=== PATIENT | male | born 1940 | race Caucasian/White ===

== ENCOUNTER 2019-12-27 13:08 | Outpatient (CLI) | payer MEDICARE, SELFPAY ==
--- NOTE | ~2019-12-27 | CT_ITS ---
EXAMINATION: CT chest wo con DATE: 12/27/2019 13:39 INDICATION: Follow-up lung nodule. Emphysema. Bony breath. Cough. TECHNIQUE: Computed tomography (CT) of the chest was performed without intravenous contrast. The dose -length product was 557.02 mGy-cm. Automated exposure control and iterative reconstruction technique were employed. COMPARISON: CT dated 10/14/2017 FINDINGS: There is atherosclerosis of the aorta. Heart size normal. No thoracic lymphadenopathy. Ther e is evidence for chronic granulomatous disease with calcified mediastinal lymph nodes and splenic gr anulomas. No significant pleural or pericardial effusion. There are a few calcified granulomas in the lung parenchyma and liver. There are 2 mm upper lobe nodules, likely benign, without significant susan nge. There is left lower lobe airspace disease, compatible with pneumonia. Moderate thoracic spondylo sis. IMPRESSION: 1. Left lower lobe airspace disease, compatible with pneumonia. Reviewed, dictated and finalized at location A.
== END 2019-12-27 13:09 | disposition home or self-care (01) ==
PROVIDERS: PCP Internal Medicine; Visit Provider Internal Medicine Critical Care Medicine
DX: R91.1 Solitary pulmonary nodule (principal); R91.8 Other nonspecific abnormal finding of lung field
CPT/HCPCS: 71250

== ENCOUNTER 2020-01-07 11:39 | Outpatient (CLI) | payer MEDICARE, SELFPAY ==
--- NOTE | ~2020-01-07 | XR_ITS ---
XR chest 2V DATE: 01/07/2020 12:06 INDICATION: Shortness of breath. Pneumonia. TECHNIQUE: PA and lateral views COMPARISON: 12/27/2019 CT chest FINDINGS: There is bilateral hyperinflation. Mild residual infiltrate or atelectasis in the left lower lung; otherwise no pulmonary infiltrate or consolidation, pleural effusion or pulmonary vascular congestion or pneumothorax is evident. Heart si ze appears within normal range. No hilar or mediastinal enlargement. Diffuse idiopathic skeletal hyperostosis of the thoracic spine. IMPRESSION: Mild residual infiltrate or atelectasis in the left lower lung Reviewed, dictated and finalized at location A.
== END 2020-01-07 11:40 | disposition home or self-care (01) ==
LOC: ANHIMG 11:45
PROVIDERS: PCP Internal Medicine; Visit Provider Internal Medicine
DX: J18.9 Pneumonia, unspecified organism (principal)
CPT/HCPCS: 71046

== ENCOUNTER 2020-03-21 14:06 | Outpatient (CLI) | payer MEDICARE, SELFPAY ==
--- NOTE | ~2020-03-21 | XR_ITS ---
EXAMINATION: XR foot LT min 3V DATE: 03/21/2020 14:45 INDICATION: Left foot injury. TECHNIQUE: 4 views of the left foot with weightbearing were obtained. COMPARISON: None. FINDINGS: Bone alignment is normal. No fracture. There is moderate osteoarthritis of first metatarsop halangeal joint and mild osteoarthritis of some of the interphalangeal joints. There are enthesophyte s at the posterior and plantar aspects of calcaneal tuberosity. IMPRESSION: 1. Polyarticular osteoarthritis. Reviewed, dictated and finalized at location B.
--- NOTE | ~2020-03-21 | XR_ITS ---
EXAMINATION: XR ankle LT min 3V DATE: 03/21/2020 14:45 INDICATION: Left ankle injury. TECHNIQUE: 4 views of left ankle were obtained. COMPARISON: Left ankle radiographs 06/15/2019 FINDINGS: Bone alignment is normal. No fracture. Joint spaces are well maintained. There are enthesop hytes at the posterior and plantar aspects of calcaneal tuberosity. Ankle soft tissue swelling is not ed. IMPRESSION: 1. No fracture. Reviewed, dictated and finalized at location B. IMPRESSION: 1. No fracture.
== END 2020-03-21 14:07 | disposition home or self-care (01) ==
PROVIDERS: PCP Internal Medicine; Visit Provider Internal Medicine
DX: S99.922A Unspecified injury of left foot, initial encounter (principal); X58.XXXA Exposure to other specified factors, initial encounter; M19.072 Primary osteoarthritis, left ankle and foot
CPT/HCPCS: 73610; 73630

== ENCOUNTER 2020-05-09 08:43 | Outpatient (CLI) | payer MEDICARE, SELFPAY ==
--- NOTE | 2020-05-09 08:49 | ECHO_ITS ---
Patient Info Name: Santos Mcgill Age: 79 years : 1940 Gender: Male Ht: 74 in Wt: 285 lbs BSA: 2.64 m2 HR: 70 bpm BP: 170 / 79 mmHg Heart Rhythm: Sinus Rhythm Technical Quality: Fair Exam Date: 05/09/2020 9:00 AM Exam Location: [facility] Patient Status: Outpatient Admit Date: 05/09/2020 Staff Ordering Physician: Nelson Tapia MD District Sales Manager: Gurinder Monroy RDCS Attending Provider: Nelson Tapia MD Referring Physician: Regina CASTILLO; Exam Type: CA echo doppler color flow Study Info Indications I10 - Essential (primary) hypertension Complete two-dimensional, color flow and Doppler transthoracic echocardiogram is performed. History/Risk Factors Essential Hypertension; Aortic stenosis; Murmur. Summary 1. Complete two-dimensional, color flow and Doppler transthoracic echocardiogram is performed. 2. Left ventricular chamber dimension is normal. 3. Left ventricular systolic function is normal, estimated at 60-65%. 4. There is moderately increased left ventricular wall thickness. 5. The left ventricular diastolic function is grade I diastolic dysfunction. 6. E/e' 11 is mildly elevated. 7. Left atrial chamber dimension is mildly enlarged. 8. The aortic valve is not well visualized. 9. There is moderate aortic valve sclerosis. 10. There is mild aortic valve stenosis based on a peak velocity of 239 cm/s, mean gradient of 13 mmHg, and aortic valve area of 1.6 cm2. 11. There is trivial pericardial effusion. Left Ventricle E/e' 11 is mildly elevated. Left ventricular chamber dimension is normal. Left ventricular systolic function is normal, estimated at 60-65%. There is moderately increased left ventricular wall thickness. The left ventricular diastolic function is grade I diastolic dysfunction. Right Ventricle Right ventricular chamber dimension is not well visualized. Left Atria Left atrial chamber dimension is mildly enlarged. Right Atria Right atrial chamber dimension is not well visualized. Aortic Valve Cannot determine number of aortic valve leaflets. There is mild aortic valve stenosis based on a peak velocity of 239 cm/s, mean gradient of 13 mmHg, and aortic valve area of 1.6 cm2. The aortic valve is not well visualized. There is moderate aortic valve sclerosis. There is no aortic valve regurgitation. Pulmonic Valve The pulmonic valve is not well visualized. There is no pulmonic regurgitation. Mitral Valve There is no mitral valve stenosis. There is no mitral valve regurgitation. Tricuspid Valve There is no tricuspid valve regurgitation. Pericardium/Pleural There is trivial pericardial effusion. Inferior Vena Cava Normal inferior vena cava with >50% collapse upon inspiration consistent with normal right atrial pressure, 5 mmHg. Aorta The aortic root size at the sinus of Valsalva is normal. Left Ventricular Outflow Tract Name Value Normal LVOT 2D LVOT Diameter 2.0 cm LVOT Doppler LVOT Peak Gradient 6 mmHg LVOT Mean Gradient 3 mmHg LVOT VTI 24 cm
== END 2020-05-09 08:44 | disposition home or self-care (01) ==
PROVIDERS: PCP Internal Medicine; Visit Provider Internal Medicine
DX: I10 Essential (primary) hypertension (principal); I45.10 Unspecified right bundle-branch block
CPT/HCPCS: 93306

== ENCOUNTER 2020-06-20 12:14 | Outpatient (NON) | payer MEDICARE, SELFPAY ==
[2020-06-23 17:04] LABS: SARS-CoV-2 RNA PCR Positive
== END 2020-06-20 12:15 ==
LOC: ANHCOVIDDT 12:17
PROVIDERS: PCP Internal Medicine; Visit Provider Internal Medicine
DX: U07.1 COVID-19 (principal)
CPT/HCPCS: 87635; C9803; U0003

== ENCOUNTER 2022-04-04 09:39 | Outpatient (CLI) | payer MEDICARE, SELFPAY ==
--- NOTE | ~2022-04-04 | XR_ITS ---
EXAMINATION: XR chest 2V DATE: 04/04/2022 10:01 INDICATION: Right chest pain. Cough. TECHNIQUE: Frontal and lateral views of the chest were obtained on 3 radiographs. COMPARISON: Chest 2 views 01/07/2020, chest CT 12/27/2019 FINDINGS: Calcified right lung nodules and calcified hilar lymph nodes are consistent with old granul omatous disease. There is mild atelectasis in the lower lung zones. No pleural effusion or pneumothor ax. The heart size is normal. There are prominent paracardial fat pads. IMPRESSION: 1. Mild atelectasis in the lower lung zones. Reviewed, dictated and finalized at location A.
== END 2022-04-04 09:40 | disposition home or self-care (01) ==
PROVIDERS: PCP Internal Medicine; Visit Provider Internal Medicine
DX: R07.9 Chest pain, unspecified (principal); R91.8 Other nonspecific abnormal finding of lung field
CPT/HCPCS: 71046

== ENCOUNTER 2022-08-09 08:02 | Outpatient (CLI) | payer MEDICARE, SELFPAY ==
--- NOTE | 2022-08-09 14:55 | WPDPFTINT ---
PFT Procedure Performed PFT Procedure Performed Spirometry with Pre/Post Bronchodilator Plethysmography (Lung Vol) Diffusing Cap (DLCO) Flow Vol Loop PFT Interpretation This is a pulmonary function test with pre and post-bronchodilator spirometry, plethysmography and diffusing capacity. The test was performed and results interpreted in accordance with the 2019 and 2005 ATS/ERS Task Force guidelines respectively using the Global Lung Function Initiative-2012 reference equations. Patient demonstrated good effort and cooperation. Reproducibility criteria were met. The quality of the pre bronchodilator spirometry maneuver was Grade B and post bronchodilator spirometry maneuver was Grade B. Of note, the patient had difficulty with the expiratory limb on the flow volume loops. Findings: Spirometry: The contour the expiratory flow tracing on 2 of 2 pre bronchodilator efforts has a mid expiratory notch. The contour of the expiratory flow tracing on 3 of 3 post bronchodilator efforts is normal. The contour the inspiratory flow tracing is normal. The pre bronchodilator FVC is 2.97 L, 71% predicted. The pre bronchodilator FEV1 is 1.85 L, 60% predicted. The pre bronchodilator FEV1: FVC ratio was 62%. The post bronchodilator FVC is 3.38 L, representing a 14% increase. The post bronchodilator FEV1 is 2.39 L, representing a 29% increase. The post bronchodilator FEV1: FVC ratio 71%. Plethysmography: The total lung capacity is 5.46 L, 73% predicted. The post bronchodilator FEV1 is 2.39 L, 59% predicted. The residual volume is 2.26 L, 81% predicted. Diffusing capacity: The diffusing capacity unadjusted for hemoglobin and carboxyhemoglobin is 15.9, 64% predicted. The diffusing capacity adjusted for alveolar volume is 3.67, 105% predicted. Comparison to previous pulmonary function testing on 07/23/2019. On 07/23/2019, 1 of 3 pre bronchodilator efforts had oscillations in the expiratory flow tracing and 2 of 3 efforts had a mid expiratory plateau or a knee pattern. One of 3 post bronchodilator efforts was notched and 2 of 3 post bronchodilator efforts had oscillations. The post bronchodilator FVC is unchanged from 3.65 L to 3.38 L. The post bronchodilator FEV1 is unchanged from 2.64 L to 2.39 L. The total lung capacity has decreased from 6.56 L to 5.46 L. The functional residual capacity has decreased from 4.25 L to 2.39 L. The residual volume has decreased from 3.27 L to 2.26 L. The diffusing capacity unadjusted for hemoglobin and carboxyhemoglobin is unchanged from 17.3 to 15.9. The diffusing capacity adjusted for alveolar volume is unchanged from 3.42 to 3.67. Impression: Currently the patient has a mid expiratory notch in 2 of 2 pre bronchodilator efforts but not in any of the three the post bronchodilator efforts. Previously the patient had a mid expiratory plateau or a knee pattern and expiratory oscillations. 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 The knee pattern can be a normal variant or pathologic and has been attributed to a choke point section of the bronchial tree. The normal variant is more common in younger female patients, decreases with age and is more pronounced in the post bronchodilator efforts. The pattern has also been described with kyphosis, kyphoscoliosis, central obstructing mass, and post lung transplantation. 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 Clinical correlation is recommended. There is a moderate severe restrictive ventilatory abnormality. The spirometry is without evidence of an obstructive abnormality. There is significant improvement after inhaling a single dose of albuterol. The diffusing capacity unadjusted for hemoglobin and carboxyhemoglobin is mildly decreased and normalizes when adjusted for alveolar volume. In comparison to previous pulmonary function testing on 07/23/2019 there has been a greater than anticipated time dependent decrease in t
== END 2022-08-09 08:03 | disposition home or self-care (01) ==
LOC: ANHPFT 08:03
PROVIDERS: PCP Internal Medicine; Visit Provider Internal Medicine
DX: J44.9 Chronic obstructive pulmonary disease, unspecified (principal); R94.2 Abnormal results of pulmonary function studies
CPT/HCPCS: 94060; 94726; 94729

== ENCOUNTER 2023-04-15 09:45 | Emergency (ER) | payer MEDICARE, SELFPAY ==
--- NOTE | ~2023-04-15 | XR_ITS ---
EXAMINATION: XR lumbar spine 2-3V DATE: 04/15/2023 13:52 INDICATION: Low back pain TECHNIQUE: Anteroposterior and lateral views of the lumbar spine, and cone-down lateral view of the l umbosacral junction were obtained. COMPARISON: CT, 06/17/2019 FINDINGS: There is chronic severe loss of intervertebral disc space height at L4-5 and L5-S1. There i s moderate loss of disc space height at L1-2 and L2-3. The vertebral body heights are maintained. The re are 6 mm of retrolisthesis of L5 on S1. There is no fracture. Small degenerative osteophytes proje ct from the anterior endplates of multiple vertebral bodies. Calcified atherosclerosis is noted. IMPRESSION: 1. Severe lumbar spondylosis without acute findings or significant interval change. Reviewed, dictated and finalized at location L. IMPRESSION: 1. Severe lumbar spondylosis without acute findings or significant interval susan nge.
--- NOTE | ~2023-04-15 | CT_ITS ---
EXAMINATION: CT abdomen pelvis wo con DATE: 04/15/2023 16:00 INDICATION: Left lower back pain. Hematuria. TECHNIQUE: Computed tomography (CT) of the abdomen and pelvis was performed without intravenous contr ast. Automated exposure control and iterative reconstruction technique were employed. The dose-length product was 1463.33 mGy-cm. COMPARISON: 02/14/2019 FINDINGS: Patchy consolidation in the bilateral lower lobes with associated mucous plugging of the bronchi susp icious for pneumonia. Calcified right middle lobe nodules, calcified right hilar lymph nodes and nume ivan hepatic and splenic calcifications, all consistent with old granulomatous disease. Cardiomegaly. Atherosclerotic coronary artery calcifications. Lipomatous hypertrophy of the atrial septum. No carmen cardial or pleural effusion. Gallbladder and bilateral adrenal glands are normal. There are bilateral renal cysts, the largest measuring 4.1 cm at the lower pole of the right kidney. No urolithiasis or hydronephrosis. There are few small dystrophic calcification scattered throughout the pancreas consis tent with sequela of chronic pancreatitis. There are few diverticula along the periphery of the bladd er. There is focal wall thickening along the posterior inferior bladder which given the history of he maturia raises concern for malignancy. Bowels including the appendix are normal. No free intraperiton eal gas or fluid. No pathologically enlarged abdominal or pelvic lymphadenopathy. There is extensive calcified atherosclerosis of the aorta and many of the other arteries. Suggestion of potentially hemo dynamically significant stenosis at the origin of the left renal artery, in the right common iliac an d bilateral internal iliac arteries in the bilateral common femoral arteries. Severe lumbar and mild lower thoracic spondylosis. Mild to moderate bilateral hip osteoarthritis. IMPRESSION: 1. A nonuniform wall thickening at the posterior inferior bladder which given the provided history he maturia and absence of urolithiasis raises concern for malignancy. Recommend cystoscopy for further e valuation. 2. Patchy consolidation and mucous plugging in the bronchi in the bilateral lower lobes and is consis tent with pneumonia. 3. Cardiomegaly. 4. Extensive atherosclerotic disease of the abdomen with large amount of calcific plaque suggesting p otentially hemodynamically significant stenosis at a few of the arteries as detailed above. Reviewed, dictated and finalized at location A. IMPRESSION: 1. A nonuniform wall thickening at the posterior inferior bladder which given t he provided history hematuria and absence of urolithiasis raises concern for ma lignancy. Recommend cystoscopy for further evaluation. 2. Patchy consolidation and mucous plugging in the bronchi in the bilateral low er lobes and is consistent with pneumonia. 3. Cardiomegaly. 4. Extensive atherosclerotic disease of the abdomen with large amount of calcif ic plaque suggesting potentially hemodynamically significant stenosis at a few of the arteries as detailed above.
[2023-04-15 09:52] VITALS: BP 132/59; PULSE 64; RESP 16; TEMP 36.6; O2SAT 98
--- NOTE | 2023-04-15 13:21 | ED.GENADULT ---
HPI - General Adult General Chief complaint: Back Pain/Injury Stated complaint: back pain Time Seen by Provider: 04/15/23 11:58 History of Present Illness HPI narrative: 82-year-old male presented to the emergency department for evaluation of left lower back pain. Patient reports symptoms started few days ago when he woke up in the morning. Patient denies any falls or injuries. Patient does have a history of kidney stones but states this does not feel similar. Patient denies any hematuria. Patient denies any associate abdominal pain. Patient denies any associated nausea vomiting or diarrhea. Patient does take [place] tens at home for pain control and did take some medication this morning. Patient denies any associated numbness or weakness. Patient states he has been having some difficulty ambulating due to pain. Related Data Home Medications Medication Instructions Recorded Confirmed cilostazol 100 mg tablet 100 mg PO BID 06/15/19 01/03/23 omega-3 fatty acids 1,000 mg 2,000 mg PO DAILY 06/15/19 01/03/23 capsule (Fish Oil Concentrate) ascorbate calcium (vitamin C) 500 500 mg PO DAILY 07/15/19 01/03/23 mg tablet aspirin 81 mg chewable tablet 81 mg PO DAILY 07/15/19 01/03/23 calcium carbonate 600 mg calcium 600 mg PO DAILY 07/15/19 01/03/23 (1,500 mg) tablet (Calcium) cholecalciferol (vitamin D3) 125 125 mcg PO DAILY 07/15/19 01/03/23 mcg (5,000 unit) capsule oxybutynin chloride 5 mg tablet 5 mg PO DAILY 07/15/19 01/03/23 [id number] acid-vit 1 tablet PO DAILY 01/25/21 01/03/23 K-lycop 400 mcg-20 mcg-370 mcg tablet (One-A-Day Men's 50 Plus (with vitamin K)) vitamin B complex 1 tablet PO DAILY 04/04/22 01/03/23 Allergies Allergy/AdvReac Type Severity Reaction Status Date / Time No Known Allergies Allergy Verified 01/01/23 08:39 Review of Systems Review of Systems: All systems reviewed & are unremarkable except as noted in HPI and below PMFSH Past Medical History Medical History Ankle pain Benign essential hypertension BMI 36.0-36.9,adult BMI 37.0-37.9, adult BMI 38.0-38.9,adult BPH (benign prostatic hyperplasia) Chest discomfort Chronic leg pain Chronic low back pain Colon cancer screening COPD (chronic obstructive pulmonary disease) DM type 2 (diabetes mellitus, type 2) Elevated homocysteine Encounter for Medicare annual wellness exam Encounter for routine adult health examination with abnormal findings Encounter for routine adult health examination without abnormal findings Exposure to COVID-19 virus Follow up Hearing loss Hx of colonic polyps Hyperlipidemia Hypersomnolence Left ankle sprain Microscopic hematuria Nocturia 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 Personal history of COVID-19 Pneumonia Polyarticular arthritis PVD (peripheral vascular disease) RBBB (right bundle branch block) RLS (restless legs syndrome) Vitamin D deficiency Family History Family History Father Emphysema lung Father Family history of liver disease Family history of chronic obstructive pulmonary disease Social History Social History Smoking status: Current every day smoker Second hand tobacco smoke exposure: No Alcohol intake: never Lack of Transportation: No Lack of Food: Never True Current Housing: I Have Housing Concerned About Future Housing: No Difficulty Paying Gas/Electric Bills: No Difficulty Paying for Meds: No Currently Unemployed: No Education: High School Diploma/GED Difficulty w/ Childcare or Family Care: No Living arrangements: with family Occupation/Education: occupation Gender identity (if verbalized by the patient): Male Exam Narrative: APPEARANCE: Well appearing, no pain, no distress, well-nourished. HEAD: normocephalic, atraumatic. EYES: PERRLA/EOMI, conjunctivae cl
[2023-04-15] MEDS: CYCLOBENZAPRINE HCL 10 MG TABLET PO (14:15)
[2023-04-15] MEDS: HYDROcodone/acetaminophen (*CRX) 10-325 MG TABLET 1 TAB PO (14:15)
--- NOTE | 2023-04-15 14:23 | PC.NURSE ---
pt aware of need for ua specimen. states does not have to go at this time. pt gruff with staff.
[2023-04-15 15:37] LABS: Appearance Urine Cloudy (Clear); Bacteria Urine Rare /hpf; Bilirubin Urine Negative (Negative); Blood Urine Negative (Negative); Color Urine Dark Yellow (Yellow); Glucose Urine UA Negative (Negative); Ketones Urine Trace mg/dL (Negative); Leukocyte Esterase Ur 2+ LEU/UL (Negative); Nitrate Urine Negative (Negative); Protein Urine 2+ mg/dL (Negative); Specific Grav Ur 1.024 (1.001-1.035); Squamous Epithelial Cell Urine Moderate /hpf (Few); WBC Urine 51-100 /hpf
[2023-04-15 15:39] LABS: Add Urine Microscopic? YES
== END 2023-04-15 17:22 | disposition home or self-care (01) ==
PROVIDERS: Emergency Provider Emergency Medicine; PCP Internal Medicine
DX: M54.50 Low back pain, unspecified (principal); R31.9 Hematuria, unspecified; I10 Essential (primary) hypertension; J44.9 Chronic obstructive pulmonary disease, unspecified; E78.5 Hyperlipidemia, unspecified; E11.9 Type 2 diabetes mellitus without complications; F17.200 Nicotine dependence, unspecified, uncomplicated
CPT/HCPCS: 72100; 74176; 81001; 87086; 87088; 99284; A9270

== ENCOUNTER 2023-09-29 11:55 | Outpatient (CLI) | payer MEDICARE, SELFPAY ==
--- NOTE | ~2023-09-29 | XR_ITS ---
EXAMINATION: XR knee LT 3V DATE: 09/29/2023 12:28 INDICATION: Generalized left knee pain TECHNIQUE: AP, sunrise and lateral views of the left knee were obtained. COMPARISON: None. FINDINGS: Alignment is normal. No fracture. Joint spaces appear normal although narrowing can be underestimate d on nonweightbearing imaging. No no left knee joint effusion. Atherosclerotic calcific lesions along the popliteal and distal femoral arteries. External brace seen at the medial lateral aspects of the left knee on the AP projection which is been removed on the subsequent images. IMPRESSION: 1. No or joint effusion or osseous abnormality at the left knee. Reviewed, dictated and finalized at location A. 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
== END 2023-09-29 11:56 | disposition home or self-care (01) ==
PROVIDERS: PCP Internal Medicine; Visit Provider Internal Medicine
DX: M25.562 Pain in left knee (principal)
CPT/HCPCS: 73562

== ENCOUNTER 2023-10-09 15:58 | Outpatient (CLI) | payer MEDICARE, SELFPAY ==
--- NOTE | ~2023-10-09 | MR_ITS ---
EXAMINATION: MR knee LT wo con DATE: 10/09/2023 17:01 INDICATION: Left knee pain. TECHNIQUE: Magnetic resonance imaging (MRI) of the left knee was performed without intravenous contra st. Sequences included axial PD-weighted FS FSE, coronal PD-weighted FSE and PD-weighted FS FSE, sagi ttal PD-weighted FSE, and sagittal T2-weighted FS FSE. COMPARISON: Left knee radiographs 09/29/2023 FINDINGS: Medial compartment: Medial meniscus is normal. There is cartilage surface irregularity of tibial condyle and femoral cond yle. There is shallow partial-thickness cartilage loss of femoral condyle involving the central artic ular surface. Lateral compartment: Lateral meniscus is normal. There is cartilage surface irregularity of tibial condyle. The femoral ca rtilage is normal. Patellofemoral compartment: There is cartilage surface irregularity of patella and trochlea. Ligaments and tendons: The anterior and posterior cruciate ligaments are normal. Medial collateral ligament is normal. There are changes of prior sprain of fibular collateral ligament characterized by increased signal intensi ty proximally. There is mild patellar tendinopathy. Fluid: There is a small knee joint effusion. There is mild prepatellar and superficial infrapatellar bursiti s. IMPRESSION: 1. Mild tricompartmental chondrosis. 2. Small knee joint effusion. Reviewed, dictated and finalized at location A.
== END 2023-10-09 15:59 | disposition home or self-care (01) ==
PROVIDERS: PCP Internal Medicine; Visit Provider Internal Medicine
DX: M25.462 Effusion, left knee (principal)
CPT/HCPCS: 73721

== ENCOUNTER 2024-03-27 13:19 | Outpatient (CLI) | payer MEDICARE, SELFPAY ==
--- NOTE | ~2024-03-27 | XR_ITS ---
XR hip LT 2V w AP pelvis 03/27/2024 13:46 Indication: Left leg pain Procedure: AP pelvis and 2 views left hip Comparison: No prior studies for comparison. Findings: Pelvic rings are intact. Mild osteoarthritis of the hips. No acute fracture or traumatic ma lalignment. There is lower lumbar spondylosis. There is atherosclerosis. Impression: 1: No acute abnormality of the left hip. Reviewed, dictated and finalized at location B. Impression: 1: No acute abnormality of the left hip.
--- NOTE | ~2024-03-27 | XR_ITS ---
XR knee LT 3V 03/27/2024 13:46 INDICATION: Left knee pain PROCEDURE: 3 views left knee COMPARISON: 09/29/2023 FINDINGS: Fracture, dislocation or subluxation is not identified. Small joint effusion. The soft tiss ues appear within normal limits. No foreign bodies are identified. IMPRESSION: 1: No acute fracture. 2: Small joint effusion. Reviewed, dictated and finalized at location B.
--- NOTE | ~2024-03-27 | XR_ITS ---
XR ankle LT min 3V 03/27/2024 13:46 INDICATION: Left ankle pain PROCEDURE: 4 views left ankle COMPARISON: 03/21/2020 FINDINGS: Fracture, dislocation or subluxation is not identified. Ankle mortise intact. The soft tiss ues appear within normal limits. No foreign bodies are identified. IMPRESSION: 1: NO ACUTE BONE OR JOINT ABNORMALITY IDENTIFIED. Reviewed, dictated and finalized at location B.
== END 2024-03-27 13:20 | disposition home or self-care (01) ==
PROVIDERS: PCP Internal Medicine; Visit Provider Internal Medicine
DX: M25.462 Effusion, left knee (principal)
CPT/HCPCS: 73502; 73562; 73610

== ENCOUNTER 2024-03-30 12:08 | Emergency (ER) | payer MEDICARE, SELFPAY ==
--- NOTE | ~2024-03-30 | US_ITS ---
EXAMINATION:US venous doppler LE LT INDICATION:Leg pain TECHNIQUE: Multiple grayscale, color flow and Doppler images of the left lower extremity deep venous systems were obtained and reviewed. COMPARISON:No prior studies for comparison. FINDINGS: The common femoral, superficial femoral and popliteal veins demonstrate normal respiratory variation, augmentation and compressibility. Color flow is also seen within the posterior tibial, pe roneal, greater saphenous and profunda veins. IMPRESSION: 1: No lower extremity deep venous thrombosis. Reviewed, dictated and finalized at location B.
--- NOTE | ~2024-03-30 | CT_ITS ---
EXAMINATION: CTA LE LT DATE: 03/30/2024 15:04 INDICATION: Left lower limb pain with prominent atherosclerotic calcifications at the left popliteal artery on prior CT TECHNIQUE: Computed tomographic angiography (CTA) of the abdominal, pelvis, and both lower extremitie s was performed with 150 mL Omnipaque 350 intravenous contrast. Automated exposure control and iterat renee reconstruction technique were employed. The dose-length product was 1359.25 mGy-cm. COMPARISON: CT abdomen and pelvis dated 04/15/[address] left knee dated 03/30/2024 FINDINGS: ABDOMINAL AORTA AND PELVIC VASCULATURE: Atherosclerotic calcifications without hemodynamically significant stenosis along the visualized infr arenal abdominal aorta. The inferior mesenteric arteries patent. Atherosclerotic plaque along the tory ateral iliac arteries. There is 75% stenosis at the proximal right common iliac artery and 35% stenos is at the left common iliac artery. There appears be occlusion of the origin of the left internal raiza ac artery with contrast opacification more distally likely related to collaterals. Scattered small am ount of atherosclerotic plaque without hemodynamic significant stenosis at the bilateral external raiza ac arteries. There is 50% stenosis at the proximal right internal iliac artery. RIGHT LOWER EXTREMITY: Prominent atherosclerotic calcifications at the right common femoral artery with high-grade, >70% emiliana nosis. There is near occlusion stenosis at the origin of the left superficial femoral artery. The mor e distal arteries diminutive following the stenosis progressively normalizing in caliber as it procee ds progressive collateral resupply. There is scattered nonhemodynamically significant atherosclerotic plaque along the more distal superficial femoral artery and nkxqs-jfw-yjdy popliteal artery. There i s a high-grade stenosis of the right popliteal artery at the level of the knee joint. There are scatt ered atherosclerotic plaque along the more distal arteries. Portion of the proximal right anterior ti bial artery extends beyond the margin of the field of imaging. There is runoff below the ankle in the right anterior tibial and posterior tibial arteries. The right peroneal artery is atretic with contr ast evident within the diminutive artery just above the level of the ankle. Incidentally noted is a l arge geode at the base of the right medial malleolus with narrow lucent tract extending to the articu lar cortex at the medial side of the tibial plafond. LEFT LOWER EXTREMITY: Similar high-grade stenosis at the left common femoral and proximal superficial femoral arteries and at the left popliteal artery at the level of the knee joint line. There is scattered atherosclerotic plaque without hematoma significant stenosis along the more distal arteries with runoff below the ank le in the left anterior tibial and posterior tibial arteries. The left peroneal artery similarly atre tic with contrast evident within the [place] distal artery to just above level of the ankle joint. The re is a small left knee joint effusion. ADDITIONAL FINDINGS: There are changes likely transurethral prostatectomy. The bladder and visualized portion of the bowel s, lower poles of the kidneys are unremarkable. No pathologically enlarged pelvic or inguinal lymphad enopathy. IMPRESSION: 1. Extensive atherosclerotic disease to bilateral lower limbs with relatively symmetric high-grade s tenoses at the bilateral common femoral, proximal superficial femoral and bilateral popliteal arterie s at the level of the knee joint lines. 2. High-grade stenosis at the proximal right common iliac artery and proximal left internal iliac art georgette. Reviewed, dictated and finalized at location A.
--- NOTE | ~2024-03-30 | CT_ITS ---
EXAMINATION: CT knee LT wo con DATE: 03/30/2024 13:05 INDICATION: Left knee pain TECHNIQUE: High resolution computed tomography (CT) of the left knee was performed without intravenou s contrast. Additional sagittal and coronal reconstructions were performed. Automated exposure contro l and iterative reconstruction technique were employed. The dose-length product was 751.39 mGy-cm. COMPARISON: Left knee radiographs dated 03/27/2024 FINDINGS: Bone alignment is normal. No fracture. Joint spaces appear normal on nonweightbearing imaging with no osteophytosis. Minimal right knee joint effusion at the suprapatellar pouch. There is scattered athe rosclerotic plaque along the popliteal artery extending into the anterior tibial, posterior tibial an d peroneal arteries. This most significant in the popliteal artery at level of the knee joint line wh ere it appears likely hemodynamically significant. Soft tissues are otherwise unremarkable. IMPRESSION: 1. Minimal left knee joint effusion. No osseous abnormality. 2. Scattered atherosclerotic calculations with potentially hemodynamically significant stenosis at th e popliteal artery at the level of the knee joint line. Reviewed, dictated and finalized at location A. IMPRESSION: 1. Minimal left knee joint effusion. No osseous abnormality. 2. Scattered atherosclerotic calculations with potentially hemodynamically sign ificant stenosis at the popliteal artery at the level of the knee joint line.
[2024-03-30 12:14] VITALS: BP 123/56; PULSE 77; RESP 18; TEMP 36.2; O2SAT 94
--- NOTE | 2024-03-30 12:31 | ED.EXTPRO ---
HPI - Extremity Problem General Chief complaint: Extremity Problem,Nontraumatic Stated complaint: L knee pain Time Seen by Provider: 03/30/24 12:14 History of Present Illness HPI Narrative: 83-year-old male present to the emergency department for evaluation for left leg pain. Patient states for last 2 weeks he has had pain from the hip down to his ankle. Patient is unable to determine if the pain comes from the hip ankle or knee. Patient denies any specific fall or injury. Patient did have outpatient imaging a few days ago that was negative. Patient states that the pain has been present for 2 weeks and has been unchanged. Patient does not describe symptoms of claudication. Patient does take norco 10s for pain control. Related Data Home Medications Medication Instructions Recorded Confirmed cilostazol 100 mg tablet 100 mg PO BID 06/15/19 02/04/24 omega-3 fatty acids 1,000 mg 2,000 mg PO DAILY 06/15/19 02/04/24 capsule (Fish Oil Concentrate) ascorbate calcium (vitamin C) 500 500 mg PO DAILY 07/15/19 02/04/24 mg tablet aspirin 81 mg chewable tablet 81 mg PO DAILY 07/15/19 02/04/24 calcium carbonate (Calcium 600) 600 mg PO DAILY 07/15/19 02/04/24 cholecalciferol (vitamin D3) 125 125 mcg PO DAILY 07/15/19 02/04/24 mcg (5,000 unit) capsule oxybutynin chloride 5 mg tablet 5 mg PO DAILY 07/15/19 02/04/24 nlwwuochgphf-xwb-lwnip acid-vit 1 tablet PO DAILY 01/25/21 02/04/24 K-lycop 400 mcg-20 mcg-370 mcg tablet (One-A-Day Men's 50 Plus (with vitamin K)) vitamin B complex 1 tablet PO DAILY 04/04/22 02/04/24 mirabegron 50 mg tablet,extended 50 mg PO DAILY 03/05/24 release 24 hr (Myrbetriq) Allergies Allergy/AdvReac Type Severity Reaction Status Date / Time No Known Allergies Allergy Verified 02/04/24 11:45 Review of Systems Review of Systems: All systems reviewed & are unremarkable except as noted in HPI and below PMFSH Past Medical History Medical History (Updated 03/30/24 @ 16:13 by Bandar Lawrence MD) Ankle pain Benign essential hypertension BMI 36.0-36.9,adult BMI 37.0-37.9, adult BMI 38.0-38.9,adult BPH (benign prostatic hyperplasia) Chest discomfort Chronic leg pain Chronic low back pain Colon cancer screening COPD (chronic obstructive pulmonary disease) DM type 2 (diabetes mellitus, type 2) Elevated homocysteine Encounter for Medicare annual wellness exam Encounter for routine adult health examination with abnormal findings Encounter for routine adult health examination without abnormal findings Exposure to COVID-19 virus Follow up Hearing loss Hx of colonic polyps Hyperlipidemia Hypersomnolence Left ankle sprain Microscopic hematuria Nocturia 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 Personal history of COVID-19 Pneumonia Polyarticular arthritis PVD (peripheral vascular disease) RBBB (right bundle branch block) Right knee pain RLS (restless legs syndrome) UTI (urinary tract infection) Vitamin D deficiency Family History Family History Father Emphysema lung Father Family history of liver disease Family history of chronic obstructive pulmonary disease Social History Social History Smoking status: Current every day smoker Second hand tobacco smoke exposure: No Alcohol intake: never Lack of Transportation: No Lack of Food: Never True Current Housing: I Have Housing Concerned About Future Housing: No Difficulty Paying Gas/Electric Bills: No Difficulty Paying for Meds: No Currently Unemployed: No Education: High School Diploma/GED Difficulty w/ Childcare or Family Care: No Living arrangements: with family Occupation/Education: occupation Gender identity (if verbalized by the patient): Male Exam Narrative: APPEARANCE: Well appearing, no pain, no distress, well-nourished. HEAD: normocephalic, atraumatic. EYES: PERRLA/EOMI, conjuncti
[2024-03-30 13:06] LABS: Basophils Absolute Auto 0.1 K/mm3 (0.0-0.1); Eosinophils Absolute Auto 0.3 K/mm3 (0-0.3); Eosinophils Percent Auto 3.7 % (0-4.4); Hematocrit 38.7 % (42.0-52.0); Hemoglobin 12.9 g/dL (14.0-18.0); Immature Granulocyte Absolute 0.02 K/mm3 (0.00-0.031); Immature Granulocyte Percent A 0.2 % (0-0.5); Lymphocytes Absolute Auto 1.26 K/mm3 (0.9-3.2); Lymphocytes Percent Auto 15.7 % (18.3-44.2); Mean Corpuscular HGB Conc 33.3 g/dl (32-36); Mean Corpuscular Hemoglobin 30.4 pg (26-34); Mean Corpuscular Volume 91.1 fl (80-100); Mean Platelet Volume 9.3 fl (7.4-10.4); Monocytes Absolute Auto 0.8 K/mm3 (0.1-0.6); Monocytes Percent Auto 9.5 % (2.6-8.5); Neutrophils Absolute Auto 5.6 K/mm3 (1.3-6.7); Neutrophils Percent Auto 69.9 % (45.5-73.1); Platelet Count Result 318 k/mm3 (150-375); Red Blood Count 4.25 M/mm3 (4.6-6.20)
[2024-03-30 13:13] LABS: Alanine Aminotransferase 16 U/L (6-50); Albumin Level 4.1 g/dL (3.5-5.1); Alkaline Phosphatase 68 U/L (38-126); Anion Gap 12 mmol/L (4-12); Aspartate Amino Transferase 19 U/L (17-59); Bilirubin,Total 0.5 mg/dL (0.2-1.3); Blood Urea Nitrogen 23 mg/dL (9-20); Calcium 9.4 mg/dL (8.4-10.2); Carbon Dioxide 24 mmol/L (22-30); Chloride 103 mmol/L (98-107); Estimated CRCL calculation 59 ml/min; Estimated Glomerular Filt Rate > 60; Glucose 102 mg/dL (65-110); Potassium 4.2 mmol/L (3.4-5.0); Sodium 139 mmol/L (137-145)
[2024-03-30 14:31] LABS: Lactic Acid Reflex 2.3 mmol/L (0.7-2.0)
[2024-03-30 15:03] VITALS: BP 147/64; PULSE 69; RESP 18; O2SAT 95
[2024-03-30 17:07] LABS: Reflex Lactic Acid Yes or No Add Lactic
== END 2024-03-30 16:33 | disposition home or self-care (01) ==
PROVIDERS: Emergency Provider Emergency Medicine; PCP Internal Medicine
DX: M79.605 Pain in left leg (principal); I10 Essential (primary) hypertension; J44.9 Chronic obstructive pulmonary disease, unspecified; E78.5 Hyperlipidemia, unspecified; E55.9 Vitamin D deficiency, unspecified; G25.81 Restless legs syndrome; N40.0 Benign prostatic hyperplasia without lower urinary tract symptoms; F17.200 Nicotine dependence, unspecified, uncomplicated; Z86.010 Personal history of colon polyps; Z86.16 Personal history of COVID-19; Z87.01 Personal history of pneumonia (recurrent); Z87.440 Personal history of urinary (tract) infections; Z79.82 Long term (current) use of aspirin; I70.203 Unspecified atherosclerosis of native arteries of extremities, bilateral legs; I70.8 Atherosclerosis of other arteries
CPT/HCPCS: 36415; 73700; 73706; 80053; 83605; 85025; 93971; 99284; Q9967

== ENCOUNTER 2024-06-16 12:11 | Outpatient (CLI) | payer MEDICARE, SELFPAY ==
--- NOTE | ~2024-06-16 | XR_ITS ---
CHEST RADIOGRAPH, PA AND LATERAL CLINICAL HISTORY: R05.9 - Cough, sob, HX FORMER SMOKER . COMPARISON: 04/04/2022 TECHNIQUE: PA and lateral views of the chest. FINDINGS The cardiomediastinal silhouette is unremarkable. Blunting of the left costophrenic sulcus suggesting a small left-sided pleural effusion. Coarse interstitial lung markings, unchanged. The remainder of the lungs are clear. Visualized osseous structures and soft tissues are unremarkable. IMPRESSION: Small left-sided pleural effusion without focal infiltrate. Reviewed, dictated and finalized at location A. GER LABOR RELATIONS
== END 2024-06-16 12:12 | disposition home or self-care (01) ==
PROVIDERS: PCP Internal Medicine; Visit Provider Internal Medicine
DX: R05.9 Cough, unspecified (principal); R06.2 Wheezing; J90 Pleural effusion, not elsewhere classified
CPT/HCPCS: 71046

== ENCOUNTER 2024-12-13 10:00 | Inpatient (IN) | payer MEDICARE, SELFPAY ==
[2024-12-13] VITALS (19 sets, daily range): BP systolic 112–160; BP diastolic 57–68; PULSE 73–91; RESP 18–25; TEMP 36.4–36.9; O2SAT 90–96; BMI 36.4
--- NOTE | ~2024-12-13 | XR_ITS ---
CHEST RADIOGRAPH CLINICAL HISTORY: coarse LUNG SOUNDS . COMPARISON: 06/16/2024 TECHNIQUE: Single portable view of the chest. FINDINGS The cardiomediastinal silhouette is enlarged and partially obscured. Large left-sided pleural effusion with adjacent compressive atelectasis. The right hemithorax is clear. IMPRESSION: Large left-sided pleural effusion with adjacent compressive atelectasis Reviewed, dictated and finalized at location A.
--- NOTE | ~2024-12-13 | US_ITS ---
EXAM: Focused ultrasound examination of the soft tissues of the left chest HISTORY: pleural effusion on chest radiograph TECHNIQUE: Sonographic evaluation of the soft tissues of the left chest were performed assessing schwarz scale appearance. COMPARISON: Radiographic evaluation of the chest, performed one day earlier. FINDINGS: Sonographic evaluation of the soft tissues of the left chest demonstrate benign fibrofatty and fibrom uscular elements with inadequate fluid, insufficient for drainage IMPRESSION: No significant left-sided pleural effusion, on direct sonographic evaluation to safely perform a thor acentesis as per Dr. Das on live interrogation. Procedure aborted. Reviewed, dictated and finalized at location A. IMPRESSION: No significant left-sided pleural effusion, on direct sonographic evaluation to safely perform a thoracentesis as per Dr. Das on live interrogation. Proc edure aborted.
--- NOTE | ~2024-12-13 | CT_ITS ---
EXAMINATION: CT diagnostic chest w con DATE: 12/14/2024 22:24 INDICATION: pleural effusion TECHNIQUE: Computed tomography (CT) of the chest was performed with 100 mL Omnipaque-350 intravenous contrast. Automated exposure control and iterative reconstruction technique were employed. The dose-l ength product was 746.95 mGy-cm. COMPARISON: X-ray chest 12/13/2024; CT chest 12/27/2019; CT abdomen pelvis 04/15/2023. FINDINGS: CHEST: Thoracic aorta: No significant dilation. Moderate arch calcification. Lung parenchyma and airways: Dependent segmental and subsegmental left basilar consolidation. Right m edial basilar subsegmental consolidation. Scattered sub-6 mm pulmonary nodules. Subsegmental dependen t lingular consolidation. Granulomatous calcification. Thoracic inlet, axillae and chest wall: 3.6 cm left thyroid mass. No axillary lymphadenopathy. Mediastinum: Calcified subcarinal paratracheal, and right hilar nodes. Enlarged left hilar, right hil ar, and paratracheal nodes.. Heart and pericardium: Aortic valve calcification. Small pericardial effusion. Coronary artery calcifications: Moderate. Pleura: Trace left pleural fluid. Upper abdomen: Likely 10 mm left adrenal adenoma. Multiple renal cysts. Thoracic bones: No acute osseous finding in the chest. Small lipoma in the left shoulder musculature. IMPRESSION: Multifocal areas of dependent consolidation may represent aspiration, infection, or atelectasis. Trace left pleural effusion. Scattered sub-6 mm pulmonary nodules which require no additional evaluation at this time, unless the patient is at high risk, in which case consider an optional low-dose noncontrast CT of the chest in o ne year. Small pericardial effusion. Mediastinal and hilar lymphadenopathy. 3.6 cm left thyroid mass, consider nonemergent outpatient thyroid ultrasound for further characteriza tion. Reviewed, dictated and finalized at location K. IMPRESSION: Multifocal areas of dependent consolidation may represent aspiration, infection , or atelectasis. Trace left pleural effusion. Scattered sub-6 mm pulmonary nodules which require no additional evaluation at this time, unless the patient is at high risk, in which case consider an option al low-dose noncontrast CT of the chest in one year. Small pericardial effusion. Mediastinal and hilar lymphadenopathy. 3.6 cm left thyroid mass, consider nonemergent outpatient thyroid ultrasound fo r further characterization.
--- OUTSIDE RECORDS SUMMARY | 2024-12-13 10:36 | XMS_ITS | Clinical Summary ---
Author Organization [facility] Address [address] [place] [address] Care Team Providers Care Powder Expert Name Role Phone Nelson Tapia MD Primary Care Provider Mikal Momin MD Unavailable [phone] Source Comments [facility],non-owned Affiliates and Associated Physician Practices is amultiple site organization consisting of ambulatory clinics and hospital sitesin [place], [place], [place] and [place]. This disclosure is being madepursuant to the Care Everywhere program and may not contain all information available regarding this patient. Last updated 18.[facility] [employer] Allergies Active Allergy Reactions Criticality Noted Date Comments Latex Contact Dermatitis,Other Low 06/07/2016 Skin peels when exposed to latex Medications * Be aware that medications may not be up to date on this document. Alwaysverify current medications with the patient. simvastatin (ZOCOR) 20 MG tablet Take 20 mg by mouth. 06/07/2016 Active Ascorbic Acid (VITAMIN C) 500 MG Take 1,000 mg by mouth DAILY. 06/07/2016 Active [place]-3 Fatty Acids (FISH OIL) 1000 MG capsule Take 1,000 mg by mouth. 06/07/2016 Active Calcium Carbonate-Vit D-Min (CALCIUM-VITAMIN D-MINERALS) 600-400 MG-UNIT CHEW Take 1 tablet by mouth DAILY. 06/07/2016 Active verapamil CR (ISOPTIN-SR) 240 MG tablet Take 240 mg by mouth. 06/07/2016 Active L-Lysine 1000 MG Take 1 tablet by mouth DAILY. 06/07/2016 Active Multiple Vitamins-Mineral s (CENTRUM SILVER ADULT 50+) TABS Take 1 tablet by mouth DAILY. 06/07/2016 Active enalapril (VASOTEC) 20 MG tablet Take 20 mg by mouth DAILY. 06/07/2016 Active vitamin D3-cholecalcifer ol (CHOLECACIFEROL) 1000 UNITS tablet Take 1 tablet by mouth DAILY. 06/07/2016 Active Aspirin 81 MG Take 81 mg by mouth DAILY. 06/07/2016 Active oxybutynin (DITROPAN) 5 MG tablet Take 1 tablet by mouth once daily 11 03/31/2018 Active cilostazol (PLETAL) 100 MG tablet Take 1 tablet by mouth 2 times daily 1 05/14/2018 Active ANORO ELLIPTA 62.5-25 MCG/INH inhaler Inhale 1 puff by mouth once daily 1 05/31/2018 Active B Complex Vitamins (VITAMIN B COMPLEX PO) Take 1 tablet by mouth once daily Active Active Problems Problem Noted Date Diagnosed Date Subluxation of right lens 06/10/2016 Retained (nonmagnetic) (old) foreign body in lens, unspecified eye (CODE) 06/07/2016 Social History Tobacco Use Types Packs/Day Years Used Date Smoking Tobacco: Former Cigarettes Q uit: 09/25/2017 Smokeless Tobacco: Never Alcohol Use Standard Drinks/Week Comments Yes 0 (1 standard drink = 0.6 oz pur e alcohol) Sex and Gender Information Value Date Recorded Sex Assigned at Not on file Legal Sex Male 5:44 PM 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 SALES Gender Identity Not on file Sexual Orientation Not on file Last Filed Vital Signs Vital Sign Reading Time Taken Comments Blood Pressure 156/79 06/10/2016 1:05 PM MEDIA CONSULTANT OUTSIDE SALES Pulse 60 06/10/2016 1:05 PM MEDIA CONSULTANT OUTSIDE SALES Temperature 36.7 C (98.1 F) 06/10/2016 1:05 PM MEDIA CONSULTANT OUTSIDE SALES Respiratory Rate 16 06/10/2016 12:35 PM MEDIA CONSULTANT OUTSIDE SALES Oxygen Saturation 98% 06/10/2016 1:05 PM MEDIA CONSULTANT OUTSIDE SALES Inhaled Oxygen Concentration - - Weight 127 kg (280 lb) 06/10/2016 11:10 AM MEDIA CONSULTANT OUTSIDE SALES Height 188 cm (6' 2 ) 06/10/2016 11:10 AM MEDIA CONSULTANT OUTSIDE SALES Body Mass Index 35.95 06/10/2016 11:10 AM MEDIA CONSULTANT OUTSIDE SALES Plan of Treatment Health Maintenance Due Date Last Done Comments DTAP/TDAP/TD VACCINES (1 - Tdap) 1960 PNEUMOCOCCAL VACCINE 50+ (1 of 1 - PCV) 12/18/1991 ZOSTER VACCINE (1 of 2) 12/18/1991 Respiratory Syncytial Virus (RSV) Vaccine Pt: or over 60 yrs (1 - 1-dose 75+ series) 2016 COVID-19 VACCINE (1 - 2023-2 5 season) 2024 DEPRESSION SCREENING 07/28/2024 INFLUENZA VACCINE (Season Ended) 2025 HEPATITIS B VACCINE Aged Out No longe r eligible based on patient's age to complete this topic HIB VACCINE Aged Out No longer eligi ble based on patient's age to complete this topic HPV VACCINE Aged Out No longer eligi ble based on patient's age to complete this topic MENINGOCOCCAL (Group B) VACC INE SHARED DECISION-MAKING Aged Out No longer eligibl e based on patient's age to complete this topic MENINGOCOCCAL GROUPS A/C/Y/W VACCINE Aged Out No longer eligible b ased on patient's age to complete [place] [address] MEDICARE [facility] Care Teams Powder Expert Relationship Specialty Start Date End Date Nelson Tapia MD [address] [place] [address] [facility] - General 03/22/16 Mikal Momin MD [address] [place] [address] Ophthalmology 06/23/18
--- OUTSIDE RECORDS SUMMARY | 2024-12-13 10:36 | XMS_ITS | Encounter Summary ---
Author Organization [facility] Care Team Providers Care Electroencephalograph Technician Name Role Phone Unknown, Notinfile Primary Care Provider Unavail able Unknown, Notinfile Primary Care Provider Unavail able Unknown, Notinfile Primary Care Provider Unavail able Nelson Tapia MD Primary Care Provider [phone] Kiko Kumar MD Unavailable [phone] Encounter Details Date Type Department Care Team (Latest Contact Info) Description 10/08/2016 Orders Only [facility]INCON[facility] ProviderClaude MD [address] [place] [id number] Social History Tobacco Use Types Packs/Day Years Used Date Smoking Tobacco: Never Assessed Sex and Gender Information Value Date Recorded Sex Assigned at Not on file Legal Sex Male 4:25 AM 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 us Historical Provider Final Res ult documented in this encounter Visit Diagnoses Not on filedocumented in this encounter Care Teams Electroencephalograph Technician Relationship Specialty Start Date End Date Unknown, Notinfile PCP - General 04/10/17 04/13/17 Unknown, Notinfile PCP - General 04/14/17 04/14/17 Unknown, Notinfile PCP - General 04/15/17 04/17/17 Nelson Tapia MD [address] [facility] [place], [place] [id number] PCP - General 04/18/17 Kiko Kumar MD [address] [facility] [address] [facility] [address] [place] [address] Surgeon Vascular Surgery 02/13/21 documented as of this encounter
--- OUTSIDE RECORDS SUMMARY | 2024-12-13 10:36 | XMS_ITS | Referral Summary ---
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 (Primary Dx); Essential hypertension; Type 2 diabetes mellitus with diabetic peripheral angiopathy without gangrene, without long-term current use of insulin (HCC); Hyperlipidemia, unspecified hyperlipidemia type 11/24/2024 9:18 AM CDT - 11/24/2024 11:59 PM CDT Hospital Encounter [facility] [place] [address] Atherosclerosis of turtle mountain artery of left lower extremity with intermittent claudication Discharge Disposition: Discharge to home or self care from Last 3 Months Allergies Active Allergy Reactions Criticality Noted Date Comments Budesonide Unknown 09/24/2013 unknown Latex Rash,Other (See comments) Medium 06/07/2016 Skin peels when exposed to latex Tea Tree Oil Unknown 09/24/2013 Triamcinolone Unknown 09/24/2013 Medications ascorbic acid, vitamin C, 500 mg capsule Take 500 mg by mouth daily 06/07/20 16 Active aspirin 81 mg enteric coated tablet Take 1 tablet (81 mg total) by mouth daily 06/07/20 16 Active ONETOUCH ULTRA BLUE TEST STRIP strip USE TO TEST BLOOD SUGAR BID 5 11/25/19 19 Active ONETOUCH ULTRA2 kit USE DIRECTED UP TO BID FOR BLOOD SUGAR CHECKS 0 11/25/19 19 Active cholecalciferol (VITAMIN D-3) 1,000 unit tablet Take 1 tablet (1,000 Units total) by mouth daily 06/07/20 16 Active enalapril (VASOTEC) 20 mg tablet Take 1 tablet (20 mg total) by mouth 2 (two) times a day 5 11/12/19 19 Active glucosamine HCl 500 mg tablet Take 1,000 mg by mouth daily 06/07/20 16 Active ONETOUCH DELICA LANCETS 33 gauge misc USE DIRECTED BID 5 11/25/19 19 Active metFORMIN (GLUCOPHAGE) 500 mg tablet Take 1 tablet (500 mg total) by mouth 2 (two) times a day with meals 1 11/25/19 19 Active multivitamin tablet Take 1 tablet by mouth daily Active simvastatin (ZOCOR) 20 mg tablet Take 1 tablet (20 mg total) by mouth nightly 1 10/01/19 19 Active ANORO ELLIPTA 62.5-25 mcg/actuation blister with device INHALE 1 PUFF BY INHALATION ROUTE QD AT THE SAME TIME 1 10/07/19 19 Active verapamil SR (CALAN SR) 240 mg CR tablet Take 1 tablet (240 mg total) by mouth daily 2 10/24/19 19 Active vitamin B complex capsule Take 1 capsule by mouth daily 08/13/19 08 Active gabapentin (NEURONTIN) 300 mg capsule Take 1 capsule (300 mg total) by mouth nightly 12/15/19 20 Active UNABLE TO FIND Take 1 each by mouth daily Med Name: PREVAGEN MEMORY OTC SUPPLEMENT Active fluticasone-ume clidin-vilanter (Trelegy Ellipta) 100-62.5-25 mcg inhalerIndicati ons:PRIMARY DR GIVES PATIENT SAMPLES Inhale 1 puff daily Active albuterol (PROAIR RESPICLICK) 90 mcg/actuation inhalerIndicati ons:STATES PATIENT HAS NEVER USED INHALER HE HAS Inhale 2 puffs every 6 (six) hours as needed for wheezing (EVERY 4-6 HRS PRN) Active HYDROcodone-nicholas taminophen (NORCO) 10-325 mg per tablet Take by mouth every 8 (eight) hours as needed 01/10/20 22 Active tamsulosin (FLOMAX) 0.4 mg extended release capsule TAKE 1 CAPSULE BY MOUTH DAILY. HOLD OXYBUTININ. 04/04/20 22 Active cilostazoL (PLETAL) 100 mg tablet TAKE 1 TABLET BY MOUTH TWICE DAILY 30 MINUTES BEFORE OR 2 HOURS AFTER BREAKFAST AND DINNER 180 tablet 08/19/19 23 Active cyclobenzaprine (FLEXERIL) 10 mg tablet Take 1 tablet (10 mg total) by mouth 2 (two) times a day as needed 04/21/20 23 Active glimepiride (AMARYL) 2 mg tablet Take 1 tablet (2 mg total) by mouth daily with breakfast 05/12/20 23 Active hydroCHLOROthia zide (HYDRODIURIL) 12.5 mg tablet Take 1 tablet (12.5 mg total) by mouth daily 04/01/20 23 Active oxyBUTYnin (DITROPAN) 5 mg tabletIndicatio ns:Benign prostatic hyperplasia, unspecified whether lower urinary tract symptoms present Take 1 tablet (5 mg total) by mouth daily 90 tablet 3 08/20/19 24 Active Additional Information Patient not taking.Reported on 11/20/2023 Ozempic 0.25 mg or 0.5 mg(2 mg/1.5 mL) pen injector injection Inject 0.5 mg under the skin once a week Takes 01/26/20 025 Discontinu ed(No longer taking - Do not display on AVS) cephalexin (KEFLEX) 500 mg capsule Take 1 capsule (500 mg total) by mouth 3 (three) times a day 05/15/20 025 Discontinu ed(Therapy completed) Active Problems Problem Noted Date Diagnosed Date Type 2 diabetes mellitus wit h diabetic peripheral angiopathy without gangrene, without long-term current use of insulin 08/12/2020 Assessment & Plan (05/29/2023 9:03 AM CDT): Type 2 diabetes chronic and controlled. Continue current medical management. Assessment & Plan (05/15/2022 2:49 PM CDT): Type 2 diabetes chronic and controlled. Continue current medical therapy. Assessment & Plan (09/20/2021 10:07 AM CERTIFIED TEACHER ASSISTANT): Impression: Chronic diabetes mellitus with good glucose control. Plan: Continue glucose monitoring and management as per primary care provider. Assessment & Plan (06/17/2021 12:52 PM CERTIFIED TEACHER ASSISTANT): Diabetes chronic and controlled. Continue current medical management and insulin therapy Assessment & Plan (02/28/2021 4:07 PM CDT): Diabetes control. Continue medical management. Assessment & Plan (08/12/2020 3:27 PM CERTIFIED TEACHER ASSISTANT): Diabetes controlled. Continue metformin. Essential hypertension 01/19/2020 Assessment & Plan (05/29/2023 9:02 AM CDT): Hypertension chronic and controlled. Continue current medical management. Assessment & Plan (11/20/2022 1:59 PM CDT): Impression: Stable chronic hypertension. Plan: Medications reviewed and recommend continuing daily antihypertensive regimen as directed by patient's primary care physician. Assessment & Plan (05/15/2022 2:49 PM CDT): Hypertension chronic and controlled. Continue current medical therapy. Assessment & Plan (02/28/2021 4:06 PM CDT): Hypertension stable and controlled. Continue medical therapy Assessment & Plan (02/07/2021 8:19 AM CDT): Blood pressure controlled. Continue medical therapy. Assessment & Plan (08/12/2020 3:26 PM CERTIFIED TEACHER ASSISTANT): Hypertension is controlled. Continue enalapril per PCP Assessment & Plan (01/19/2020 10:05 AM CDT): Impression: Stable hypertension. Plan: Continue current antihypertensive regimen as directed by PCP. Atherosclerosis of turtle mountain ar shilpa of both lower extremities with intermittent claudication 01/19/2020 Assessment & Plan (12/02/2024 11:55 AM CDT): No surgical or procedural intervention indicated at this point. Recommend continuing physical exercise. Follow up in the office in 1 year with repeat lower extremity arterial Doppler Assessment & Plan (05/29/2023 9:03 AM CDT): Ongoing non disabling left calf level claudication. This does not warrant further workup or intervention at this time. Will continue ongoing six-month evaluation. I encouraged the patient to exercise. Assessment & Plan (11/20/2022 1:59 PM CDT): Impression: Stable nondisabling claudication of both lower extremities with no progressive stenosis noted on arterial Doppler surveillance. Plan: Recommend ongoing risk factor modifications and follow-up in 6 months for re-evaluation with repeat lower extremity arterial Doppler surveillance. Assessment & Plan (09/20/2021 10:07 AM CERTIFIED TEACHER ASSISTANT): Impression: Patient has stable non disabling claudication to bilateral lower extremities. Plan: No surgical interventions are needed at this time. Continue conservative management with exercise. Patient to follow-up in 3 months for re-evaluation. Assessment & Plan (06/17/2021 12:52 PM CERTIFIED TEACHER ASSISTANT): Non operative management at this point has his symptoms do not warrant open surgical reconstruction. Continue ongoing conservative care Assessment & Plan (02/28/2021 4:07 PM CDT): Patient has claudication of the bilateral lower extremities secondary to bilateral common femoral artery occlusions. I had a long talk with the patient and his about his treatment options. He would require bilateral common femoral artery endarterectomy with patch angioplasties. Currently he states that the discomfort is tolerable and he is still able to work and carry out activities of daily living. I advised him to hold on surgery given that his symptoms were stable and not disabling. Will continue to follow closely with repeat studies and evaluation in 3 months. If his symptoms are progressing he is to return sooner. Assessment & Plan (02/07/2021 8:19 AM CDT): Patient has had recurrence bilateral calf level claudication primarily that has become progressively worse in nature. He is now able to walk less than 20 ft before his symptoms start severely impacting his ability to carry out normal activities of daily living and work. With that I have recommended staged lower extremity angiograms with potential intervention. The procedure its indications and all risks have been explained he understands and agrees to proceed Assessment & Plan (08/12/2020 3:26 PM CERTIFIED TEACHER ASSISTANT): Patient has unchanged in stable claudication primarily the left calf. Has not progressed therefore no further need for invasive workup and/or treatment. Continue exercise and ongoing risk factor modification follow-up 6 month Assessment & Plan (01/19/2020 10:05 AM CDT): Impression: Stable nondisabling claudication both lower extremities. Arterial Doppler surveillance revealed stable lower extremity arterial occlusive disease with no worsening progression. Plan: No surgical intervention currently needed. Recommend ongoing risk factor modifications and follow-up in 6 months for re-evaluation and repeat lower extremity arterial Doppler surveillance. Aortoiliac occlusive disease 01/05/2019 Assessment & Plan (05/15/2022 2:49 PM CDT): Patient has stable non disabling claudication bilateral lower extremities. Left iliac stent is open has recurrence high-grade right common femoral artery stenosis although given current symptoms no indication for further invasive workup and or intervention. Will continue with 6 month duplex surveillance. Continue exercise anti-platelet therapy. Assessment & Plan (09/20/2021 10:06 AM CERTIFIED TEACHER ASSISTANT): Impression: Patient has non disabling claudication. Arterial Doppler to bilateral lower extremity reveals severe distal ischemia with an CARMEN of 0.65 to the right lower extremity and 0.49 to the left lower extremity. Plan: Continue ongoing risk factor modifications. Continue recommendation of conservative management with exercise. Patient to follow-up in 3 months for re-evaluation with arterial Doppler. Assessment & Plan (06/17/2021 12:51 PM CERTIFIED TEACHER ASSISTANT): Patient's symptoms remain stable non limiting at this point. Have recommended continued conservative management with exercise and anti-platelet therapy in addition to his ongoing medical care. Assessment & Plan (02/07/2021 8:19 AM CDT): Known history of multilevel arterial occlusive disease with prior intervention several years ago. Will set up for stage lower extremity angiograms. Meanwhile continue anti-platelet therapy and exercise. Assessment & Plan (01/05/2019 1:39 PM CDT): Impression: Widely patent left common iliac artery stenting with no significant stenosis noted on arterial duplex. Plan: No surgical intervention currently needed. Patient follow-up in 6 months for re-evaluation and repeat arterial duplex surveillance. Benign prostatic hyperplasia 04/10/2017 Poor urinary stream 04/10/2017 Subluxation of right lens 06/10/2016 Retained (nonmagnetic) (old) foreign body in lens, unspecified eye (CODE) 06/07/2016 Incomplete emptying of bladder 07/15/2007 Immunizations Immunization Administration Dates Next Due Influenza, Quadrivalent, Hig h Dose, Preservative Free, Intrr 04/25/2020 Influenza, Trivalent, High D ose, Split, Preservative Free, Intramuscular 05/23/2019,04/28/2018,05/24/2016,06/05 Influenza, Trivalent, IM (MDV) 05/24/2014,2012 Influenza, Unspecified 05/02/2017,05/08/2012 Pfizer SARS-CoV-2 Monovalent Vaccination (12+ Yrs) PURPLE 10/27/2020,09/23/2020 Social History Tobacco Use Types Packs/Day Years Used Date Smoking Tobacco: Former Cigarettes 3 60 0 12/30/1957 - 12/30/2017 Smokeless Tobacco: Never Tobacco Cessation:Counseling Given: Not Answered Alcohol Use Standard Drinks/Week Comments Yes 0 (1 standard drink = 0.6 oz pur e alcohol) Social AUDIT-C Answer Date Recorded Q1: How often do you have a drink containing alc ohol? 2-3 times a week 02/13/2021 Q2: How many drinks containi ng alcohol do you have on a typical day when you are drinking? 3 or 4 02/13/2021 Q3: How often do you have si x or more drinks on one occasion? Weekly 02/13/2021 Sex and Gender Information Value Date Recorded Sex Assigned at Not on file Legal Sex Male 4:25 AM CERTIFIED TEACHER ASSISTANT Gender Identity Not on file Sexual Orientation Not on file Last Filed Vital Signs Vital Sign Reading Time Taken Comments Blood Pressure 137/74 12/01/2024 8:49 AM CDT Pulse 77 12/01/2024 8:49 AM CDT Temperature 36.2 C (97.2 F) 02/13/2021 3:15 PM CDT Respiratory Rate 20 12/01/2024 8:49 AM CDT Oxygen Saturation 94% 12/01/2024 8:49 AM CDT Inhaled Oxygen Concentration - - Weight 129.3 kg (285 lb) 12/01/2024 8:49 AM CDT Height 188 cm (6' 2 ) 12/01/2024 8:49 AM CDT Body Mass Index 36.59 12/01/2024 8:49 AM CDT Plan of Treatment Not on file Procedures Procedure Name Priority Date/Time Associated Diagnosis Comments US ARTERIAL DOPPLER LOWER EXTREMITY BILATERAL Schedule Routine, Read Routine (OP Routine) 11/24/2024 9:54 AM CDT Atherosclerosis of turtle mountain artery of left lower extremity with intermittent claudication EGFR Routine 02/13/2021 11:40 AM CDT LIPID PANEL After X-Ray 05/01/2017 11:40 PM CDT from Last 3 Months or Most Recently Relevant to Health Maintenance Results * US Arterial Doppler Lower Extremity Bilateral (11/24/2024 9:54 AM CDT) Anatomical Region Laterality Modality Vascular Bilateral Ultrasound 11/24/2024 9:27 AM CDT Narrative 11/25/2024 10:11 AM CDT Lower Extremity Arterial Doppler Report Patient Name: SANTOS MAXWELL L : 1940 Study Date: 11/24/2024 9:27:00 AM Gender: M [employer] Laborer: Nina Stephens RVS Ref Provider: MANOJ ORR Quality: Adequate Order Provider: NATHANAEL,MANOJ PROCEDURES: Arterial Report: Bilateral lower extremity arterial Doppler exam at rest. INDICATIONS: I70.212 Atherosclerosis of turtle mountain arteries of extremities with intermittent claudication, left leg. HISTORY: h/o HTN, HLD, DM, QUIT SMOKING 2017. COMPARISONS: No change compared to prior study. The previous exam was completed on 11/20/23. MEASUREMENTS: Right Value Left Value Rt Brachial Pressure 143 mmHg Lt Brachial Pressure 134 mmHg Rt BARTENDER HELPER Pressure 61 mmHg Lt BARTENDER HELPER Pressure 42 mmHg Rt DPA Pressure 43 mmHg Lt DPA Pressure 45 mmHg Rt PT CARMEN Resting 0.43 Lt PT CARMEN Resting 0.29 Rt DP CARMEN Resting 0.3 Lt DP CARMEN Resting 0.31 FINDINGS: Right Common Femoral Artery Analysis: The common femoral artery waveform is monophasic. Right Popliteal Artery Analysis: The popliteal waveform is monophasic. Right Posterior Tibial Artery Analysis: The posterior tibial waveform is monophasic. Right Dorsalis Pedis Artery Analysis: The dorsalis pedis waveform is monophasic. Left Common Femoral Artery Analysis: The common femoral artery waveform is monophasic. Left Popliteal Artery Analysis: The popliteal waveform is monophasic. Left Posterior Tibial Artery Analysis: The posterior tibial waveform is monophasic. Left Dorsalis Pedis Artery Analysis: The dorsalis pedis waveform is monophasic. - CONCLUSIONS: 1. Ankle-brachial index of <0.5 is consistent with severe arterial disease in the bilateral lower extremities. 2. There is evidence of right leg arterial insufficiency at the level of aorta- iliac, common femoral (inflow) arteries and femoral-popliteal arteries. 3. There is evidence of left leg arterial insufficiency at the level of aorta- iliac, common femoral (inflow) arteries and femoral-popliteal arteries. ATTESTATION: I have reviewed and interpreted the pertinent images and measurements of this study. I attest to the conclusions in the final report that is provided above. Electronically Signed By: Kiko Kumar MD 11/25/2024 9:18:27 AM CDT Procedure Note Kiko Kumar MD - 11/25/2024 Lower Extremity Arterial Doppler Report Patient Name: SANTOS MAXWELL L : 1940 Study Date: 11/24/2024 9:27:00 AM Gender: M [employer] Laborer: Nina StephensS Ref Provider: MANOJ ORR Quality: Adequate Order Provider: MANOJ ORR PROCEDURES: Arterial Report: Bilateral lower extremity arterial Doppler exam at rest. INDICATIONS: I70.212 Atherosclerosis of turtle mountain arteries of extremities withintermittent claudication, left leg. HISTORY: h/o HTN, HLD, DM, QUIT SMOKING 2017. COMPARISONS: No change compared to prior study. The previous exam was completed on 11/20/23. MEASUREMENTS: Right Value Left Value Rt Brachial Pressure 143 mmHg Lt Brachial Pressure 134 mmHg Rt BARTENDER HELPER Pressure 61 mmHg Lt BARTENDER HELPER Pressure 42 mmHg Rt DPA Pressure 43 mmHg Lt DPA Pressure 45 mmHg Rt PT CARMEN Resting 0.43 Lt PT CARMEN Resting 0.29 Rt DP CARMEN Resting 0.3 Lt DP CARMEN Resting 0.31 FINDINGS: Right Common Femoral Artery Analysis: The common femoral artery waveform is monophasic. Right Popliteal Artery Analysis: The popliteal waveform is monophasic. Right Posterior Tibial Artery Analysis: The posterior tibial waveform is monophasic. Right Dorsalis Pedis Artery Analysis: The dorsalis pedis waveform is monophasic. Left Common Femoral Artery Analysis: The common femoral artery waveform is monophasic. Left Popliteal Artery Analysis: The popliteal waveform is monophasic. Left Posterior Tibial Artery Analysis: The posterior tibial waveform is monophasic. Left Dorsalis Pedis Artery Analysis: The dorsalis pedis waveform is monophasic. - CONCLUSIONS: 1. Ankle-brachial index of <0.5 is consistent with severe arterial diseasein the bilateral lower extremities. 2. There is evidence of right leg arterial insufficiency at the level ofaorta- iliac, common femoral (inflow) arteries and femoral-popliteal arteries. 3. There is evidence of left leg arterial insufficiency at the level ofaorta- iliac, common femoral (inflow) arteries and femoral-popliteal arteries. ATTESTATION: I have reviewed and interpreted the pertinent images and measurements ofthis study. I attest to the conclusions in the final report that is provided above. Electronically Signed By: Kiko Kumar MD 11/25/2024 9:18:27 AM CDT us Manoj MARLEY IMG US PROCEDURES Final Res ult * eGFR (02/13/2021 11:40 AM CDT) eGFR 85 mL/min/1.7 3 m2 [facility] Comment: Interpretive Data Reference Interval Normal >/= 90 mL/min/1.73m2 Mildly decreased* 60 - 89 mL/min/1.73m2 Mildly to moderately decreased 45 - 59 mL/min/1.73m2 Moderately to severely decreased 30 - 44 mL/min/1.73m2 Severely decreased 15 - 29 mL/min/1.73m2 Kidney Failure < 15 mL/min/1.73m2 *Relative to young adult level Estimated glomerular filtration rate is determined by the CKD-EPI equation recommended by the National Kidney Foundation (KDIGO 2012 Clinical Practice Guideline for the Evaluation and Management of Chronic Kidney Disease. Kidney Intnl Suppl Jul 2012;3:1). The CKD-EPI equation should not be used for patients with unstable renal function and has not been validated in children and those over 70. Current interpretive data was last reviewed 2020 Blood specimen (specimen) 02/13/2021 11:40 AM CDT 02/13/2021 11:57 AM CDT us Kiko Kumar MD LAB BLOOD ORDERABLES Final Result [facility] [address] Department [place] [address] * Lipid panel (05/01/2017 11:40 PM CDT) Cholesterol 109 30 - 200 mg/dL [facility] Comment: Interpretive Data Desirable: <200 mg/dL Borderline high: 200-239 mg/dL High: > or = 240 mg/dL Literature Reference: National Cholesterol Education Program (NCEP) Expert Panel on Detection, Evaluation, and Treatment of High Blood Cholesterol in Adults (Adult Treatment Panel III). Circulation 2004; 110:227. Current interpretive data was last revised on 2015. Triglycerides 137 0 - 150 mg/dL [facility] Comment: Interpretive Data Desirable: < 150 mg/dL Borderline High: 150 - 199 mg/dL High: 200 - 499 mg/dL Very High: > or = 499 mg/dL Literature Reference: See Cholesterol Current interpretive data was last revised on 2015. HDL 41 >=40 mg/dL [facility] Comment: Interpretive Data Less than 40 mg/dL - low; A major risk factor for heart disease. Greater than or equal to 60 mg/dL - High; considered protective of heart disease. Literature Reference: See Cholesterol Current interpretive data was last revised on 2015. LDL, calculated 41 10 - 129 mg/dL [facility] Comment: Interpretive Data Optimal: < 100 mg/dL Near Optimal: 100 - 129 mg/dL Borderline High: 130 - 159 mg/dL High: 160 - 189 mg/dL Very high: > or = 190 mg/dL Literature Reference: See Cholesterol Current interpretive data was last revised on 2015. Non-HDL Cholesterol 68 mg/dL [facility] Comment: Interpretive Data When triglycerides are >200 mg/dL, non-HDL C is a secondary target of therapy, with a goal 30 mg/dL higher than the identified LDL-C goal. Reference: See Cholesterol Reference. Current interpretive data was last revised 2015. Blood specimen (specimen) 05/01/2017 11:40 PM CDT 05/02/2017 12:51 AM CDT us Douglas Dorantes MD LAB BLOOD ORDERABLES Final Resu lt [facility] [address] [facility] Department [place] [address] from Last 3 Months or Most Recently Relevant to Health Maintenance Insurance MEDICARE [facility] MEDICARE [facility] MEDICARE [employer]UE [employer] MEDICARE SUPPLEMENT Member Subscriber Plan / Payer (Ef fective 2006-Present) Name:PrietoelliSantos Fortunato Relation to Subscriber:Self Name:Santos Maxwell Fortunato Payer ID:[id number] Type:COMMERCIAL Address: [facility] [id number] [place] [id number] Care Teams Press Operator Carbon Products Relationship Specialty Start Date End Date Nelson Tapia MD [address] [facility] [address] [facility] [address] [place] [address] PCP - General 04/18/17 Kiko Kumar MD [address] [facility] [address] [facility] [address] [place] [address] Surgeon Vascular Surgery 02/13/21
--- OUTSIDE RECORDS SUMMARY | 2024-12-13 10:36 | XMS_ITS | Clinical Summary ---
Author Organization [facility] Address [address] [place] [address] Care Team Providers Care Hand Spring Former Name Role Phone Nelson Tapia MD Primary Care Provider [phone] Kiko Kumar MD Unavailable [phone] Allergies Active Allergy Reactions Criticality Noted Date [...] total) by mouth daily with breakfast 05/12/20 Active hydroCHLOROthia zide (HYDRODIURIL) 12.5 mg tablet Take 1 tablet (12.5 mg total) by mouth daily 04/01/20 Active oxyBUTYnin (DITROPAN) 5 mg tabletIndicatio ns:Benign prostatic hyperplasia, unspecified whether lower urinary tract symptoms present Take 1 tablet (5 mg total) by mouth daily 90 tablet 3 08/20/19 24 Active Additional Information Patient not taking.Reported on 11/20/2023 Ozempic 0.25 mg or 0.5 mg(2 mg/1.5 mL) pen injector injection Inject 0.5 mg under the skin once a week Takes morning 01/26/20 025 Discontinu ed(No longer taking - [...] therapy. Assessment & Plan (09/20/2021 10:07 AM MORTGAGE ADVISOR): Impression: Chronic diabetes mellitus with good glucose control. Plan: Continue glucose monitoring and management as per primary care provider. Assessment & Plan (06/17/2021 12:52 PM MORTGAGE ADVISOR): Diabetes chronic and controlled. Continue current medical management and insulin therapy Assessment & Plan (02/28/2021 4:07 PM CDT): Diabetes control. Continue medical management. Assessment & Plan (08/12/2020 3:27 PM MORTGAGE ADVISOR): Diabetes controlled. Continue metformin. Essential hypertension 01/19/2020 [...] therapy. Assessment & Plan (08/12/2020 3:26 PM MORTGAGE ADVISOR): Hypertension is controlled. Continue enalapril per PCP Assessment & Plan (01/19/2020 10:05 AM CDT): Impression: Stable hypertension. Plan: Continue current antihypertensive regimen as directed by PCP. Atherosclerosis of [place] of both lower extremities with [...] surveillance. Assessment & Plan (09/20/2021 10:07 AM MORTGAGE ADVISOR): Impression: Patient has stable non disabling claudication to bilateral lower extremities. Plan: No surgical interventions are needed at this time. Continue conservative management with exercise. Patient to follow-up in 3 months for re-evaluation. Assessment & Plan (06/17/2021 12:52 PM MORTGAGE ADVISOR): Non operative management at this point has [...] proceed Assessment & Plan (08/12/2020 3:26 PM MORTGAGE ADVISOR): Patient has unchanged in stable claudication primarily [...] therapy. Assessment & Plan (09/20/2021 10:06 AM MORTGAGE ADVISOR): Impression: Patient has non disabling claudication. Arterial Doppler to bilateral lower extremity reveals severe distal ischemia with an CARMEN of 0.65 to the right lower extremity and 0.49 to the left lower extremity. Plan: Continue ongoing risk factor modifications. Continue recommendation of conservative management with exercise. Patient to follow-up in 3 months for re-evaluation with arterial Doppler. Assessment & Plan (06/17/2021 12:51 PM MORTGAGE ADVISOR): Patient's symptoms remain stable non limiting at [...] (CODE) 06/07/2016 Incomplete emptying of bladder 07/15/2007 Encounters Date Type Department Care Team Description 12/01/2024 9:00 AM CDT Office Visit [facility] Vascular and Vein Surgery [address] [facility] [address] [place] [address] Manoj Orr PA Atherosclerosis of [place] artery of both lower extremities with intermittent claudication (Primary Dx); Essential hypertension; Type 2 diabetes mellitus with diabetic peripheral angiopathy without gangrene, without long-term current use of insulin (HCC); Hyperlipidemia, unspecified hyperlipidemia type 11/24/2024 9:18 AM CDT - 11/24/2024 11:59 PM CDT Hospital Encounter [facility] Medical Office Building 2 Vascular [facility] [address] [place] [address] Atherosclerosis of [place] artery of left lower extremity with intermittent claudication Discharge Disposition: Discharge to home or self care from Last 3 Months Immunizations Immunization Administration Dates Next Due Influenza, Quadrivalent, Hig h Dose, Preservative Free, Intrr 04/25/2020 Influenza, Trivalent, High D ose, Split, Preservative Free, Intramuscular 05/23/2019,04/28/2018,05/24/2016,06/05 Influenza, Trivalent, IM (MDV) 05/24/2014,2012 Influenza, Unspecified 05/02/2017,05/08/2012 Pfizer SARS-CoV-2 Monovalent Vaccination (12+ Yrs) PURPLE 10/27/2020,09/23/2020 Surgical History Surgery Date Site/Laterality Comments [place] TRURL ELECTROSURG RESCJ PROSTATE BLEED COMPLETE 07/28/2017 - 07/27/2018 Transurethral Resection Of Prostate (TURP) - 09/14/07, Dr. Sandy (Added by TW Conv) ANGIOPLASTY / STENTING ILIAC 10/08/2016 Left KAREN, MANAGER SOCIAL SERVICES RT MATERIAL PLANNER CYSTOSCOPY W/ STONE MANIPULATION 07/28/2017 - 07/27/2018 also stent placement then later removed CATARACT EXTRACTION 07/28/2013 - 07/27/2014 2016 at [facility] TRIED TO REPAIR VISION UNSUCCESSFUL BLURRED IN RIGHT EYE AORTIC ILIAC FEMORIAL ANGIOGRAM INTERVENTION 02/13/2021 Bilateral Medical History Medical History Date Comments Personal history of other di seases of the circulatory system History of hypertension - (A dded by VALENCIA Conv) Rash and other nonspecific skin eruption Rash - (Added by VALENCIA Conv) resolved now Diabetes mellitus (HCC) Arthritis Hypertension Pneumonia 09/2017 Lung disease Type 2 diabetes mellitus (HCC) Chronic pain disorder lower back takes hydrocodone prn Obesity Eczema Ambulates with cane Wears glasses Poor vision right eye blurre d post cataract surgery since 2013 Restless legs syndrome (RLS) Short of breath on exertion r/t lung health problems states family COPD (chronic obstructive pu lmonary disease) (HCC) Emphysema of lung (HCC) Immunization series complete cov id vaccine card on file Kidney stone 2017 h/o of no issues since BPH (benign prostatic hyperplasia) Atherosclerosis legs Family History Medical History Relation Name Comments Cancer Father Heart disease Mother Relation Name Status Comments Father Mother Social History Tobacco Use Types Packs/Day Years [...] on file Legal Sex Male 4:25 AM MORTGAGE ADVISOR Gender Identity Not on file Sexual Orientation Not on file Obstetrics History Last Filed Vital Signs Vital Sign Reading [...] 12/01/2024 8:49 AM CDT Plan of Treatment Health Maintenance Due Date Last Done Comments Albumin Creatinine Ratio, Urine 1941 Depression Screening 1941 Hemoglobin A1C 1941 Dilated Eye Exam 1941 Foot Exam 1941 DTaP/Tdap/Td Vaccine (1 - Tdap) 1952 Hepatitis B Screening 12/18/1959 Pneumococcal vaccine 65+ (1 of 2 - PCV) 1960 Zoster Vaccine (1 of 2) 12/18/1991 Well Visit 65+ 2006 Lipid Panel 05/01/2018 05/01/2017 Fall Risk Assessment 02/13/2022 02/13/2021 eGFR 02/13/2022 02/13/2021 Covid-19 Vaccine (3 - 2023-2 5 season) 2024 10/27/2020, 09/23/2020 Influenza Vaccine (Season Ended) 2025 04/25/2020, 05/23/2019, 04/28/2018, Additional history exists Procedures Procedure Name Priority Date/Time Associated Diagnosis Comments US ARTERIAL DOPPLER LOWER EXTREMITY BILATERAL Schedule Routine, Read Routine (OP Routine) 11/24/2024 9:54 AM CDT Atherosclerosis of [place] artery of left lower extremity with intermittent [...] Arterial Doppler Report Patient Name: SANTOS MAXWELL Fortunato : 1940 Study Date: 11/24/2024 9:27:00 AM Gender: M Speech Lang Path: Nina Stephens RVS Ref Provider: MANOJ ORR Quality: Adequate Order Provider: MANOJ ORR PROCEDURES: Arterial Report: Bilateral lower extremity arterial Doppler exam at rest. INDICATIONS: I70.212 Atherosclerosis of [place] arteries of extremities with intermittent claudication, left leg. HISTORY: h/o HTN, HLD, DM, QUIT SMOKING 2017. COMPARISONS: No change compared to prior study. The previous exam was completed on 11/20/23. MEASUREMENTS: Right Value Left Value Rt Brachial Pressure 143 mmHg Lt Brachial Pressure 134 mmHg Rt MANAGER SOCIAL SERVICES Pressure 61 mmHg Lt MANAGER SOCIAL SERVICES Pressure 42 mmHg Rt DPA Pressure 43 [...] Study Date: 11/24/2024 9:27:00 AM Gender: M Speech Lang Path: Nina Stephens Ref Provider: MANOJ ORR Quality: Adequate Order Provider: MANOJ ORR PROCEDURES: Arterial Report: Bilateral lower extremity arterial Doppler exam at rest. INDICATIONS: I70.212 Atherosclerosis of [place] arteries of extremities withintermittent claudication, left leg. HISTORY: h/o HTN, HLD, DM, QUIT SMOKING 2017. COMPARISONS: No change compared to prior study. The previous exam was completed on 11/20/23. MEASUREMENTS: Right Value Left Value Rt Brachial Pressure 143 mmHg Lt Brachial Pressure 134 mmHg Rt MANAGER SOCIAL SERVICES Pressure 61 mmHg Lt MANAGER SOCIAL SERVICES Pressure 42 mmHg Rt DPA Pressure 43 [...] 11/25/2024 9:18:27 AM CDT us Manoj [facility] US PROCEDURES Final Res ult * eGFR (02/13/2021 11:40 AM CDT) [facility] Signature eGFR 85 mL/min/1.7 3 m2 [facility] VAZQUEZ [...] MD LAB BLOOD ORDERABLES Final Result [facility] [address] [facility] [place] [address] * Lipid panel (05/01/2017 11:40 PM CDT) Cholesterol 109 30 - 200 mg/dL [facility] Comment: Interpretive Data Desirable: <200 mg/dL Borderline high: 200-239 mg/dL High: > or = 240 mg/dL Literature Reference: National Cholesterol Education Program (NCEP) Expert Panel on Detection, Evaluation, and Treatment of High Blood Cholesterol in Adults (Adult Treatment Panel III). Circulation 2004; 110:227. Current interpretive data was last revised on 2015. Triglycerides 137 0 - 150 mg/dL [facility] Comment: Interpretive Data Desirable: < 150 mg/dL Borderline High: 150 - 199 mg/dL High: 200 - 499 mg/dL Very High: > or = 499 mg/dL Literature Reference: See Cholesterol Current interpretive data was last revised on 2015. HDL 41 >=40 mg/dL [facility] Comment: Interpretive Data Less than 40 mg/dL - low; A major risk factor for heart disease. Greater than or equal to 60 mg/dL - High; considered protective of heart disease. Literature Reference: See Cholesterol Current interpretive data was last revised on 2015. LDL, calculated 41 10 - 129 mg/dL [facility] Comment: Interpretive Data Optimal: < 100 mg/dL Near Optimal: 100 - 129 mg/dL Borderline High: 130 - 159 mg/dL High: 160 - 189 mg/dL Very high: > or = 190 mg/dL Literature Reference: See Cholesterol Current interpretive data was last revised on 2015. Non-HDL Cholesterol 68 mg/dL [facility] Comment: Interpretive Data When triglycerides are >200 mg/dL, non-HDL C is a secondary target of therapy, with a goal 30 mg/dL higher than the identified LDL-C goal. Reference: See Cholesterol Reference. Current interpretive data was last revised 2015. Blood specimen (specimen) 05/01/2017 11:40 PM CDT 05/02/2017 12:51 AM CDT us Douglas Dorantes MD LAB BLOOD ORDERABLES Final Resu lt [facility] Department [place] [address] from Last 3 Months or Most Recently Relevant to Health Maintenance Insurance MEDICARE [facility] MEDICARE [facility] MEDICARE BLUE CROSS MEDICARE SUPPLEMENT Care Teams Hand Spring Former Relationship Specialty Start Date End Date Nelson Tapia MD [address] [facility] [place], [place] [id number] PCP - General 04/18/17 Kiko Kumar MD [address] [facility] [address] [facility] [address] [place] [address] Surgeon Vascular Surgery 02/13/21
[2024-12-13 10:46] LABS: Basophils Absolute Auto 0.1 K/mm3 (0.0-0.1); Basophils Percent Auto 0.3 % (0.2-1.2); Eosinophils Percent Auto 0.2 % (0-4.4); Hemoglobin 11.5 g/dL (14.0-18.0); Immature Granulocyte Absolute 0.14 K/mm3 (0.00-0.031); Immature Granulocyte Percent A 0.7 % (0-0.5); Lymphocytes Absolute Auto 0.77 K/mm3 (0.9-3.2); Lymphocytes Percent Auto 3.9 % (18.3-44.2); Mean Corpuscular HGB Conc 31.9 g/dl (32-36); Mean Corpuscular Hemoglobin 29.8 pg (26-34); Mean Corpuscular Volume 93.3 fl (80-100); Mean Platelet Volume 9.1 fl (7.4-10.4); Monocytes Absolute Auto 0.8 K/mm3 (0.1-0.6); Monocytes Percent Auto 3.8 % (2.6-8.5); Neutrophils Absolute Auto 18.1 K/mm3 (1.3-6.7); Neutrophils Percent Auto 91.1 % (45.5-73.1); Platelet Count Result 244 k/mm3 (150-375); Red Blood Count 3.86 M/mm3 (4.6-6.20); Red Cell Distribution Width 13.9 % (11.5-14.5); White Blood Count 19.8 K/mm3 (4.5-10.0)
[2024-12-13 10:55] LABS: Alanine Aminotransferase 16 U/L (6-50); Albumin Level 3.6 g/dL (3.5-5.1); Alkaline Phosphatase 73 U/L (38-126); Anion Gap 8 mmol/L (4-12); Aspartate Amino Transferase 21 U/L (17-59); Bilirubin,Total 0.9 mg/dL (0.2-1.3); Blood Urea Nitrogen 27 mg/dL (9-20); Calcium 8.9 mg/dL (8.4-10.2); Carbon Dioxide 24 mmol/L (22-30); Chloride 103 mmol/L (98-107); Estimated CRCL calculation 73 ml/min; Estimated Glomerular Filt Rate > 60; Glucose 149 mg/dL (65-110); Sodium 135 mmol/L (137-145)
[2024-12-13 11:04] LABS: Add Urine Microscopic? YES; Appearance Urine Clear (Clear); Bacteria Urine None Seen /hpf; Bilirubin Urine Negative (Negative); Blood Urine Negative (Negative); Color Urine Dark Yellow (Yellow); Glucose Urine UA Negative (Negative); Ketones Urine Trace mg/dL (Negative); Leukocyte Esterase Ur 2+ LEU/UL (Negative); Need Manual Microscopic Reviewed; Nitrate Urine Negative (Negative); Non Pathogenic Casts 0-2; Protein Urine Trace mg/dL (Negative); RBC Urine 0-2 /hpf (0-2); Specific Grav Ur 1.021 (1.001-1.035); Squamous Epithelial Cell Urine Few /hpf (Few); Urobilinogen Urine 0.2 mg/dL (<2.0); WBC Urine 21-50 /hpf (0-3)
--- OUTSIDE RECORDS SUMMARY | 2024-12-13 12:12 | XMS_ITS | Encounter Summary ---
Author Organization [facility] Care Team Providers Care Laboratory Specialist Name Role Phone Unknown, Notinfile Primary Care Provider Unavail able Unknown, Notinfile Primary Care Provider Unavail able Unknown, Notinfile Primary Care Provider Unavail able Nelson Tapia MD Primary Care Provider [phone] Kiko Kumar MD Unavailable [phone] Encounter Details Date Type Department Care Team (Latest Contact Info) Description 10/08/2016 Orders Only [facility] ProviderClaude MD [address] [place] [id number] Social History Tobacco Use Types Packs/Day Years Used Date Smoking Tobacco: Never Assessed Sex and Gender Information Value Date Recorded Sex Assigned at Not on file Legal Sex Male 4:25 AM WATER CHASER Gender Identity Not on file Sexual Orientation Not on file documented as of this encounter Plan of Treatment Not on file documented as of this encounter Procedures Procedure Name Priority Date/Time Associated Diagnosis Comments PROCEDURE - RESULT 09/18/2016 12 :00 AM WATER CHASER documented in this encounter Results * PROCEDURE - RESULT (09/18/2016 12:00 AM WATER CHASER) Narrative 09/18/2016 12:00 AM WATER CHASER Ordered by an unspecified provider. us Historical Provider Final Res ult documented in this encounter Visit Diagnoses Not on filedocumented in this encounter Care Teams Laboratory Specialist Relationship Specialty Start Date End Date Unknown, Notinfile PCP - General 04/10/17 04/13/17 Unknown, Notinfile PCP - General 04/14/17 04/14/17 Unknown, Notinfile PCP - General 04/15/17 04/17/17 Nelson Tapia MD [address] INTERNAL MEDICINE [place], [place] [id number] PCP - General 04/18/17 Kiko Kumar MD [address] [facility] [address] [facility] [address] [place] [address] Surgeon Vascular Surgery 02/13/21 documented as of this encounter
--- OUTSIDE RECORDS SUMMARY | 2024-12-13 12:12 | XMS_ITS | Referral Summary ---
Author Organization [facility] Address [address] [place] [address] Care Team Providers Care Perforator Typist Name Role Phone Nelson Tapia MD Primary Care Provider [phone] Kiko Kumar MD Unavailable [phone] Encounters Date Type Department Care Team Description 12/01/2024 9:00 AM CDT Office Visit [facility] Medical Group Vascular and Vein Surgery [address] [facility] [address] [place] [address] Manoj Orr PA Atherosclerosis of [place] artery of both lower extremities with intermittent claudication (Primary Dx); Essential hypertension; Type 2 diabetes mellitus with diabetic peripheral angiopathy without gangrene, without long-term current use of insulin (HCC); Hyperlipidemia, unspecified hyperlipidemia type 11/24/2024 9:18 AM CDT - 11/24/2024 11:59 PM CDT Hospital Encounter [facility] Medical Office Building 2 Vascular [facility] [address] [place] [address] Atherosclerosis of [place] artery of left lower extremity with intermittent [...] therapy. Assessment & Plan (09/20/2021 10:07 AM BOARD CERTIFIED ORTHODONTIST): Impression: Chronic diabetes mellitus with good glucose control. Plan: Continue glucose monitoring and management as per primary care provider. Assessment & Plan (06/17/2021 12:52 PM BOARD CERTIFIED ORTHODONTIST): Diabetes chronic and controlled. Continue current medical management and insulin therapy Assessment & Plan (02/28/2021 4:07 PM CDT): Diabetes control. Continue medical management. Assessment & Plan (08/12/2020 3:27 PM BOARD CERTIFIED ORTHODONTIST): Diabetes controlled. Continue metformin. Essential hypertension 01/19/2020 [...] therapy. Assessment & Plan (08/12/2020 3:26 PM BOARD CERTIFIED ORTHODONTIST): Hypertension is controlled. Continue enalapril per PCP Assessment & Plan (01/19/2020 10:05 AM CDT): Impression: Stable hypertension. Plan: Continue current antihypertensive regimen as directed by PCP. Atherosclerosis of [place] ar [place]ilpa of both lower extremities with [...] surveillance. Assessment & Plan (09/20/2021 10:07 AM BOARD CERTIFIED ORTHODONTIST): Impression: Patient has stable non disabling claudication to bilateral lower extremities. Plan: No surgical interventions are needed at this time. Continue conservative management with exercise. Patient to follow-up in 3 months for re-evaluation. Assessment & Plan (06/17/2021 12:52 PM BOARD CERTIFIED ORTHODONTIST): Non operative management at this point has [...] proceed Assessment & Plan (08/12/2020 3:26 PM BOARD CERTIFIED ORTHODONTIST): Patient has unchanged in stable claudication primarily [...] therapy. Assessment & Plan (09/20/2021 10:06 AM BOARD CERTIFIED ORTHODONTIST): Impression: Patient has non disabling claudication. Arterial Doppler to bilateral lower extremity reveals severe distal ischemia with an CARMEN of 0.65 to the right lower extremity and 0.49 to the left lower extremity. Plan: Continue ongoing risk factor modifications. Continue recommendation of conservative management with exercise. Patient to follow-up in 3 months for re-evaluation with arterial Doppler. Assessment & Plan (06/17/2021 12:51 PM BOARD CERTIFIED ORTHODONTIST): Patient's symptoms remain stable non limiting at [...] on file Legal Sex Male 4:25 AM BOARD CERTIFIED ORTHODONTIST Gender Identity Not on file Sexual Orientation [...] Routine) 11/24/2024 9:54 AM CDT Atherosclerosis of [place] artery of left lower extremity with intermittent [...] Study Date: 11/24/2024 9:27:00 AM Gender: M Pack Operator: Nina Stephens RVS Ref Provider: MANOJ ORR Quality: Adequate Order Provider: NATHANAEL,MANOJ PROCEDURES: Arterial Report: Bilateral lower extremity arterial Doppler exam at rest. INDICATIONS: I70.212 Atherosclerosis of [place] arteries of extremities with intermittent claudication, left leg. HISTORY: h/o HTN, HLD, DM, QUIT SMOKING 2017. COMPARISONS: No change compared to prior study. The previous exam was completed on 11/20/23. MEASUREMENTS: Right Value Left Value Rt Brachial Pressure 143 mmHg Lt Brachial Pressure 134 mmHg Rt TURN OPERATOR Pressure 61 mmHg Lt TURN OPERATOR Pressure 42 mmHg Rt DPA Pressure 43 [...] Study Date: 11/24/2024 9:27:00 AM Gender: M Pack Operator: Nina StephensS Ref Provider: MANOJ ORR Quality: Adequate Order Provider: MANOJ ORR PROCEDURES: Arterial Report: Bilateral lower extremity arterial Doppler exam at rest. INDICATIONS: I70.212 Atherosclerosis of [place] arteries of extremities withintermittent claudication, left leg. HISTORY: h/o HTN, HLD, DM, QUIT SMOKING 2017. COMPARISONS: No change compared to prior study. The previous exam was completed on 11/20/23. MEASUREMENTS: Right Value Left Value Rt Brachial Pressure 143 mmHg Lt Brachial Pressure 134 mmHg Rt TURN OPERATOR Pressure 61 mmHg Lt TURN OPERATOR Pressure 42 mmHg Rt DPA Pressure 43 [...] MD LAB BLOOD ORDERABLES Final Result [facility] [address] [facility] Department [place] [address] * Lipid panel (05/01/2017 11:40 PM CDT) Cholesterol 109 30 - 200 mg/dL [facility] Comment: Interpretive Data Desirable: <200 mg/dL Borderline high: 200-239 mg/dL High: > or = 240 mg/dL Literature Reference: National Cholesterol Education Program (NCEP) Expert Panel on Detection, Evaluation, and Treatment of High Blood Cholesterol in Adults (Adult Treatment Panel III). Circulation 2004; 110:227. Current interpretive data was last revised on 2015. Triglycerides 137 0 - 150 mg/dL [facility] Comment: Interpretive Data Desirable: < 150 mg/dL Borderline High: 150 - 199 mg/dL High: 200 - 499 mg/dL Very High: > or = 499 mg/dL Literature Reference: See Cholesterol Current interpretive data was last revised on 2015. HDL 41 >=40 mg/dL [facility] Comment: Interpretive Data Less than 40 mg/dL - low; A major risk factor for heart disease. Greater than or equal to 60 mg/dL - High; considered protective of heart disease. Literature Reference: See Cholesterol Current interpretive data was last revised on 2015. LDL, calculated 41 10 - 129 mg/dL [facility] Comment: Interpretive Data Optimal: < 100 [...] LAB BLOOD ORDERABLES Final Resu lt [facility] Department [place] [address] from Last 3 Months or Most Recently Relevant to Health Maintenance Insurance MEDICARE [facility] MEDICARE [facility] MEDICARE BLUE CROSS MEDICARE SUPPLEMENT Member Subscriber Plan / Payer (Ef fective 2006-Present) Name:PreitoelliSantos Fortunato Relation to Subscriber:Self Name:Santos Maxwell Fortunato Payer ID:[id number] Type:COMMERCIAL Address: [facility] [id number] [place] [id number] Care Teams Perforator Typist Relationship Specialty Start Date End Date Nelson Tapia MD [address] [facility] [address] [facility] [address] [place] [address] PCP - General 04/18/17 Kiko Kumar MD [address] [facility] [address] [facility] [address] [place] [address] Surgeon Vascular Surgery 02/13/21
--- OUTSIDE RECORDS SUMMARY | 2024-12-13 12:13 | XMS_ITS | Clinical Summary ---
Author Organization [facility] Address [address] [place] [address] Care Team Providers Care Business Department Chair Name Role Phone Nelson Tapia MD Primary Care Provider [phone] Kiko Kumar MD Unavailable [phone] Allergies Active Allergy Reactions Criticality Noted [...] therapy. Assessment & Plan (09/20/2021 10:07 AM GUIDANCE COUNSELOR): Impression: Chronic diabetes mellitus with good glucose control. Plan: Continue glucose monitoring and management as per primary care provider. Assessment & Plan (06/17/2021 12:52 PM GUIDANCE COUNSELOR): Diabetes chronic and controlled. Continue current medical management and insulin therapy Assessment & Plan (02/28/2021 4:07 PM CDT): Diabetes control. Continue medical management. Assessment & Plan (08/12/2020 3:27 PM GUIDANCE COUNSELOR): Diabetes controlled. Continue metformin. Essential hypertension 01/19/2020 [...] therapy. Assessment & Plan (08/12/2020 3:26 PM GUIDANCE COUNSELOR): Hypertension is controlled. Continue enalapril per PCP Assessment & Plan (01/19/2020 10:05 AM CDT): Impression: Stable hypertension. Plan: Continue current antihypertensive regimen as directed by PCP. Atherosclerosis of augustine ar shilpa of both lower extremities with [...] surveillance. Assessment & Plan (09/20/2021 10:07 AM GUIDANCE COUNSELOR): Impression: Patient has stable non disabling claudication to bilateral lower extremities. Plan: No surgical interventions are needed at this time. Continue conservative management with exercise. Patient to follow-up in 3 months for re-evaluation. Assessment & Plan (06/17/2021 12:52 PM GUIDANCE COUNSELOR): Non operative management at this point has [...] proceed Assessment & Plan (08/12/2020 3:26 PM GUIDANCE COUNSELOR): Patient has unchanged in stable claudication primarily [...] therapy. Assessment & Plan (09/20/2021 10:06 AM GUIDANCE COUNSELOR): Impression: Patient has non disabling claudication. Arterial Doppler to bilateral lower extremity reveals severe distal ischemia with an CARMEN of 0.65 to the right lower extremity and 0.49 to the left lower extremity. Plan: Continue ongoing risk factor modifications. Continue recommendation of conservative management with exercise. Patient to follow-up in 3 months for re-evaluation with arterial Doppler. 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 (Primary Dx); Essential hypertension; Type 2 diabetes mellitus with diabetic peripheral angiopathy without gangrene, without long-term current use of insulin (HCC); Hyperlipidemia, unspecified hyperlipidemia type 11/24/2024 9:18 AM CDT - 11/24/2024 11:59 PM CDT Hospital Encounter [facility] [address] [facility] [place] [address] Atherosclerosis of augustine artery of left lower extremity with intermittent [...] 10/27/2020,09/23/2020 Surgical History Surgery Date Site/Laterality Comments MI TRURL ELECTROSURG RESCJ PROSTATE BLEED COMPLETE 07/28/2017 - 07/27/2018 Transurethral Resection Of Prostate (TURP) - 09/14/07, Dr. Sandy (Added by TW Conv) ANGIOPLASTY / STENTING ILIAC 10/08/2016 Left KAREN, STEWARDESSES TEACHER RT PRICING ACTUARY CYSTOSCOPY W/ STONE MANIPULATION 07/28/2017 - 07/27/2018 also stent placement then later removed CATARACT EXTRACTION 07/28/2013 - 07/27/2014 2016 at [facility] TRIED TO REPAIR VISION UNSUCCESSFUL BLURRED IN [...] on file Legal Sex Male 4:25 AM GUIDANCE COUNSELOR Gender Identity Not on file Sexual Orientation [...] Routine) 11/24/2024 9:54 AM CDT Atherosclerosis of augustine artery of left lower extremity with intermittent [...] Study Date: 11/24/2024 9:27:00 AM Gender: M Lei Maker: Nina Stephens RVS Ref Provider: MANOJ ORR Quality: Adequate Order Provider: MANOJ ORR PROCEDURES: Arterial Report: Bilateral lower extremity arterial Doppler exam at rest. INDICATIONS: I70.212 Atherosclerosis of augustine arteries of extremities with intermittent claudication, left leg. HISTORY: h/o HTN, HLD, DM, QUIT SMOKING 2017. COMPARISONS: No change compared to prior study. The previous exam was completed on 11/20/23. MEASUREMENTS: Right Value Left Value Rt Brachial Pressure 143 mmHg Lt Brachial Pressure 134 mmHg Rt STEWARDESSES TEACHER Pressure 61 mmHg Lt STEWARDESSES TEACHER Pressure 42 mmHg Rt DPA Pressure 43 [...] Study Date: 11/24/2024 9:27:00 AM Gender: M Lei Maker: Nina Stephens Ref Provider: MANOJ ORR Quality: Adequate Order Provider: MANOJ ORR PROCEDURES: Arterial Report: Bilateral lower extremity arterial Doppler exam at rest. INDICATIONS: I70.212 Atherosclerosis of augustine arteries of extremities withintermittent claudication, left leg. HISTORY: h/o HTN, HLD, DM, QUIT SMOKING 2017. COMPARISONS: No change compared to prior study. The previous exam was completed on 11/20/23. MEASUREMENTS: Right Value Left Value Rt Brachial Pressure 143 mmHg Lt Brachial Pressure 134 mmHg Rt STEWARDESSES TEACHER Pressure 61 mmHg Lt STEWARDESSES TEACHER Pressure 42 mmHg Rt DPA Pressure 43 [...] 11/25/2024 9:18:27 AM CDT [place]oj [facility] [place]ED[place] Final Res ult * eGFR (02/13/2021 11:40 AM CDT) [facility] Signature eGFR 85 mL/min/1.7 3 m2 SEVERIANO [...] MD LAB BLOOD ORDERABLES Final Result SEVERIANO [address] Department [place] [address] * Lipid panel (05/01/2017 11:40 PM CDT) Cholesterol 109 30 - 200 mg/dL SEVERIANO [facility] Comment: Interpretive Data Desirable: <200 mg/dL Borderline high: 200-239 mg/dL High: > or = 240 mg/dL Literature Reference: National Cholesterol Education Program (NCEP) Expert Panel on Detection, Evaluation, and Treatment of High Blood Cholesterol in Adults (Adult Treatment Panel III). Circulation 2004; 110:227. Current interpretive data was last revised on 2015. Triglycerides 137 0 - 150 mg/dL SEVERIANO [facility] Comment: Interpretive Data Desirable: < 150 mg/dL Borderline High: 150 - 199 mg/dL High: 200 - 499 mg/dL Very High: > or = 499 mg/dL Literature Reference: See Cholesterol Current interpretive data was last revised on 2015. HDL 41 >=40 mg/dL SEVERIANO [facility] Comment: Interpretive Data Less than [...] ORDERABLES Final Resu lt SEVERIANO [facility] Department [place] [address] from Last 3 Months or Most Recently Relevant to Health Maintenance Insurance MEDICARE [facility] MEDICARE [facility] MEDICARE [employer] MEDICARE SUPPLEMENT Care Teams Business Department Chair Relationship Specialty Start Date End Date Nelson Tapia MD [address] [employer] [place], [place] [id number] PCP - General 04/18/17 Kiko Kumar MD [address] [facility] [address] [facility] [address] [place] [address] Surgeon Vascular Surgery 02/13/21
--- OUTSIDE RECORDS SUMMARY | 2024-12-13 12:13 | XMS_ITS | Clinical Summary ---
Author Organization [facility] Address [address] [place] [address] Care Team Providers Care Retail Representative Name Role Phone Nelson Tapia MD Primary Care Provider [phone] Mikal Momin MD Unavailable [phone] Source Comments [facility],non-owned Affiliates and Associated Physician Practices is amultiple site organization consisting of ambulatory clinics and hospital sitesin [place], [place], [place] and [place]. This disclosure is being madepursuant to the Care Everywhere program and may not contain all information available regarding this patient. Last updated 18.[facility] Relay Allergies Active Allergy Reactions Criticality Noted Date [...] 1,000 mg by mouth DAILY. 06/07/2016 Active Corral-3 Fatty Acids (FISH OIL) 1000 MG capsule [...] on file Legal Sex Male 5:44 PM RN PSYCHIATRIC Gender Identity Not on file Sexual Orientation Not on file Last Filed Vital Signs Vital Sign Reading Time Taken Comments Blood Pressure 156/79 06/10/2016 1:05 PM RN PSYCHIATRIC Pulse 60 06/10/2016 1:05 PM RN PSYCHIATRIC Temperature 36.7 C (98.1 F) 06/10/2016 1:05 PM RN PSYCHIATRIC Respiratory Rate 16 06/10/2016 12:35 PM RN PSYCHIATRIC Oxygen Saturation 98% 06/10/2016 1:05 PM RN PSYCHIATRIC Inhaled Oxygen Concentration - - Weight 127 kg (280 lb) 06/10/2016 11:10 AM RN PSYCHIATRIC Height 188 cm (6' 2 ) 06/10/2016 11:10 AM RN PSYCHIATRIC Body Mass Index 35.95 06/10/2016 11:10 AM RN PSYCHIATRIC Plan of Treatment Health Maintenance Due Date [...] patient's age to complete [place] [address] MEDICARE [facility] Care Teams Retail Representative Relationship Specialty Start Date End Date Nelson Tapia MD [address] [place] [address] [facility] - General 03/22/16 Mikal Momin MD [address] [place] [address] Ophthalmology 06/23/18
--- NOTE | 2024-12-13 12:53 | ECG_ITS ---
Test Date: 2024-12-13 13:10:16 Measurements Intervals Halliday Rate: 77 P: 52 IN: 239 QRS: -38 QRSD: 173 T: 8 QT: 442 QTc: 503 Interpretive Statements SINUS RHYTHM WITH FIRST DEGREE AV BLOCK LEFT AXIS DEVIATION [QRS AXIS < -30] RIGHT BUNDLE BRANCH BLOCK [120+ ms QRS DURATION, UPRIGHT V1, 40+ ms S IN I/aVL/V4/V5/V6] No previous ECG available for comparison Electronically Signed On 12-14-2024 13:22:50 CDT by Elizabeth Stark M.D.
--- NOTE | 2024-12-13 12:57 | ED.GENADULT ---
HPI - General Adult General Chief complaint: Urogenital-Male Stated complaint: fever, frequent urination Time Seen by Provider: 12/13/24 11:59 History of Present Illness HPI narrative: 83-year-old male presented to the emergency department for evaluation for increased confusion and increased urinary urgency. Family states the patient does have history of urinary retention. Upon arrival emergency department patient is confused. Patient had to be orientated that this was in fact a hospital. Patient was confused on how he initially arrived to the hospital. does confirm that this confusion and is not his normal baseline. Patient states that he has had increased difficulty with urinating and only urinates a small amount but does have some pain with urination. Related Data Home Medications ?Medication ?Instructions ?Recorded ?Confirmed ?Last Taken ?Type omega-3 fatty acids 1,000 mg 2,000 mg PO DAILY 06/15/19 12/13/24 12/13/24 History capsule (Fish Oil Concentrate) ascorbate calcium (vitamin C) 500 500 mg PO DAILY 07/15/19 12/13/24 12/13/24 History mg tablet aspirin 81 mg chewable tablet 81 mg PO DAILY 07/15/19 12/13/24 12/13/24 History calcium carbonate (Calcium 600) 600 mg PO DAILY 07/15/19 12/13/24 12/13/24 History cholecalciferol (vitamin D3) 125 125 mcg PO DAILY 07/15/19 12/13/24 12/13/24 History mcg (5,000 unit) capsule kkrwxbucdrfz-ghi-ktvyq acid-vit 1 tablet PO DAILY 01/25/21 12/13/24 12/13/24 History K-lycop 400 mcg-20 mcg-370 mcg tablet (One-A-Day Men's 50 Plus (with vitamin K)) vitamin B complex 1 tablet PO DAILY 04/04/22 12/13/24 12/13/24 History mirabegron 50 mg tablet,extended 50 mg PO DAILY 03/05/24 12/13/24 12/13/24 History release 24 hr (Myrbetriq) prevagen BYMOUTH 10/26/24 10/26/24 Unknown History gabapentin 300 mg capsule 300 mg PO HS 12/13/24 12/13/24 Unknown History metformin 500 mg tablet 500 mg PO BID 12/13/24 12/13/24 Unknown History Allergies Allergy/AdvReac Type Severity Reaction Status Date / Time No Known Allergies Allergy Verified 10/26/24 11:08 Review of Systems Review of Systems: All systems reviewed & are unremarkable except as noted in HPI and below PMFSH Past Medical History Medical History Ankle pain Benign essential hypertension BMI 35.0-35.9,adult BMI 36.0-36.9,adult BMI 37.0-37.9, adult BMI 38.0-38.9,adult BPH (benign prostatic hyperplasia) Chest discomfort Chronic leg pain Chronic low back pain Colon cancer screening COPD (chronic obstructive pulmonary disease) DM type 2 (diabetes mellitus, type 2) Elevated homocysteine Encounter for Medicare annual wellness exam Encounter for routine adult health examination with abnormal findings Encounter for routine adult health examination without abnormal findings Exposure to COVID-19 virus Follow up Hearing loss Hx of colonic polyps Hyperlipidemia Hypersomnolence Left ankle sprain Microscopic hematuria Nocturia On senior living drug therapy Personal history of COVID-19 Pneumonia Polyarticular arthritis PVD (peripheral vascular disease) RBBB (right bundle branch block) Right knee pain RLS (restless legs syndrome) URI (upper respiratory infection) UTI (urinary tract infection) Vitamin D deficiency Family History Family History Father Emphysema lung Father Family history of liver disease Family history of chronic obstructive pulmonary disease Social History Social History Smoking status: Former smoker Tobacco type: cigarettes Second hand tobacco smoke exposure: No Alcohol intake: current Drinks per week: 7 Substance use: current Substance use type: marijuana Do You Feel Safe in your Home?: Yes Lack of Transportation: No Lack of Food: Never True Current Housing: I Have Housing Concerned About Future Housing: No Difficulty Paying Gas/Electric Bills: No Difficulty Paying for Meds: No Currently Unemployed: No Education: High School Diploma/GED Difficulty w/ Childcare or Family Care: No Living arrangements: with family Occupation/Education: occupation Gender identity (if verbalized by the patient): Male Spiritual care concerns: No Exam Narrative: APPEARANCE: Altered mental status HEAD: normocephalic, atraumatic. EYES: PERRLA/EOMI, conjunctivae clear. NOSE: Normal no drainage EARS:TMS clear with good light reflex. THROAT: Pharynx clear, no exudate. NECK: Supple. No adenopathy, no masses. RESPIRATORY: Airway patent, respirations nonlabored. Clear to auscultation bilaterally, no rales, rhonchi, wheezing. CARDIOVASCULAR: Regular rate and rhythm without murmurs rubs or gallops. ABDOMINAL: Soft, nontender, nondistended, normal bowel sounds MUSCULOSKELETAL: Moves all extremities. Strength/ROM intact, No edema, No calf tenderness. NEURO: Alert. Cranial nerves II through XII intact. Grossly intact SKIN: Warm, dry. Normal Color Course Vital Signs Vital signs: Vital Signs Temperature 97.6 F 12/13/24 10:14 Pulse Rate 91 12/13/24 10:14 Respiratory Rate 20 12/13/24 10:14 Blood Pressure 144/61 H 12/13/24 10:14 Pulse Oximetry 92 12/13/24 10:14 Oxygen Delivery Room Air 12/13/24 10:14 Temperature 97.9 F 12/13/24 15:17 Pulse Rate 78 12/13/24 16:00 Respiratory Rate 18 12/13/24 15:17 Blood Pressure 159/65 H 12/13/24 15:17 Pulse Oximetry 92 12/13/24 15:17 Oxygen Delivery Room Air 12/13/24 15:00 Medical Decision Making [facility] Narrative Medical decision making narrative: 83-year-old male present to the emergency department for evaluation for increased altered mental status and urinary symptoms. Patient is currently afebrile but does have a leukocytosis of 19.8 and hemoglobin of 11.5. No significant abnormalities on his CMP patient does have trace ketones leukocyte esterase positive and high white blood cells on his UA. Bladder scan showed only 160 mL of retained urine. Patient has previous urine cultures that showed no specific organisms. Urine culture was ordered today patient was started on IV Rocephin. Differential Diagnosis Differential Diagnosis: Urinary retention, UTI, altered mental status Vital Signs Vital Signs: Vital Signs Temperature 97.6 F 12/13/24 10:14 Pulse Rate 91 12/13/24 10:14 Respiratory Rate 12/13/24 10:14 Blood Pressure 144/61 H 12/13/24 10:14 Pulse Oximetry 92 12/13/24 10:14 Oxygen Delivery Room Air 12/13/24 10:14 Temperature 97.9 F 12/13/24 15:17 Pulse Rate 78 05/19/25 16:00 Respiratory Rate 18 12/13/24 15:17 Blood Pressure 159/65 H 12/13/24 15:17 Pulse Oximetry 92 12/13/24 15:17 Oxygen Delivery Room Air 12/13/24 15:00 Lab Data Lab results reviewed: Yes I reviewed the patient's lab results. 12/13/24 10:36 12/13/24 10:36 Labs: Lab Results 12/13/24 Range/Units 10:36 WBC 19.8 H (4.5-10.0) K/mm3 RBC 3.86 L (4.6-6.20) M/mm3 Hgb 11.5 L (14.0-18.0) g/dL Hct 36.0 L (42.0-52.0) % MCV 93.3 (80-100) fl MCH 29.8 (26-34) pg MCHC 31.9 L (32-36) g/dl RDW 13.9 (11.5-14.5) % Plt Count 244 (150-375) k/mm3 MPV 9.1 (7.4-10.4) fl Immature Gran % (Auto) 0.7 H (0-0.5) % Neut % (Auto) 91.1 H (45.5-73.1) % Lymph % (Auto) 3.9 L (18.3-44.2) % [place] % (Auto) 3.8 (2.6-8.5) % Eos % (Auto) 0.2 (0-4.4) % Baso % (Auto) 0.3 (0.2-1.2) % Lymph # (Auto) 0.77 L (0.9-3.2) K/mm3 [place] # (Auto) 0.8 H (0.1-0.6) K/mm3 Eos # (Auto) 0.0 (0-0.3) K/mm3 Baso # (Auto) 0.1 (0.0-0.1) K/mm3 Abs Immat Gran (auto) 0.14 H (0.00-0.031) K/mm3 Absolute Neuts (auto) 18.1 H (1.3-6.7) K/mm3 Absolute Nucleated RBC 0.000 (0.0-0.012) K/mm3 Nucleated RBC % 0.0 (0.0-0.2) % Sodium 135 L (137-145) mmol/L Potassium 4.0 (3.4-5.0) mmol/L Chloride 103 (98-107) mmol/L Carbon Dioxide 24 (22-30) mmol/L Anion Gap 8 (4-12) mmol/L BUN 27 H (9-20) mg/dL Creatinine 0.98 (0.7-1.3) mg/dL Estim Creat Clear Calc 73 ml/min Estimated GFR > 60 (59 - ) Glucose 149 H (65-110) mg/dL Calcium 8.9 (8.4-10.2) mg/dL Total Bilirubin 0.9 (0.2-1.3) mg/dL AST 21 (17-59) U/L ALT 16 (6-50) U/L Alkaline Phosphatase 73 (38-126) U/L Total Protein 7.0 (6.3-8.2) g/dL Albumin 3.6 (3.5-5.1) g/dL Urine Color Dark yellow (Yellow) Urine Appearance Clear (Clear) Urine pH 5.0 (5.0-9.0) Ur Specific [place] 1.021 (1.001-1.035) Urine Protein Trace (Negative) mg/dL Urine Glucose (UA) Negative (Negative) mg/dL Urine Ketones Trace H (Negative) mg/dL Ur Blood (Man) Negative (Negative) Urine Nitrate Negative (Negative) Urine Bilirubin Negative (Negative) Urine Urobilinogen 0.2 (<2.0) mg/dL Add Ur Microanalysis Reviewed Leukocyte Esterase Rfl 2+ H (Negative) ZEUS/UL Urine RBC 0-2 (0-2) /hpf Urine WBC 21-50 H (0-3) /hpf Ur Squamous Epith Cells Few (Few) /hpf Urine Bacteria None seen /hpf Urine Casts 0-2 Discharge Plan Discharge Clinical Impression: Delirium, Urinary tract infection Patient Disposition: Still a Patient Condition: Stable
--- NOTE | 2024-12-13 14:02 | P.HP_ITS ---
H&P: HPI History of Present Illness Date/Time: 12/13/24 14:02 Chief Complaint: Altered mental status Narrative: 83-year-old male past medical history of right bundle miguel block, COVID, PVD BPH, COPD hypertension diabetes presents with urinary retention and altered mental status. HPI is limited as patient does not give much information and is slightly altered. Patient states that he takes medications his girlfriend gives him. But however per the ED notes he has a . Patient denies nausea vomiting fever chills or abdominal pain. Lab work shows leukocytosis at 19.8, anemia at 11.5, sodium of 135, BUN of 27, glucose of 149, with hemoglobin A1c of 6.6, UA shows 2+ leukocyte esterase, 21- 50 wbc's, EKG shows sinus rhythm with first-degree AV block. Review of Systems Review of Systems: ROS unobtainable: Yes unobtainable due to mental status PMFSH Past Medical History Medical History Ankle pain Benign essential hypertension BMI 35.0-35.9,adult BMI 36.0-36.9,adult BMI 37.0-37.9, adult BMI 38.0-38.9,adult BPH (benign prostatic hyperplasia) Chest discomfort Chronic leg pain Chronic low back pain Colon cancer screening COPD (chronic obstructive pulmonary disease) DM type 2 (diabetes mellitus, type 2) Elevated homocysteine Encounter for Medicare annual wellness exam Encounter for routine adult health examination with abnormal findings Encounter for routine adult health examination without abnormal findings Exposure to COVID-19 virus Follow up Hearing loss Hx of colonic polyps Hyperlipidemia Hypersomnolence Left ankle sprain Microscopic hematuria Nocturia 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 Personal history of COVID-19 Pneumonia Polyarticular arthritis PVD (peripheral vascular disease) RBBB (right bundle branch block) Right knee pain RLS (restless legs syndrome) URI (upper respiratory infection) UTI (urinary tract infection) Vitamin D deficiency Family History Family History Father Emphysema lung Father Family history of liver disease Family history of chronic obstructive pulmonary disease Social History Social History Smoking status: Former smoker Tobacco type: cigarettes Second hand tobacco smoke exposure: No Alcohol intake: current Drinks per week: 7 Substance use: current Substance use type: marijuana Do You Feel Safe in your Home?: Yes Lack of Transportation: No Lack of Food: Never True Current Housing: I Have Housing Concerned About Future Housing: No Difficulty Paying Gas/Electric Bills: No Difficulty Paying for Meds: No Currently Unemployed: No Education: High School Diploma/GED Difficulty w/ Childcare or Family Care: No Living arrangements: with family Occupation/Education: occupation Gender identity (if verbalized by the patient): Male Spiritual care concerns: No Meds Home Medications and Allergies Home Medications ?Medication ?Instructions ?Recorded ?Confirmed ?Type omega-3 fatty acids 1,000 mg 2,000 mg PO DAILY 06/15/19 12/13/24 History capsule (Fish Oil Concentrate) ascorbate calcium (vitamin C) 500 500 mg PO DAILY 07/15/19 12/13/24 History mg tablet aspirin 81 mg chewable tablet 81 mg PO DAILY 07/15/19 12/13/24 History calcium carbonate (Calcium 600) 600 mg PO DAILY 07/15/19 12/13/24 History cholecalciferol (vitamin D3) 125 125 mcg PO DAILY 07/15/19 12/13/24 History mcg (5,000 unit) capsule blood sugar diagnostic (OneTouch #200 ea 09/08/20 12/13/24 Rx Ultra Blue Test Strip) lancets 33 gauge (OneTouch Delica #100 ea 12/15/20 12/13/24 Rx Plus Lancet) oivrjnyycagc-znf-lcylv acid-vit 1 tablet PO DAILY 01/25/21 12/13/24 History K-lycop 400 mcg-20 mcg-370 mcg tablet (One-A-Day Men's 50 Plus (with vitamin K)) pen needle, diabetic 32 gauge x #50 ea 01/25/21 12/13/24 Rx 1/6 (NovoFine Plus) Trelegy Ellipta 100 mcg-62.5 1 inh inhalation DAILY 30 days #60 05/24/21 12/13/24 Rx mcg-25 mcg powder for inhalation ea (crdgzchezoy-dbhnazplu-jjhmbqfh) lions yennifer 1 mg BYMOUTH 1XD #90 tabs 04/04/22 12/13/24 Rx vitamin B complex 1 tablet PO DAILY 04/04/22 12/13/24 History albuterol sulfate 90 mcg/actuation 1 puff inhalation Q4H PRN 12/05/22 12/13/24 Rx aerosol inhaler shortness of breath or wheezing #8.5 grams mirabegron 50 mg tablet,extended 50 mg PO DAILY 03/05/24 12/13/24 History release 24 hr (Myrbetriq) hydrochlorothiazide 12.5 mg tablet See Rx Instructions .Route 06/29/24 12/13/24 Rx .COMPLEX #30 tabs tamsulosin 0.4 mg capsule See Rx Instructions .Route 08/05/24 12/13/24 Rx .COMPLEX #180 caps simvastatin 20 mg tablet See Rx Instructions .Route 09/24/24 12/13/24 Rx .COMPLEX #90 tabs enalapril maleate 20 mg tablet See Rx Instructions .Route 10/14/24 12/13/24 Rx .COMPLEX #180 tabs prevagen BYMOUTH 10/26/24 10/26/24 History cilostazol 100 mg tablet See Rx Instructions .Route 11/01/24 12/13/24 Rx .COMPLEX #90 tabs verapamil 240 mg tablet,extended See Rx Instructions .Route 11/03/24 12/13/24 Rx release .COMPLEX #90 tabs hydrocodone 10 mg-acetaminophen 1 tablet PO Q8H PRN pain #90 tabs 12/02/24 12/13/24 Rx 325 mg tablet gabapentin 300 mg capsule 300 mg PO HS 12/13/24 12/13/24 History metformin 500 mg tablet 500 mg PO BID 12/13/24 12/13/24 History Allergies Allergy/AdvReac Type Severity Reaction Status Date / Time No Known Allergies Allergy Verified 10/26/24 11:08 Vital Signs Vital Signs - 24 hr 12/13/24 10:14 12/13/24 11:00 12/13/24 11:15 Temperature 97.6 F Pulse Rate 91 74 76 Respiratory Rate 20 24 H 24 H Blood Pressure 144/61 H Pulse Oximetry 92 90 Oxygen Delivery Room Air 12/13/24 11:16 12/13/24 11:30 12/13/24 11:31 Temperature Pulse Rate 75 74 74 Respiratory Rate 25 H 25 H 21 H Blood Pressure 127/57 L 112/57 L Pulse Oximetry 91 92 96 Oxygen Delivery 12/13/24 11:45 12/13/24 11:46 12/13/24 12:00 Temperature Pulse Rate 76 76 79 Respiratory Rate 23 H 23 H 20 Blood Pressure 127/58 L Pulse Oximetry 92 91 91 Oxygen Delivery 12/13/24 12:02 12/13/24 12:15 12/13/24 12:16 Temperature Pulse Rate 78 79 81 Respiratory Rate 20 20 20 Blood Pressure 121/61 144/66 H Pulse Oximetry 92 95 92 Oxygen Delivery Exam Narrative: General: well appearing, appears stated age. HEENT: normocephalic, atraumatic. Mucous membranes moist. EOMI, PERRLA, bilateral sclera anicteric, no conjunctival injection. Neck supple without JVD, lymphadenopathy, or bruit. Respiratory: Extremely coarse to ascultation bilaterally. Cardiovascular: Regular rate and rhythm, normal S1-S2 upon ascultation. No murmurs, rubs, or clicks. PMI is nondisplaced, capillary refill less than 3 second. Abdomen: Soft, round, no pulsatile masses, nondistended and nontender. No rebound, no guarding. No CVA tenderness, no hepatosplenomegaly. Bowel sounds present to all four quadrants. No high pitch or tinkling sounds, resonant to percussion. Extremities: No cyanosis, clubbing, Pulses are palpable 2/2. Active ROM to all four extremities. Plus two edema Neuro: Alert and orientated x 4. PERRLA. Cranial nerves 2-12 intact without focal deficit. Skin: Warm, dry, and intact, without rash, erythema, or lesion. Psych: pleasant, cooperative, normal speech, normal affect, no hallucinations, no dysarthia H&P: Results Labs Labs: Short CBC 12/13/24 Range/Units 10:36 WBC 19.8 H (4.5-10.0) K/mm3 Hgb 11.5 L (14.0-18.0) g/dL Hct 36.0 L (42.0-52.0) % Plt Count 244 (150-375) k/mm3 BMP 12/13/24 10:36 Sodium 135 L Potassium 4.0 Chloride 103 Carbon Dioxide 24 BUN 27 H Creatinine 0.98 Glucose 149 H Calcium 8.9 Liver Function 12/13/24 Range/Units 10:36 Total Bilirubin 0.9 (0.2-1.3) mg/dL AST 21 (17-59) U/L ALT 16 (6-50) U/L Alkaline Phosphatase 73 (38-126) U/L Albumin 3.6 (3.5-5.1) g/dL Urine 12/13/24 Range/Units 10:36 Urine Color Dark yellow (Yellow) Urine Appearance Clear (Clear) Urine pH 5.0 (5.0-9.0) Ur Specific [place] 1.021 (1.001-1.035) Urine Protein Trace (Negative) mg/dL Urine Glucose (UA) Negative (Negative) mg/dL Assessment and Plan Assessment and plan (1) UTI (urinary tract infection): Qualifiers: Hematuria presence: without hematuria Urinary tract infection type: site unspecified Qualified Code(s): N39.0 - Urinary tract infection, site not specified Code(s): N39.0 - Urinary tract infection, site not specified Status: Acute Assessment and Plan: IV Rocephin (2) Urinary retention: Code(s): R33.9 - Retention of urine, unspecified Status: Acute Assessment and Plan: Bladder scan q.6h and straight cath as needed Continue Flomax (3) Cardiomegaly: Code(s): I51.7 - Cardiomegaly Status: Acute Assessment and Plan: Lung sounds are extremely coarse Seen on chest x-ray with large pleural effusion, lower extremity edema BNP Lasix x1 Echocardiogram pending (4) Pleural effusion: Code(s): J90 - Pleural effusion, not elsewhere classified Status: Acute Assessment and Plan: Will liliparag apariciochi Will order a CT scan for the morning, patient is not in respiratory distress Hold off on Lovenox at this time to the patient needs a thoracentesis (5) DM type 2 (diabetes mellitus, type 2): Qualifiers: Diabetes mellitus complication status: without complication Diabetes mellitus intermodal dispatcher insulin use: unspecified assisted insulin use status Qualified Code(s): E11.9 - Type 2 diabetes mellitus without complications Code(s): E11.9 - Type 2 diabetes mellitus without complications Status: Acute Assessment and Plan: Hold home metformin Diabetic diet Accu-Cheks a.c. HS SSI (6) BPH (benign prostatic hyperplasia): Qualifiers: Lower urinary tract symptom presence: symptoms absent Qualified Code(s): N40.0 - Benign prostatic hyperplasia without lower urinary tract symptoms Code(s): N40.0 - Benign prostatic hyperplasia without lower urinary tract symptoms Status: Acute Assessment and Plan: Continue Flomax Patient may benefit from Proscar will add (7) COPD (chronic obstructive pulmonary disease): Qualifiers: COPD type: unspecified COPD Qualified Code(s): J44.9 - Chronic obstructive pulmonary disease, unspecified Code(s): J44.9 - Chronic obstructive pulmonary disease, unspecified Status: Acute Assessment and Plan: Chest x-ray shows large left pleural effusion (8) Hypertension: Code(s): I10 - Essential (primary) hypertension Status: Acute Assessment and Plan: Continue home medications Quality VTE Prophylaxis VTE prophylaxis: mechanical ordered Hospitalist MIPS Advance Care Plan I have confirmed that the patient's Advanced Care Plan is present, code status is documented, or surrogate decision maker is listed in patient medical record.: Yes Medication Reconciliation I have utilized all available resources to obtain, update and review the patients current medications (includes all prescriptions, OTC, herbals, cannabis, and nutritional supplements).: Yes
--- NOTE | 2024-12-13 14:43 | ADMGEN ---
This patient, Santos Mcgill, was admitted to 2 Medical Room 258-. Patient/family oriented to hospital policies and general routines including ID bracelet, bed and alarms, visiting hours, pain management, procedures, bathroom and other care routines, personal items, smoking policy, room service/diet, and visiting hours. Information on how to activate the Rapid Response Team has been discussed. Patient/Family are encouraged to report perceived risks to care and to ask questions if they do not understand what they are told or what they should do.
[2024-12-13 17:12] LABS: Glucose Point of Care 140 mg/dl (65-105)
[2024-12-13] MEDS: SODIUM CHLORIDE 0.9% IV 1,000 ML 100 ML IV CONT (17:19)
[2024-12-13] MEDS: DOCUSATE SODIUM 100 MG CAPSULE PO (17:19)
[2024-12-13 21:36] LABS: Glucose Point of Care 108 mg/dl (65-105)
[2024-12-13 22:06] LABS: NT Pro B Type Natriuretic Pept 1090 pg/mL (19.9-100)
[2024-12-13] MEDS: FUROSEMIDE INJ 40 MG/4 ML VIAL IV PUSH (22:15)
[2024-12-14] VITALS (9 sets, daily range): BP systolic 145–147; BP diastolic 62–69; PULSE 72–92; RESP 16–20; TEMP 36.6–36.9; O2SAT 90–93
--- NOTE | 2024-12-14 | ECHO_ITS ---
Patient Info Name: Santos Mcgill Age: 83 years : 1940 Gender: Male Ht: 74 in Wt: 284 lbs BSA: 2.64 m2 HR: 79 bpm BP: 160 / 68 mmHg Heart Rhythm: Sinus Rhythm Technical Quality: Fair Exam Date: 12/14/2024 11:28 AM Patient Status: I Admit Date: 12/14/2024 Exam Type: CA echo doppler color flow Complete two-dimensional, color flow and Doppler transthoracic echocardiogram is performed. Staff Referring Physician: Bert Sood School Psychometrist: Lashaun Powell Attending Provider: Bert Sood Summary 1. Complete two-dimensional, color flow and Doppler transthoracic echocardiogram is performed. 2. Left ventricular chamber dimension is normal. 3. Left ventricular systolic function is normal, estimated at 65-70. 4. There is moderate concentric increased left ventricular wall thickness. 5. The left ventricular diastolic function is grade I diastolic dysfunction. 6. Ventricular septum is sigmoid shaped. No resting LVOT obstruction. 7. E/e' 13 is mildly elevated. 8. Left atrial chamber dimension is severely enlarged. 9. Right atrial chamber dimension is mildly enlarged. 10. The aortic valve is not well visualized. Cannot determine number of aortic valve leaflets. 11. There is moderate aortic valve sclerosis. 12. There is moderate aortic valve stenosis based on a peak velocity of 415 cm/s, mean gradient of 40 mmHg, and aortic valve area of 1.1 cm2. 13. No pulmonary hypertension, estimated pulmonary arterial systolic pressure is 19 mmHg. Left Ventricle E/e' 13 is mildly elevated. Left ventricular chamber dimension is normal. Left ventricular systolic function is normal, estimated at 65-70. There is moderate concentric increased left ventricular wall thickness. The left ventricular diastolic function is grade I diastolic dysfunction. Ventricular septum is sigmoid shaped. No resting LVOT obstruction. Right Ventricle Right ventricular chamber dimension is normal. Right ventricular systolic function is normal and with normal TAPSE 3.6 cm. Left Atria Left atrial chamber dimension is severely enlarged. Right Atria Right atrial chamber dimension is mildly enlarged. Aortic Valve The aortic valve is not well visualized. Cannot determine number of aortic valve leaflets. There is moderate aortic valve sclerosis. There is moderate aortic valve stenosis based on a peak velocity of 415 cm/s, mean gradient of 40 mmHg, and aortic valve area of 1.1 cm2. There is no aortic valve regurgitation. Pulmonic Valve There is no pulmonic regurgitation. Mitral Valve There is no mitral valve stenosis. There is no mitral valve regurgitation. Tricuspid Valve There is no tricuspid valve regurgitation. No pulmonary hypertension, estimated pulmonary arterial systolic pressure is 19 mmHg. Pericardium/Pleural There is no pericardial effusion. Inferior Vena Cava Normal inferior vena cava with >50% collapse upon inspiration consistent with normal right atrial pressure, 5 mmHg. Aorta The aortic root size at the sinus of Valsalva is normal. Left Ventricular Outflow Tract Name Value Normal LVOT 2D LVOT Diameter 2.3 cm LVOT Doppler LVOT Peak Velocity 123 cm/s LVOT Peak Gradient 6 mmHg LVOT Mean Gradient 4 mmHg LVOT VTI 23 cm LVOT VTI/AV VTI Ratio 0.3 LVOT Stroke Volume 97 ml LVOT CO 7.3 l/min LVOT CI 2.8 l/min/m2 Pulmonic Valve Name Value Normal RVOT Doppler RVOT Peak Velocity 85 cm/s RVOT Peak Gradient 3 mmHg PV Doppler PV Peak Velocity 156 cm/s PV Peak Gradient 10 mmHg Mitral Valve Name Value Normal MV Diastolic Function MV E Peak Velocity 78 cm/s MV A Peak Velocity 111 cm/s MV E/A 0.7 MV Decel Time (PW) 249 ms MV Annular TDI MV E/e' (Septal) 13.8 MV E/e' (Lateral) 13.7 MV E/e' (Average) 13.8 Tricuspid Valve Name Value Normal TV Regurgitation Doppler TR Peak Velocity 185 cm/s TR Peak Gradient 14 mmHg Estimated PAP/RSVP RA Pressure 5 mmHg <=5 PA Systolic Pressure 19 mmHg <36 RV Systolic Pressure 19 mmHg <36 TV Annular TDI TV Lateral Nelsy s' Velocity 16.5 cm/s >=9.5 Aorta Name Value Normal Ascending Aorta Ao Root Diameter (MM) 3.6 cm Ao Root Diam Index (MM) 1.4 cm/m2 Aortic Valve Name Value Normal AV Doppler AV Peak Velocity 415 cm/s AV Peak Gradient 69 mmHg AV Mean Gradient 40 mmHg AV VTI 90 cm AV Area (Cont Eq VTI) 1.1 cm2 >=3.0 AV Area (Cont Eq Davie) 1.2 cm2 AV DI (Davie) 0.30 AV Regurgitation 2D LVOT Area 4.1 cm2 Ventricles Name Value Normal LV Dimensions 2D/MM IVS Diastolic Thickness (2D) 1.4 cm 0.6-1.0 LVID Diastole (2D) 5.3 cm 4.2-5.8 LVIW Diastolic Thickness (2D) 1.4 cm 0.6-1.0 LVID Systole (2D) 3.4 cm 2.5-4.0 LVOT Diameter 2.3 cm LV Mass (2D Cubed) 321.79 g 88.00-224.00 LV Mass Index (2D Cubed) 122 g/m2 49-115 Relative Wall Thickness (2D) 0.54 <=0.42 LV Fractional Shortening/Ejection Fraction 2D/MM LV Fractional Shortening (2D) 35 % 25-43 LV EF (2D Teichholz) 64 % LV Diastolic Volume (4C MOD) 93 ml LV EF (4C MOD) 71 % LV Diastolic Volume (2C MOD) 58 ml LV EF (2C MOD) 69 % LV Diastolic Volume (BP MOD) 76 ml 62-150 LV Diastolic Volume Index (BP MOD) 29 ml/m2 34-74 LV Systolic Volume (BP MOD) 23 ml 21-61 LV Systolic Volume Index (BP MOD) 9 ml/m2 11-31 LV EF (BP MOD) 69 % 52-72 LV Diastolic Length (4C) 9.1 cm LV Systolic Length (4C) 6.4 cm LV Stroke Volume (4C MOD) 66 ml Atria Name Value Normal LA Dimensions LA Dimension (MM) 4.3 cm 3.0-4.0 LA Volume (4C A-L) 157 ml LA Volume (BP A-L) 149 ml RA Dimensions RA Area (4C) 21.8 cm2 <=18.0 Report Signatures
[2024-12-14 05:28] LABS: Basophils Percent Auto 0.3 % (0.2-1.2); Eosinophils Absolute Auto 0.1 K/mm3 (0-0.3); Eosinophils Percent Auto 0.6 % (0-4.4); Hematocrit 33.8 % (42.0-52.0); Immature Granulocyte Percent A 0.7 % (0-0.5); Lymphocytes Absolute Auto 0.94 K/mm3 (0.9-3.2); Lymphocytes Percent Auto 6.2 % (18.3-44.2); Mean Corpuscular HGB Conc 32.5 g/dl (32-36); Mean Corpuscular Hemoglobin 30.2 pg (26-34); Mean Corpuscular Volume 92.9 fl (80-100); Mean Platelet Volume 9.5 fl (7.4-10.4); Monocytes Absolute Auto 0.7 K/mm3 (0.1-0.6); Monocytes Percent Auto 4.7 % (2.6-8.5); Neutrophils Absolute Auto 13.4 K/mm3 (1.3-6.7); Neutrophils Percent Auto 87.5 % (45.5-73.1); Platelet Count Result 239 k/mm3 (150-375); Red Blood Count 3.64 M/mm3 (4.6-6.20); Red Cell Distribution Width 13.7 % (11.5-14.5); White Blood Count 15.3 K/mm3 (4.5-10.0)
[2024-12-14 05:42] LABS: Anion Gap 9 mmol/L (4-12); Blood Urea Nitrogen 23 mg/dL (9-20); Calcium 8.8 mg/dL (8.4-10.2); Carbon Dioxide 25 mmol/L (22-30); Chloride 101 mmol/L (98-107); Estimated CRCL calculation 77 ml/min; Estimated Glomerular Filt Rate > 60; Glucose 107 mg/dL (65-110); Potassium 3.4 mmol/L (3.4-5.0); Sodium 135 mmol/L (137-145)
--- NOTE | 2024-12-14 07:17 | P.PNIM_ITS ---
Progress Note: A&P Assessment and Plan (1) UTI (urinary tract infection): Qualifiers: Hematuria presence: without hematuria Urinary tract infection type: site unspecified Qualified Code(s): N39.0 - Urinary tract infection, site not specified Code(s): N39.0 - Urinary tract infection, site not specified Status: Acute Assessment and Plan: * UA: 2+ leukocyte esterase, 21-50 WBC * UC obtained on 12/13 * started on Rocephin (2) Urinary retention: Code(s): R33.9 - Retention of urine, unspecified Status: Acute Assessment and Plan: * Bladder scan q.6h and straight cath as needed * Continue Flomax (3) Cardiomegaly: Code(s): I51.7 - Cardiomegaly Status: Acute Assessment and Plan: * Previous Chest XR in 06/20 showed unremarkable cardiomediastinal silhouette * CXR 12/13: Large left-sided pleural effusion with adjacent compressive atelectasis, cardiomediastinal silhouette is enlarged and partially obscured. 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 HS * SSI (6) BPH (benign prostatic hyperplasia): Qualifiers: Lower urinary tract symptom presence: symptoms absent Qualified Code(s): N40.0 - Benign prostatic hyperplasia without lower urinary tract symptoms Code(s): N40.0 - Benign prostatic hyperplasia without lower urinary tract symptoms Status: Acute Assessment and Plan: * Continue Flomax * Patient may benefit from Proscar will add (7) COPD (chronic obstructive pulmonary disease): Qualifiers: COPD type: unspecified COPD Qualified Code(s): J44.9 - Chronic obstructive pulmonary disease, unspecified Code(s): J44.9 - Chronic obstructive pulmonary disease, unspecified Status: Acute Assessment and Plan: * Chest x-ray shows large left pleural effusion (8) Hypertension: Code(s): I10 - Essential (primary) hypertension Status: Acute Assessment and Plan: * Continue home medications Time Spent With Patient Time: Subjective Date/time seen: 12/14/24 07:17 Interval history: 83-year-old male past medical history of right bundle miguel block, COVID, PVD BPH, COPD hypertension diabetes presents with urinary retention and altered mental status, 12/14/2024 Patient sitting comfortably in bed at time of exam. Denies any chest pain, SOB, n/v, abdominal pain at this time. Leukocytosis improving, on room air, and is A&Ox4. Culture still pending at this time. Also planning for echocardiogram, CT chest and thoracentesis for pleural effusion. Will continue treating suspected UTI w/ Rocephin. Review of Systems Review of Systems: All systems reviewed & are unremarkable except as noted in HPI and below Exam Narrative: General: well appearing, appears stated age. HEENT: normocephalic, atraumatic. Mucous membranes moist. EOMI, PERRLA, bilateral sclera anicteric, no conjunctival injection. Neck supple without JVD, lymphadenopathy, or bruit. Respiratory: Extremely coarse to ascultation bilaterally. Cardiovascular: Regular rate and rhythm, normal S1-S2 upon ascultation. No murmurs, rubs, or clicks. PMI is nondisplaced, capillary refill less than 3 second. Abdomen: Soft, round, no pulsatile masses, nondistended and nontender. No rebound, no guarding. No CVA tenderness, no hepatosplenomegaly. Bowel sounds present to all four quadrants. No high pitch or tinkling sounds, resonant to percussion. Extremities: No cyanosis, clubbing, Pulses are palpable 2/2. Active ROM to all four extremities. Plus two edema Neuro: Alert and orientated x 4. PERRLA. Cranial nerves 2-12 intact without focal deficit. Skin: Warm, dry, and intact, without rash, erythema, or lesion. Psych: pleasant, cooperative, normal speech, normal affect, no hallucinations, no dysarthia Objective Data Vital Signs Vital Signs: Vital Signs - 24 hr 12/13/24 10:14 12/13/24 11:00 12/13/24 11:15 Temperature 97.6 F Pulse Rate 91 74 76 Respiratory Rate 20 24 H 24 H Blood Pressure 144/61 H Pulse Oximetry 92 90 Oxygen Delivery Room Air 12/13/24 11:16 12/13/24 11:30 12/13/24 11:31 Temperature Pulse Rate 75 74 74 Respiratory Rate 25 H 25 H 21 H Blood Pressure 127/57 L 112/57 L Pulse Oximetry 91 92 96 Oxygen Delivery 12/13/24 11:45 12/13/24 11:46 12/13/24 12:00 Temperature Pulse Rate 76 76 79 Respiratory Rate 23 H 23 H 20 Blood Pressure 127/58 L Pulse Oximetry 92 91 91 Oxygen Delivery 12/13/24 12:02 12/13/24 12:15 12/13/24 12:16 Temperature Pulse Rate 78 79 81 Respiratory Rate 20 20 20 Blood Pressure 121/61 144/66 H Pulse Oximetry 92 95 92 Oxygen Delivery 12/13/24 14:50 12/13/24 15:00 12/13/24 15:17 Temperature 97.9 F Pulse Rate 87 73 Respiratory Rate 18 Blood Pressure 159/65 H Pulse Oximetry 94 92 Oxygen Delivery Room Air 12/13/24 16:00 12/13/24 20:00 12/13/24 22:00 Temperature 98.5 F Pulse Rate 78 74 77 Respiratory Rate 18 Blood Pressure 160/68 H Pulse Oximetry 91 Oxygen Delivery 12/13/24 23:47 12/14/24 00:00 12/14/24 04:00 Temperature Pulse Rate 92 86 Respiratory Rate Blood Pressure Pulse Oximetry 92 Oxygen Delivery Room Air Intake/Output Intake/Output: Intake & Output 12/11/24 12/12/24 12/13/24 12/14/24 23:59 23:59 23:59 23:59 Intake Total 530 948.3 Output Total 850 600 Balance -320 348.3 Meds/Results Medications: Active Medications Generic Name Dose Route Start Last Admin Trade Name Freq PRN Reason Stop Dose Admin Hydrocodone Bitart/Acetaminophen 1 tab 12/13/24 18:57 Hydrocodone/Acetaminophen (*Crx) 10-325 Mg Tablet PO Q8H PRN pain 4-6 Albuterol 1 puff 12/13/24 21:29 Albuterol Sulfate (*Sp) Aerosol 1 Puff INHALATION Q4HRT PRN shortness of breath or wheezing Aspirin 81 mg 12/14/24 09:00 Aspirin 81 Mg Chewable Tablet PO DAILY JOSE C Cilostazol 100 mg 12/14/24 09:00 Cilostazol 100 Mg Tablet BY MOUTH BID JOSE C Dextrose 12.5 gm 12/13/24 14:20 Dextrose 50% 25 Gm/50 Ml Syringe IV PUSH PRN PRN Hypoglycemia Protocol Docusate Sodium 100 mg 12/13/24 17:00 12/13/24 17:19 Docusate Sodium 100 Mg Capsule PO 100 mg BID [facility] Administration Enalapril Maleate 20 mg 12/14/24 09:00 Enalapril Maleate 10 Mg Tablet BY MOUTH BID JOSE C Finasteride 5 mg 12/14/24 09:00 Finasteride 5 Mg Tablet PO QAM JOSE C Fluticasone/Umeclidinium/Vilanterol 1 puff 12/14/24 08:00 Fluticasone/Umeclidin/Vilanter 100-62.5-25 Mcg Ellipta INHALATION DAILYRT JOSE C Glucagon 1 mg 12/13/24 14:20 Glucagon For Inj 1 Mg Vial IM PRN PRN Hypoglycemia Protocol Glucose 15 gm 12/13/24 14:20 Glucose Oral Gel 15 Gm Of Glucse In 37.5 Gm Tube PO PRN PRN Hypoglycemia Protocol Ceftriaxone Sodium 1 gm in 50 mls @ 100 mls/hr 12/14/24 09:00 Rocephin 1 Gm/Ns 50 Ml IVPB Q24H JOSE C Dextrose 1,000 mls @ 100 mls/hr 12/13/24 14:20 Dextrose 5% 1,000 Ml IVPB PRN PRN Hypoglycemia Protocol Insulin Aspart 2 - 5 units 12/13/24 17:00 12/13/24 17:15 Insulin Aspart (*Bkc) 100 Units/Ml SUB-Q Not Given TIDWM [facility] Protocol Insulin Aspart 1 - 2 units 12/13/24 21:00 12/13/24 20:58 Insulin Aspart (*Bkc) 100 Units/Ml SUB-Q Not Given HS [facility] Protocol Mirabegron 50 mg 12/14/24 09:00 Mirabegron 50 Mg Er Tablet PO DAILY [facility] Perflutren Lipid Microsphere 0 ml 12/13/24 21:27 Perflutren Lipid Microspheres 1.5 Ml Vial Diluted To 10 Ml Total Volume IV PU SH 12/16/24 21:27 ONCE PRN adequate visualization Protocol Simvastatin 20 mg 12/14/24 09:00 Simvastatin 20 Mg Tablet BY MOUTH DAILY [facility] Tamsulosin HCl 0.8 mg 12/14/24 09:00 Tamsulosin Hcl 0.4 Mg Capsule BY MOUTH QAM [facility] Radiology Results: ITS Impressions Chest X-Ray 12/13/24 20:42 IMPRESSION: Large left-sided pleural effusion with adjacent compressive atelectasis Labs Labs: Laboratory Results - last 24 hr 12/13/24 12/13/24 12/13/24 10:36 17:10 20:37 WBC 19.8 H RBC 3.86 L Hgb 11.5 L Hct 36.0 L MCV 93.3 MCH 29.8 MCHC 31.9 L RDW 13.9 Plt Count 244 MPV 9.1 Immature Gran % (Auto) 0.7 H Neut % (Auto) 91.1 H Lymph % (Auto) 3.9 L Cuming % (Auto) 3.8 Eos % (Auto) 0.2 Baso % (Auto) 0.3 Lymph # (Auto) 0.77 L Cuming # (Auto) 0.8 H Eos # (Auto) 0.0 Baso # (Auto) 0.1 Abs Immat Gran (auto) 0.14 H Absolute Neuts (auto) 18.1 H Absolute Nucleated RBC 0.000 Nucleated RBC % 0.0 Sodium 135 L Potassium 4.0 Chloride 103 Carbon Dioxide 24 Anion Gap 8 BUN 27 H Creatinine 0.98 Estim Creat Clear Calc 73 Estimated GFR > 60 Glucose 149 H POC Capillary Glucose 140 H 108 H Calcium 8.9 Total Bilirubin 0.9 AST 21 ALT 16 Alkaline Phosphatase 73 NT-Pro-B Natriuret Pep Total Protein 7.0 Albumin 3.6 Urine Color Dark yellow Urine Appearance Clear Urine pH 5.0 Ur Specific [place] 1.021 Urine Protein Trace Urine Glucose (UA) Negative Urine Ketones Trace H Ur Blood (Man) Negative Urine Nitrate Negative Urine Bilirubin Negative Urine Urobilinogen 0.2 Add Ur Microanalysis Reviewed Leukocyte Esterase Rfl 2+ H Urine RBC 0-2 Urine WBC 21-50 H Ur Squamous Epith Cells Few Urine Bacteria None seen Urine Casts 0-2 12/13/24 12/14/24 21:36 04:56 WBC 15.3 H RBC 3.64 L Hgb 11.0 L Hct 33.8 L MCV 92.9 MCH 30.2 MCHC 32.5 RDW 13.7 Plt Count 239 MPV 9.5 Immature Gran % (Auto) 0.7 H Neut % (Auto) 87.5 H Lymph % (Auto) 6.2 L [place] % (Auto) 4.7 Eos % (Auto) 0.6 Baso % (Auto) 0.3 Lymph # (Auto) 0.94 Cuming # (Auto) 0.7 H Eos # (Auto) 0.1 Baso # (Auto) 0.0 Abs Immat Gran (auto) 0.10 H Absolute Neuts (auto) 13.4 H Absolute Nucleated RBC 0.000 Nucleated RBC % 0.0 Sodium 135 L Potassium 3.4 Chloride 101 Carbon Dioxide 25 Anion Gap 9 BUN 23 H Creatinine 0.93 Estim Creat Clear Calc 77 Estimated GFR > 60 Glucose 107 POC Capillary Glucose Calcium 8.8 Total Bilirubin AST ALT Alkaline Phosphatase NT-Pro-B Natriuret Pep 1090 H Total Protein Albumin Urine Color Urine Appearance Urine pH Ur Specific [place] Urine Protein Urine Glucose (UA) Urine Ketones Ur Blood (Man) Urine Nitrate Urine Bilirubin Urine Urobilinogen Add Ur Microanalysis Leukocyte Esterase Rfl Urine RBC Urine WBC Ur Squamous Epith Cells Urine Bacteria Urine Casts Quality VTE Prophylaxis VTE prophylaxis: mechanical ordered
[2024-12-14 08:03] LABS: Glucose Point of Care 106 mg/dl (65-105)
[2024-12-14] MEDS: ENALAPRIL MALEATE 10 MG TABLET 20 MG BY MOUTH ×2 (08:34→16:04)
[2024-12-14] MEDS: SIMVASTATIN 20 MG TABLET BY MOUTH (08:34)
[2024-12-14] MEDS: DOCUSATE SODIUM 100 MG CAPSULE PO ×2 (08:34→16:04)
[2024-12-14] MEDS: HYDROcodone/acetaminophen (*CRX) 10-325 MG TABLET 1 TAB PO ×2 (08:34→20:31)
[2024-12-14] MEDS: TAMSULOSIN HCL 0.4 MG CAPSULE 0.8 MG BY MOUTH (08:34)
[2024-12-14] MEDS: cilostazoL 100 MG TABLET BY MOUTH ×2 (08:34→16:04)
[2024-12-14] MEDS: ASPIRIN 81 MG CHEWABLE TABLET PO (08:34)
[2024-12-14] MEDS: FINASTERIDE 5 MG TABLET PO (08:34)
[2024-12-14] MEDS: MIRABEGRON 50 MG ER TABLET PO (08:35)
[2024-12-14 10:37] LABS: INR 1.2; Prothrombin Time 15.8 Seconds (11.1-14.7)
[2024-12-14 10:38] LABS: Partial Thromboplastin Time 38.5 Seconds (22.3-36.8)
--- NOTE | 2024-12-14 10:39 | PCRCNOTE ---
Window of time for administration has passed. See next scheduled administration.
[2024-12-14 11:28] LABS: Glucose Point of Care 117 mg/dl (65-105)
[2024-12-14 16:39] LABS: Glucose Point of Care 151 mg/dl (65-105)
[2024-12-14 19:56] LABS: Glucose Point of Care 193 mg/dl (65-105)
[2024-12-15] VITALS: PULSE 83
[2024-12-15 04:00] VITALS: PULSE 64
[2024-12-15 06:00] VITALS: BP 156/77; PULSE 82; RESP 18; TEMP 36.3; O2SAT 91
[2024-12-15 07:23] LABS: Basophils Absolute Auto 0.1 K/mm3 (0.0-0.1); Basophils Percent Auto 0.6 % (0.2-1.2); Eosinophils Absolute Auto 0.5 K/mm3 (0-0.3); Eosinophils Percent Auto 5.3 % (0-4.4); Hematocrit 34.1 % (42.0-52.0); Immature Granulocyte Absolute 0.04 K/mm3 (0.00-0.031); Immature Granulocyte Percent A 0.5 % (0-0.5); Lymphocytes Absolute Auto 1.04 K/mm3 (0.9-3.2); Lymphocytes Percent Auto 12.2 % (18.3-44.2); Mean Corpuscular HGB Conc 32.3 g/dl (32-36); Mean Corpuscular Hemoglobin 29.8 pg (26-34); Mean Corpuscular Volume 92.4 fl (80-100); Mean Platelet Volume 9.1 fl (7.4-10.4); Monocytes Absolute Auto 0.7 K/mm3 (0.1-0.6); Monocytes Percent Auto 8.6 % (2.6-8.5); Neutrophils Absolute Auto 6.2 K/mm3 (1.3-6.7); Neutrophils Percent Auto 72.8 % (45.5-73.1); Platelet Count Result 275 k/mm3 (150-375); Red Blood Count 3.69 M/mm3 (4.6-6.20); Red Cell Distribution Width 13.5 % (11.5-14.5); White Blood Count 8.5 K/mm3 (4.5-10.0)
[2024-12-15 07:43] LABS: Alanine Aminotransferase 37 U/L (6-50); Albumin Level 3.4 g/dL (3.5-5.1); Alkaline Phosphatase 71 U/L (38-126); Anion Gap 8 mmol/L (4-12); Aspartate Amino Transferase 54 U/L (17-59); Bilirubin,Total 0.5 mg/dL (0.2-1.3); Blood Urea Nitrogen 27 mg/dL (9-20); Calcium 8.7 mg/dL (8.4-10.2); Carbon Dioxide 25 mmol/L (22-30); Chloride 105 mmol/L (98-107); Estimated CRCL calculation 78 ml/min; Estimated Glomerular Filt Rate > 60; Glucose 110 mg/dL (65-110); Potassium 3.3 mmol/L (3.4-5.0); Sodium 138 mmol/L (137-145)
[2024-12-15 08:04] LABS: Glucose Point of Care 111 mg/dl (65-105)
[2024-12-15] MEDS: SIMVASTATIN 20 MG TABLET BY MOUTH (08:37)
[2024-12-15] MEDS: TAMSULOSIN HCL 0.4 MG CAPSULE 0.8 MG BY MOUTH (08:37)
[2024-12-15] MEDS: MIRABEGRON 50 MG ER TABLET PO (08:37)
[2024-12-15] MEDS: POTASSIUM CHLORIDE 20 MEQ ER TABLET PO (08:37)
[2024-12-15] MEDS: ASPIRIN 81 MG CHEWABLE TABLET PO (08:37)
[2024-12-15] MEDS: DOCUSATE SODIUM 100 MG CAPSULE PO (08:37)
[2024-12-15] MEDS: ENALAPRIL MALEATE 10 MG TABLET 20 MG BY MOUTH (08:37)
[2024-12-15] MEDS: cilostazoL 100 MG TABLET BY MOUTH (08:37)
[2024-12-15] MEDS: FINASTERIDE 5 MG TABLET PO (08:37)
[2024-12-15 08:45] VITALS: PULSE 73
[2024-12-15 10:26] VITALS: PULSE 76; RESP 20; O2SAT 91
[2024-12-15] MEDS: FLUTICASONE/UMECLIDIN/VILANTER 100-62.5-25 MCG ELLIPTA 1 PUFF INHALATION (10:26)
[2024-12-15 12:00] VITALS: PULSE 79
[2024-12-15 12:05] LABS: Glucose Point of Care 123 mg/dl (65-105)
--- NOTE | 2024-12-15 13:28 | P.DS_ITS ---
DS: Admitting Diagnosis Discharge Date 12/15/2024 Admitting Diagnosis UTI, AMS DS: Discharge Diagnosis Discharge Diagnosis (1) UTI (urinary tract infection): Qualifiers: Hematuria presence: without hematuria Urinary tract infection type: site unspecified Qualified Code(s): N39.0 - Urinary tract infection, site not specified Code(s): N39.0 - Urinary tract infection, site not specified Status: Acute (2) Urinary retention: Code(s): R33.9 - Retention of urine, unspecified Status: Acute (3) Cardiomegaly: Code(s): I51.7 - Cardiomegaly Status: Acute (4) Pleural effusion: Code(s): J90 - Pleural effusion, not elsewhere classified Status: Acute (5) DM type 2 (diabetes mellitus, type 2): Qualifiers: Diabetes mellitus complication status: without complication Diabetes mellitus fdc insulin use: unspecified fdc insulin use status Qualified Code(s): E11.9 - Type 2 diabetes mellitus without complications Code(s): E11.9 - Type 2 diabetes mellitus without complications Status: Acute (6) BPH (benign prostatic hyperplasia): Qualifiers: Lower urinary tract symptom presence: symptoms absent Qualified Code(s): N40.0 - Benign prostatic hyperplasia without lower urinary tract symptoms Code(s): N40.0 - Benign prostatic hyperplasia without lower urinary tract symptoms Status: Acute (7) COPD (chronic obstructive pulmonary disease): Qualifiers: COPD type: unspecified COPD Qualified Code(s): J44.9 - Chronic obstructive pulmonary disease, unspecified Code(s): J44.9 - Chronic obstructive pulmonary disease, unspecified Status: Acute (8) Hypertension: Code(s): I10 - Essential (primary) hypertension Status: Acute DS: Summary Hospital Course Reason for hospitalization: [facility] Hospital Course: 83-year-old male past medical history of right bundle miguel block, COVID, PVD BPH, COPD hypertension diabetes presents with urinary retention and altered mental status. HPI is limited as patient does not give much information and is slightly altered. Patient states that he takes medications his girlfriend gives him. But however per the ED notes he has a . Patient denies nausea vomiting fever chills or abdominal pain. Lab work shows leukocytosis at 19.8, anemia at 11.5, sodium of 135, BUN of 27, glucose of 149, with hemoglobin A1c of 6.6, UA shows 2+ leukocyte esterase, 21- 50 wbc's, EKG shows sinus rhythm with first-degree AV block. Chest x-ray showed a large left-sided pleural effusion with adjacent compressive atelectasis. Chest ultrasound was obtained which showed no significant left-s ided pleural effusion under direct sonographic. The thoracentesis procedure aborted at this time. 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 Will discuss with patient regarding these findings and the need for further possible outpatient evaluation with his PCP. Patient has been ambulatory with a walker/cane. Pt also denies any chest pain, shortness of breath, nausea and vomiting. He was able to ambulate on 12/15 with nursing staff advising and did not experience any dizziness or SOB. He has also remained A&Ox4 throughout his stay. Patient was sent home off O2 supplementation and has appropriate O2 saturations and has been afebrile with no leukocytosis. Urine culture obtained which showed no bacterial growth whatsoever. Will discontinue antibiotics for UTI. Echocardiogram obtained which showed normal left ventricular chamber dimension in function, with an EF of 65-70% with grade 1 diastolic dysfunction, E/e' 13(mildly elevated), severe enlargement of left atrial chamber and mild enlargement of right atrial chamber, moderate aortic valve sclerosis and stenosis, no pulmonary hypertension. Patien t is otherwise hemodynamically stable with benign physical exam, without lower extremity edema/swelling. Low suspicion of pneumonia given hemodynamic stability, benign physical exam and stable vital signs. Patient will be recommended to follow up with his primary care physician regarding his hospitalization. Patient require further diuresis, this can be managed in the outpatient setting with regular monitoring of kidney function. Blood work relatively unremarkable besides potassium 3 3. Patient otherwise hemodynamically stable for discharge at this time. Plan for discharge home. Status at Discharge Functional status at discharge: uses cane/walker Overall status at discharge: patient is back to baseline Time Spent with Patient Time attestation: Total time spent providing and/or coordinating discharge services:30 Exam Narrative: General: well appearing, appears stated age. HEENT: normocephalic, atraumatic. Mucous membranes moist. EOMI, PERRLA, bilateral sclera anicteric, no conjunctival injection. Neck supple without JVD, lymphadenopathy, or bruit. Respiratory: Extremely coarse to ascultation bilaterally. Cardiovascular: Regular rate and rhythm, normal S1-S2 upon ascultation. No murmurs, rubs, or clicks. PMI is nondisplaced, capillary refill less than 3 second. Abdomen: Soft, round, no pulsatile masses, nondistended and nontender. No rebound, no guarding. No CVA tenderness, no hepatosplenomegaly. Bowel sounds present to all four quadrants. No high pitch or tinkling sounds, resonant to percussion. Extremities: No cyanosis, clubbing, Pulses are palpable 2/2. Active ROM to all four extremities. No edema Neuro: Alert and orientated x 4. PERRLA. Cranial nerves 2-12 intact without focal deficit. Skin: Warm, dry, and intact, without rash, erythema, or lesion. Psych: pleasant, cooperative, normal speech, normal affect, no hallucinations, no dysarthia DS: Data Data Completed and Pending Labs on day of discharge: Labs from last 24 hours 12/15/24 12/15/24 12/15/24 12:02 08:02 07:16 WBC 8.5 RBC 3.69 L Hgb 11.0 L Hct 34.1 L MCV 92.4 MCH 29.8 MCHC 32.3 RDW 13.5 Plt Count 275 MPV 9.1 Immature Gran % (Auto) 0.5 Neut % (Auto) 72.8 Lymph % (Auto) 12.2 L Bartholomew % (Auto) 8.6 H Eos % (Auto) 5.3 H Baso % (Auto) 0.6 Lymph # (Auto) 1.04 Bartholomew # (Auto) 0.7 H Eos # (Auto) 0.5 H Baso # (Auto) 0.1 Abs Immat Gran (auto) 0.04 H Absolute Neuts (auto) 6.2 Absolute Nucleated RBC 0.000 Nucleated RBC % 0.0 Sodium 138 Potassium 3.3 L Chloride 105 Carbon Dioxide 25 Anion Gap 8 BUN 27 H Creatinine 0.92 Estim Creat Clear Calc 78 Estimated GFR > 60 Glucose 110 POC Capillary Glucose 123 H 111 H Calcium 8.7 Total Bilirubin 0.5 AST 54 ALT 37 Alkaline Phosphatase 71 Total Protein 7.0 Albumin 3.4 L 12/14/24 12/14/24 19:50 16:37 WBC RBC Hgb Hct MCV MCH MCHC RDW Plt Count MPV Immature Gran % (Auto) Neut % (Auto) Lymph % (Auto) Bartholomew % (Auto) Eos % (Auto) Baso % (Auto) Lymph # (Auto) Bartholomew # (Auto) Eos # (Auto) Baso # (Auto) Abs Immat Gran (auto) Absolute Neuts (auto) Absolute Nucleated RBC Nucleated RBC % Sodium Potassium Chloride Carbon Dioxide Anion Gap BUN Creatinine Estim Creat Clear Calc Estimated GFR Glucose POC Capillary Glucose 193 H 151 H Calcium Total Bilirubin AST ALT Alkaline Phosphatase Total Protein Albumin Discharge Plan Discharge Attending physician on discharge: Bert Sood Discharging Clinician: Bert Sood Anticipated Discharge Date/Time: 12/15/24 13:21 Patient Disposition: Home Activity: as tolerated Diet: as tolerated Discharge Instructions: Discharge disposition: Stable Take medications as prescribed Monitor blood pressures Take caution while standing, rising, or moving Change positions slowly taking a break between each position change If you standing feel dizzy sit back down and take a break Encouraged to continue with yearly vaccinations Return to the emergency department if he developed sudden shortness of breath, chest pain, nausea, vomiting, upset stomach or intractable diarrhea Return to the emergency department if you develop fever greater than 101.5 Follow-up with the primary care physician within 1-2 weeks Thank you for [facility] for your healthcare needs Patient Instructions: Antibiotic Form Patient Language: Trinidadian Stand Alone Forms: General Discharge Information Follow-up/Referrals: Nelson Tapia MD [Primary Care Provider] - Discharge Medications: Continued omega-3 fatty acids [Fish Oil Concentrate] 1,000 mg capsule 2,000 mg PO DAILY aspirin 81 mg tablet,chewable 81 mg PO DAILY ascorbate calcium (vitamin C) 500 mg tablet 500 mg PO DAILY calcium carbonate [Calcium 600] 600 mg calcium (1,500 mg) tablet 600 mg PO DAILY cholecalciferol (vitamin D3) 125 mcg (5,000 unit) capsule 125 mcg PO DAILY One-A-Day Men's 50 Plus(vit K) 400-20-370 mcg tablet 1 tablet PO DAILY (DME) NovoFine Plus 32 gauge x 1/6 needle See Rx Instructions .Route Qty: 50 1RF Rx Instructions: As directed albuterol sulfate 90 mcg/actuation HFA aerosol inhaler 1 puff inhalation Q4H PRN (Reason: shortness of breath or wheezing) Qty: 8.5 3RF prevagen BYMOUTH lions yennifer 1 mg BYMOUTH 1XD Qty: 90 0RF Rx Instructions: Supplement. vitamin B complex Tablet 1 tablet PO DAILY metformin 500 mg tablet 500 mg PO BID gabapentin 300 mg capsule 300 mg PO HS (DME) OneTouch Ultra Blue Test Strip Strip See Rx Instructions .ROUTE .MEDSUPPLY Qty: 200 3RF Rx Instructions: Use to test BS twice a day (DME) lancets [OneTouch Delica Plus Lancet] 33 gauge misc See Rx Instructions .ROUTE .MEDSUPPLY Qty: 100 5RF Rx Instructions: Use to test BS twice daily Trelegy Ellipta 100-62.5-25 mcg blister with device 1 inh INHALATION DAILY 30 Days Qty: 60 6RF mirabegron [Myrbetriq] 50 mg tablet extended release 24 hr 50 mg PO DAILY hydrochlorothiazide 12.5 mg tablet See Rx Instructions .ROUTE .COMPLEX Qty: 30 4RF Dose Instruction: TAKE 1 TABLET BY MOUTH DAILY Rx Instructions: TAKE 1 TABLET BY MOUTH DAILY tamsulosin 0.4 mg capsule See Rx Instructions .ROUTE .COMPLEX Qty: 180 1RF Dose Instruction: TAKE 2 CAPSULES BY MOUTH DAILY Rx Instructions: TAKE 2 CAPSULES BY MOUTH DAILY simvastatin 20 mg tablet See Rx Instructions .ROUTE .COMPLEX Qty: 90 1RF Dose Instruction: TAKE 1 TABLET BY MOUTH DAILY Rx Instructions: TAKE 1 TABLET BY MOUTH DAILY enalapril maleate 20 mg tablet See Rx Instructions .ROUTE .COMPLEX Qty: 180 0RF Dose Instruction: TAKE 1 TABLET BY MOUTH TWICE DAILY Rx Instructions: TAKE 1 TABLET BY MOUTH TWICE DAILY cilostazol 100 mg tablet See Rx Instructions .ROUTE .COMPLEX Qty: 90 1RF Dose Instruction: TAKE 1 TABLET BY MOUTH TWICE DAILY Rx Instructions: TAKE 1 TABLET BY MOUTH TWICE DAILY verapamil 240 mg tablet extended release See Rx Instructions .ROUTE .COMPLEX Qty: 90 0RF Dose Instruction: TAKE 1 TABLET BY MOUTH DAILY Rx Instructions: TAKE 1 TABLET BY MOUTH DAILY hydrocodone-acetaminophen 10-325 mg tablet 1 tablet PO Q8H PRN (Reason: pain) Qty: 90 0RF Date of admission: 12/14/24 10:51 Primary Care Provider: Nelson Tapia Admitting Provider: Benito Booker Attending physician on admission: Bert Sood Condition: Stable Quality VTE Prophylaxis VTE prophylaxis: mechanical ordered
== END 2024-12-15 14:12 | disposition home or self-care (01) | DRG 690 ==
LOC: ANHED 13:01 → ANH2MED 13:44
PROVIDERS: Nurse Practitioner Gerontology; Physician Assistant; Admitting Provider Internal Medicine; Emergency Provider Emergency Medicine; PCP Internal Medicine; Visit Provider Physician Assistant
DX: N39.0 Urinary tract infection, site not specified (principal); J90 Pleural effusion, not elsewhere classified; J98.11 Atelectasis; R33.9 Retention of urine, unspecified; I51.7 Cardiomegaly; E11.9 Type 2 diabetes mellitus without complications; N40.0 Benign prostatic hyperplasia without lower urinary tract symptoms; J44.9 Chronic obstructive pulmonary disease, unspecified; I10 Essential (primary) hypertension; R41.0 Disorientation, unspecified; I45.10 Unspecified right bundle-branch block; G25.81 Restless legs syndrome; I73.9 Peripheral vascular disease, unspecified; E78.5 Hyperlipidemia, unspecified; M15.9 Polyosteoarthritis, unspecified; Z86.16 Personal history of COVID-19; Z87.891 Personal history of nicotine dependence
CPT/HCPCS: 36415; 71045; 71260; 76604; 80048; 80053; 81001; 82948; 83880; 85025; 85610; 85730; 87086; 93005; 93306; 94640; 96365; 96375; 99285; A9270; G0378; J0696; J1938; J7030; Q9967

== ENCOUNTER 2025-02-13 14:13 | Emergency (ER) | payer MEDICARE, SELFPAY ==
[2025-02-13 14:22] VITALS: BP 123/66; PULSE 81; RESP 22; TEMP 36.6; O2SAT 94
--- NOTE | 2025-02-13 14:28 | ED_ITS ---
HPI - Ear Problem General Chief complaint: Ear Stated complaint: right clogged ear Time Seen by Provider: 02/13/25 14:15 Source: patient and RN notes reviewed Mode of arrival: ambulatory Limitations: no limitations History of Present Illness HPI Narrative: 84-year-old male presents Express Care complaining of clogged right ear. He says he has a history of impacted cerumen and has had his ears irrigated before. Patient denies any ear pain, fevers, upper respiratory symptoms, cough, dizziness, vision changes, or any other symptoms. Patient's spouse's they tried some [id number] earwax softener without any relief over the last 2 days. Related Data Home Medications ?Medication ?Instructions ?Recorded ?Confirmed ?Last Taken ?Type omega-3 fatty acids 1,000 mg 2,000 mg PO DAILY 06/15/19 12/13/24 12/13/24 History capsule (Fish Oil Concentrate) ascorbate calcium (vitamin C) 500 500 mg PO DAILY 07/15/19 12/13/24 12/13/24 History mg tablet aspirin 81 mg chewable tablet 81 mg PO DAILY 07/15/19 12/13/24 12/13/24 History calcium carbonate (Calcium 600) 600 mg PO DAILY 07/15/19 12/13/24 12/13/24 History cholecalciferol (vitamin D3) 125 125 mcg PO DAILY 07/15/19 12/13/24 12/13/24 History mcg (5,000 unit) capsule kcvfzwknrgcy-lqi-lcago acid-vit 1 tablet PO DAILY 01/25/21 12/13/24 12/13/24 History K-lycop 400 mcg-20 mcg-370 mcg tablet (One-A-Day Men's 50 Plus (with vitamin K)) vitamin B complex 1 tablet PO DAILY 04/04/22 12/13/24 12/13/24 History prevagen BYMOUTH 10/26/24 10/26/24 Unknown History metformin 500 mg tablet 500 mg PO BID 12/13/24 12/13/24 Unknown History Allergies Allergy/AdvReac Type Severity Reaction Status Date / Time No Known Allergies Allergy Verified 02/13/25 14:26 Review of Systems Review of Systems: CONSTITUTIONAL: Denies fever, chills, or sweats. EYES: Denies visual changes, blurry vision, redness, or discharge. ENT: Denies rhinorrhea, congestion, sore throat, or otalgia. Positive for ear fullness. CARDIOVASCULAR: Denies chest pain, palpitations, dizziness, lightheadedness or edema. RESPIRATORY: Denies cough or dyspnea. GASTROINTESTINAL: Denies abdominal pain, nausea, vomiting, or diarrhea. GENITOURINARY: Denies dysuria or hematuria. SKIN: Denies rash or itching. MUSCULOSKELETAL: Denies back pain, joint pain, or myalgia. NEUROLOGIC: Denies headache, numbness, or weakness. PSYCHIATRIC: Denies anxiety or depression. All other systems reviewed are negative, except as documented in HPI. [facility] Past Medical History Medical History BMI 35.0-35.9,adult URI (upper respiratory infection) Right knee pain UTI (urinary tract infection) Nocturia Chronic low back pain Chest discomfort Colon cancer screening Hx of colonic polyps BMI 38.0-38.9,adult Encounter for Medicare annual wellness exam Chronic leg pain RBBB (right bundle branch block) Vitamin D deficiency Personal history of COVID-19 Hearing loss Left ankle sprain Hyperlipidemia Exposure to COVID-19 virus Pneumonia BMI 37.0-37.9, adult Encounter for routine adult health examination with abnormal findings Elevated homocysteine BMI 36.0-36.9,adult Ankle pain RLS (restless legs syndrome) Encounter for routine adult health examination without abnormal findings On rn long term care drug therapy Polyarticular arthritis Microscopic hematuria Follow up PVD (peripheral vascular disease) Hypersomnolence BPH (benign prostatic hyperplasia) COPD (chronic obstructive pulmonary disease) Benign essential hypertension DM type 2 (diabetes mellitus, type 2) Family History Family History Father Emphysema lung Father Family history of liver disease Family history of chronic obstructive pulmonary disease Social History Social History Smoking status: Former smoker Tobacco type: cigarettes Second hand tobacco smoke exposure: No Alcohol intake: current Drinks per week: 7 Substance use: current Substance use type: marijuana Do You Feel Safe in your Home?: Yes Lack of Transportation: No Lack of Food: Never True Current Housing: I Have Housing Concerned About Future Housing: No Difficulty Paying Gas/Electric Bills: No Difficulty Paying for Meds: No Currently Unemployed: No Education: High School Diploma/GED Difficulty w/ Childcare or Family Care: No Living arrangements: with family Occupation/Education: occupation Gender identity (if verbalized by the patient): Male Spiritual care concerns: No Comments At the time of my signature, I reviewed and agree with the nursing past medical, surgical, social, and family history. There is no relevant family history pertinent to the patient complaint. Exam Narrative: GENERAL: This is a well-nourished, well-developed adult, in no apparent distress. They are non ill-appearing, nontoxic appearing. Patient is wearing glasses. HEAD: normocephalic, atraumatic. EYES: Sclera clear/white. Conjunctiva normal. Vision is grossly intact. Extraocular movements intact. Pupils PERRLA. No nystagmus. EARS: External ears normal, left auditory canals clear and without drainage, right auditory canal impacted with cerumen. Unable to visualize right TM. Left TM normal without perforation. Hearing grossly intact. NOSE: External nose normal THROAT: Mucous membranes moist, NECK: Neck supple, CARDIOVASCULAR: Regular rate and rhythm RESPIRATORY: Respiratory rate normal, respiratory effort nonlabored, no respiratory distress SKIN: warm, Dry, intact with no suspicious lesions or rash, good texture and turgor. NEURO: awake, alert, and oriented to person, place and time. There were no obvious focal neurologic abnormalities. EXTREMITIES: No joint tenderness, effusion, or edema noted. Course Course Emergency Course: Portions of this record may have been created with voice recognition software Level of Care: Express Care Visit Vital Signs Vital signs: Vital Signs Temperature 97.8 F 02/13/25 14:22 Pulse Rate 81 02/13/25 14:22 Respiratory Rate 22 H 02/13/25 14:22 Blood Pressure 123/66 02/13/25 14:22 Pulse Oximetry 94 02/13/25 14:22 Oxygen Delivery Room Air 02/13/25 14:22 Temperature 97.8 F 02/13/25 14:22 Pulse Rate 81 02/13/25 14:22 Respiratory Rate 22 H 02/13/25 14:22 Blood Pressure 123/66 02/13/25 14:22 Pulse Oximetry 94 02/13/25 14:22 Oxygen Delivery Room Air 02/13/25 14:22 Reviewed Procedures Ear Wax Removal Right Ear: Ear Wax Removal Date: 02/13/25 Ear Wax Removal Time: 14:31 Cerumenolytic Used: other (Small amount hydrogen peroxide) Results: Re-examined: cerumen removed completely TM Examination: TM(s) intact, normal appearance Ear Canal Exam: atraumatic Patient Tolerated Procedure: well Complications: no problems Technique: ear canal irrigated and ear canal curetted Additional Comments: Patient tolerated procedure well. Medical Decision Making MDM Narrative Medical decision making narrative: Successful irrigation right auditory canal. Patient's symptoms significantly improved. All cerumen was removed. No evidence of infection or inflammation. Discussed physical exam findings. Advised supportive measures and signs/symptoms to go to the ER. Pt is appropriate for outpt treatment and f/u. Differential Diagnosis Differential Diagnosis: Otitis media, otitis externa, impacted cerumen Vital Signs Vital Signs: Vital Signs Temperature 97.8 F 02/13/25 14:22 Pulse Rate 81 02/13/25 14:22 Respiratory Rate 22 H 02/13/25 14:22 Blood Pressure 123/66 02/13/25 14:22 Pulse Oximetry 94 02/13/25 14:22 Oxygen Delivery Room Air 02/13/25 14:22 Temperature 97.8 F 02/13/25 14:22 Pulse Rate 81 02/13/25 14:22 Respiratory Rate 22 H 02/13/25 14:22 Blood Pressure 123/66 02/13/25 14:22 Pulse Oximetry 94 02/13/25 14:22 Oxygen Delivery Room Air 02/13/25 14:22 Critical Care Time Critical Care Time Critical Care Time: No Discharge Plan Discharge Clinical Impression: Cerumen impaction Qualifiers: Laterality: right Qualified Code(s): H61.21 - Impacted cerumen, right ear Patient Disposition: Home Condition: Stable Instructions: Antibiotic Form, Carbamide Peroxide (Into the ear) Additional Instructions: You may use debrox as needed to soften your ear wax. May do 10 drops twice a day for max 4 days. All the earwax was successfully removed from your right ear canal. With PCP in 3-5 days. Return the ER for any serious concerns such as dizziness, vision changes, headaches, etc.. Patient Language: Chinese Prescriptions: No Action omega-3 fatty acids [Fish Oil Concentrate] 1,000 mg capsule 2,000 mg PO DAILY aspirin 81 mg tablet,chewable 81 mg PO DAILY ascorbate calcium (vitamin C) 500 mg tablet 500 mg PO DAILY calcium carbonate [Calcium 600] 600 mg calcium (1,500 mg) tablet 600 mg PO DAILY cholecalciferol (vitamin D3) 125 mcg (5,000 unit) capsule 125 mcg PO DAILY One-A-Day Men's 50 Plus(vit K) 400-20-370 mcg tablet 1 tablet PO DAILY albuterol sulfate 90 mcg/actuation HFA aerosol inhaler 1 puff inhalation Q4H PRN (Reason: shortness of breath or wheezing) Qty: 8.5 3RF prevagen BYMOUTH lions yennifer 1 mg BYMOUTH 1XD Qty: 90 0RF Rx Instructions: Supplement. vitamin B complex Tablet 1 tablet PO DAILY metformin 500 mg tablet 500 mg PO BID Trelegy Ellipta 100-62.5-25 mcg blister with device 1 inh INHALATION DAILY 30 Days Qty: 60 6RF hydrochlorothiazide 12.5 mg tablet See Rx Instructions .ROUTE .COMPLEX Qty: 30 4RF Dose Instruction: TAKE 1 TABLET BY MOUTH DAILY Rx Instructions: TAKE 1 TABLET BY MOUTH DAILY simvastatin 20 mg tablet See Rx Instructions .ROUTE .COMPLEX Qty: 90 1RF Dose Instruction: TAKE 1 TABLET BY MOUTH DAILY Rx Instructions: TAKE 1 TABLET BY MOUTH DAILY enalapril maleate 20 mg tablet See Rx Instructions .ROUTE .COMPLEX Qty: 180 0RF Dose Instruction: TAKE 1 TABLET BY MOUTH TWICE DAILY Rx Instructions: TAKE 1 TABLET BY MOUTH TWICE DAILY verapamil 240 mg tablet extended release See Rx Instructions .ROUTE .COMPLEX Qty: 90 0RF Dose Instruction: TAKE 1 TABLET BY MOUTH DAILY Rx Instructions: TAKE 1 TABLET BY MOUTH DAILY tamsulosin 0.4 mg capsule See Rx Instructions .ROUTE .COMPLEX Qty: 180 0RF Dose Instruction: TAKE 2 CAPSULES BY MOUTH DAILY Rx Instructions: TAKE 2 CAPSULES BY MOUTH DAILY hydrocodone-acetaminophen 10-325 mg tablet 1 tablet PO Q8H PRN (Reason: pain) Qty: 90 0RF cilostazol 100 mg tablet See Rx Instructions .ROUTE .COMPLEX Qty: 90 1RF Dose Instruction: TAKE 1 TABLET BY MOUTH TWICE DAILY Rx Instructions: TAKE 1 TABLET BY MOUTH TWICE DAILY Follow-up/Referrals: Nelson Tapia MD [Primary Care Provider] - Time of Disposition: 14:43
== END 2025-02-13 14:50 | disposition home or self-care (01) ==
PROVIDERS: PCP Internal Medicine
DX: H61.21 Impacted cerumen, right ear (principal); Z87.891 Personal history of nicotine dependence; F12.90 Cannabis use, unspecified, uncomplicated; E11.9 Type 2 diabetes mellitus without complications; Z79.84 Long term (current) use of oral hypoglycemic drugs; I10 Essential (primary) hypertension; J44.9 Chronic obstructive pulmonary disease, unspecified; N40.0 Benign prostatic hyperplasia without lower urinary tract symptoms; G25.81 Restless legs syndrome; E55.9 Vitamin D deficiency, unspecified; Z86.16 Personal history of COVID-19
CPT/HCPCS: 69209; 99212; G0463

== ENCOUNTER 2025-03-31 07:30 | Outpatient (CLI) | payer MEDICARE, SELFPAY ==
--- NOTE | ~2025-03-31 | US_ITS ---
EXAMINATION: US thyroid DATE: 03/31/2025 08:17 INDICATION: Nontoxic single thyroid nodule TECHNIQUE: Multiple ultrasound images of the thyroid were obtained. COMPARISON: None. FINDINGS: The right thyroid lobe measures 4.7 x 2.6 x 1.9 cm. The left thyroid lobe measures 5.3 x 3.3 x 1.7 cm. There are a couple TI RADS 1 anechoic/cystic right thyroid nodules with posterior acoustic enhancement, the larger measuring 1.9 cm. There is an approximately 1.7 cm solid hypoechoic nodule which is wider than tall with smooth to ill-defined margins and without echogenic foci in the deep right thyroid lobe (TI-RADS 4, moderately suspicious , FNA if >=1.5 cm, annual followup is >=1 cm). There is additional 1.0 cm hypoechoic mixed solid and cystic nodule which is wider than tall with smooth margins and without echogenic foci in the superficial right thyroid (TI-RADS 3, mildly suspicious , FNA if > =2.5 cm, annual followup is >=1.5 cm). There are couple solid wider than tall hypoechoic TI RADS 4 nodules with smooth margins and without echogenic foci in the left thyroid lobe, the larger measuring 3.7 cm and the smaller and more cephalad measuring 1.2 cm. IMPRESSION: 1. Multinodular goiter. Recommend ultrasound-guided biopsy of the largest 3.7 cm TI RADS 4 left thyroid nodule as well as a 1.7 cm TI RADS 4 nodule right thyroid lobe. Reviewed, dictated and finalized at location A. IMPRESSION: 1. Multinodular goiter. Recommend ultrasound-guided biopsy of the largest 3.7 c m TI RADS 4 left thyroid nodule as well as a 1.7 cm TI RADS 4 nodule right thyr oid lobe.
--- NOTE | ~2025-03-31 | CT_ITS ---
CT abdomen pelvis w con Clinical History: R63.4 - Abnormal weight loss . Comparison: CT abdomen and pelvis 04/15/2023 Technique: Axial images lung bases to symphysis pubis IV contrast information not listed in PACS Coronal, sagittal reformats CT images acquired with automatic exposure control for dose reduction DLP: 1361 mGy-cm Findings: Lung bases: Respiratory motion artifact. A few possible occluded bronchi. Small hilar calcifications Visualized heart and pericardium: Coronary artery calcifications. Liver: Unremarkable. Gallbladder: Unremarkable. Spleen: Unremarkable. Pancreas: Several tiny parenchymal calcifications. Adrenal glands: Unremarkable. Kidneys: Right kidney- No hydronephrosis. No renal stones. A few cysts. A few hypodense foci too small to characterize Left kidney- No hydronephrosis. No renal stones. A few cysts. A few hypodense foci too small to characterize. Distal esophagus/stomach: Probable small ingested pill within gastric antrum. Small bowel loops: Normal caliber and wall thickness. Colon: Normal caliber and wall thickness. Normal RLQ appendix. Nodes: No enlarged nodes. Peritoneum: No ascites. No free air. Urinary bladder: Areas of wall thickening but under distended. A few diverticula. Prostate: Prior TURP. Bones: No acute bony abnormality. Soft tissues: Unremarkable. Aorta: No aneurysm or dissection. Aortoiliac atherosclerotic disease. Visceral and peripheral atherosclerotic disease. IVC: Unremarkable. Main portal vein/SMV/splenic vein: Patent. IMPRESSION: 1. No acute findings or evidence of malignancy. Reviewed, dictated and finalized at location R.
--- OUTSIDE RECORDS SUMMARY | 2025-03-31 07:33 | XMS_ITS | Encounter Summary ---
Author Organization [facility] Facility Care Team Providers Care Brine Room Laborer Name Role Phone Unknown, Notinfile Primary Care Provider Unavail able Unknown, Notinfile Primary Care Provider Unavail able Unknown, Notinfile Primary Care Provider Unavail able Nelson Tapia MD Primary Care Provider [phone] Kiko Kumar MD Unavailable [phone] Encounter Details Date Type Department Care Team (Latest Contact Info) Description 10/08/2016 Orders Only [facility] ProviderClaude MD [address] [place] [id number] Social History Tobacco Use Types Packs/Day Years Used Date Smoking Tobacco: Never Assessed Sex and Gender Information Value Date Recorded Sex Assigned at Not on file Legal Sex Male 4:25 AM ETL MANAGER Gender Identity Not on file Sexual Orientation Not on file documented as of this encounter Plan of Treatment Not on file documented as of this encounter Procedures Procedure Name Priority Date/Time Associated Diagnosis Comments PROCEDURE - RESULT 09/18/2016 12 :00 AM ETL MANAGER documented in this encounter Results * PROCEDURE - RESULT (09/18/2016 12:00 AM ETL MANAGER) Narrative 09/18/2016 12:00 AM ETL MANAGER Ordered by an unspecified provider. us Historical Provider Final Res ult documented in this encounter Visit Diagnoses Not on filedocumented in this encounter Care Teams Brine Room Laborer Relationship Specialty Start Date End Date Unknown, Notinfile PCP - General 04/10/17 04/13/17 Unknown, Notinfile PCP - General 04/14/17 04/14/17 Unknown, Notinfile PCP - General 04/15/17 04/17/17 Nelson Tapia MD [address] [place], [place] [id number] PCP - General 04/18/17 Kiko Kumar MD [address] [facility] [address] [facility] [address] [place] [address] Surgeon Vascular Surgery 02/13/21 documented as of this encounter
--- OUTSIDE RECORDS SUMMARY | 2025-03-31 07:33 | XMS_ITS | Clinical Summary ---
Author Organization [facility] Address [address] [place] [address] Care Team Providers Care Timber Grader Name Role Phone Nelson Tapia MD Primary Care Provider Kiko Kumar MD Unavailable [phone] Allergies Active Allergy Reactions Criticality Noted Date Comments Budesonide Unknown 09/24/2013 unknown Latex Rash,Other (See comments) Medium 06/07/2016 Skin peels when exposed to latex Tea Tree Oil Unknown 09/24/2013 Triamcinolone Unknown 09/24/2013 Medications ascorbic acid, vitamin C, 500 mg capsule Take 500 mg by mouth daily 6 Active aspirin 81 mg enteric coated tablet Take 1 tablet (81 mg total) by mouth daily 6 Active ONETOUCH ULTRA BLUE TEST STRIP strip USE TO TEST BLOOD SUGAR BID 5 9 Active ONETOUCH ULTRA2 kit USE DIRECTED UP TO BID FOR BLOOD SUGAR CHECKS 0 9 Active cholecalciferol (VITAMIN D-3) 1,000 unit tablet Take 1 tablet (1,000 Units total) by mouth daily 6 Active enalapril (VASOTEC) 20 mg tablet Take 1 tablet (20 mg total) by mouth 2 (two) times a day 5 9 Active glucosamine HCl 500 mg tablet Take 1,000 mg by mouth daily 6 Active ONETOUCH DELICA LANCETS 33 gauge misc USE DIRECTED BID 5 9 Active metFORMIN (GLUCOPHAGE) 500 mg tablet Take 1 tablet (500 mg total) by mouth 2 (two) times a day with meals 1 9 Active multivitamin tablet Take 1 tablet by mouth daily Active simvastatin (ZOCOR) 20 mg tablet Take 1 tablet (20 mg total) by mouth nightly 1 9 Active ANORO ELLIPTA 62.5-25 mcg/actuation blister with device INHALE 1 PUFF BY INHALATION ROUTE QD AT THE SAME TIME 1 9 Active verapamil SR (CALAN SR) 240 mg CR tablet Take 1 tablet (240 mg total) by mouth daily 2 9 Active vitamin B complex capsule Take 1 capsule by mouth daily 8 Active gabapentin (NEURONTIN) 300 mg capsule Take 1 capsule (300 mg total) by mouth nightly 0 Active UNABLE TO FIND Take 1 each by mouth daily Med Name: PREVAGEN MEMORY OTC SUPPLEMENT Active fluticasone-umec lidin-vilanter (Trelegy Ellipta) 100-62.5-25 mcg inhalerIndicatio ns:PRIMARY DR GIVES PATIENT SAMPLES Inhale 1 puff daily Active albuterol (PROAIR RESPICLICK) 90 mcg/actuation inhalerIndicatio ns:STATES PATIENT HAS NEVER USED INHALER HE HAS Inhale 2 puffs every 6 (six) hours as needed for wheezing (EVERY 4-6 HRS PRN) Active HYDROcodone-acet aminophen (NORCO) 10-325 mg per tablet Take by mouth every 8 (eight) hours as needed 2 Active tamsulosin (FLOMAX) 0.4 mg extended release capsule TAKE 1 CAPSULE BY MOUTH DAILY. HOLD OXYBUTININ. 2 Active cilostazoL (PLETAL) 100 mg tablet TAKE 1 TABLET BY MOUTH TWICE DAILY 30 MINUTES BEFORE OR 2 HOURS AFTER BREAKFAST AND DINNER 180 tablet 3 Active cyclobenzaprine (FLEXERIL) 10 mg tablet Take 1 tablet (10 mg total) by mouth 2 (two) times a day as needed 3 Active glimepiride (AMARYL) 2 mg tablet Take 1 tablet (2 mg total) by mouth daily with breakfast 3 Active hydroCHLOROthiaz howard (HYDRODIURIL) 12.5 mg tablet Take 1 tablet (12.5 mg total) by mouth daily 3 Active oxyBUTYnin (DITROPAN) 5 mg tabletIndication s:Benign prostatic hyperplasia, unspecified whether lower urinary tract symptoms present Take 1 tablet (5 mg total) by mouth daily 90 tablet 3 4 Active Additional Information Patient not taking.Reported on 11/20/2023 Active Problems Problem Noted Date Diagnosed Date [...] therapy. Assessment & Plan (09/20/2021 10:07 AM DATABASE PROGRAMMER ANALYST): Impression: Chronic diabetes mellitus with good glucose control. Plan: Continue glucose monitoring and management as per primary care provider. Assessment & Plan (06/17/2021 12:52 PM DATABASE PROGRAMMER ANALYST): Diabetes chronic and controlled. Continue current medical management and insulin therapy Assessment & Plan (02/28/2021 4:07 PM CDT): Diabetes control. Continue medical management. Assessment & Plan (08/12/2020 3:27 PM DATABASE PROGRAMMER ANALYST): Diabetes controlled. Continue metformin. Essential hypertension 01/19/2020 [...] therapy. Assessment & Plan (08/12/2020 3:26 PM DATABASE PROGRAMMER ANALYST): Hypertension is controlled. Continue enalapril per PCP Assessment & Plan (01/19/2020 10:05 AM CDT): Impression: Stable hypertension. Plan: Continue current antihypertensive regimen as directed by PCP. Atherosclerosis of [place] ar shilpa of both lower extremities with [...] surveillance. Assessment & Plan (09/20/2021 10:07 AM DATABASE PROGRAMMER ANALYST): Impression: Patient has stable non disabling claudication to bilateral lower extremities. Plan: No surgical interventions are needed at this time. Continue conservative management with exercise. Patient to follow-up in 3 months for re-evaluation. Assessment & Plan (06/17/2021 12:52 PM DATABASE PROGRAMMER ANALYST): Non operative management at this point has [...] proceed Assessment & Plan (08/12/2020 3:26 PM DATABASE PROGRAMMER ANALYST): Patient has unchanged in stable claudication primarily [...] therapy. Assessment & Plan (09/20/2021 10:06 AM DATABASE PROGRAMMER ANALYST): Impression: Patient has non disabling claudication. Arterial Doppler to bilateral lower extremity reveals severe distal ischemia with an CARMEN of 0.65 to the right lower extremity and 0.49 to the left lower extremity. Plan: Continue ongoing risk factor modifications. Continue recommendation of conservative management with exercise. Patient to follow-up in 3 months for re-evaluation with arterial Doppler. Assessment & Plan (06/17/2021 12:51 PM DATABASE PROGRAMMER ANALYST): Patient's symptoms remain stable non limiting at [...] 10/27/2020,09/23/2020 Surgical History Surgery Date Site/Laterality Comments NV TRURL ELECTROSURG RESCJ PROSTATE BLEED COMPLETE 07/28/2017 - 07/27/2018 Transurethral Resection Of Prostate (TURP) - 09/14/07, Dr. 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 Restless legs syndrome (RLS) Short of breath on exertion r/t lung health problems states family COPD (chronic obstructive pu lmonary disease) Emphysema of lung Immunization series complete cov id vaccine card [...] on file Legal Sex Male 4:25 AM DATABASE PROGRAMMER ANALYST Gender Identity Not on file Sexual Orientation [...] 8:49 AM CDT Height 188 cm (6' 2) 12/01/2024 8:49 AM CDT Body Mass Index [...] 5 season) 2024 10/27/2020, 09/23/2020 Influenza Vaccine (#1) 2025 , 05/23/2019, 04/28/2018, Additional history exists Procedures Procedure Name Priority Date/Time Associated Diagnosis Comments EGFR Routine 02/13/2021 11:40 AM CDT LIPID PANEL After X-Ray 05/01/2017 11:40 PM CDT from Last 3 Months or Most Recently Relevant to Health Maintenance Results * eGFR (02/13/2021 11:40 AM CDT) eGFR 85 mL/min/1.7 3 m2 [facility] Comment: Interpretive Data Reference Interval Normal >/= [...] MD LAB BLOOD ORDERABLES Final Result [facility] [address] [facility] Department [place] [address] * Lipid panel (05/01/2017 11:40 PM CDT) Cholesterol 109 30 - 200 mg/dL [facility] Comment: Interpretive Data Desirable: <200 mg/dL Borderline high: 200-239 mg/dL High: > or = 240 mg/dL Literature Reference: National Cholesterol Education Program (NCEP) Expert Panel on Detection, Evaluation, and Treatment of High Blood Cholesterol in Adults (Adult Treatment Panel III). Circulation 2004; 110:227. Current interpretive data was last revised on 2015. Triglycerides 137 0 - 150 mg/dL [facility] Comment: Interpretive Data Desirable: < 150 mg/dL Borderline High: 150 - 199 mg/dL High: 200 - 499 mg/dL Very High: > or = 499 mg/dL Literature Reference: See Cholesterol Current interpretive data was last revised on 2015. HDL 41 >=40 mg/dL [facility] Comment: Interpretive Data Less than 40 mg/dL - low; A major risk factor for heart disease. Greater than or equal to 60 mg/dL - High; considered protective of heart disease. Literature Reference: See Cholesterol Current interpretive data was last revised on 2015. LDL, calculated 41 10 - 129 mg/dL [facility] Comment: Interpretive Data Optimal: < 100 mg/dL Near Optimal: 100 - 129 mg/dL Borderline High: 130 - 159 mg/dL High: 160 - 189 mg/dL Very high: > or = 190 mg/dL Literature Reference: See Cholesterol Current interpretive data was last revised on 2015. Non-HDL Cholesterol 68 mg/dL [facility] Comment: Interpretive Data When triglycerides are >200 mg/dL, non-HDL C is a secondary target of therapy, with a goal 30 mg/dL higher than the identified LDL-C goal. Reference: See Cholesterol Reference. Current interpretive data was last revised 2015. Blood specimen (specimen) 05/01/2017 11:40 PM CDT 05/02/2017 12:51 AM CDT Douglas Dorantes MD LAB BLOOD ORDERABLES Final Resu lt [facility] Department [place] [address] from Last 3 Months or Most Recently Relevant to Health Maintenance Insurance MEDICARE [facility] MEDICARE [facility] MEDICARE [facility] MEDICARE SUPPLEMENT Member Subscriber Plan / Payer (Ef fective 2006-Present) Name:Santos Mcgill Relation to Subscriber:Self Name:Santos Mcgill Payer ID:[id number] Type:COMMERCIAL Address: [facility] [id number] [place] [id number] Care Teams Timber Grader Relationship Specialty Start Date End Date Nelson Tapia MD [address] [facility] [address] [facility] [address] [place] [address] PCP - General 04/18/17 Kiko Kumar MD [address] [facility] [address] [place] [address] [facility] [address] [place] [address] Surgeon Vascular Surgery 02/13/21
--- OUTSIDE RECORDS SUMMARY | 2025-03-31 07:33 | XMS_ITS | Clinical Summary ---
Author Organization [facility] Address [address] [place] [address] Care Team Providers Care Gas Well Drilling Manager Name Role Phone Nelson Tapia MD Primary Care Provider [phone] Mikal Momin MD Unavailable [phone] Source Comments [facility],non-owned Affiliates and Associated Physician Practices is amultiple site organization consisting of ambulatory clinics and hospital sitesin [place], [place], [place] and [place]. This disclosure is being madepursuant to the Care Everywhere program and may not contain all information available regarding this patient. Last updated 18.[facility] Allergies Active Allergy Reactions Criticality Noted Date [...] 1,000 mg by mouth DAILY. 06/07/2016 Active [place]-3 Fatty Acids (FISH OIL) 1000 MG capsule [...] on file Legal Sex Male 5:44 PM MILK DELIVERER Gender Identity Not on file Sexual Orientation Not on file Last Filed Vital Signs Vital Sign Reading Time Taken Comments Blood Pressure 156/79 06/10/2016 1:05 PM MILK DELIVERER Pulse 60 06/10/2016 1:05 PM MILK DELIVERER Temperature 36.7 C (98.1 F) 06/10/2016 1:05 PM MILK DELIVERER Respiratory Rate 16 06/10/2016 12:35 PM MILK DELIVERER Oxygen Saturation 98% 06/10/2016 1:05 PM MILK DELIVERER Inhaled Oxygen Concentration - - Weight 127 kg (280 lb) 06/10/2016 11:10 AM MILK DELIVERER Height 188 cm (6' 2) 06/10/2016 11:10 AM MILK DELIVERER Body Mass Index 35.95 06/10/2016 11:10 AM MILK DELIVERER Plan of Treatment Health Maintenance Due Date Last Done Comments DTAP/TDAP/TD VACCINES (1 - Tdap) 1960 PNEUMOCOCCAL VACCINE 50+ (1 of 1 - PCV) 12/18/1991 ZOSTER VACCINE (1 of 2) 12/18/1991 Respiratory Syncytial Virus (RSV) Vaccine Pt: or over 60 yrs (1 - 1-dose 75+ series) 2016 COVID-19 VACCINE (1 - 2023-2 5 season) 2024 DEPRESSION SCREENING 07/28/2024 INFLUENZA VACCINE (#1) 2025 HEPATITIS B VACCINE Aged Out No [...] patient's age to complete [place] [address] MEDICARE [facility] Care Teams Gas Well Drilling Manager Relationship Specialty Start Date End Date Nelson Tapia MD [address] [place] [address] [facility] - General 03/22/16 Mikal Momin MD [address] [place] [address] Ophthalmology 06/23/18
== END 2025-03-31 07:31 | disposition home or self-care (01) ==
PROVIDERS: PCP Internal Medicine; Visit Provider Internal Medicine
DX: E04.1 Nontoxic single thyroid nodule (principal); R63.4 Abnormal weight loss; Z72.0 Tobacco use
CPT/HCPCS: 74177; 76536; Q9967

== ENCOUNTER 2025-06-07 22:37 | Inpatient (IN) | payer MEDICARE, SELFPAY ==
[2025-06-07] VITALS (11 sets, daily range): BP systolic 84–101; BP diastolic 29–63; PULSE 91–99; RESP 28–39; TEMP 35.7–38.2; O2SAT 90–100
--- NOTE | ~2025-06-07 | XR_ITS ---
Examination: XR chest 1V portable Clinical History: SOB, chest pain Comparison: 1 day prior Technique: Portable AP Findings: Unchanged cardiomegaly. Persistent bibasilar airspace disease. Small right apical component. No acute bony abnormality. IMPRESSION: 1. No significant change for over one week now. 2. Bilateral aspiration pneumonia, right lung worse. Reviewed, dictated and finalized at location R. [place] EXPERIENCE SPECIALIST
--- NOTE | ~2025-06-07 | XR_ITS ---
Examination: XR chest 1V portable Clinical History: SOB, hypoxic Comparison: 12/13/2024 chest x-ray Technique: Portable AP Findings: Cardiomegaly. Large right lower lobe airspace disease. Small focal airspace disease right upper lobe. Retrocardiac atelectasis and/or airspace disease. No acute bony abnormality. IMPRESSION: 1. Multifocal bilateral airspace disease. Reviewed, dictated and finalized at location R. TECHNICIAN
--- NOTE | ~2025-06-07 | XR_ITS ---
Examination: XR chest 1V portable Clinical History: increased work of breathing Comparison: 06/07/2025 Technique: Portable AP Findings: Cardiomegaly. Bibasilar airspace disease, right lung worse. No acute bony abnormality. IMPRESSION: 1. Aspiration pneumonia persists, right lung worse. Reviewed, dictated and finalized at location R. LUTION MANAGER
--- NOTE | ~2025-06-07 | XR_ITS ---
EXAMINATION: XR chest 1V portable DATE: 06/16/2025 16:47 INDICATION: Shortness of breath. Confusion. TECHNIQUE: A single frontal view of the chest was obtained. COMPARISON: Chest x-ray dated. 06/13/2025 FINDINGS: Persistent airspace opacity and consolidation of lung bases, right more than the left. Minimal platelike atelectasis of right suprahilar region. Left upper lung field is clear. IMPRESSION: 1. Persistent bilateral airspace opacities of lungs with consolidation, right more than the left. No significant change from 06/13/2025. Reviewed, dictated and finalized at location T. MERIZATION HELPER IMPRESSION: 1. Persistent bilateral airspace opacities of lungs with consolidation, right m ore than the left. No significant change from 06/13/2025.
--- NOTE | ~2025-06-07 | XR_ITS ---
EXAM/PROCEDURE: XR barium swallow modified HISTORY: aspiration pna unchanged x 1 week COMPARISON: None Fluoroscopy time: 1.3 minutes DAP: 0.9 [place] per square centimeter Number of images: 1 TECHNIQUE: Modified barium swallow IMPRESSION: No aspiration observed. See also speech therapist's report for complete evaluation. Reviewed, dictated and finalized at location A. ROLS TECHNICIAN IMPRESSION: No aspiration observed. See also speech therapist's report for complete evaluat ion.
--- NOTE | ~2025-06-07 | CT_ITS ---
EXAMINATION: CT brain wo con DATE: 06/16/2025 18:26 INDICATION: Confusion. TECHNIQUE: Computed tomography (CT) of the head was performed without intravenous contrast. The mA was adjusted according to patient size. Iterative reconstruction technique was employed. The dose-length product was 1392.86 mGy-cm. COMPARISON: None FINDINGS: No acute intracranial bleed. No extra-axial collections are seen. No evidence of ventriculomegaly or midline shift. No acute cranial fractures. IMPRESSION: 1. No acute findings in the limited noncontrast CT head. Reviewed, dictated and finalized at location T. ENT MONITOR
--- NOTE | ~2025-06-07 | CT_ITS ---
CTA CHEST CLINICAL HISTORY: SOB, hypoxia; dimer >1 . COMPARISON: Chest x-ray hours prior CT chest 12/14/2024 TECHNIQUE: Helical CTA performed from thoracic inlet to upper abdomen 150 mL Omnipaque 350 Coronal, sagittal reformats. Multiplanar MIPS CT images acquired with automatic exposure control for dose reduction DLP: 1910 mGy-cm FINDINGS: Pulmonary arteries: No PE. Thoracic Aorta: No dissection or aneurysm. Atherosclerotic disease. Heart/pericardium: Cardiomegaly. Coronary artery calcifications. RV/LV ratio: Normal. Lungs/Pleura: Emphysema. Near-complete consolidation right lower lobe. Right upper lobe effusion. Focal airspace disease anterior right upper lobe. Small airspace disease left lower lobe Tracheobronchial tree: Occluded bibasilar foci. Nodes: No enlarged nodes. Mediastinal and hilar calcifications. Bones: No acute bony abnormality. Soft tissues: Nodule left lobe thyroid. Visualized upper abdomen: Unremarkable. IMPRESSION: 1. Aspiration pneumonia, right lung much worse. 2. Focal airspace disease right upper lobe, along area of prior small pleural- based nodular focus. Malignancy not excluded. Recommend short interval follow-up CT chest. 3. Right upper lobe pleural effusion. 4. No PE. Reviewed, dictated and finalized at location R. EL ASSISTANT IMPRESSION: 1. Aspiration pneumonia, right lung much worse. 2. Focal airspace disease right upper lobe, along area of prior small pleural- based nodular focus. Malignancy not excluded. Recommend short interval follow-u p CT chest. 3. Right upper lobe pleural effusion. 4. No PE.
--- NOTE | ~2025-06-07 | XR_ITS ---
Examination: XR chest 1V portable Clinical History: cough Comparison: 06/09/2025 Technique: Portable AP Findings: Cardiomegaly. Persistent bibasilar airspace disease, right lung worse. No acute bony abnormality. IMPRESSION: 1. No significant change with persistent aspiration pneumonia, right lung worse. Reviewed, dictated and finalized at location R. UNT RESOLUTION SPECIALIST IMPRESSION: 1. No significant change with persistent aspiration pneumonia, right lung wors e.
--- NOTE | 2025-06-07 22:39 | ECG_ITS ---
Test Date: 2025-06-07 22:51:29 Measurements Intervals [place] Rate: 92 P: 0 DE: 0 QRS: -40 QRSD: 164 T: 24 QT: 406 QTc: 504 Interpretive Statements sinus tachycardia with PACs INDETERMINATE AXIS RIGHT BUNDLE BRANCH BLOCK [120+ ms QRS DURATION, UPRIGHT V1, 40+ ms S IN I/aVL/V4/V5/V6] Electronically Signed On 06-08-2025 06:58:33 FURNACE BUIL[employer] by Gibson Henning M.D.
--- NOTE | 2025-06-07 22:44 | ED.SOB ---
HPI - SOB/Dyspnea General Chief Complaint: Shortness of Breath/Dyspnea Stated Complaint: SOB, ON CPAP BY EMS Time Seen by Provider: 06/07/25 22:39 Source: patient, family (Girlfriend and daughter) and EMS Mode of arrival: EMS Limitations: clinical condition History of Present Illness HPI Narrative: Patient presents with report of shortness of breath beginning today. He denies any chest pain. Reports a history of emphysema though denies ever previously needing CPAP/BiPAP for intubation. EMS note that his SpO2 was in the high 80s, improved to maximum 91% with the application of CPAP. Although he had a history of emphysema cut my he was noted to have crackles on their examination. They note he had urinated on himself prior to their arrival. = Daughter and girlfriend arrive. Girlfriend reports that normally he wakes up around 7:00 a.m. and is active but he was more sleepy today and complaining of shortness of breath and was in bed for much of the day. By this evening she called his daughter reported that she thought he needs to go to the hospital. Related Data Home Medications ?Medication ?Instructions ?Recorded ?Confirmed ?Last Taken ?Type omega-3 fatty acids 1,000 mg 2,000 mg PO DAILY 06/15/19 03/16/25 12/13/24 History capsule (Fish Oil Concentrate) ascorbate calcium (vitamin C) 500 500 mg PO DAILY 07/15/19 03/16/25 12/13/24 History mg tablet aspirin 81 mg chewable tablet 81 mg PO DAILY 07/15/19 03/16/25 12/13/24 History calcium carbonate (Calcium 600) 600 mg PO DAILY 07/15/19 03/16/25 12/13/24 History cholecalciferol (vitamin D3) 125 125 mcg PO DAILY 07/15/19 03/16/25 12/13/24 History mcg (5,000 unit) capsule [id number] acid-vit 1 tablet PO DAILY 01/25/21 03/16/25 12/13/24 History K-lycop 400 mcg-20 mcg-370 mcg tablet (One-A-Day Men's 50 Plus (with vitamin K)) vitamin B complex 1 tablet PO DAILY 04/04/22 03/16/25 12/13/24 History prevagen BYMOUTH 10/26/24 03/16/25 Unknown History Allergies Allergy/AdvReac Type Severity Reaction Status Date / Time No Known Allergies Allergy Verified 03/16/25 11:11 [facility] Past Medical History Medical History Unintentional weight loss Thyroid nodule BMI 35.0-35.9,adult URI (upper respiratory infection) Right knee pain UTI (urinary tract infection) Nocturia Chronic low back pain Chest discomfort Colon cancer screening Hx of colonic polyps BMI 38.0-38.9,adult Chronic leg pain RBBB (right bundle branch block) Vitamin D deficiency Personal history of COVID-19 Hearing loss Left ankle sprain Hyperlipidemia Pneumonia BMI 37.0-37.9, adult Elevated homocysteine BMI 36.0-36.9,adult Ankle pain RLS (restless legs syndrome) 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 Polyarticular arthritis Microscopic hematuria PVD (peripheral vascular disease) Hypersomnolence BPH (benign prostatic hyperplasia) COPD (chronic obstructive pulmonary disease) Benign essential hypertension DM type 2 (diabetes mellitus, type 2) Family History Family History Father Emphysema lung Father Family history of liver disease Family history of chronic obstructive pulmonary disease Social History Social History (Reviewed 03/16/25 @ 11:32 by Bessy Rasmussen [facility]) Tobacco type: cigarettes Second hand tobacco smoke exposure: No Alcohol intake: current Drinks per week: 7 Substance use: current Substance use type: marijuana Do You Feel Safe in your Home?: Yes Lack of Transportation: No Lack of Food: Never True Current Housing: I Have Housing Concerned About Future Housing: No Difficulty Paying Gas/Electric Bills: No Difficulty Paying for Meds: No Currently Unemployed: No Education: High School Diploma/GED Difficulty w/ Childcare or Family Care: No Living arrangements: with family Occupation/Education: occupation Gender identity (if verbalized by the patient): Male Spiritual care concerns: No Exam Narrative: GENERAL: well-nourished; scent of malodorous urine on patient HEAD: Normocephalic, atraumatic. EYES: Non injected, non icteric ENT: Nares clear, no rhinorrhea or epistaxis. Gross auditory acuity intact. NECK: Supple. No meningismus. CHEST: Respiratory distress. Bilateral crackles though R > L. HEART: Regular rate and rhythm. ABDOMEN: Obese. Soft, nondistended. Not peritoneal. EXTREMITIES: Normal range of motion. SKIN: Warm, dry. Poor skin turgor. NEURO: No focal deficits. Alert and oriented. Answering questions. Following commands. PSYCH: Congruent mood and affect. Course Vital Signs Vital signs: Vital Signs Temperature 99.8 F H 06/07/25 22:36 Pulse Rate 94 06/07/25 22:36 Respiratory Rate 35 H 06/07/25 22:36 Blood Pressure 101/59 L 06/07/25 22:36 Pulse Oximetry 90 06/07/25 22:36 Oxygen Delivery CPAP 06/07/25 22:36 Temperature 99.8 F H 06/08/25 02:45 Pulse Rate 82 06/08/25 02:45 Respiratory Rate 25 H 06/08/25 02:45 Blood Pressure 119/54 L 06/08/25 02:32 Pulse Oximetry 100 06/08/25 02:45 Oxygen Delivery BiPAP 06/07/25 22:40 MDM - SOB/Dyspnea MDM Narrative Medical decision making narrative: Patient presents report of shortness of breath. In the emergency department he is borderline febrile with signs notable for mild hypotension (MAP >70) and tachypnea. Given the concern for sepsis infection, CRP, lactate, blood cultures are ordered immediately in addition to broad-spectrum antibiotics to include vancomycin, cefepime, and azithromycin to cover atypicals. Duoneb ordered given his history but he has crackles on examination and given the concern for possible heart failure, will defer giving significant amount of fluids. 500cc ordered in addition to the scant amount of fluids within the IV antibiotics. Less than 30ml/kg crystalloid bolus was ordered because it would be detrimental or harmful for the patient despite having Sepsis with Hypotension given the initial concern for fluid overload/heart failure. Temp sensing Wong placed given his initial temperature and likely need for I&O monitoring. Mild leukocytosis. No anemia, thrombocytopenia. Urinalysis with only rare bacteriuria however there are other indices infection he is malodorous urine sent. He is already receiving antibiotics. Culture ordered. CRP elevated. Viral swab negative. Drug screen positive for opiates. He is on chronic narcotic therapy per review of the EMR. Patient reassessed at 01:05. RR improved in the mid 20s. HR in the 80s and saturating 100% with a good pleth. BP cuff is readjusted on patient. His blood pressures remain labile, at times MAPs >70 and other times right at or just slightly below 65mmHg. He is alert answering questions. He states his shortness of breath is improved. When told he will need to be admitted after he asks he inquires whether will be for 1 night or 2. Elevated troponin. Repeat 3hr and ASA ordered. No prior Trop for comparison. BNP >15,000. CT as below. The thyroid nodule incidentally seen appears to be chronic/seen previously. Patient family are informed about the pneumonia bilaterally. Already on antibiotics for this and UTI. Patient is briefly trialed off of BiPAP and placed on nasal cannula 5 liters/minute. Maintains his oxygen saturation but it does steadily declined to 90% and he continues to have coarse breath sounds. Because he was doing so well on the BiPAP, will remain on it rather than PRN at this time. Will require admission. Discussed code status with patient as well as his daughter and girlfriend who are at bedside and patient does confirm that in the event of cardiopulmonary arrest he would want to be a full code. Repeat BP 101/74 (MAP 83). Will give small dose 20mg Lasix. Repeat troponin flat/slightly increased. 6 hour troponin ordered. BP 122/76 (MAP 90). Then 107/83 (92mmHg). Then 119/54 (75mgHg). Discussed with vascular surgeon hospitalist Dr Connelly who advises giving 150mL /hour of 1L IV fluids and will reassess. == Critical Care: 1 or more vital organ systems impaired with a high probability of imminent or life-threatening deterioration in the patient's condition requiring frequent personal assessment and manipulation of the patient's condition. This included time spent evaluating the patient, speaking with EMS pre-hospital personnel and family, reviewing/interpreting laboratory/imaging studies, discussing the case with consultants or admitting teams, retrieving data and reviewing charts, monitoring for decompensation, documenting the visit, and performing bundled procedures exclusive of separately billed procedures. Differential Diagnosis Differential diagnosis: Likely acute exacerbation of chronic obstructive airways disease, congestive heart failure, community acquired pneumonia, pulmonary embolism and other (pulmonary hypertension; valvulopathy; acute viral syndrome; ACS) Medical Records Attestation: I reviewed the patient's medical records. Medical records narrative: Echo November 2024 Summary 1. Complete two-dimensional, color flow and Doppler transthoracic echocardiogram is performed. 2. Left ventricular chamber dimension is normal. 3. Left ventricular systolic function is normal, estimated at 65-70. 4. There is moderate concentric increased left ventricular wall thickness. 5. The left ventricular diastolic function is grade I diastolic dysfunction. 6. Ventricular septum is sigmoid shaped. No resting LVOT obstruction. 7. E/e' 13 is mildly elevated. 8. Left atrial chamber dimension is severely enlarged. 9. Right atrial chamber dimension is mildly enlarged. 10. The aortic valve is not well visualized. Cannot determine number of aortic valve leaflets. 11. There is moderate aortic valve sclerosis. 12. There is moderate aortic valve stenosis based on a peak velocity of 415 cm/s, mean gradient of 40 mmHg, and aortic valve area of 1.1 cm2. 13. No pulmonary hypertension, estimated pulmonary arterial systolic pressure is 19 mmHg. Lab Data Attestation: I reviewed the patient's lab results. 06/07/25 22:45 06/07/25 22:45 Labs: Lab Results 06/07/25 06/07/25 06/07/25 Range/Units 22:45 22:46 22:49 WBC 11.2 H (4.5-10.0) K/mm3 RBC 4.71 (4.6-6.20) M/mm3 Hgb 14.3 D (14.0-18.0) g/dL Hct 42.4 (42.0-52.0) % MCV 90.0 (80-100) fl MCH 30.4 (26-34) pg MCHC 33.7 (32-36) g/dl RDW 13.2 (11.5-14.5) % Plt Count 303 (150-375) k/mm3 MPV 9.2 (7.4-10.4) fl Immature Gran % (Auto) Not Reportable Neut % (Auto) Not Reportable Lymph % (Auto) Not Reportable Coffee % (Auto) Not Reportable Eos % (Auto) Not Reportable Baso % (Auto) Not Reportable Lymph # (Auto) Not Reportable Coffee # (Auto) Not Reportable Eos # (Auto) Not Reportable Baso # (Auto) Not Reportable Abs Immat Gran (auto) Not Reportable Absolute Neuts (auto) Not Reportable Absolute Nucleated RBC Not Reportable Total Counted 100 Neutrophils % (Manual) 70 (46-73) % Band Neutrophils % 12 H (0-6) % Lymphocytes % (Manual) 13.0 L (18-44) % Monocytes % (Manual) 4 (3-9) % Basophils % (Manual) 1 (0-1) % Nucleated RBC % Not Reportable Abs Neuts (Manual) 9.18 H (1.3-6.7) K/mm3 Abs Lymphs (Manual) 1.45 (1.1-4.5) K/mm3 Abs Monocytes (Manual) 0.44 (0.1-0.90) K/mm3 Abs Basophils (Manual) 0.11 H (0.0-0.1) K/mm3 Platelet Estimate Adequate (Adequate) Anisocytosis 1+ Peg Cells 1+ Schistocytes None seen PT 17.9 H (11.1-14.7) Seconds INR 1.5 APTT 35.3 (22.3-36.8) Seconds D-Dimer 1.24 H (<0.48) ug/mL Expiratory Pressure cmH2O Inspiratory Pressure cmH2O Sodium 134 L (137-145) mmol/L Potassium 4.0 (3.4-5.0) mmol/L Chloride 103 (98-107) mmol/L Carbon Dioxide 18 L (22-30) mmol/L Anion Gap 13 H (4-12) mmol/L BUN 28 H (9-20) mg/dL Creatinine 1.15 (0.7-1.3) mg/dL Estim Creat Clear Calc 61 ml/min Estimated GFR > 60 (59 - ) Glucose 135 H (65-110) mg/dL Lactic Acid 3.9 H (0.7-2.0) mmol/L Calcium 9.1 (8.4-10.2) mg/dL Magnesium 1.7 (1.6-2.3) mg/dL Total Bilirubin 1.1 (0.2-1.3) mg/dL AST 29 (17-59) U/L ALT 26 (6-50) U/L Alkaline Phosphatase 54 (38-126) U/L Troponin I 0.040 H* (0.000-0.034) ng/mL C-Reactive Protein 22.2 H (<1.0) mg/dL NT-Pro-B Natriuret Pep 30925 H (19.9-100) pg/mL Total Protein 7.0 (6.3-8.2) g/dL Albumin 3.9 (3.5-5.1) g/dL Lipase 19 L (23-300) U/L Urine Color (Yellow) Urine Appearance (Clear) Urine pH (5.0-9.0) Ur Specific [place] (1.001-1.035) Urine Protein (Negative) mg/dL Urine Glucose (UA) (Negative) mg/dL Urine Ketones (Negative) mg/dL Ur Blood (Man) (Negative) Urine Nitrate (Negative) Urine Bilirubin (Negative) Urine Urobilinogen (<2.0) mg/dL Add Ur Microanalysis Leukocyte Esterase Rfl (Negative) ZEUS/UL Urine RBC (0-2) /hpf Urine WBC (0-3) /hpf Ur Squamous Epith Cells (Few) /hpf Urine Bacteria /hpf Urine Casts Nasal MRSA (PCR) (NOT DETECTE) Urine Opiates Screen (Negative) Urine Methadone Screen (Negative) Ur Barbiturates Screen (Negative) Ur Phencyclidine Scrn (Negative) Ur Amphetamine Screen (Negative) U Benzodiazepines Scrn (Negative) Urine Cocaine Screen (Negative) U Cannabinoids Screen (Negative) Influenza A (RT-PCR) Negative (Negative) Influenza B (RT-PCR) Negative (Negative) RSV (RT-PCR) Negative (Negative) SARS-CoV-2 RNA (RT-PCR) Negative (Negative) 06/07/25 06/07/25 06/08/25 Range/Units 22:54 23:30 00:40 WBC (4.5-10.0) K/mm3 RBC (4.6-6.20) M/mm3 Hgb (14.0-18.0) g/dL Hct (42.0-52.0) % MCV (80-100) fl MCH (26-34) pg MCHC (32-36) g/dl RDW (11.5-14.5) % Plt Count (150-375) k/mm3 MPV (7.4-10.4) fl Immature Gran % (Auto) Neut % (Auto) Lymph % (Auto) Coffee % (Auto) Eos % (Auto) Baso % (Auto) Lymph # (Auto) Coffee # (Auto) Eos # (Auto) Baso # (Auto) Abs Immat Gran (auto) Absolute Neuts (auto) Absolute Nucleated RBC Total Counted Neutrophils % (Manual) (46-73) % Band Neutrophils % (0-6) % Lymphocytes % (Manual) (18-44) % Monocytes % (Manual) (3-9) % Basophils % (Manual) (0-1) % Nucleated RBC % Abs Neuts (Manual) (1.3-6.7) K/mm3 Abs Lymphs (Manual) (1.1-4.5) K/mm3 Abs Monocytes (Manual) (0.1-0.90) K/mm3 Abs Basophils (Manual) (0.0-0.1) K/mm3 Platelet Estimate (Adequate) Anisocytosis [place] Cells Schistocytes PT (11.1-14.7) Seconds INR APTT (22.3-36.8) Seconds D-Dimer (<0.48) ug/mL Expiratory Pressure 6 cmH2O Inspiratory Pressure 12 cmH2O Sodium (137-145) mmol/L Potassium (3.4-5.0) mmol/L Chloride (98-107) mmol/L Carbon Dioxide (22-30) mmol/L Anion Gap (4-12) mmol/L BUN (9-20) mg/dL Creatinine (0.7-1.3) mg/dL Estim Creat Clear Calc ml/min Estimated GFR (59 - ) Glucose (65-110) mg/dL Lactic Acid (0.7-2.0) mmol/L Calcium (8.4-10.2) mg/dL Magnesium (1.6-2.3) mg/dL Total Bilirubin (0.2-1.3) mg/dL AST (17-59) U/L ALT (6-50) U/L Alkaline Phosphatase (38-126) U/L Troponin I (0.000-0.034) ng/mL C-Reactive Protein (<1.0) mg/dL NT-Pro-B Natriuret Pep (19.9-100) pg/mL Total Protein (6.3-8.2) g/dL Albumin (3.5-5.1) g/dL Lipase (23-300) U/L Urine Color Dark yellow (Yellow) Urine Appearance Turbid H (Clear) Urine pH 5.0 (5.0-9.0) Ur Specific [place] 1.019 (1.001-1.035) Urine Protein 2+ H (Negative) mg/dL Urine Glucose (UA) Negative (Negative) mg/dL Urine Ketones Trace H (Negative) mg/dL Ur Blood (Man) Trace (Negative) Urine Nitrate Negative (Negative) Urine Bilirubin Negative (Negative) Urine Urobilinogen 0.2 (<2.0) mg/dL Add Ur Microanalysis Reviewed Leukocyte Esterase Rfl 3+ H (Negative) ZEUS/UL Urine RBC 21-50 H (0-2) /hpf Urine WBC >100 H (0-3) /hpf Ur Squamous Epith Cells Many H (Few) /hpf Urine Bacteria Rare /hpf Urine Casts 6-10 Nasal MRSA (PCR) Not detected (NOT DETECTE) Urine Opiates Screen Positive A (Negative) Urine Methadone Screen Negative (Negative) Ur Barbiturates Screen Negative (Negative) Ur Phencyclidine Scrn Negative (Negative) Ur Amphetamine Screen Negative (Negative) U Benzodiazepines Scrn Negative (Negative) Urine Cocaine Screen Negative (Negative) U Cannabinoids Screen Negative (Negative) Influenza A (RT-PCR) (Negative) Influenza B (RT-PCR) (Negative) RSV (RT-PCR) (Negative) SARS-CoV-2 RNA (RT-PCR) (Negative) 06/08/25 06/08/25 Range/Units 01:21 01:24 WBC (4.5-10.0) K/mm3 RBC (4.6-6.20) M/mm3 Hgb (14.0-18.0) g/dL Hct (42.0-52.0) % MCV (80-100) fl MCH (26-34) pg MCHC (32-36) g/dl RDW (11.5-14.5) % Plt Count (150-375) k/mm3 MPV (7.4-10.4) fl Immature Gran % (Auto) Neut % (Auto) Lymph % (Auto) Coffee % (Auto) Eos % (Auto) Baso % (Auto) Lymph # (Auto) Coffee # (Auto) Eos # (Auto) Baso # (Auto) Abs Immat Gran (auto) Absolute Neuts (auto) Absolute Nucleated RBC Total Counted Neutrophils % (Manual) (46-73) % Band Neutrophils % (0-6) % Lymphocytes % (Manual) (18-44) % Monocytes % (Manual) (3-9) % Basophils % (Manual) (0-1) % Nucleated RBC % Abs Neuts (Manual) (1.3-6.7) K/mm3 Abs Lymphs (Manual) (1.1-4.5) K/mm3 Abs Monocytes (Manual) (0.1-0.90) K/mm3 Abs Basophils (Manual) (0.0-0.1) K/mm3 Platelet Estimate (Adequate) Anisocytosis Peg Cells Schistocytes PT (11.1-14.7) Seconds INR APTT (22.3-36.8) Seconds D-Dimer (<0.48) ug/mL Expiratory Pressure cmH2O Inspiratory Pressure cmH2O Sodium (137-145) mmol/L Potassium (3.4-5.0) mmol/L Chloride (98-107) mmol/L Carbon Dioxide (22-30) mmol/L Anion Gap (4-12) mmol/L BUN (9-20) mg/dL Creatinine (0.7-1.3) mg/dL Estim Creat Clear Calc ml/min Estimated GFR (59 - ) Glucose (65-110) mg/dL Lactic Acid 3.3 H (0.7-2.0) mmol/L Calcium (8.4-10.2) mg/dL Magnesium (1.6-2.3) mg/dL Total Bilirubin (0.2-1.3) mg/dL AST (17-59) U/L ALT (6-50) U/L Alkaline Phosphatase (38-126) U/L Troponin I 0.048 H* (0.000-0.034) ng/mL C-Reactive Protein (<1.0) mg/dL NT-Pro-B Natriuret Pep (19.9-100) pg/mL Total Protein (6.3-8.2) g/dL Albumin (3.5-5.1) g/dL Lipase (23-300) U/L Urine Color (Yellow) Urine Appearance (Clear) Urine pH (5.0-9.0) Ur Specific [place] (1.001-1.035) Urine Protein (Negative) mg/dL Urine Glucose (UA) (Negative) mg/dL Urine Ketones (Negative) mg/dL Ur Blood (Man) (Negative) Urine Nitrate (Negative) Urine Bilirubin (Negative) Urine Urobilinogen (<2.0) mg/dL Add Ur Microanalysis Leukocyte Esterase Rfl (Negative) ZEUS/UL Urine RBC (0-2) /hpf Urine WBC (0-3) /hpf Ur Squamous Epith Cells (Few) /hpf Urine Bacteria /hpf Urine Casts Nasal MRSA (PCR) (NOT DETECTE) Urine Opiates Screen (Negative) Urine Methadone Screen (Negative) Ur Barbiturates Screen (Negative) Ur Phencyclidine Scrn (Negative) Ur Amphetamine Screen (Negative) U Benzodiazepines Scrn (Negative) Urine Cocaine Screen (Negative) U Cannabinoids Screen (Negative) Influenza A (RT-PCR) (Negative) Influenza B (RT-PCR) (Negative) RSV (RT-PCR) (Negative) SARS-CoV-2 RNA (RT-PCR) (Negative) ABG Data ABG results: 06/07/25 22:54 Puncture Site Right radial ABG pH 7.464 H ABG pCO2 27.9 L ABG pO2 100.2 H ABG PO2/FiO2 Ratio 1.00 ABG HCO3 19.6 L ABG O2 Saturation 98.0 ABG O2 Content 19.4 ABG Base Excess -2.7 A-a Gradient 584.9 Oxyhemoglobin 96.6 Total Hemoglobin 14.2 O2 Delivery Device Bipap O2 Liters/Min Not Reportable FiO2 100 Attestation: I personally reviewed and interpreted this ABG as follows: Interpretation: Alkalotic, respiratory; likely driven by hyperventilation (RR is >35) Imaging Data Attestation: I personally reviewed and interpreted this imaging study as follows: My impression: CXR with cardiomegaly and pulmonary edema on my independent interpretation Pleural effusion on the right on my independent interpretation of CT Radiologist's impression: CTA Chest PE protocol with contrast: No pulmonary embolism. Extensive right lower lobe pneumonia and smaller lower lobe pneumonia. Small focus of airspace consolidation in the right upper lobe as well. Coronary artery calcification. Calcified mediastinal lymph nodes. Incidental findings: 2 mm short axis right paratracheal lymph node is nonspecific. Degenerative changes of the spine. Hepatic and splenic calcifications. Partial imaging of left renal cyst. 2.2 x 1.8 cm left thyroid nodule. ECG Data EKG #1: Attestation: I personally reviewed and interpreted this ECG as follows: ECG completion date: 06/07/25 ECG completion time: 22:51 Interpretation: Pre populated algorithm suggests atrial fibrillation however there are several P-waves that preceded QRS complexes in QRS complexes that follow P-waves thus I do believe this is a normal sinus rhythm although with some premature ventricular complexes especially given their appearance is different. T-wave inversion in 3 and flattening in AVF. T-wave inversion in V3 may be due to lead placement. RBBB given QRS greater [id number]; RSR' M-shaped pattern in V1-V3; wide, slurred S wave in lateral leads (I, aVL; less than V5-6). Rate 92. QRS 164. QT/QTC 405/504. Critical Care Time Critical Care Time Critical Care Time: Yes Total Critical Care Time: 45 Discharge Plan Discharge Clinical Impression: Acidosis, lactic, Leukocytosis, UTI (urinary tract infection), Shortness of breath, CRP elevated, Non-ST elevation AR (NSTEMI), Bilateral pneumonia, Left thyroid nodule, Cyst of left kidney, Acute heart failure, Acute hypoxic respiratory failure, Sepsis Patient Disposition: Still a Patient Condition: Serious Time of Disposition: 02:34
[2025-06-07 22:55] LABS: Hematocrit 42.4 % (42.0-52.0); Hemoglobin 14.3 g/dL (14.0-18.0); Mean Corpuscular HGB Conc 33.7 g/dl (32-36); Mean Corpuscular Hemoglobin 30.4 pg (26-34); Mean Corpuscular Volume 90.0 fl (80-100); Platelet Count Result 303 k/mm3 (150-375); Red Blood Count 4.71 M/mm3 (4.6-6.20); White Blood Count 11.2 K/mm3 (4.5-10.0)
[2025-06-07] MEDS: AZITHROMYCIN IV 500 MG in SODIUM CHLORIDE 0.9% IV 250 ML IVPB (23:10)
[2025-06-07 23:11] LABS: Alveolar/Arterial O2 Gradient 584.9 mmHg; Fractional Inspired Oxygen 100 %; HCO3 ABG 19.6 mEq/l (22.0-26.0); Oxygen Content ABG 19.4 %vol (16.0-22.0); Oxygen Saturation ABG 98.0 % (95.0-100.0); PCO2 ABG 27.9 mmHg (35.0-45.0); PO2 ABG 100.2 mmHg (80.0-100.0); PO2 FiO2 Ratio Arterial Blood 1.00 %
[2025-06-07] MEDS: CEFEPIME 2 GM in SODIUM CHLORIDE 0.9% IV 50 ML 100 ML IVPB (23:11)
[2025-06-07 23:12] LABS: INR 1.5; Prothrombin Time 17.9 Seconds (11.1-14.7)
[2025-06-07 23:12] LABS: Modified Allen's Test Pass; Site Drawn RIGHT RADIAL
[2025-06-07 23:13] LABS: Partial Thromboplastin Time 35.3 Seconds (22.3-36.8)
[2025-06-07 23:15] LABS: Alanine Aminotransferase 26 U/L (6-50); Albumin Level 3.9 g/dL (3.5-5.1); Alkaline Phosphatase 54 U/L (38-126); Anion Gap 13 mmol/L (4-12); Aspartate Amino Transferase 29 U/L (17-59); Band Neutrophils Percent 12 % (0-6); Basophils Absolute Manual 0.11 K/mm3 (0.0-0.1); Basophils Percent Manual 1 % (0-1); Bilirubin,Total 1.1 mg/dL (0.2-1.3); Blood Urea Nitrogen 28 mg/dL (9-20); Calcium 9.1 mg/dL (8.4-10.2); Carbon Dioxide 18 mmol/L (22-30); Chloride 103 mmol/L (98-107); Estimated CRCL calculation 61 ml/min; Estimated Glomerular Filt Rate > 60; Glucose 135 mg/dL (65-110); Lymphocytes Absolute Manual 1.45 K/mm3 (1.1-4.5); Lymphocytes Percent Manual 13.0 % (18-44); Magnesium 1.7 mg/dL (1.6-2.3); Monocytes Absolute Manual 0.44 K/mm3 (0.1-0.90); Monocytes Percent Manual 4 % (3-9); Neutrophils Absolute Manual 9.18 K/mm3 (1.3-6.7); Neutrophils Percent Manual 70 % (46-73); Potassium 4.0 mmol/L (3.4-5.0); Sodium 134 mmol/L (137-145); Total Cells Counted 100; Total Protein 7.0 g/dL (6.3-8.2)
[2025-06-07 23:16] LABS: Anisocytosis 1+; Burr Cells 1+; Schistocytes None Seen
[2025-06-07 23:29] LABS: CRP 22.2 mg/dL (<1.0)
[2025-06-07] MEDS: IPRATROPIUM 0.5 MG/ALBUTEROL SULFATE 2.5 MG (BASE) AMPUL.NEB 3 ML INHALATION (23:30)
[2025-06-07 23:31] LABS: Influenza A QL RT-PCR Negative (Negative); Influenza B QL RT-PCR Negative (Negative); RSV RNA, RT-PCR Negative (Negative); SARS-CoV-2 RNA PCR Negative (Negative)
[2025-06-07] MEDS: SODIUM CHLORIDE 0.9% IV 500 ML 999 ML IV CONT (23:43)
[2025-06-07 23:50] LABS: Add Urine Microscopic? YES; Appearance Urine Turbid (Clear); Glucose Urine UA Negative (Negative); Leukocyte Esterase Ur 3+ LEU/UL (Negative); Need Manual Microscopic Reviewed; Nitrate Urine Negative (Negative); Specific Grav Ur 1.019 (1.001-1.035)
[2025-06-08] VITALS (57 sets, daily range): BP systolic 75–164; BP diastolic 44–87; PULSE 78–109; RESP 18–38; TEMP 36.4–37.9; O2SAT 92–100; BMI 33.9
[2025-06-08 00:14] LABS: Cannabinoid Screen Urine Negative (Negative)
[2025-06-08] MEDS: VANCOMYCIN 1,250 MG/NS 250 ML 1,250 MG/250 ML BAG 166.67 MG IVPB ×2 (00:44→02:23)
[2025-06-08 01:17] LABS: NT Pro B Type Natriuretic Pept 15400 pg/mL (19.9-100); Troponin I 0.040 ng/mL (0.000-0.034)
[2025-06-08 01:26] LABS: Lipase 19 U/L (23-300)
[2025-06-08] MEDS: ASPIRIN 81 MG CHEWABLE TABLET 324 MG PO (01:29)
[2025-06-08 01:53] LABS: Troponin I 0.048 ng/mL (0.000-0.034)
[2025-06-08 01:53] LABS: MRSA (PCR) NOT DETECTED (NOT DETECTE)
[2025-06-08] MEDS: FUROSEMIDE INJ 40 MG/4 ML VIAL 20 MG IV PUSH (01:55)
[2025-06-08] MEDS: ALBUTEROL SULFATE NEB 2.5 MG/3 ML INH 10 MG INHALATION (02:40)
[2025-06-08] MEDS: SODIUM CHLORIDE 0.9% IV 1,000 ML 150 ML IV CONT (02:57)
--- NOTE | 2025-06-08 03:11 | WPCEDHO ---
ED Hand Off Checklist All vitals saved:Yes IV Site documented:Yes All med administrations documented:Yes Triage Note Triage Note Pt to the ED with C/O respiratory 06/07/25 22:36 distress. Pt is on CPAP on arrival to the ED w an O2 sat around 90%. Bilateral crackles noted. Hx of Emphysema. Allergies No Known Allergies Allergy (Verified 03/16/25 11:11) Family History (Last Reviewed 03/16/25 @ 11:32 by Bessy Rasmussen [facility]) Father Emphysema lung Father Family history of liver disease Family history of chronic obstructive pulmonary disease Active Medications including assessments/comments Sodium Chloride (Normal Saline Iv) 1,000 mls @ 150 mls/hr IV CONT .Q6H40M STA Stop: 06/08/25 09:11 Last Admin: 06/08/25 02:57 Dose: 150 mls/hr Documented By: TONO Infusion/Titration Document 06/08/25 02:57 TONO (Rec: 06/08/25 03:06 TONO [id number]) Intake IV Site Peripheral Access Left Wrist Container Volume 1,000 Waste Amount 0 Dosing Infusion Rate 150 Cumulative Dose Not Applicable Increase/Decrease Started Elapsed Time Elapsed Time ( 0m minutes) Administered/Completed Medications Discontinued Medications Albuterol (Albuterol Sulfate Neb 2.5 Mg/3 Ml Inh) 10 mg INHALATION ONCE STA Stop: 06/08/25 02:30 Last Admin: 06/08/25 02:40 Dose: 10 mg Documented By: TERESA Albuterol/Ipratropium (Ipratropium 0.5 Mg/Albuterol Sulfate 2.5 Mg (Base) Ampul.Neb 3 Ml) 3 ml INHALATION ONCE STA Stop: 06/07/25 22:40 Last Admin: 06/07/25 23:30 Dose: 3 ml Documented By: TERESA Aspirin (Aspirin 81 Mg Chewable Tablet) 324 mg PO ONCE STA Stop: 06/08/25 01:23 Last Admin: 06/08/25 01:29 Dose: 324 mg Documented By: TONO Furosemide (Furosemide Inj 40 Mg/4 Ml Vial) 20 mg IV PUSH ONCE STA Stop: 06/08/25 01:46 Last Admin: 06/08/25 01:55 Dose: 20 mg Documented By: TONO Cefepime HCl 2 gm/ Sodium (Chloride) 50 mls @ 100 mls/hr IVPB ONCE STA Stop: 06/07/25 23:11 Last Infusion: 06/08/25 00:43 Dose: Infused Documented By: Admin: 06/07/25 23:11 Dose: 100 mls/hr Documented By: TONO Azithromycin 500 mg/ Sodium (Chloride) 250 mls @ 250 mls/hr IVPB ONCE STA Stop: 06/07/25 23:41 Last Infusion: 06/08/25 00:43 Dose: Infused Documented By: Admin: 06/07/25 23:10 Dose: 250 mls/hr Documented By: TONO Sodium Chloride (Normal Saline Iv) 500 mls @ 999 mls/hr IV CONT .Q31M STA Stop: 06/08/25 00:06 Last Infusion: 06/08/25 00:44 Dose: Infused Documented By: Admin: 06/07/25 23:43 Dose: 999 mls/hr Documented By: TONO Vancomycin HCl (Vancomycin 1,250 Mg/Ns 250 Ml) 1,250 mg in 250 mls @ 166.667 mls/hr IVPB ONCE ONE Stop: 06/08/25 01:29 Last Infusion: 06/08/25 02:27 Dose: Infused Documented By: Admin: 06/08/25 00:44 Dose: 166.67 mls/hr Documented By: TONO Vancomycin HCl (Vancomycin 1,250 Mg/Ns 250 Ml) 1,250 mg in 250 mls @ 166.667 mls/hr IVPB ONCE ONE Stop: 06/08/25 02:59 Last Admin: 06/08/25 02:23 Dose: 166.67 mls/hr Documented By: TONO Interventions/Assessments IV / Saline Lock, Insert Start: 06/07/25 22:40 Freq: STAT Status: Active Protocol: Document 06/07/25 23:11 TONO (Rec: 06/07/25 23:11 TONO [id number]) IV Assessment Peripheral Access Left Wrist IV Catheter Access Initiated IV Insertion Date 06/07/25 IV Insertion Time 23:11 Catheter Gauge 18 IV Site Assessment WNL IV Care and WNL Maintenance Peripheral Access Left Forearm IV Catheter Access Initiated IV Insertion Date 06/07/25 IV Insertion Time 23:11 Catheter Gauge 20 IV Insertion 1 Attempts IV Site Assessment WNL IV Care and WNL Maintenance PA: Cardiovascular Assessment Start: 06/07/25 22:35 Freq: Status: Active Protocol: Document 06/07/25 22:36 LLG (Rec: 06/07/25 22:45 LLG [id number]) Cardiovascular Assessment Cardiovascular Dyspnea Symptoms Skin Description Pallor,Warm Heart Sounds Normal Jugular Vein None Distention PA: Respiratory Assessment Start: 06/07/25 22:35 Freq: Status: Active Protocol: Document 06/07/25 22:36 LLG (Rec: 06/07/25 22:45 LLG [id number]) Respiratory Assessment Symptoms Shortness of Breath at Rest,Shortness of Breath With Exertion Effort Abdominal Breathing,Labored Pattern Hyperventilation Depth Deep Chest Expansion Symmetrical Cough Description None Sputum Amount None Oxygen Delivery Oxygen Delivery CPAP Pulse Oximetry (90- 90 100) Last Vital Signs Temperature 99.9 F H 06/08/25 03:01 Pulse Rate 85 06/08/25 03:01 Respiratory Rate 25 H 06/08/25 03:01 Pulse Oximetry 100 06/08/25 02:45 Blood Pressure 108/74 06/08/25 03:00 Blood Pressure Mean 84 06/08/25 03:00 Oxygen Delivery BiPAP 06/07/25 22:40 Weight 124.9 kg 06/07/25 22:36 Last Result - Abnormals Only WBC 11.2 K/mm3 (4.5-10.0) H 06/07/25 22:45 Band Neutrophils % 12 % (0-6) H 06/07/25 22:45 Lymphocytes % (Manual) 13.0 % (18-44) L 06/07/25 22:45 Abs Neuts (Manual) 9.18 K/mm3 (1.3-6.7) H 06/07/25 22:45 Abs Basophils (Manual) 0.11 K/mm3 (0.0-0.1) H 06/07/25 22:45 PT 17.9 Seconds (11.1-14.7) H 06/07/25 22:46 D-Dimer 1.24 ug/mL (<0.48) H 06/07/25 22:46 ABG pH 7.464 (7.350-7.450) H 06/07/25 22:54 ABG pCO2 27.9 mmHg (35.0-45.0) L 06/07/25 22:54 ABG pO2 100.2 mmHg (80.0-100.0) H 06/07/25 22:54 ABG HCO3 19.6 mEq/l (22.0-26.0) L 06/07/25 22:54 Sodium 134 mmol/L (137-145) L 06/07/25 22:45 Carbon Dioxide 18 mmol/L (22-30) L 06/07/25 22:45 Anion Gap 13 mmol/L (4-12) H 06/07/25 22:45 BUN 28 mg/dL (9-20) H 06/07/25 22:45 Glucose 135 mg/dL (65-110) H 06/07/25 22:45 Lactic Acid 3.3 mmol/L (0.7-2.0) H 06/08/25 01:21 Troponin I 0.048 ng/mL (0.000-0.034) H* 06/08/25 01:24 C-Reactive Protein 22.2 mg/dL (<1.0) H 06/07/25 22:45 NT-Pro-B Natriuret Pep 61219 pg/mL (19.9-100) H 06/07/25 22:45 Lipase 19 U/L (23-300) L 06/07/25 22:45 Urine Appearance Turbid (Clear) H 06/07/25 23:30 Urine Protein 2+ mg/dL (Negative) H 06/07/25 23:30 Urine Ketones Trace mg/dL (Negative) H 06/07/25 23:30 Leukocyte Esterase Rfl 3+ ZEUS/UL (Negative) H 06/07/25 23:30 Urine RBC 21-50 /hpf (0-2) H 06/07/25 23:30 Urine WBC >100 /hpf (0-3) H 06/07/25 23:30 Ur Squamous Epith Cells Many /hpf (Few) H 06/07/25 23:30 Urine Opiates Screen Positive (Negative) A 06/07/25 23:30 Most Recent Suicide Severity Rating Suicide Severity Rating NO RISK INDICATED 06/07/25 22:36
--- NOTE | 2025-06-08 04:03 | ADMGEN ---
This patient, Santos Mcgill, was admitted to IMU Room 207-01. Patient/family oriented to hospital policies and general routines including ID bracelet, bed and alarms, visiting hours, pain management, procedures, bathroom and other care routines, personal items, smoking policy, room service/diet, and visiting hours. Information on how to activate the Rapid Response Team has been discussed. Patient/Family are encouraged to report perceived risks to care and to ask questions if they do not understand what they are told or what they should do.
[2025-06-08 04:48] LABS: Estimated CRCL calculation 55 ml/min; Estimated Glomerular Filt Rate 55
[2025-06-08 05:05] LABS: Troponin I 0.041 ng/mL (0.000-0.034)
[2025-06-08 06:22] LABS: Hematocrit 37.3 % (42.0-52.0); Hemoglobin 12.4 g/dL (14.0-18.0); Mean Corpuscular HGB Conc 33.2 g/dl (32-36); Mean Corpuscular Hemoglobin 30.5 pg (26-34); Mean Corpuscular Volume 91.9 fl (80-100); Platelet Count Result 271 k/mm3 (150-375); Red Blood Count 4.06 M/mm3 (4.6-6.20); White Blood Count 9.9 K/mm3 (4.5-10.0)
[2025-06-08 06:32] LABS: Alanine Aminotransferase 18 U/L (6-50); Albumin Level 3.2 g/dL (3.5-5.1); Alkaline Phosphatase 32 U/L (38-126); Anion Gap 11 mmol/L (4-12); Aspartate Amino Transferase 33 U/L (17-59); Bilirubin,Total 1.1 mg/dL (0.2-1.3); Blood Urea Nitrogen 33 mg/dL (9-20); Calcium 8.3 mg/dL (8.4-10.2); Carbon Dioxide 17 mmol/L (22-30); Chloride 105 mmol/L (98-107); Estimated CRCL calculation 55 ml/min; Estimated Glomerular Filt Rate 55; Glucose 108 mg/dL (65-110); Potassium 4.6 mmol/L (3.4-5.0); Sodium 133 mmol/L (137-145); Total Protein 6.3 g/dL (6.3-8.2)
[2025-06-08 06:52] LABS: Band Neutrophils Percent 30 % (0-6); Lymphocytes Absolute Manual 1.68 K/mm3 (1.1-4.5); Lymphocytes Percent Manual 17 % (18-44); Monocytes Absolute Manual 1.18 K/mm3 (0.1-0.90); Monocytes Percent Manual 12 % (3-9); Neutrophils Absolute Manual 7.02 K/mm3 (1.3-6.7); Neutrophils Percent Manual 41 % (46-73); Total Cells Counted 100
[2025-06-08 06:53] LABS: Burr Cells 2+; Schistocytes None Seen
[2025-06-08] MEDS: CEFEPIME 2 GM in SODIUM CHLORIDE 0.9% IV 50 ML 100 ML IVPB ×2 (10:00→20:30)
[2025-06-08] MEDS: metroNIDAZOLE 500 MG/ISO 100ML 500 MG/100 ML BAG 100 MG IVPB ×3 (10:04→21:09)
[2025-06-08 13:47] LABS: Alveolar/Arterial O2 Gradient 160.6 mmHg; Fractional Inspired Oxygen 36 %; HCO3 ABG 21.2 mEq/l (22.0-26.0); Oxygen Content ABG 16.3 %vol (16.0-22.0); Oxygen Saturation ABG 92.8 % (95.0-100.0); PCO2 ABG 30.5 mmHg (35.0-45.0); PO2 ABG 60.7 mmHg (80.0-100.0); PO2 FiO2 Ratio Arterial Blood 1.69 %
[2025-06-08 13:53] LABS: Liters per Minute 4.0 LPM; Modified Allen's Test Pass; Site Drawn LEFT RADIAL
--- NOTE | 2025-06-08 17:26 | PM.IMHP ---
H&P: HPI History of Present Illness Date/Time: 06/08/25 17:26 Chief Complaint: Shortness of Breath/Dyspnea Narrative: HPI Narrative: Patient presents with report of shortness of breath beginning today. He denies any chest pain. Reports a history of emphysema though denies ever previously needing CPAP/BiPAP for intubation. EMS note that his SpO2 was in the high 80s, improved to maximum 91% with the application of CPAP. Although he had a history of emphysema cut my he was noted to have crackles on their examination. They note he had urinated on himself prior to their arrival. = Daughter and girlfriend arrive. Girlfriend reports that normally he wakes up around 7:00 a.m. and is active but he was more sleepy today and complaining of shortness of breath and was in bed for much of the day. By this evening she called his daughter reported that she thought he needs to go to the hospital. patient with compalaints of shortness of breath, weakness, with history of emphysema was placed on CPAP, which did improve patient symptoms, to further evaluate patient had CTA of the chest which showed 1. Aspiration pneumonia, right lung much worse. 2. Focal airspace disease right upper lobe, along area of prior small pleural-based nodular focus. Malignancy not excluded. Recommend short interval follow-up CT chest. 3. Right upper lobe pleural effusion. 4. No PE. will treatment patient with Zithromax, Cefepime and Flagyl to cover of anaerobic, will diurese the patient with IV Lasix, and bronchodilator as well as CPAP, will monitor, will have PT/OT evaluate the patient patient will benefit going to rehab. Review of Systems Review of Systems: CONSTITUTIONAL: Denies fever, chills, or sweats. EYES: Denies visual changes, blurry vision, redness, or discharge. ENT: Denies rhinorrhea, congestion, sore throat, or otalgia. Positive for ear fullness. CARDIOVASCULAR: Denies chest pain, palpitations, dizziness, lightheadedness or edema. RESPIRATORY: Denies cough or dyspnea. GASTROINTESTINAL: Denies abdominal pain, nausea, vomiting, or diarrhea. GENITOURINARY: Denies dysuria or hematuria. SKIN: Denies rash or itching. MUSCULOSKELETAL: Denies back pain, joint pain, or myalgia. NEUROLOGIC: Denies headache, numbness, or weakness. PSYCHIATRIC: Denies anxiety or depression. All other systems reviewed are negative, except as documented in HPI. [facility] Past Medical History Medical History Unintentional weight loss Thyroid nodule BMI 35.0-35.9,adult URI (upper respiratory infection) Right knee pain UTI (urinary tract infection) Nocturia Chronic low back pain Chest discomfort Colon cancer screening Hx of colonic polyps BMI 38.0-38.9,adult Chronic leg pain RBBB (right bundle branch block) Vitamin D deficiency Personal history of COVID-19 Hearing loss Left ankle sprain Hyperlipidemia Pneumonia BMI 37.0-37.9, adult Elevated homocysteine BMI 36.0-36.9,adult Ankle pain RLS (restless legs syndrome) On exterminator helper drug therapy Polyarticular arthritis Microscopic hematuria PVD (peripheral vascular disease) Hypersomnolence BPH (benign prostatic hyperplasia) COPD (chronic obstructive pulmonary disease) Benign essential hypertension DM type 2 (diabetes mellitus, type 2) Family History Family History Father Emphysema lung Father Family history of liver disease Family history of chronic obstructive pulmonary disease Social History Social History Smoking packs per day: 2 Smoking cigarettes per day: 40.0 Years smoked: 59 Smoking pack-years: 118.00 Smoking status: Former smoker Tobacco type: cigarettes Second hand tobacco smoke exposure: No Alcohol intake: current Drinks per week: 20 Substance use: current Substance use type: marijuana Last use: 06/06/25 Do You Feel Safe in your Home?: Yes Lack of Transportation: No Lack of Food: Never True Current Housing: I Have Housing Concerned About Future Housing: No Difficulty Paying Gas/Electric Bills: No Difficulty Paying for Meds: No Currently Unemployed: No Education: High School Diploma/GED Difficulty w/ Childcare or Family Care: No Living arrangements: with family Occupation/Education: occupation Gender identity (if verbalized by the patient): Male Spiritual care concerns: No Meds Home Medications and Allergies Home Medications ?Medication ?Instructions ?Recorded ?Confirmed ?Type omega-3 fatty acids 1,000 mg 2,000 mg PO DAILY 06/15/19 06/08/25 History capsule (Fish Oil Concentrate) ascorbate calcium (vitamin C) 500 500 mg PO DAILY 07/15/19 06/08/25 History mg tablet aspirin 81 mg chewable tablet 81 mg PO DAILY 07/15/19 06/08/25 History calcium carbonate (Calcium 600) 600 mg PO DAILY 07/15/19 06/08/25 History cholecalciferol (vitamin D3) 125 125 mcg PO DAILY 07/15/19 06/08/25 History mcg (5,000 unit) capsule vnbklefcpreq-hnq-krgef acid-vit 1 tablet PO DAILY 01/25/21 06/08/25 History K-lycop 400 mcg-20 mcg-370 mcg tablet (One-A-Day Men's 50 Plus (with vitamin K)) Trelegy Ellipta 100 mcg-62.5 1 inh inhalation DAILY 30 days #60 05/24/21 06/08/25 Rx mcg-25 mcg powder for inhalation ea (snjyvvzkrsj-jhfiyrthq-vvcqnimf) liisabell yennifer 1 mg BYMOUTH 1XD #90 tabs 04/04/22 06/08/25 Rx vitamin B complex 1 tablet PO DAILY 04/04/22 06/08/25 History prevagen 10 mg BYMOUTH DAILY 10/26/24 06/08/25 History hydrochlorothiazide 12.5 mg tablet See Rx Instructions .Route 02/21/25 06/08/25 Rx .COMPLEX #30 tabs simvastatin 20 mg tablet See Rx Instructions .Route 04/08/25 06/08/25 Rx .COMPLEX #90 tabs enalapril maleate 20 mg tablet See Rx Instructions .Route 04/13/25 06/08/25 Rx .COMPLEX #180 tabs metformin 500 mg tablet See Rx Instructions .Route 04/27/25 06/08/25 Rx .COMPLEX #270 tabs cilostazol 100 mg tablet See Rx Instructions .Route 05/05/25 06/08/25 Rx .COMPLEX #90 tabs albuterol sulfate 90 mcg/actuation 1 puff inhalation Q4H PRN 05/24/25 06/08/25 Rx aerosol inhaler shortness of breath or wheezing #8.5 grams tamsulosin 0.4 mg capsule See Rx Instructions .Route 05/26/25 06/08/25 Rx .COMPLEX #180 caps verapamil 240 mg tablet,extended See Rx Instructions .Route 05/26/25 06/08/25 Rx release .COMPLEX #90 tabs hydrocodone 10 mg-acetaminophen 1 tablet PO Q8H PRN pain #90 tabs 06/03/25 06/08/25 Rx 325 mg tablet Allergies Allergy/AdvReac Type Severity Reaction Status Date / Time No Known Allergies Allergy Verified 06/08/25 04:29 Vital Signs Vital Signs - 24 hr 06/07/25 22:36 06/07/25 22:36 06/07/25 22:40 Temperature 37.7 C H Pulse Rate 94 92 Respiratory Rate 35 H 39 H Blood Pressure 101/59 L Pulse Oximetry 90 90 97 Oxygen Delivery CPAP CPAP BiPAP Oxygen Flow Rate Fraction of Inspired Oxygen 06/07/25 23:10 06/07/25 23:29 06/07/25 23:30 Temperature 35.7 C L Pulse Rate 92 99 94 Respiratory Rate 33 H 36 H 28 H Blood Pressure Pulse Oximetry 100 Oxygen Delivery Oxygen Flow Rate Fraction of Inspired Oxygen 06/07/25 23:30 06/07/25 23:35 06/07/25 23:41 Temperature 36.0 C L 37.1 C 37.7 C H Pulse Rate 95 91 92 Respiratory Rate 37 H 39 H 38 H Blood Pressure 86/29 L 84/58 L Pulse Oximetry 97 98 95 Oxygen Delivery Oxygen Flow Rate Fraction of Inspired Oxygen 06/07/25 23:45 06/07/25 23:47 06/07/25 23:52 Temperature 37.9 C H 37.9 C H 38.1 C H Pulse Rate 93 92 95 Respiratory Rate 33 H 33 H 30 H Blood Pressure 101/52 L 98/62 L Pulse Oximetry 98 98 99 Oxygen Delivery Oxygen Flow Rate Fraction of Inspired Oxygen 06/07/25 23:57 06/08/25 00:34 06/08/25 00:36 Temperature 38.2 C H 37.9 C H 37.9 C H Pulse Rate 85 87 Respiratory Rate 30 H 25 H Blood Pressure 93/63 L 75/64 L Pulse Oximetry 100 100 Oxygen Delivery Oxygen Flow Rate Fraction of Inspired Oxygen 06/08/25 00:38 06/08/25 00:40 06/08/25 00:57 Temperature 37.9 C H 37.8 C H 37.7 C H Pulse Rate 85 87 88 Respiratory Rate 28 H 30 H 27 H Blood Pressure 80/58 L 106/58 L Pulse Oximetry 99 100 Oxygen Delivery Oxygen Flow Rate Fraction of Inspired Oxygen 06/08/25 01:00 06/08/25 01:12 06/08/25 01:45 Temperature 37.7 C H 37.6 C H Pulse Rate 89 91 89 Respiratory Rate 29 H 26 H 18 Blood Pressure 100/44 L Pulse Oximetry 100 100 Oxygen Delivery Oxygen Flow Rate Fraction of Inspired Oxygen 06/08/25 01:46 06/08/25 01:50 06/08/25 02:00 Temperature 37.7 C H 37.7 C H 37.3 C Pulse Rate 99 85 89 Respiratory Rate 25 H 29 H 23 H Blood Pressure 98/64 L Pulse Oximetry 100 100 Oxygen Delivery Oxygen Flow Rate Fraction of Inspired Oxygen 06/08/25 02:05 06/08/25 02:11 06/08/25 02:13 Temperature 37.6 C 37.6 C H 37.6 C H Pulse Rate 88 87 Respiratory Rate 26 H 30 H 28 H Blood Pressure 122/76 89/64 L 93/65 L Pulse Oximetry 100 100 Oxygen Delivery Oxygen Flow Rate Fraction of Inspired Oxygen 06/08/25 02:15 06/08/25 02:20 06/08/25 02:21 Temperature 37.6 C H 37.6 C H 37.6 C H Pulse Rate 90 92 92 Respiratory Rate 32 H 34 H 20 Blood Pressure 82/45 L Pulse Oximetry 100 100 100 Oxygen Delivery Oxygen Flow Rate Fraction of Inspired Oxygen 06/08/25 02:27 06/08/25 02:30 06/08/25 02:32 Temperature 37.5 C 37.6 C 37.6 C H Pulse Rate 86 Respiratory Rate 29 H Blood Pressure 107/83 119/54 L Pulse Oximetry 100 100 100 Oxygen Delivery Oxygen Flow Rate Fraction of Inspired Oxygen 06/08/25 02:41 06/08/25 02:41 06/08/25 02:45 Temperature 37.7 C H 37.7 C H Pulse Rate 84 84 82 Respiratory Rate 26 H 26 H 25 H Blood Pressure Pulse Oximetry 100 100 Oxygen Delivery Oxygen Flow Rate Fraction of Inspired Oxygen 06/08/25 03:00 06/08/25 03:01 06/08/25 03:30 Temperature 37.7 C H 37.7 C H Pulse Rate 86 85 79 Respiratory Rate 28 H 25 H 33 H Blood Pressure 108/74 Pulse Oximetry Oxygen Delivery Oxygen Flow Rate Fraction of Inspired Oxygen 06/08/25 03:45 06/08/25 04:00 06/08/25 04:02 Temperature 36.8 C Pulse Rate 78 86 80 Respiratory Rate 27 H 27 H Blood Pressure 107/51 L Pulse Oximetry 98 97 Oxygen Delivery BiPAP Oxygen Flow Rate Fraction of Inspired Oxygen 06/08/25 04:57 06/08/25 05:29 06/08/25 06:00 Temperature Pulse Rate 82 85 Respiratory Rate 25 H Blood Pressure Pulse Oximetry 98 98 Oxygen Delivery BiPAP BiPAP Oxygen Flow Rate Fraction of Inspired Oxygen 60 06/08/25 07:58 06/08/25 08:00 06/08/25 08:00 Temperature 36.4 C L Pulse Rate 89 87 Respiratory Rate 32 H Blood Pressure 100/84 Pulse Oximetry 97 94 Oxygen Delivery Nasal Cannula Oxygen Flow Rate 4 Fraction of Inspired Oxygen 06/08/25 08:20 06/08/25 08:20 06/08/25 08:35 Temperature Pulse Rate 89 89 88 Respiratory Rate 30 H 30 H Blood Pressure Pulse Oximetry 97 97 93 Oxygen Delivery BiPAP BiPAP Nasal Cannula Oxygen Flow Rate Fraction of Inspired Oxygen 60 06/08/25 08:35 06/08/25 10:00 06/08/25 11:31 Temperature 36.7 C Pulse Rate 88 90 89 Respiratory Rate 20 Blood Pressure 108/56 L Pulse Oximetry 93 95 Oxygen Delivery Nasal Cannula Oxygen Flow Rate 4 Fraction of Inspired Oxygen 06/08/25 12:00 06/08/25 12:00 06/08/25 13:00 Temperature Pulse Rate 99 Respiratory Rate Blood Pressure Pulse Oximetry 92 92 Oxygen Delivery Nasal Cannula Nasal Cannula Oxygen Flow Rate 4 Fraction of Inspired Oxygen 06/08/25 14:00 06/08/25 14:50 06/08/25 15:10 Temperature Pulse Rate 101 H 102 H Respiratory Rate 36 H Blood Pressure Pulse Oximetry 98 98 Oxygen Delivery BiPAP BiPAP Oxygen Flow Rate Fraction of Inspired Oxygen 50 06/08/25 16:00 06/08/25 16:00 06/08/25 16:13 Temperature 36.7 C Pulse Rate 101 H 108 H Respiratory Rate 34 H Blood Pressure 164/87 H Pulse Oximetry 92 98 Oxygen Delivery Nasal Cannula Oxygen Flow Rate 4 Fraction of Inspired Oxygen Exam Narrative: Patient is comfortable, NAD HEENT: eyes are clear and none icteric LUNGS:CTA HEART: RR S1S2 ABD: BS+, Soft and nontender Lower extremities: no edema SKIN: nonjaundiced Neuro: grossly intact. H&P: Results Labs Labs: Short CBC 06/07/25 06/08/25 Range/Units 22:45 04:30 WBC 11.2 H 9.9 (4.5-10.0) K/mm3 Hgb 14.3 D 12.4 L (14.0-18.0) g/dL Hct 42.4 37.3 L (42.0-52.0) % Plt Count 303 271 (150-375) k/mm3 BMP 06/07/25 06/08/25 06/08/25 22:45 04:30 04:30 Sodium 134 L 133 L Potassium 4.0 4.6 Chloride 103 105 Carbon Dioxide 18 L 17 L BUN 28 H 33 H Creatinine 1.15 1.26 1.25 Glucose 135 H 108 Calcium 9.1 8.3 L Cardiac Enzymes 06/07/25 06/08/25 06/08/25 Range/Units 22:45 01:24 04:30 Troponin I 0.040 H* 0.048 H* 0.041 H* (0.000-0.034) ng/mL Liver Function 06/07/25 06/08/25 Range/Units 22:45 04:30 Total Bilirubin 1.1 1.1 (0.2-1.3) mg/dL AST 29 33 (17-59) U/L ALT 26 18 (6-50) U/L Alkaline Phosphatase 54 32 L (38-126) U/L Albumin 3.9 3.2 L (3.5-5.1) g/dL Urine 06/07/25 Range/Units 23:30 Urine Color Dark yellow (Yellow) Urine Appearance Turbid H (Clear) Urine pH 5.0 (5.0-9.0) Ur Specific [place] 1.019 (1.001-1.035) Urine Protein 2+ H (Negative) mg/dL Urine Glucose (UA) Negative (Negative) mg/dL Assessment and Plan Assessment and plan (1) COPD (chronic obstructive pulmonary disease): Qualifiers: COPD type: unspecified COPD Qualified Code(s): J44.9 - Chronic obstructive pulmonary disease, unspecified Code(s): J44.9 - Chronic obstructive pulmonary disease, unspecified Status: Acute (2) Shortness of breath: Code(s): R06.02 - Shortness of breath Status: Acute (3) Pulmonary nodules: Code(s): R91.8 - Other nonspecific abnormal finding of lung field Status: Acute (4) Pneumonia: Qualifiers: Pneumonia type: due to unspecified organism Laterality: left Lung location: lower lobe of lung Qualified Code(s): J18.9 - Pneumonia, unspecified organism Code(s): J18.9 - Pneumonia, unspecified organism Status: Acute (5) Pleural effusion: Code(s): J90 - Pleural effusion, not elsewhere classified Status: Acute (6) Shortness of breath: Code(s): R06.02 - Shortness of breath Status: Acute Plan patient with compalaints of shortness of breath, weakness, with history of emphysema was placed on CPAP, which did improve patient symptoms, to further evaluate patient had CTA of the chest which showed 1. Aspiration pneumonia, right lung much worse. 2. Focal airspace disease right upper lobe, along area of prior small pleural-based nodular focus. Malignancy not excluded. Recommend short interval follow-up CT chest. 3. Right upper lobe pleural effusion. 4. No PE. will treatment patient with Zithromax, Cefepime and Flagyl to cover of anaerobic, will diurese the patient with IV Lasix, and bronchodilator as well as CPAP, will monitor, will have PT/OT evaluate the patient patient will benefit going to rehab.
[2025-06-08] MEDS: TAMSULOSIN HCL 0.4 MG CAPSULE 0.8 MG BY MOUTH (17:39)
[2025-06-08] MEDS: SIMVASTATIN 20 MG TABLET BY MOUTH (17:39)
[2025-06-08] MEDS: ENALAPRIL MALEATE 10 MG TABLET 20 MG BY MOUTH (17:40)
--- NOTE | 2025-06-08 18:17 | ECG_ITS ---
Test Date: 2025-06-08 18:32:26 Measurements Intervals [place] Rate: 104 P: 0 GA: 0 QRS: -11 QRSD: 174 T: 120 QT: 390 QTc: 513 Interpretive Statements ATRIAL FIBRILLATION WITH RAPID VENTRICULAR RESPONSE INDETERMINATE AXIS RIGHT BUNDLE BRANCH BLOCK [120+ ms QRS DURATION, UPRIGHT V1, 40+ ms S IN I/aVL/V4/V5/V6] Compared to ECG 06/07/2025 22:51:29 Sinus tachycardia no longer present Electronically Signed On 06-09-2025 12:26:13 INTERPERSONAL COMMUNICATIONS PROFESSOR by Francis Parker M.D.
[2025-06-08] MEDS: FUROSEMIDE INJ 40 MG/4 ML VIAL IV PUSH (18:36)
[2025-06-08] MEDS: METOPROLOL TARTRATE INJ 5 MG/5 ML VIAL IV PUSH (19:34)
[2025-06-08] MEDS: IPRATROPIUM 0.5 MG/ALBUTEROL SULFATE 2.5 MG (BASE) AMPUL.NEB 3 ML INHALATION (20:01)
[2025-06-08] MEDS: METOPROLOL TARTRATE 12.5 MG TABLET PO (20:30)
[2025-06-08] MEDS: AZITHROMYCIN IV 500 MG in SODIUM CHLORIDE 0.9% IV 250 ML IVPB (20:36)
[2025-06-08] MEDS: HYDROcodone/acetaminophen (*CRX) 10-325 MG TABLET 1 TAB PO (22:53)
[2025-06-09] VITALS (26 sets, daily range): BP systolic 92–115; BP diastolic 45–66; PULSE 67–97; RESP 18–32; TEMP 36.3–36.9; O2SAT 93–97
--- NOTE | 2025-06-09 | ECHO_ITS ---
Patient Info Name: Santos Mcgill Age: 84 years : 1940 Gender: Male Ht: 74 in Wt: 264 lbs BSA: 2.54 m2 HR: 85 bpm BP: 101 / 55 mmHg Heart Rhythm: Atrial Fibrillation Technical Quality: Fair Exam Date: 06/09/2025 1:21 PM Patient Status: I Admit Date: 06/08/2025 Exam Type: CA echo dop color flow w con Complete two-dimensional, color flow and Doppler transthoracic echocardiogram is performed with contrast to opacify the left ventricle and to improve the deliniation of the left ventricle endocardial borders. Staff Referring Physician: Rena Hayes MD Weed Cutter: Evan Lozada III Attending Provider: Polina Connelly DO Contrast/Agitated Saline Contrast/Ag. Saline: Definity Amount: 2.00 ml Administered By: Evan Lozada III Existing IV Access: Yes IV Access Condition: patent with no signs of infiltration Summary 1. Moderate concentric left ventricular hypertrophy with well-preserved systolic function. 2. Biatrial dilation left greater than right. 3. Moderate to severe aortic valve stenosis valve area 1.0 cm2. 4. Atrial fibrillation. 5. Compared with echocardiogram done in November of this year the findings are unchanged. Left Ventricle Left ventricular chamber dimension is normal. Left ventricular systolic function is normal, estimated at 65-70. There is moderate concentric increased left ventricular wall thickness. The left ventricular diastolic function is indeterminate. Right Ventricle Right ventricular chamber dimension is normal. Left Atria Left atrial chamber dimension is moderately enlarged. Right Atria Right atrial chamber dimension is moderately enlarged. Aortic Valve The aortic valve is trileaflet. There is severe aortic valve sclerosis. There is moderate to severe aortic valve stenosis with a peak velocity of 446 cm/s, mean gradient of 38 mmHg, and aortic valve area of 1.0 cm2. Pulmonic Valve The pulmonic valve is normal. Mitral Valve The mitral valve has normal leaflets. The mitral valve annulus is mildly calcified. Tricuspid Valve The tricuspid valve leaflets are normal. Pericardium/Pleural The pericardium appears normal. Aorta The aortic root size at the sinus of Valsalva is normal. Left Ventricular Outflow Tract Name Value Normal LVOT 2D LVOT Diameter 2.5 cm LVOT Doppler LVOT Peak Velocity 87 cm/s LVOT Peak Gradient 3 mmHg LVOT Mean Gradient 1 mmHg LVOT VTI 18 cm LVOT VTI/AV VTI Ratio 0.2 LVOT Stroke Volume 90 ml LVOT CO 5.7 l/min LVOT CI 2.3 l/min/m2 Pulmonic Valve Name Value Normal PV Doppler PV Peak Velocity 130 cm/s PV Peak Gradient 7 mmHg PV Mean Gradient 4 mmHg Mitral Valve Name Value Normal MV Doppler MV Peak Gradient 7 mmHg MV Mean Gradient 2 mmHg MV Area (Cont Eq VTI) 3.3 cm2 MV Diastolic Function MV E Peak Velocity 123 cm/s MV A Peak Velocity 1 cm/s MV E/A 189.1 MV Decel Time (PW) 186 ms MV Annular TDI MV E/e' (Septal) 16.4 MV E/e' (Lateral) 16.2 MV E/e' (Average) 16.3 Tricuspid Valve Name Value Normal TV Annular TDI TV Lateral Nelsy s' Velocity 8.3 cm/s >=9.5 Aortic Valve Name Value Normal AV Doppler AV Peak Velocity 446 cm/s AV Peak Gradient 70 mmHg AV Mean Gradient 38 mmHg AV VTI 88 cm AV Area (Cont Eq VTI) 1.0 cm2 >=3.0 AV Area (Cont Eq Davie) 1.0 cm2 AV DI (Davie) 0.20 AV Regurgitation 2D LVOT Area 4.9 cm2 Ventricles Name Value Normal LV Dimensions 2D/MM LVOT Diameter 2.5 cm LV Fractional Shortening/Ejection Fraction 2D/MM LV Diastolic Volume (4C MOD) 100 ml LV EF (4C MOD) 63 % LV Diastolic Volume (2C MOD) 79 ml LV EF (2C MOD) 63 % LV Diastolic Volume (BP MOD) 88 ml 62-150 LV Diastolic Volume Index (BP MOD) 35 ml/m2 34-74 LV Systolic Volume (BP MOD) 33 ml 21-61 LV Systolic Volume Index (BP MOD) 13 ml/m2 11-31 LV EF (BP MOD) 62 % 52-72 LV Diastolic Length (4C) 7.7 cm LV Systolic Length (4C) 7.0 cm LV Stroke Volume (4C MOD) 63 ml Atria Name Value Normal LA Dimensions LA Volume (4C A-L) 60 ml LA Volume (BP A-L) 81 ml RA Dimensions RA Systolic Major Venus Length (4C) 7.6 cm 2.1-2.7 RA Area (4C) 29.3 cm2 <=18.0 Report Signatures
[2025-06-09] MEDS: IPRATROPIUM 0.5 MG/ALBUTEROL SULFATE 2.5 MG (BASE) AMPUL.NEB 3 ML INHALATION ×4 (01:33→20:35)
[2025-06-09 03:52] LABS: Hematocrit 34.8 % (42.0-52.0); Hemoglobin 11.5 g/dL (14.0-18.0); Mean Corpuscular HGB Conc 33.0 g/dl (32-36); Mean Corpuscular Hemoglobin 29.9 pg (26-34); Mean Corpuscular Volume 90.4 fl (80-100); Platelet Count Result 245 k/mm3 (150-375); Red Blood Count 3.85 M/mm3 (4.6-6.20); White Blood Count 18.3 K/mm3 (4.5-10.0)
[2025-06-09 04:09] LABS: Anion Gap 5 mmol/L (4-12); Blood Urea Nitrogen 42 mg/dL (9-20); Calcium 8.9 mg/dL (8.4-10.2); Carbon Dioxide 25 mmol/L (22-30); Chloride 105 mmol/L (98-107); Estimated CRCL calculation 53 ml/min; Estimated Glomerular Filt Rate 53; Glucose 106 mg/dL (65-110); Magnesium 2.1 mg/dL (1.6-2.3); Potassium 3.9 mmol/L (3.4-5.0); Sodium 135 mmol/L (137-145)
[2025-06-09 04:39] LABS: NT Pro B Type Natriuretic Pept 6260 pg/mL (19.9-100)
[2025-06-09 04:40] LABS: Alveolar/Arterial O2 Gradient 239.5 mmHg; Fractional Inspired Oxygen 50 %; HCO3 ABG 23.3 mEq/l (22.0-26.0); Oxygen Content ABG 16.2 %vol (16.0-22.0); Oxygen Saturation ABG 95.9 % (95.0-100.0); PCO2 ABG 35.3 mmHg (35.0-45.0); PO2 ABG 77.3 mmHg (80.0-100.0); PO2 FiO2 Ratio Arterial Blood 1.55 %
[2025-06-09 04:45] LABS: Modified Allen's Test Pass; Site Drawn RIGHT BRACHIAL
--- NOTE | 2025-06-09 05:07 | PM.EVENT ---
Event Note Event Note Event Note: Patient reported to be tachypneic and hypotensive. It appears he was tachypneic since admission and previous covering clinician placed the patient on BiPAP. Patient is resting comfortably, no complaints. Blood pressure 92/53 on 1 reading. BiPAP may be contributing to this. Deescalate to Airvo or nasal cannula when possible. Discontinue enalapril, furosemide, hydrochlorothiazide, tamsulosin, metoprolol. If blood pressure does not improve consider gentle administration of isotonic fluid or removing BiPAP. Added incentive spirometer and PEP therapy.
[2025-06-09] MEDS: metroNIDAZOLE 500 MG/ISO 100ML 500 MG/100 ML BAG 100 MG IVPB ×3 (05:27→21:58)
[2025-06-09] MEDS: FLUTICASONE/UMECLIDIN/VILANTER 100-62.5-25 MCG ELLIPTA 1 PUFF INHALATION (07:32)
[2025-06-09] MEDS: ENOXAPARIN 40 MG/0.4 ML SYRINGE SUB-Q (08:51)
[2025-06-09] MEDS: CALCIUM CARBONATE (TUMS) 500 MG (200 MG ELEMENTAL) 600 MG BY MOUTH (08:51)
[2025-06-09] MEDS: VERAPAMIL HCL 240 MG ER TABLET BY MOUTH (08:52)
[2025-06-09] MEDS: CEFEPIME 2 GM in SODIUM CHLORIDE 0.9% IV 50 ML 100 ML IVPB ×2 (08:53→20:12)
--- NOTE | 2025-06-09 09:58 | PM.CNCAR ---
Assessment and Plan Assessment and plan (1) Atrial fibrillation: Code(s): I48.91 - Unspecified atrial fibrillation Status: Acute (2) Moderate aortic stenosis: Code(s): I35.0 - Nonrheumatic aortic (valve) stenosis Status: Acute Plan 84-year-old man with moderate aortic stenosis, diabetes, hypertension, hyperlipidemia, and emphysema was brought in for shortness of breath Shortness of breath -secondary to sepsis from pneumonia -likely has chronic diastolic dysfunction -overall appears euvolemic at this time and would avoid hypovolemia given his ongoing infection Paroxysmal atrial fibrillation -this is new onset and we have discussed the pathophysiology as well as the management in great detail with the patient who agreed to proceed forward with anticoagulation -will anticoagulate with Eliquis 5 mg p.o. b.i.d. after evaluated by primary team for anisocoria that is presumably new -will avoid aggressive rate control at this time Moderate aortic stenosis -will follow-up on the transthoracic echocardiogram -we discussed in great detail his condition and the eventual need for aortic valve replacement -he has not made a definitive decision on whether not he would like this to be treated moving forward History of Present Illness History of Present Illness Consult date/time: 06/09/25 09:58 Requesting physician: Prachi Yost MD Consult reason: shortness of breath Reason For Visit: PNA; on bipap Narrative: 84-year-old man with moderate aortic stenosis, diabetes, hypertension, hyperlipidemia, and emphysema was brought in for shortness of breath. He states that the shortness of breath started yesterday and today he feels much better. While he endorses that he feels better he does seem to be short of breath speaking complete sentences while on nasal cannula oxygen. He also does not appear to be very focus in our conversation. 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 Denies orthopnea or lower extremity swelling. States that he lives at home with his girlfriend. Review of Systems Cardiovascular: Cardiovascular: Reports as per HPI Respiratory: Respiratory: Reports as per HPI [facility] Past Medical History Medical History Unintentional weight loss Thyroid nodule BMI 35.0-35.9,adult URI (upper respiratory infection) Right knee pain UTI (urinary tract infection) Nocturia Chronic low back pain Chest discomfort Colon cancer screening Hx of colonic polyps BMI 38.0-38.9,adult Chronic leg pain RBBB (right bundle branch block) Vitamin D deficiency Personal history of COVID-19 Hearing loss Left ankle sprain Hyperlipidemia Pneumonia BMI 37.0-37.9, adult Elevated homocysteine BMI 36.0-36.9,adult Ankle pain RLS (restless legs syndrome) On senior living drug therapy Polyarticular arthritis Microscopic hematuria PVD (peripheral vascular disease) Hypersomnolence BPH (benign prostatic hyperplasia) COPD (chronic obstructive pulmonary disease) Benign essential hypertension DM type 2 (diabetes mellitus, type 2) Family History Family History Father Emphysema lung Father Family history of liver disease Family history of chronic obstructive pulmonary disease Social History Social History Smoking packs per day: 2 Smoking cigarettes per day: 40.0 Years smoked: 59 Smoking pack-years: 118.00 Smoking status: Former smoker Tobacco type: cigarettes Second hand tobacco smoke exposure: No Alcohol intake: current Drinks per week: 20 Substance use: current Substance use type: marijuana Last use: 06/06/25 Do You Feel Safe in your Home?: Yes Lack of Transportation: No Lack of Food: Never True Current Housing: I Have Housing Concerned About Future Housing: No Difficulty Paying Gas/Electric Bills: No Difficulty Paying for Meds: No Currently Unemployed: No Education: High School Diploma/GED Difficulty w/ Childcare or Family Care: No Living arrangements: with family Occupation/Education: occupation Gender identity (if verbalized by the patient): Male Spiritual care concerns: No Meds Home Medications and Allergies Home Medications ?Medication ?Instructions ?Recorded ?Confirmed ?Type omega-3 fatty acids 1,000 mg 2,000 mg PO DAILY 06/15/19 06/08/25 History capsule (Fish Oil Concentrate) ascorbate calcium (vitamin C) 500 500 mg PO DAILY 07/15/19 06/08/25 History mg tablet aspirin 81 mg chewable tablet 81 mg PO DAILY 07/15/19 06/08/25 History calcium carbonate (Calcium 600) 600 mg PO DAILY 07/15/19 06/08/25 History cholecalciferol (vitamin D3) 125 125 mcg PO DAILY 07/15/19 06/08/25 History mcg (5,000 unit) capsule ripqmffrxwjy-ybi-ofgal acid-vit 1 tablet PO DAILY 01/25/21 06/08/25 History K-lycop 400 mcg-20 mcg-370 mcg tablet (One-A-Day Men's 50 Plus (with vitamin K)) Mayte Ellipta 100 mcg-62.5 1 inh inhalation DAILY 30 days #60 05/24/21 06/08/25 Rx mcg-25 mcg powder for inhalation ea (cjtexmiawae-ohybpuswx-wqqwvrzc) mercedes yennifer 1 mg BYMOUTH 1XD #90 tabs 04/04/22 06/08/25 Rx vitamin B complex 1 tablet PO DAILY 04/04/22 06/08/25 History prevagen 10 mg BYMOUTH DAILY 10/26/24 06/08/25 History hydrochlorothiazide 12.5 mg tablet See Rx Instructions .Route 02/21/25 06/08/25 Rx .COMPLEX #30 tabs simvastatin 20 mg tablet See Rx Instructions .Route 04/08/25 06/08/25 Rx .COMPLEX #90 tabs enalapril maleate 20 mg tablet See Rx Instructions .Route 04/13/25 06/08/25 Rx .COMPLEX #180 tabs metformin 500 mg tablet See Rx Instructions .Route 04/27/25 06/08/25 Rx .COMPLEX #270 tabs cilostazol 100 mg tablet See Rx Instructions .Route 05/05/25 06/08/25 Rx .COMPLEX #90 tabs albuterol sulfate 90 mcg/actuation 1 puff inhalation Q4H PRN 05/24/25 06/08/25 Rx aerosol inhaler shortness of breath or wheezing #8.5 grams tamsulosin 0.4 mg capsule See Rx Instructions .Route 05/26/25 06/08/25 Rx .COMPLEX #180 caps verapamil 240 mg tablet,extended See Rx Instructions .Route 05/26/25 06/08/25 Rx release .COMPLEX #90 tabs hydrocodone 10 mg-acetaminophen 1 tablet PO Q8H PRN pain #90 tabs 06/03/25 06/08/25 Rx 325 mg tablet Allergies Allergy/AdvReac Type Severity Reaction Status Date / Time No Known Allergies Allergy Verified 06/08/25 04:29 Vital Signs Vital Signs - 24 hr 06/08/25 10:00 06/08/25 11:31 06/08/25 12:00 Temperature 36.7 C Pulse Rate 90 89 Respiratory Rate 20 Blood Pressure 108/56 L Pulse Oximetry 95 92 Oxygen Delivery Nasal Cannula Oxygen Flow Rate 4 Fraction of Inspired Oxygen 06/08/25 12:00 06/08/25 13:00 06/08/25 14:00 Temperature Pulse Rate 99 101 H Respiratory Rate Blood Pressure Pulse Oximetry 92 Oxygen Delivery Nasal Cannula Oxygen Flow Rate Fraction of Inspired Oxygen 06/08/25 14:50 06/08/25 15:10 06/08/25 16:00 Temperature Pulse Rate 102 H Respiratory Rate 36 H Blood Pressure Pulse Oximetry 98 98 92 Oxygen Delivery BiPAP BiPAP Nasal Cannula Oxygen Flow Rate 4 Fraction of Inspired Oxygen 50 06/08/25 16:00 06/08/25 16:13 06/08/25 18:00 Temperature 36.7 C Pulse Rate 101 H 108 H 107 H Respiratory Rate 34 H Blood Pressure 164/87 H Pulse Oximetry 98 Oxygen Delivery Oxygen Flow Rate Fraction of Inspired Oxygen 06/08/25 19:30 06/08/25 19:34 06/08/25 20:00 Temperature Pulse Rate 109 H 109 H 100 Respiratory Rate Blood Pressure 122/65 Pulse Oximetry Oxygen Delivery Oxygen Flow Rate Fraction of Inspired Oxygen 06/08/25 20:00 06/08/25 20:00 06/08/25 20:00 Temperature 37.0 C Pulse Rate 96 95 Respiratory Rate 26 H Blood Pressure 116/63 Pulse Oximetry 93 93 Oxygen Delivery Nasal Cannula Oxygen Flow Rate 4 Fraction of Inspired Oxygen 06/08/25 20:01 06/08/25 20:02 06/08/25 20:10 Temperature Pulse Rate 97 97 102 H Respiratory Rate 34 H 20 29 H Blood Pressure Pulse Oximetry 94 Oxygen Delivery Nasal Cannula Oxygen Flow Rate 4 Fraction of Inspired Oxygen 36 06/08/25 20:27 06/08/25 20:30 06/08/25 21:20 Temperature 37.0 C Pulse Rate 96 93 95 Respiratory Rate 26 H Blood Pressure 116/63 Pulse Oximetry 93 Oxygen Delivery Oxygen Flow Rate Fraction of Inspired Oxygen 06/08/25 21:20 06/08/25 22:00 06/08/25 22:20 Temperature 37.0 C Pulse Rate 96 95 101 H Respiratory Rate 26 H 38 H Blood Pressure 116/63 Pulse Oximetry 93 97 Oxygen Delivery BiPAP Oxygen Flow Rate Fraction of Inspired Oxygen 06/08/25 22:53 06/09/25 00:00 06/09/25 00:00 Temperature 37.1 C Pulse Rate 109 H 93 Respiratory Rate 36 H Blood Pressure 131/67 Pulse Oximetry 95 97 Oxygen Delivery BiPAP Oxygen Flow Rate Fraction of Inspired Oxygen 50 06/09/25 01:31 06/09/25 01:34 06/09/25 01:43 Temperature Pulse Rate 87 89 94 Respiratory Rate 28 H 27 H 20 Blood Pressure Pulse Oximetry 97 Oxygen Delivery BiPAP Oxygen Flow Rate Fraction of Inspired Oxygen 06/09/25 02:00 06/09/25 04:00 06/09/25 04:00 Temperature Pulse Rate 90 90 Respiratory Rate Blood Pressure Pulse Oximetry 97 Oxygen Delivery BiPAP Oxygen Flow Rate Fraction of Inspired Oxygen 50 06/09/25 04:00 06/09/25 04:19 06/09/25 05:30 Temperature 36.3 C L Pulse Rate 95 87 Respiratory Rate 32 H 24 H Blood Pressure 92/53 L 101/55 L Pulse Oximetry 95 96 Oxygen Delivery BiPAP Oxygen Flow Rate Fraction of Inspired Oxygen 06/09/25 06:00 06/09/25 06:00 06/09/25 07:33 Temperature Pulse Rate 85 85 97 Respiratory Rate 20 Blood Pressure Pulse Oximetry 95 Oxygen Delivery Nasal Cannula Oxygen Flow Rate 4 Fraction of Inspired Oxygen 06/09/25 07:33 06/09/25 07:52 Temperature 36.9 C Pulse Rate 95 86 Respiratory Rate 20 26 H Blood Pressure 111/66 Pulse Oximetry 97 Oxygen Delivery Oxygen Flow Rate Fraction of Inspired Oxygen Exam Const: General: comfortable HENMT: Mouth: Yes moist mucous membranes Eyes: Other: anisocoria with right pupil dilated and normal size left eye pupil Neck: Neck: no JVD Resp: Effort & Inspection: normal respiratory effort Other: Rales heard throughout the left lung melchor. Cardio: Rate: regular rate Rhythm: abnormal rhythm Heart sounds: Murmur heart sound present Extrem: General: no pedal edema Results Labs and Meds 06/09/25 03:27 06/09/25 03:27 Lab results: CBC 06/09/25 Range/Units 03:27 WBC 18.3 H (4.5-10.0) K/mm3 RBC 3.85 L (4.6-6.20) M/mm3 Hgb 11.5 L (14.0-18.0) g/dL Hct 34.8 L (42.0-52.0) % Plt Count 245 (150-375) k/mm3 Comprehensive Metabolic Panel 06/09/25 Range/Units 03:27 Sodium 135 L (137-145) mmol/L Potassium 3.9 (3.4-5.0) mmol/L Chloride 105 (98-107) mmol/L Carbon Dioxide 25 (22-30) mmol/L BUN 42 H (9-20) mg/dL Creatinine 1.29 (0.7-1.3) mg/dL Glucose 106 (65-110) mg/dL Calcium 8.9 (8.4-10.2) mg/dL Intake and Output 06/08/25 06/09/25 06/09/25 23:59 07:59 15:59 Intake Total 1150 Output Total 625 1250 Balance 525 -1250 Intake: IV 500 Azithromycin IV 500 mg In 250 Sodium Chloride 0.9% IV 250 ml @ 250 mls/hr IVPB Q24H JOSE C Rx#: [id number] Cefepime 2 gm In Sodium 50 Chloride 0.9% IV 50 ml @ 100 mls/hr IVPB Q12H JOSE C Rx#: [id number] metroNIDAZOLE 500 MG/ISO 100ML 200 500 mg In 100 ml @ 100 mls/hr IVPB Q8HR JOSE C Rx#:[id number] Oral 650 Output: Catheter Urine 625 1250 Urethral Catheter 625 1250 Patient Weight 06/09/25 23:59 Weight 118.8 kg
--- NOTE | 2025-06-09 10:48 | PCSTNOTE ---
Please refer to the Bedside Swallow Evaluation in the EMR. Please note, silent aspiration cannot be ruled out at bedside. The above 84-year-old pt was seen for a swallow evaluation at the bedside; the patient has a diagnosis of SOB & pneumonia and has a PMH of emphysema. Other PMH is extensive. Pt denied difficulty swallowing. Pt, sitter, and significant other were present. Pt was able to follow commands and answer simple questions; the significant other tended to respond to most questions. The oral cavity was dry with dried secretions. No oral weakness was noted in regards to labial or lingual ROM and strength. Pt was not able to dry swallow on command, which was felt to be related to his dry mouth. Missing front teeth noted, and his partials are not here at the hospital. Significant other states he can eat without the partial. Vocal quality was clear and strong. Imaging suggests aspiration pneumonia. The patient was repositioned into an upright seated position in the bed for testing. He was tested with pudding, cracker and thin liquids, which was tested via tsp amounts, cup sips, and then straw drinking. The oral stages appeared WNL. No oral residue, leakage, or pocketing was noted. During the pharyngeal stage, the swallow reflex appeared prompt & laryngeal elevation was adequate. When the patient finished drinking the cup of water (via a straw), he requested another drink. ST refilled the cup, and he again drank an entire cup of water via a straw without any overt s/s of aspiration. No overt s/s of aspiration were exhibited; however, silent aspiration cannot be ruled out at bedside. Spoke with Dr Hayes re BSE findings and imaging, and as to whether an MBS should be completed. Per Dr Hayes, the patient was very somnolent when he was admitted and may have aspirated at that time. Per Dr Hayes, ST should follow up with nursing regarding the patient's ability to tolerate oral intake. Spoke with KJ Macario, and requested she notify ST if further difficulty develops. ST will not implement a POC but will f/u with nursing. General impression: normal swallow ability. Recommendation: a level 7 [id number]-ej-[id number] diet with level [address] spoke Amirah and Dr Hayes as above. Occasional supervision with oral intake; position upright with all oral intake. Thank you for this referral.
--- NOTE | 2025-06-09 13:57 | PM.IMPN ---
Progress Note: A&P Assessment and Plan (1) COPD (chronic obstructive pulmonary disease): Qualifiers: COPD type: unspecified COPD Qualified Code(s): J44.9 - Chronic obstructive pulmonary disease, unspecified Code(s): J44.9 - Chronic obstructive pulmonary disease, unspecified Status: Acute (2) Shortness of breath: Code(s): R06.02 - Shortness of breath Status: Acute (3) Pulmonary nodules: Code(s): R91.8 - Other nonspecific abnormal finding of lung field Status: Acute (4) Pneumonia: Qualifiers: Pneumonia type: due to unspecified organism Laterality: left Lung location: lower lobe of lung Qualified Code(s): J18.9 - Pneumonia, unspecified organism Code(s): J18.9 - Pneumonia, unspecified organism Status: Acute (5) Pleural effusion: Code(s): J90 - Pleural effusion, not elsewhere classified Status: Acute Plan patient with compalaints of shortness of breath, weakness, with history of emphysema was placed on CPAP, which did improve patient symptoms, to further evaluate patient had CTA of the chest which showed 1. Aspiration pneumonia, right lung much worse. 2. Focal airspace disease right upper lobe, along area of prior small pleural-based nodular focus. Malignancy not excluded. Recommend short interval follow-up CT chest. 3. Right upper lobe pleural effusion. 4. No PE. will treatment patient with Zithromax, Cefepime and Flagyl to cover of anaerobic, will diurese the patient with IV Lasix, and bronchodilator as well as CPAP, will monitor, will have PT/OT evaluate the patient patient will benefit going to rehab. 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 patient is also seen by speech therapist and does not suspect any aspiration, the speech will follow the patient and reassess, will monitor. Subjective Date/time seen: 06/09/25 13:57 Interval history: Shortness of Breath/Dyspnea Narrative: HPI Narrative: Patient presents with report of shortness of breath beginning today. He denies any chest pain. Reports a history of emphysema though denies ever previously needing CPAP/BiPAP for intubation. EMS note that his SpO2 was in the high 80s, improved to maximum 91% with the application of CPAP. Although he had a history of emphysema cut my he was noted to have crackles on their examination. They note he had urinated on himself prior to their arrival. = Daughter and girlfriend arrive. Girlfriend reports that normally he wakes up around 7:00 a.m. and is active but he was more sleepy today and complaining of shortness of breath and was in bed for much of the day. By this evening she called his daughter reported that she thought he needs to go to the hospital. patient with compalaints of shortness of breath, weakness, with history of emphysema was placed on CPAP, which did improve patient symptoms, to further evaluate patient had CTA of the chest which showed 1. Aspiration pneumonia, right lung much worse. 2. Focal airspace disease right upper lobe, along area of prior small pleural-based nodular focus. Malignancy not excluded. Recommend short interval follow-up CT chest. 3. Right upper lobe pleural effusion. 4. No PE. will treatment patient with Zithromax, Cefepime and Flagyl to cover of anaerobic, will diurese the patient with IV Lasix, and bronchodilator as well as CPAP, will monitor, will have PT/OT evaluate the patient patient will benefit going to rehab. 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 patient is also seen by speech therapist and does not suspect any aspiration, the speech will follow the patient and reassess, will monitor. Review of Systems Review of Systems: CONSTITUTIONAL: Denies fever, chills, or sweats. EYES: Denies visual changes, blurry vision, redness, or discharge. ENT: Denies rhinorrhea, congestion, sore throat, or otalgia. Positive for ear fullness. CARDIOVASCULAR: Denies chest pain, palpitations, dizziness, lightheadedness or edema. RESPIRATORY: Denies cough or dyspnea. GASTROINTESTINAL: Denies abdominal pain, nausea, vomiting, or diarrhea. GENITOURINARY: Denies dysuria or hematuria. SKIN: Denies rash or itching. MUSCULOSKELETAL: Denies back pain, joint pain, or myalgia. NEUROLOGIC: Denies headache, numbness, or weakness. PSYCHIATRIC: Denies anxiety or depression. All other systems reviewed are negative, except as documented in HPI. Exam Narrative: Patient is comfortable, NAD HEENT: eyes are clear and none icteric LUNGS:CTA HEART: RR S1S2 ABD: BS+, Soft and nontender Lower extremities: no edema SKIN: nonjaundiced Neuro: grossly intact. Objective Data Vital Signs Vital Signs: Vital Signs - 24 hr 06/08/25 14:00 06/08/25 14:50 06/08/25 15:10 Temperature Pulse Rate 101 H 102 H Respiratory Rate 36 H Blood Pressure Pulse Oximetry 98 98 Oxygen Delivery BiPAP BiPAP Oxygen Flow Rate Fraction of Inspired Oxygen 50 06/08/25 16:00 06/08/25 16:00 06/08/25 16:13 Temperature 36.7 C Pulse Rate 101 H 108 H Respiratory Rate 34 H Blood Pressure 164/87 H Pulse Oximetry 92 98 Oxygen Delivery Nasal Cannula Oxygen Flow Rate 4 Fraction of Inspired Oxygen 06/08/25 18:00 06/08/25 19:30 06/08/25 19:34 Temperature Pulse Rate 107 H 109 H 109 H Respiratory Rate Blood Pressure 122/65 Pulse Oximetry Oxygen Delivery Oxygen Flow Rate Fraction of Inspired Oxygen 06/08/25 20:00 06/08/25 20:00 06/08/25 20:00 Temperature 37.0 C Pulse Rate 100 96 Respiratory Rate 26 H Blood Pressure 116/63 Pulse Oximetry 93 93 Oxygen Delivery Nasal Cannula Oxygen Flow Rate 4 Fraction of Inspired Oxygen 06/08/25 20:00 06/08/25 20:01 06/08/25 20:02 Temperature Pulse Rate 95 97 97 Respiratory Rate 34 H 20 Blood Pressure Pulse Oximetry 94 Oxygen Delivery Nasal Cannula Oxygen Flow Rate 4 Fraction of Inspired Oxygen 36 06/08/25 20:10 06/08/25 20:27 06/08/25 20:30 Temperature 37.0 C Pulse Rate 102 H 96 93 Respiratory Rate 29 H 26 H Blood Pressure 116/63 Pulse Oximetry 93 Oxygen Delivery Oxygen Flow Rate Fraction of Inspired Oxygen 06/08/25 21:20 06/08/25 21:20 06/08/25 22:00 Temperature 37.0 C Pulse Rate 95 96 95 Respiratory Rate 26 H Blood Pressure 116/63 Pulse Oximetry 93 Oxygen Delivery Oxygen Flow Rate Fraction of Inspired Oxygen 06/08/25 22:20 06/08/25 22:53 06/09/25 00:00 Temperature 37.1 C Pulse Rate 101 H 109 H Respiratory Rate 38 H 36 H Blood Pressure 131/67 Pulse Oximetry 97 95 97 Oxygen Delivery BiPAP BiPAP Oxygen Flow Rate Fraction of Inspired Oxygen 50 06/09/25 00:00 06/09/25 01:31 06/09/25 01:34 Temperature Pulse Rate 93 87 89 Respiratory Rate 28 H 27 H Blood Pressure Pulse Oximetry 97 Oxygen Delivery BiPAP Oxygen Flow Rate Fraction of Inspired Oxygen 06/09/25 01:43 06/09/25 02:00 06/09/25 04:00 Temperature Pulse Rate 94 90 90 Respiratory Rate 20 Blood Pressure Pulse Oximetry Oxygen Delivery Oxygen Flow Rate Fraction of Inspired Oxygen 06/09/25 04:00 06/09/25 04:00 06/09/25 04:19 Temperature 36.3 C L Pulse Rate 95 87 Respiratory Rate 32 H 24 H Blood Pressure 92/53 L Pulse Oximetry 97 95 96 Oxygen Delivery BiPAP BiPAP Oxygen Flow Rate Fraction of Inspired Oxygen 50 06/09/25 05:30 06/09/25 06:00 06/09/25 06:00 Temperature Pulse Rate 85 85 Respiratory Rate Blood Pressure 101/55 L Pulse Oximetry Oxygen Delivery Oxygen Flow Rate Fraction of Inspired Oxygen 06/09/25 07:33 06/09/25 07:33 06/09/25 07:52 Temperature 36.9 C Pulse Rate 97 95 86 Respiratory Rate 20 20 26 H Blood Pressure 111/66 Pulse Oximetry 95 97 Oxygen Delivery Nasal Cannula Oxygen Flow Rate 4 Fraction of Inspired Oxygen 06/09/25 08:00 06/09/25 08:00 06/09/25 10:00 Temperature Pulse Rate 94 82 Respiratory Rate Blood Pressure Pulse Oximetry 93 Oxygen Delivery Nasal Cannula Oxygen Flow Rate 4 Fraction of Inspired Oxygen 06/09/25 11:39 06/09/25 12:00 06/09/25 12:00 Temperature 36.8 C Pulse Rate 78 71 Respiratory Rate 28 H Blood Pressure 95/45 L Pulse Oximetry 94 95 Oxygen Delivery Nasal Cannula Oxygen Flow Rate 4 Fraction of Inspired Oxygen 06/09/25 12:55 Temperature Pulse Rate Respiratory Rate Blood Pressure Pulse Oximetry Oxygen Delivery Nasal Cannula Oxygen Flow Rate 4 Fraction of Inspired Oxygen Intake/Output Intake/Output: Intake & Output 06/06/25 06/07/25 06/08/25 06/09/25 23:59 23:59 23:59 23:59 Intake Total 3190 100 Output Total 975 1250 Balance 2215 -1150 Meds/Results Medications: Active Medications Generic Name Dose Route Start Last Admin Trade Name Freq PRN Reason Stop Dose Admin Acetaminophen 650 mg 06/08/25 02:34 Acetaminophen 325 Mg Tablet PO Q4H PRN Mild Pain (1-3) or Fever Hydrocodone Bitart/Acetaminophen 1 tab 06/08/25 16:23 06/08/25 22:53 Hydrocodone/Acetaminophen (*Crx) 10-325 Mg Tablet PO 1 tab Q8H PRN Administration Pain Albuterol 1 puff 06/08/25 16:23 Albuterol Sulfate (*Sp) Aerosol 1 Puff INHALATION Q4H PRN Shortness Of Breath Or Wheezing Albuterol/Ipratropium 3 ml 06/08/25 20:00 06/09/25 07:32 Ipratropium 0.5 Mg/Albuterol Sulfate 2.5 Mg (Base) Ampul.Neb 3 Ml INHALATION 06/10/25 16:00 3 ml Q6HRT JOSE C Administration Ascorbic Acid 500 mg 06/09/25 09:00 06/09/25 09:09 Ascorbic Acid 500 Mg Tablet PO Not Given DAILY JSOE C Aspirin 81 mg 06/09/25 09:00 06/09/25 09:09 Aspirin 81 Mg Chewable Tablet PO Not Given DAILY JOSE C Calcium Carbonate 600 mg 06/09/25 09:00 06/09/25 08:51 Calcium Carbonate (Tums) 500 Mg (200 Mg Elemental) BY MOUTH 600 mg DAILY JOSE C Administration Cilostazol 100 mg 06/08/25 17:00 06/09/25 09:07 Cilostazol 100 Mg Tablet BY MOUTH Not Given BIDWM JOSE C Dextrose 12.5 gm 06/09/25 10:16 Dextrose 50% 25 Gm/50 Ml Syringe IV PUSH PRN PRN Hypoglycemia Protocol Enoxaparin Sodium 40 mg 06/09/25 09:00 06/09/25 08:51 Enoxaparin 40 Mg/0.4 Ml Syringe SUB-Q 40 mg DAILY JOSE C Administration Fish Oil 2 gm 06/09/25 09:00 06/09/25 09:09 [place] 3 Polyunsat Fatty Acids 1 Gm Cap PO Not Given DAILY JOSE C Fluticasone/Umeclidinium/Vilanterol 1 puff 06/09/25 09:00 06/09/25 07:32 Fluticasone/Umeclidin/Vilanter 100-62.5-25 Mcg Ellipta INHALATION 1 puff DAILY JOSE C Administration Glucagon 1 mg 06/09/25 10:16 Glucagon For Inj 1 Mg Vial IM PRN PRN Hypoglycemia Protocol Glucose 15 gm 06/09/25 10:16 Glucose Oral Gel 15 Gm Of Glucse In 37.5 Gm Tube PO PRN PRN Hypoglycemia Protocol Cefepime HCl 2 gm/ Sodium 50 mls @ 100 mls/hr 06/08/25 09:00 06/09/25 08:53 Chloride IVPB 100 mls/hr Q12H JOSE C Administration Azithromycin 500 mg/ Sodium 250 mls @ 250 mls/hr 06/08/25 21:00 06/08/25 21:36 Chloride IVPB 06/11/25 21:59 Infused Q24H JOSE C Infusion Metronidazole 500 mg in 100 mls @ 100 mls/hr 06/08/25 09:45 06/09/25 13:54 Flagyl 500 Mg/Iso Soln 100 Ml IVPB 100 mls/hr Q8HR JOSE C Administration Dextrose 1,000 mls @ 100 mls/hr 06/09/25 10:16 Dextrose 5% 1,000 Ml IVPB PRN PRN Hypoglycemia Protocol Insulin Aspart 2 - 5 units 06/09/25 12:00 06/09/25 11:35 Insulin Aspart (*Bkc) 100 Units/Ml SUB-Q Not Given TIDWM JOSE C Protocol Insulin Aspart 1 - 2 units 06/09/25 21:00 Insulin Aspart (*Bkc) 100 Units/Ml SUB-Q HS JOSE C Protocol Multivitamins/Calcium 1 tablet 06/09/25 09:00 06/09/25 09:09 Therapeutic Multivitamins/Minerals Tab (*Bkc) PO Not Given DAILY JOSE C Perflutren Lipid Microsphere 0 ml 06/08/25 18:48 Perflutren Lipid Microspheres 1.5 Ml Vial Diluted To 10 Ml Total Volume IV PUSH 06/11/25 18:49 ONCE PRN adequate visualization Protocol Simvastatin 20 mg 06/08/25 16:25 06/09/25 09:09 Simvastatin 20 Mg Tablet BY MOUTH Not Given DAILY JOSE C Verapamil HCl 240 mg 06/09/25 09:00 06/09/25 08:52 Verapamil Hcl 240 Mg Er Tablet BY MOUTH 240 mg DAILY JOSE C Administration Vitamin B Complex 1 cap 06/09/25 09:00 06/09/25 09:09 Vitamin B Complex Capsule PO Not Given DAILY [facility] Vitamin D 125 mcg 06/09/25 09:00 06/09/25 09:09 Cholecalciferol (Vitamin D3) 125 Mcg (5,000 Units) Tablet PO Not Given DAILY [facility] Radiology Results: ITS Impressions Chest CTA 06/08/25 06:10 IMPRESSION: 1. Aspiration pneumonia, right lung much worse. 2. Focal airspace disease right upper lobe, along area of prior small pleural-based nodular focus. Malignancy not excluded. Recommend short interval follow-up CT chest. 3. Right upper lobe pleural effusion. 4. No PE. Chest X-Ray 06/09/25 07:52 IMPRESSION: 1. Aspiration pneumonia persists, right lung worse. Labs Labs: Laboratory Results - last 24 hr 06/09/25 06/09/25 06/09/25 03:26 03:27 04:26 WBC 18.3 H RBC 3.85 L Hgb 11.5 L Hct 34.8 L MCV 90.4 MCH 29.9 MCHC 33.0 RDW 13.4 Plt Count 245 MPV 9.3 Puncture Site Right brachial ABG pH 7.437 ABG pCO2 35.3 ABG pO2 77.3 L ABG PO2/FiO2 Ratio 1.55 ABG HCO3 23.3 ABG O2 Saturation 95.9 ABG O2 Content 16.2 ABG Base Excess -0.5 A-a Gradient 239.5 Oxyhemoglobin 94.8 Total Hemoglobin 12.1 O2 Delivery Device Bipap O2 Liters/Min Not Reportable FiO2 50 Expiratory Pressure 6 Inspiratory Pressure 12 Sodium 135 L Potassium 3.9 Chloride 105 Carbon Dioxide 25 Anion Gap 5 BUN 42 H Creatinine 1.29 Estim Creat Clear Calc 53 Estimated GFR 53 L Glucose 106 POC Capillary Glucose Calcium 8.9 Magnesium 2.1 NT-Pro-B Natriuret Pep 6260 H 06/09/25 11:22 WBC RBC Hgb Hct MCV MCH MCHC RDW Plt Count MPV Puncture Site ABG pH ABG pCO2 ABG pO2 ABG PO2/FiO2 Ratio ABG HCO3 ABG O2 Saturation ABG O2 Content ABG Base Excess A-a Gradient Oxyhemoglobin Total Hemoglobin O2 Delivery Device O2 Liters/Min FiO2 Expiratory Pressure Inspiratory Pressure Sodium Potassium Chloride Carbon Dioxide Anion Gap BUN Creatinine Estim Creat Clear Calc Estimated GFR Glucose POC Capillary Glucose 117 H Calcium Magnesium NT-Pro-B Natriuret Pep
[2025-06-09] MEDS: PERFLUTREN LIPID MICROSPHERES 1.5 ML VIAL DILUTED TO 10 ML TOTAL VOLUME IV PUSH (15:01)
--- NOTE | 2025-06-09 15:01 | IVDEFINITY ---
Prior to administration of IV Definity the patient was educated on the risks and benefits of the imaging enhancing agent including potential adverse side effects. The patient verbalized understanding. Allergies were verified. No exclusion criteria were identified and at least one of the following inclusion criteria were met: 1) physician request, 2) patient technically difficult to image (per the [place] [employer] guidelines of two or more segments not discernable within the apical view), or 3) questionable left ventricular function. ?
[2025-06-09] MEDS: AZITHROMYCIN IV 500 MG in SODIUM CHLORIDE 0.9% IV 250 ML IVPB (20:12)
[2025-06-10] VITALS (20 sets, daily range): BP systolic 94–146; BP diastolic 50–74; PULSE 80–96; RESP 18–30; TEMP 36.6–37; O2SAT 91–98
[2025-06-10] MEDS: IPRATROPIUM 0.5 MG/ALBUTEROL SULFATE 2.5 MG (BASE) AMPUL.NEB 3 ML INHALATION ×3 (01:46→14:19)
[2025-06-10 04:13] LABS: Hematocrit 33.1 % (42.0-52.0); Hemoglobin 10.8 g/dL (14.0-18.0); Mean Corpuscular HGB Conc 32.6 g/dl (32-36); Mean Corpuscular Hemoglobin 29.6 pg (26-34); Mean Corpuscular Volume 90.7 fl (80-100); Platelet Count Result 256 k/mm3 (150-375); Red Blood Count 3.65 M/mm3 (4.6-6.20); White Blood Count 18.7 K/mm3 (4.5-10.0)
[2025-06-10 04:32] LABS: Anion Gap 8 mmol/L (4-12); Blood Urea Nitrogen 56 mg/dL (9-20); Calcium 9.0 mg/dL (8.4-10.2); Carbon Dioxide 23 mmol/L (22-30); Chloride 104 mmol/L (98-107); Estimated CRCL calculation 49 ml/min; Estimated Glomerular Filt Rate 48; Glucose 113 mg/dL (65-110); Magnesium 2.5 mg/dL (1.6-2.3); Potassium 3.4 mmol/L (3.4-5.0); Sodium 135 mmol/L (137-145)
[2025-06-10] MEDS: metroNIDAZOLE 500 MG/ISO 100ML 500 MG/100 ML BAG 100 MG IVPB ×3 (05:16→21:03)
[2025-06-10] MEDS: FLUTICASONE/UMECLIDIN/VILANTER 100-62.5-25 MCG ELLIPTA 1 PUFF INHALATION (07:42)
[2025-06-10] MEDS: OMEGA 3 POLYUNSAT FATTY ACIDS 1 GM CAP 2 GM PO (08:13)
[2025-06-10] MEDS: CEFEPIME 2 GM in SODIUM CHLORIDE 0.9% IV 50 ML 100 ML IVPB ×2 (08:13→20:58)
[2025-06-10] MEDS: SIMVASTATIN 20 MG TABLET BY MOUTH (08:14)
[2025-06-10] MEDS: THERAPEUTIC MULTIVITAMINS/MINERALS TAB (*BKC) 1 TABLET PO (08:14)
[2025-06-10] MEDS: CALCIUM CARBONATE (TUMS) 500 MG (200 MG ELEMENTAL) 600 MG BY MOUTH (08:14)
[2025-06-10] MEDS: VITAMIN B COMPLEX CAPSULE 1 CAP PO (08:14)
[2025-06-10] MEDS: ENOXAPARIN 40 MG/0.4 ML SYRINGE SUB-Q (08:14)
[2025-06-10] MEDS: ASPIRIN 81 MG CHEWABLE TABLET PO (08:14)
[2025-06-10] MEDS: CHOLECALCIFEROL (VITAMIN D3) 125 MCG (5,000 UNITS) TABLET PO (08:15)
[2025-06-10] MEDS: VERAPAMIL HCL 240 MG ER TABLET BY MOUTH (08:15)
[2025-06-10] MEDS: ASCORBIC ACID 500 MG TABLET PO (08:15)
--- NOTE | 2025-06-10 12:12 | P.PNIM_ITS ---
Progress Note: A&P Assessment and Plan (1) COPD (chronic obstructive pulmonary disease): Qualifiers: COPD type: unspecified COPD Qualified Code(s): J44.9 - Chronic obstructive pulmonary disease, unspecified Code(s): J44.9 - Chronic obstructive pulmonary disease, unspecified Status: Acute (2) Shortness of breath: Code(s): R06.02 - Shortness of breath Status: Acute (3) Pulmonary nodules: Code(s): R91.8 - Other nonspecific abnormal finding of lung field Status: Acute (4) Pneumonia: Qualifiers: Pneumonia type: due to unspecified organism Laterality: left Lung location: lower lobe of lung Qualified Code(s): J18.9 - Pneumonia, unspecified organism Code(s): J18.9 - Pneumonia, unspecified organism Status: Acute (5) Pleural effusion: Code(s): J90 - Pleural effusion, not elsewhere classified Status: Acute Plan patient is a 84-year-old male who presented with shortness of breath no chest pain. History of emphysema. EMS noted his SpO2 in high 80s improved to 91% with application of CPAP. Noted to have crackles on examination. In the ED patient with borderline febrile mild hypertension and tachypnea. Patient received IV fluid resuscitation broad-spectrum antibiotics with vancomycin cefepime azithromycin. He also received DuoNeb. Laboratory studies showed mild leukocytosis no anemia thrombocytopenia. Urinalysis positive for UTI. Drug screen was positive for opiates on chronic narcotic therapy at home. Mildly elevated [place] [address]. Influenza COVID RSV swab was negative. Lactate was elevated on admission at 3.3 ABG 7.46/27/100/19. Chest x-ray with multifocal bilateral airspace disease. Chest CTA with aspiration pneumonia right lung much worse. Focal airspace disease right upper lobe along area of prior small pleural based nodular focus. Malignancy not excluded. Recommend short-term follow-up CT chest. Right upper lobe pleural effusion with no PE. Patient was also added on Flagyl to cover anaerobes. Elevated BNP with possible acute on chronic diastolic dysfunction. Received some IV diuresis on admission now off. Possible aspiration pneumonia seen by speech therapist and does not suspect aspiration. Leukocytosis at worsened however stable now. Elevated D-dimer PE study was negative CKD stage 3 slight bump in creatinine today will continue to monitor Elevated troponin with flat trend paroxysmal atrial fibrillation new onset cardiology consulted. Anticoagulation suggested by Cardiology Grade 1 diastolic dysfunction Moderate aortic valve stenosis. UTI urine cultures no growth DVT prophylaxis enoxaparin Code status full code Subjective Date/time seen: 06/10/25 12:12 Interval history: breathing has improved. Still has Hill catheter. Denies any chest pain. at bedside and discussed with her. Review of Systems Review of Systems: All systems reviewed & are unremarkable except as noted in HPI and below Exam Narrative: Patient is comfortable, NAD HEENT: eyes are clear and none icteric LUNGS: Diminished breath sounds bilaterally no wheezes HEART: RR S1S2 ABD: BS+, Soft and nontender Lower extremities: no edema SKIN: nonjaundiced Neuro: grossly intact. Objective Data Vital Signs Vital Signs: Vital Signs - 24 hr 06/09/25 12:55 06/09/25 14:00 06/09/25 14:18 Temperature Pulse Rate 67 73 Respiratory Rate 20 Blood Pressure Pulse Oximetry Oxygen Delivery Nasal Cannula Oxygen Flow Rate 4 06/09/25 14:26 06/09/25 16:00 06/09/25 16:00 Temperature Pulse Rate 68 72 Respiratory Rate 20 Blood Pressure Pulse Oximetry 96 Oxygen Delivery Nasal Cannula Oxygen Flow Rate 4 06/09/25 16:28 06/09/25 18:00 06/09/25 20:00 Temperature 98.5 F 98.1 F Pulse Rate 71 83 74 Respiratory Rate 24 H 18 Blood Pressure 102/52 L 115/52 L Pulse Oximetry 96 93 Oxygen Delivery Oxygen Flow Rate 06/09/25 20:00 06/09/25 20:00 06/09/25 20:35 Temperature Pulse Rate 86 84 Respiratory Rate 18 Blood Pressure Pulse Oximetry 97 Oxygen Delivery Nasal Cannula Oxygen Flow Rate 4 06/09/25 20:45 06/09/25 22:00 06/09/25 23:25 Temperature Pulse Rate 87 87 84 Respiratory Rate 18 23 H Blood Pressure Pulse Oximetry 95 Oxygen Delivery BiPAP Oxygen Flow Rate 06/10/25 00:00 06/10/25 00:00 06/10/25 00:00 Temperature 98.6 F Pulse Rate 85 80 Respiratory Rate 30 H Blood Pressure 146/72 H Pulse Oximetry 91 98 Oxygen Delivery Nasal Cannula Oxygen Flow Rate 4 06/10/25 01:46 06/10/25 01:46 06/10/25 01:59 Temperature Pulse Rate 86 87 87 Respiratory Rate 22 H 20 20 Blood Pressure Pulse Oximetry 95 Oxygen Delivery Nasal Cannula Oxygen Flow Rate 3 06/10/25 02:00 06/10/25 04:00 06/10/25 04:00 Temperature Pulse Rate 88 87 Respiratory Rate Blood Pressure Pulse Oximetry 92 Oxygen Delivery Nasal Cannula Oxygen Flow Rate 4 06/10/25 04:00 06/10/25 06:00 06/10/25 07:42 Temperature 98.3 F Pulse Rate 87 84 89 Respiratory Rate 20 Blood Pressure 138/74 Pulse Oximetry 91 95 Oxygen Delivery Nasal Cannula Oxygen Flow Rate 3 06/10/25 07:42 06/10/25 07:48 06/10/25 08:00 Temperature 97.8 F Pulse Rate 89 92 91 Respiratory Rate 20 20 24 H Blood Pressure 140/72 Pulse Oximetry 95 Oxygen Delivery Oxygen Flow Rate 06/10/25 08:00 06/10/25 08:00 06/10/25 10:00 Temperature Pulse Rate 89 94 Respiratory Rate Blood Pressure Pulse Oximetry 96 Oxygen Delivery Nasal Cannula Oxygen Flow Rate 4 06/10/25 10:37 06/10/25 11:37 Temperature 97.9 F Pulse Rate 84 Respiratory Rate 24 H Blood Pressure 94/52 L Pulse Oximetry 96 Oxygen Delivery Nasal Cannula Oxygen Flow Rate 3 Intake/Output Intake/Output: Intake & Output 06/07/25 06/08/25 06/09/25 06/10/25 23:59 23:59 23:59 23:59 Intake Total 3190 1250 620 Output Total 975 1500 500 Balance 2215 -250 120 Meds/Results Medications: Active Medications Generic Name Dose Route Start Last Admin Trade Name Freq PRN Reason Stop Dose Admin Acetaminophen 650 mg 06/08/25 02:34 Acetaminophen 325 Mg Tablet PO Q4H PRN Mild Pain (1-3) or Fever Hydrocodone Bitart/Acetaminophen 1 tab 06/08/25 16:23 06/08/25 22:53 Hydrocodone/Acetaminophen (*Crx) 10-325 Mg Tablet PO 1 tab Q8H PRN Administration Pain Albuterol 1 puff 06/08/25 16:23 Albuterol Sulfate (*Sp) Aerosol 1 Puff INHALATION Q4H PRN Shortness Of Breath Or Wheezing Albuterol/Ipratropium 3 ml 06/08/25 20:00 06/10/25 07:41 Ipratropium 0.5 Mg/Albuterol Sulfate 2.5 Mg (Base) Ampul.Neb 3 Ml INHALATION 06/10/25 16:00 3 ml Q6HRT JOSE C Administration Ascorbic Acid 500 mg 06/09/25 09:00 06/10/25 08:15 Ascorbic Acid 500 Mg Tablet PO 500 mg DAILY JOSE C Administration Aspirin 81 mg 06/09/25 09:00 06/10/25 08:14 Aspirin 81 Mg Chewable Tablet PO 81 mg DAILY JOSE C Administration Calcium Carbonate 600 mg 06/09/25 09:00 06/10/25 08:14 Calcium Carbonate (Tums) 500 Mg (200 Mg Elemental) BY MOUTH 600 mg DAILY JOSE C Administration Cilostazol 100 mg 06/08/25 17:00 06/10/25 08:14 Cilostazol 100 Mg Tablet BY MOUTH 100 mg BIDWM JOSE C Administration Dextrose 12.5 gm 06/09/25 10:16 Dextrose 50% 25 Gm/50 Ml Syringe IV PUSH PRN PRN Hypoglycemia Protocol Enoxaparin Sodium 40 mg 06/09/25 09:00 06/10/25 08:14 Enoxaparin 40 Mg/0.4 Ml Syringe SUB-Q 40 mg DAILY JOSE C Administration Fish Oil 2 gm 06/09/25 09:00 06/10/25 08:13 [place] 3 Polyunsat Fatty Acids 1 Gm Cap PO 2 gm DAILY JOSE C Administration Fluticasone/Umeclidinium/Vilanterol 1 puff 06/09/25 09:00 06/10/25 07:42 Fluticasone/Umeclidin/Vilanter 100-62.5-25 Mcg Ellipta INHALATION 1 puff DAILY JOSE C Administration Glucagon 1 mg 06/09/25 10:16 Glucagon For Inj 1 Mg Vial IM PRN PRN Hypoglycemia Protocol Glucose 15 gm 06/09/25 10:16 Glucose Oral Gel 15 Gm Of Glucse In 37.5 Gm Tube PO PRN PRN Hypoglycemia Protocol Cefepime HCl 2 gm/ Sodium 50 mls @ 100 mls/hr 06/08/25 09:00 06/10/25 08:13 Chloride IVPB 100 mls/hr Q12H JOSE C Administration Azithromycin 500 mg/ Sodium 250 mls @ 250 mls/hr 06/08/25 21:00 06/09/25 21:12 Chloride IVPB 06/11/25 21:59 Infused Q24H JOSE C Infusion Metronidazole 500 mg in 100 mls @ 100 mls/hr 06/08/25 09:45 06/10/25 06:16 Flagyl 500 Mg/Iso Soln 100 Ml IVPB Infused Q8HR JOSE C Infusion Dextrose 1,000 mls @ 100 mls/hr 06/09/25 10:16 Dextrose 5% 1,000 Ml IVPB PRN PRN Hypoglycemia Protocol Insulin Aspart 2 - 5 units 06/09/25 12:00 06/10/25 11:24 Insulin Aspart (*Bkc) 100 Units/Ml SUB-Q Not Given TIDWM JOSE C Protocol Insulin Aspart 1 - 2 units 06/09/25 21:00 06/09/25 20:49 Insulin Aspart (*Bkc) 100 Units/Ml SUB-Q Not Given HS JOSE C Protocol Multivitamins/Calcium 1 tablet 06/09/25 09:00 06/10/25 08:14 Therapeutic Multivitamins/Minerals Tab (*Bkc) PO 1 tablet DAILY JOSE C Administration Simvastatin 20 mg 06/08/25 16:25 06/10/25 08:14 Simvastatin 20 Mg Tablet BY MOUTH 20 mg DAILY JOSE C Administration Verapamil HCl 240 mg 06/09/25 09:00 06/10/25 08:15 Verapamil Hcl 240 Mg Er Tablet BY MOUTH 240 mg DAILY JOSE C Administration Vitamin B Complex 1 cap 06/09/25 09:00 06/10/25 08:14 Vitamin B Complex Capsule PO 1 cap DAILY JOSE C Administration Vitamin D 125 mcg 06/09/25 09:00 06/10/25 08:15 Cholecalciferol (Vitamin D3) 125 Mcg (5,000 Units) Tablet PO 125 mcg DAILY JOSE C Administration Radiology Results: ITS Impressions Chest CTA 06/08/25 06:10 IMPRESSION: 1. Aspiration pneumonia, right lung much worse. 2. Focal airspace disease right upper lobe, along area of prior small pleural- based nodular focus. Malignancy not excluded. Recommend short interval follow-up CT chest. 3. Right upper lobe pleural effusion. 4. No PE. Chest X-Ray 06/09/25 07:52 IMPRESSION: 1. Aspiration pneumonia persists, right lung worse. Labs Labs: Laboratory Results - last 24 hr 06/09/25 06/09/25 06/10/25 15:41 20:20 03:41 WBC 18.7 H RBC 3.65 L Hgb 10.8 L Hct 33.1 L MCV 90.7 MCH 29.6 MCHC 32.6 RDW 13.2 Plt Count 256 MPV 9.7 Sodium 135 L Potassium 3.4 Chloride 104 Carbon Dioxide 23 Anion Gap 8 BUN 56 H D Creatinine 1.40 H Estim Creat Clear Calc 49 Estimated GFR 48 L Glucose 113 H POC Capillary Glucose 142 H 126 H Calcium 9.0 Magnesium 2.5 H 06/10/25 06/10/25 07:16 11:23 WBC RBC Hgb Hct MCV MCH MCHC RDW Plt Count MPV Sodium Potassium Chloride Carbon Dioxide Anion Gap BUN Creatinine Estim Creat Clear Calc Estimated GFR Glucose POC Capillary Glucose 112 H 136 H Calcium Magnesium
[2025-06-10] MEDS: AZITHROMYCIN IV 500 MG in SODIUM CHLORIDE 0.9% IV 250 ML IVPB (20:54)
[2025-06-11] VITALS (19 sets, daily range): BP systolic 126–171; BP diastolic 60–80; PULSE 73–100; RESP 20–24; TEMP 36.6–37.2; O2SAT 92–100
[2025-06-11 03:55] LABS: Hematocrit 32.1 % (42.0-52.0); Hemoglobin 10.5 g/dL (14.0-18.0); Immature Granulocyte Percent A 0.5 % (0-0.5); Lymphocytes Absolute Auto 0.91 K/mm3 (0.9-3.2); Mean Corpuscular HGB Conc 32.7 g/dl (32-36); Mean Corpuscular Hemoglobin 29.8 pg (26-34); Mean Corpuscular Volume 91.2 fl (80-100); Nucleated Red Blood Cells Absolute Auto 0.000 K/mm3 (0.0-0.012); Nucleated Red Blood Cells Perc 0.0 % (0.0-0.2); Platelet Count Result 263 k/mm3 (150-375); Red Blood Count 3.52 M/mm3 (4.6-6.20); White Blood Count 11.8 K/mm3 (4.5-10.0)
[2025-06-11 04:16] LABS: Alanine Aminotransferase 49 U/L (6-50); Albumin Level 3.1 g/dL (3.5-5.1); Alkaline Phosphatase 70 U/L (38-126); Anion Gap 7 mmol/L (4-12); Aspartate Amino Transferase 66 U/L (17-59); Bilirubin,Total 0.5 mg/dL (0.2-1.3); Blood Urea Nitrogen 48 mg/dL (9-20); Calcium 9.7 mg/dL (8.4-10.2); Carbon Dioxide 24 mmol/L (22-30); Chloride 106 mmol/L (98-107); Estimated CRCL calculation 66 ml/min; Estimated Glomerular Filt Rate > 60; Glucose 131 mg/dL (65-110); Magnesium 2.3 mg/dL (1.6-2.3); Potassium 3.3 mmol/L (3.4-5.0); Sodium 137 mmol/L (137-145); Total Protein 5.9 g/dL (6.3-8.2)
[2025-06-11] MEDS: metroNIDAZOLE 500 MG/ISO 100ML 500 MG/100 ML BAG 100 MG IVPB ×3 (06:07→22:08)
[2025-06-11] MEDS: FLUTICASONE/UMECLIDIN/VILANTER 100-62.5-25 MCG ELLIPTA 1 PUFF INHALATION (08:18)
[2025-06-11] MEDS: CEFEPIME 2 GM in SODIUM CHLORIDE 0.9% IV 50 ML 100 ML IVPB ×2 (08:19→20:46)
[2025-06-11] MEDS: ENOXAPARIN 40 MG/0.4 ML SYRINGE SUB-Q (08:19)
[2025-06-11] MEDS: VERAPAMIL HCL 240 MG ER TABLET BY MOUTH (08:20)
[2025-06-11] MEDS: ASCORBIC ACID 500 MG TABLET PO (08:22)
[2025-06-11] MEDS: ASPIRIN 81 MG CHEWABLE TABLET PO (08:22)
[2025-06-11] MEDS: SIMVASTATIN 20 MG TABLET BY MOUTH (08:22)
[2025-06-11] MEDS: CHOLECALCIFEROL (VITAMIN D3) 125 MCG (5,000 UNITS) TABLET PO (08:22)
[2025-06-11] MEDS: CALCIUM CARBONATE (TUMS) 500 MG (200 MG ELEMENTAL) 600 MG BY MOUTH (08:22)
[2025-06-11] MEDS: VITAMIN B COMPLEX CAPSULE 1 CAP PO (08:22)
[2025-06-11] MEDS: THERAPEUTIC MULTIVITAMINS/MINERALS TAB (*BKC) 1 TABLET PO (08:22)
[2025-06-11] MEDS: OMEGA 3 POLYUNSAT FATTY ACIDS 1 GM CAP 2 GM PO (08:22)
[2025-06-11] MEDS: POTASSIUM CHLORIDE 20 MEQ ER TABLET 40 MEQ PO (08:29)
--- NOTE | 2025-06-11 11:54 | P.PNIM_ITS ---
Progress Note: A&P Assessment and Plan (1) COPD (chronic obstructive pulmonary disease): Qualifiers: COPD type: unspecified COPD Qualified Code(s): J44.9 - Chronic obstructive pulmonary disease, unspecified Code(s): J44.9 - Chronic obstructive pulmonary disease, unspecified Status: Acute (2) Shortness of breath: Code(s): R06.02 - Shortness of breath Status: Acute (3) Pulmonary nodules: Code(s): R91.8 - Other nonspecific abnormal finding of lung field Status: Acute (4) Pneumonia: Qualifiers: Pneumonia type: due to unspecified organism Laterality: left Lung location: lower lobe of lung Qualified Code(s): J18.9 - Pneumonia, unspecified organism Code(s): J18.9 - Pneumonia, unspecified organism Status: Acute (5) Pleural effusion: Code(s): J90 - Pleural effusion, not elsewhere classified Status: Acute Plan patient is a 84-year-old male who presented with shortness of breath no chest pain. History of emphysema. EMS noted his SpO2 in high 80s improved to 91% with application of CPAP. Noted to have crackles on examination. In the ED patient with borderline febrile mild hypertension and tachypnea. Patient received IV fluid resuscitation broad-spectrum antibiotics with vancomycin cefepime azithromycin. He also received DuoNeb. Laboratory studies showed mild leukocytosis no anemia thrombocytopenia. Urinalysis positive for UTI. Drug screen was positive for opiates on chronic narcotic therapy at home. Mildly elevated [place] [address]. Influenza COVID RSV swab was negative. Lactate was elevated on admission at 3.3 ABG 7.46/27/100/19. Chest x-ray with multifocal bilateral airspace disease. Chest CTA with aspiration pneumonia right lung much worse. Focal airspace disease right upper lobe along area of prior small pleural based nodular focus. Malignancy not excluded. Recommend short-term follow-up CT chest. Right upper lobe pleural effusion with no PE. Patient was also added on Flagyl to cover anaerobes. Will stop BiPAP Elevated BNP with possible acute on chronic diastolic dysfunction. Received some IV diuresis on admission now off. Possible aspiration pneumonia seen by speech therapist and does not suspect aspiration. Leukocytosis at worsened however stable now. And improving Elevated D-dimer PE study was negative CKD stage 3 slight bump in creatinine which is stable now. will continue to monitor Elevated troponin with flat trend paroxysmal atrial fibrillation new onset cardiology consulted. Anticoagulation suggested by Cardiology will start Eliquis Grade 1 diastolic dysfunction Moderate aortic valve stenosis. UTI urine cultures no growth DVT prophylaxis enoxaparin switched to Eliquis due to atrial fibrillation Code status full code Subjective Date/time seen: 06/11/25 11:54 Interval history: no overnight events. No new complaints. Weakness. Mild cough. Use BiPAP at night. Review of Systems Review of Systems: All systems reviewed & are unremarkable except as noted in HPI and below Exam Narrative: Patient is comfortable, NAD HEENT: eyes are clear and none icteric LUNGS: Diminished breath sounds bilaterally no wheezes HEART: RR S1S2 ABD: BS+, Soft and nontender Lower extremities: no edema SKIN: nonjaundiced Neuro: grossly intact. Objective Data Vital Signs Vital Signs: Vital Signs - 24 hr 06/10/25 12:00 06/10/25 12:00 06/10/25 14:00 Temperature Pulse Rate 92 95 Respiratory Rate Blood Pressure Pulse Oximetry 95 Oxygen Delivery Nasal Cannula Oxygen Flow Rate 4 06/10/25 14:19 06/10/25 14:26 06/10/25 15:18 Temperature 97.9 F Pulse Rate 81 86 89 Respiratory Rate 20 20 28 H Blood Pressure 113/50 L Pulse Oximetry 92 Oxygen Delivery Oxygen Flow Rate 06/10/25 16:00 06/10/25 20:00 06/10/25 20:00 Temperature 97.9 F Pulse Rate 86 85 96 Respiratory Rate 18 Blood Pressure 125/68 Pulse Oximetry 95 Oxygen Delivery Oxygen Flow Rate 06/10/25 20:21 06/10/25 21:53 06/11/25 00:00 Temperature 97.8 F Pulse Rate 85 89 79 Respiratory Rate 18 26 H 23 H Blood Pressure 145/72 H Pulse Oximetry 95 96 92 Oxygen Delivery Nasal Cannula BiPAP Oxygen Flow Rate 3 06/11/25 00:00 06/11/25 01:44 06/11/25 04:00 Temperature Pulse Rate 76 90 83 Respiratory Rate 24 H Blood Pressure Pulse Oximetry 95 Oxygen Delivery BiPAP Oxygen Flow Rate 06/11/25 07:25 06/11/25 08:00 06/11/25 08:23 Temperature 98.4 F Pulse Rate 85 88 100 Respiratory Rate 22 H 24 H 20 Blood Pressure 141/73 H Pulse Oximetry 99 100 Oxygen Delivery BiPAP Oxygen Flow Rate 06/11/25 08:24 06/11/25 09:39 06/11/25 09:51 Temperature Pulse Rate 87 85 Respiratory Rate 20 Blood Pressure Pulse Oximetry 94 Oxygen Delivery Nasal Cannula Oxygen Flow Rate 3 Intake/Output Intake/Output: Intake & Output 06/08/25 06/09/25 06/10/25 06/11/25 23:59 23:59 23:59 23:59 Intake Total 3190 1250 1650 690 Output Total 975 1500 1250 900 Balance 2215 -250 400 -210 Meds/Results Medications: Active Medications Generic Name Dose Route Start Last Admin Trade Name Freq PRN Reason Stop Dose Admin Acetaminophen 650 mg 06/08/25 02:34 Acetaminophen 325 Mg Tablet PO Q4H PRN Mild Pain (1-3) or Fever Hydrocodone Bitart/Acetaminophen 1 tab 06/08/25 16:23 06/08/25 22:53 Hydrocodone/Acetaminophen (*Crx) 10-325 Mg Tablet PO 1 tab Q8H PRN Administration Pain Albuterol 1 puff 06/08/25 16:23 Albuterol Sulfate (*Sp) Aerosol 1 Puff INHALATION Q4H PRN Shortness Of Breath Or Wheezing Ascorbic Acid 500 mg 06/09/25 09:00 06/11/25 08:22 Ascorbic Acid 500 Mg Tablet PO 500 mg DAILY JOSE C Administration Aspirin 81 mg 06/09/25 09:00 06/11/25 08:22 Aspirin 81 Mg Chewable Tablet PO 81 mg DAILY JOSE C Administration Calcium Carbonate 600 mg 06/09/25 09:00 06/11/25 08:22 Calcium Carbonate (Tums) 500 Mg (200 Mg Elemental) BY MOUTH 600 mg DAILY JOSE C Administration Cilostazol 100 mg 06/08/25 17:00 06/11/25 08:22 Cilostazol 100 Mg Tablet BY MOUTH 100 mg BIDWM JOSE C Administration Dextrose 12.5 gm 06/09/25 10:16 Dextrose 50% 25 Gm/50 Ml Syringe IV PUSH PRN PRN Hypoglycemia Protocol Enoxaparin Sodium 40 mg 06/09/25 09:00 06/11/25 08:19 Enoxaparin 40 Mg/0.4 Ml Syringe SUB-Q 40 mg DAILY JOSE C Administration Fish Oil 2 gm 06/09/25 09:00 06/11/25 08:22 [place] 3 Polyunsat Fatty Acids 1 Gm Cap PO 2 gm DAILY JOSE C Administration Fluticasone/Umeclidinium/Vilanterol 1 puff 06/09/25 09:00 06/11/25 08:18 Fluticasone/Umeclidin/Vilanter 100-62.5-25 Mcg Ellipta INHALATION 1 puff DAILY JOSE C Administration Glucagon 1 mg 06/09/25 10:16 Glucagon For Inj 1 Mg Vial IM PRN PRN Hypoglycemia Protocol Glucose 15 gm 06/09/25 10:16 Glucose Oral Gel 15 Gm Of Glucse In 37.5 Gm Tube PO PRN PRN Hypoglycemia Protocol Cefepime HCl 2 gm/ Sodium 50 mls @ 100 mls/hr 06/08/25 09:00 06/11/25 11:21 Chloride IVPB Infused Q12H JOSE C Infusion Azithromycin 500 mg/ Sodium 250 mls @ 250 mls/hr 06/08/25 21:00 06/10/25 21:54 Chloride IVPB 06/11/25 21:59 Infused Q24H JOSE C Infusion Metronidazole 500 mg in 100 mls @ 100 mls/hr 06/08/25 09:45 06/11/25 11:21 Flagyl 500 Mg/Iso Soln 100 Ml IVPB Infused Q8HR JOSE C Infusion Dextrose 1,000 mls @ 100 mls/hr 06/09/25 10:16 Dextrose 5% 1,000 Ml IVPB PRN PRN Hypoglycemia Protocol Insulin Aspart 2 - 5 units 06/09/25 12:00 06/11/25 11:36 Insulin Aspart (*Bkc) 100 Units/Ml SUB-Q Not Given TIDWM JOSE C Protocol Insulin Aspart 1 - 2 units 06/09/25 21:00 06/10/25 20:52 Insulin Aspart (*Bkc) 100 Units/Ml SUB-Q Not Given HS JOSE C Protocol Multivitamins/Calcium 1 tablet 06/09/25 09:00 06/11/25 08:22 Therapeutic Multivitamins/Minerals Tab (*Bkc) PO 1 tablet DAILY JOSE C Administration Simvastatin 20 mg 06/08/25 16:25 06/11/25 08:22 Simvastatin 20 Mg Tablet BY MOUTH 20 mg DAILY JOSE C Administration Verapamil HCl 240 mg 06/09/25 09:00 06/11/25 08:20 Verapamil Hcl 240 Mg Er Tablet BY MOUTH 240 mg DAILY JOSE C Administration Vitamin B Complex 1 cap 06/09/25 09:00 06/11/25 08:22 Vitamin B Complex Capsule PO 1 cap DAILY JOSE C Administration Vitamin D 125 mcg 06/09/25 09:00 06/11/25 08:22 Cholecalciferol (Vitamin D3) 125 Mcg (5,000 Units) Tablet PO 125 mcg DAILY JOSE C Administration Radiology Results: ITS Impressions Chest CTA 06/08/25 06:10 IMPRESSION: 1. Aspiration pneumonia, right lung much worse. 2. Focal airspace disease right upper lobe, along area of prior small pleural- based nodular focus. Malignancy not excluded. Recommend short interval follow-up CT chest. 3. Right upper lobe pleural effusion. 4. No PE. Chest X-Ray 06/09/25 07:52 IMPRESSION: 1. Aspiration pneumonia persists, right lung worse. Labs Labs: Laboratory Results - last 24 hr 06/10/25 06/10/25 06/11/25 16:29 19:54 03:49 WBC 11.8 H RBC 3.52 L Hgb 10.5 L Hct 32.1 L MCV 91.2 MCH 29.8 MCHC 32.7 RDW 13.3 Plt Count 263 MPV 9.3 Immature Gran % (Auto) 0.5 Neut % (Auto) 78.4 H Lymph % (Auto) 7.7 L [place] % (Auto) 7.5 Eos % (Auto) 5.6 H Baso % (Auto) 0.3 Lymph # (Auto) 0.91 [place] # (Auto) 0.9 H Eos # (Auto) 0.7 H Baso # (Auto) 0.0 Abs Immat Gran (auto) 0.06 H Absolute Neuts (auto) 9.2 H Absolute Nucleated RBC 0.000 Nucleated RBC % 0.0 Sodium 137 Potassium 3.3 L Chloride 106 Carbon Dioxide 24 Anion Gap 7 BUN 48 H Creatinine 1.02 Estim Creat Clear Calc 66 Estimated GFR > 60 Glucose 131 H POC Capillary Glucose 153 H 178 H Calcium 9.7 Magnesium 2.3 Total Bilirubin 0.5 AST 66 H ALT 49 Alkaline Phosphatase 70 Total Protein 5.9 L Albumin 3.1 L 06/11/25 06/11/25 07:35 11:22 WBC RBC Hgb Hct MCV MCH MCHC RDW Plt Count MPV Immature Gran % (Auto) Neut % (Auto) Lymph % (Auto) [place] % (Auto) Eos % (Auto) Baso % (Auto) Lymph # (Auto) [place] # (Auto) Eos # (Auto) Baso # (Auto) Abs Immat Gran (auto) Absolute Neuts (auto) Absolute Nucleated RBC Nucleated RBC % Sodium Potassium Chloride Carbon Dioxide Anion Gap BUN Creatinine Estim Creat Clear Calc Estimated GFR Glucose POC Capillary Glucose 125 H 135 H Calcium Magnesium Total Bilirubin AST ALT Alkaline Phosphatase Total Protein Albumin
[2025-06-11] MEDS: APIXABAN 5 MG TABLET PO (20:41)
[2025-06-11] MEDS: AZITHROMYCIN IV 500 MG in SODIUM CHLORIDE 0.9% IV 250 ML IVPB (20:44)
[2025-06-12] VITALS (8 sets, daily range): BP systolic 141–153; BP diastolic 67–73; PULSE 81–94; RESP 23–27; TEMP 36.7–36.9; O2SAT 92–94
[2025-06-12] MEDS: HYDROcodone/acetaminophen (*CRX) 10-325 MG TABLET 1 TAB PO ×2 (01:39→12:15)
[2025-06-12 04:44] LABS: Hematocrit 34.8 % (42.0-52.0); Hemoglobin 11.6 g/dL (14.0-18.0); Mean Corpuscular HGB Conc 33.3 g/dl (32-36); Mean Corpuscular Hemoglobin 29.9 pg (26-34); Mean Corpuscular Volume 89.7 fl (80-100); Platelet Count Result 301 k/mm3 (150-375); Red Blood Count 3.88 M/mm3 (4.6-6.20); White Blood Count 12.2 K/mm3 (4.5-10.0)
[2025-06-12] MEDS: metroNIDAZOLE 500 MG/ISO 100ML 500 MG/100 ML BAG 100 MG IVPB ×3 (05:52→21:27)
[2025-06-12 06:43] LABS: Anion Gap 6 mmol/L (4-12); Blood Urea Nitrogen 35 mg/dL (9-20); Calcium 9.4 mg/dL (8.4-10.2); Carbon Dioxide 24 mmol/L (22-30); Chloride 106 mmol/L (98-107); Estimated CRCL calculation 74 ml/min; Estimated Glomerular Filt Rate > 60; Glucose 97 mg/dL (65-110); Magnesium 2.0 mg/dL (1.6-2.3); Potassium 3.9 mmol/L (3.4-5.0); Sodium 136 mmol/L (137-145)
[2025-06-12] MEDS: CHOLECALCIFEROL (VITAMIN D3) 125 MCG (5,000 UNITS) TABLET PO (08:28)
[2025-06-12] MEDS: OMEGA 3 POLYUNSAT FATTY ACIDS 1 GM CAP 2 GM PO (08:28)
[2025-06-12] MEDS: CALCIUM CARBONATE (TUMS) 500 MG (200 MG ELEMENTAL) 600 MG BY MOUTH (08:29)
[2025-06-12] MEDS: VITAMIN B COMPLEX CAPSULE 1 CAP PO (08:30)
[2025-06-12] MEDS: VERAPAMIL HCL 240 MG ER TABLET BY MOUTH (08:30)
[2025-06-12] MEDS: APIXABAN 5 MG TABLET PO ×2 (08:30→21:26)
[2025-06-12] MEDS: THERAPEUTIC MULTIVITAMINS/MINERALS TAB (*BKC) 1 TABLET PO (08:30)
[2025-06-12] MEDS: SIMVASTATIN 20 MG TABLET BY MOUTH (08:30)
[2025-06-12] MEDS: ASPIRIN 81 MG CHEWABLE TABLET PO (08:30)
[2025-06-12] MEDS: CEFEPIME 2 GM in SODIUM CHLORIDE 0.9% IV 50 ML 100 ML IVPB ×2 (08:31→21:27)
[2025-06-12] MEDS: ASCORBIC ACID 500 MG TABLET PO (08:31)
[2025-06-12] MEDS: FLUTICASONE/UMECLIDIN/VILANTER 100-62.5-25 MCG ELLIPTA 1 PUFF INHALATION (08:59)
--- NOTE | 2025-06-12 13:39 | P.PNIM_ITS ---
Progress Note: A&P Assessment and Plan (1) COPD (chronic obstructive pulmonary disease): Qualifiers: COPD type: unspecified COPD Qualified Code(s): J44.9 - Chronic obstructive pulmonary disease, unspecified Code(s): J44.9 - Chronic obstructive pulmonary disease, unspecified Status: Acute (2) Shortness of breath: Code(s): R06.02 - Shortness of breath Status: Acute (3) Pulmonary nodules: Code(s): R91.8 - Other nonspecific abnormal finding of lung field Status: Acute (4) Pneumonia: Qualifiers: Pneumonia type: due to unspecified organism Laterality: left Lung location: lower lobe of lung Qualified Code(s): J18.9 - Pneumonia, unspecified organism Code(s): J18.9 - Pneumonia, unspecified organism Status: Acute (5) Pleural effusion: Code(s): J90 - Pleural effusion, not elsewhere classified Status: Acute Plan patient is a 84-year-old male who presented with shortness of breath no chest pain. History of emphysema. EMS noted his SpO2 in high 80s improved to 91% with application of CPAP. Noted to have crackles on examination. In the ED patient with borderline febrile mild hypertension and tachypnea. Patient received IV fluid resuscitation broad-spectrum antibiotics with vancomycin cefepime azithromycin. He also received DuoNeb. Laboratory studies showed mild leukocytosis no anemia thrombocytopenia. Urinalysis positive for UTI. Drug screen was positive for opiates on chronic narcotic therapy at home. Mildly elevated [place] [id number]. Influenza COVID RSV swab was negative. Lactate was elevated on admission at 3.3 ABG 7.46/27/100/19. Chest x-ray with multifocal bilateral airspace disease. Chest CTA with aspiration pneumonia right lung much worse. Focal airspace disease right upper lobe along area of prior small pleural based nodular focus. Malignancy not excluded. Recommend short-term follow-up CT chest. Right upper lobe pleural effusion with no PE. Patient was also added on Flagyl to cover anaerobes. Will stop BiPAP wean oxygen as tolerated Elevated BNP with possible acute on chronic diastolic dysfunction. Received some IV diuresis on admission now off. Possible aspiration pneumonia seen by speech therapist and does not suspect aspiration. Leukocytosis at worsened however stable now. And improving Elevated D-dimer PE study was negative CKD stage 3 slight bump in creatinine which is stable now. will continue to monitor Elevated troponin with flat trend paroxysmal atrial fibrillation new onset cardiology consulted. Anticoagulation suggested by Cardiology started on Eliquis Grade 1 diastolic dysfunction Moderate aortic valve stenosis. UTI urine cultures no growth DVT prophylaxis enoxaparin switched to Eliquis due to atrial fibrillation Code status full code Subjective Date/time seen: 06/12/25 13:39 Interval history: no overnight events. No new complaints. Weakness. Mild cough. Family at bedside discussed with her Review of Systems Review of Systems: All systems reviewed & are unremarkable except as noted in HPI and below Exam Narrative: Patient is comfortable, NAD HEENT: eyes are clear and none icteric LUNGS: Diminished breath sounds bilaterally no wheezes HEART: RR S1S2 ABD: BS+, Soft and nontender Lower extremities: no edema SKIN: nonjaundiced Neuro: grossly intact. Objective Data Vital Signs Vital Signs: Vital Signs - 24 hr 06/11/25 15:13 06/11/25 16:09 06/11/25 18:00 Temperature 98.2 F Pulse Rate 73 73 Respiratory Rate 20 Blood Pressure 126/60 Pulse Oximetry 98 94 Oxygen Delivery Nasal Cannula Oxygen Flow Rate 1 06/11/25 19:50 06/11/25 20:00 06/11/25 20:24 Temperature 98.9 F Pulse Rate 82 83 82 Respiratory Rate 20 20 Blood Pressure 171/80 H Pulse Oximetry 94 94 Oxygen Delivery Nasal Cannula Oxygen Flow Rate 1 06/11/25 21:40 06/11/25 23:25 06/11/25 23:37 Temperature 98.4 F Pulse Rate 96 96 Respiratory Rate 20 20 Blood Pressure 148/72 H Pulse Oximetry 93 92 92 Oxygen Delivery Nasal Cannula Nasal Cannula Oxygen Flow Rate 1 1 06/12/25 00:00 06/12/25 04:00 06/12/25 08:00 Temperature 98.4 F Pulse Rate 87 91 93 Respiratory Rate 27 H Blood Pressure 141/73 H Pulse Oximetry 93 Oxygen Delivery Oxygen Flow Rate 06/12/25 08:00 06/12/25 08:00 06/12/25 09:04 Temperature Pulse Rate 86 Respiratory Rate Blood Pressure Pulse Oximetry 92 94 Oxygen Delivery Nasal Cannula Nasal Cannula Oxygen Flow Rate 1 1 Intake/Output Intake/Output: Intake & Output 06/09/25 06/10/25 06/11/25 06/12/25 23:59 23:59 23:59 23:59 Intake Total 1250 1650 1950 490 Output Total 1500 1250 1150 400 Balance -250 400 800 90 Meds/Results Medications: Active Medications Generic Name Dose Route Start Last Admin Trade Name Freq PRN Reason Stop Dose Admin Acetaminophen 650 mg 06/08/25 02:34 Acetaminophen 325 Mg Tablet PO Q4H PRN Mild Pain (1-3) or Fever Hydrocodone Bitart/Acetaminophen 1 tab 06/08/25 16:23 06/12/25 12:15 Hydrocodone/Acetaminophen (*Crx) 10-325 Mg Tablet PO 1 tab Q8H PRN Administration Pain Albuterol 1 puff 06/08/25 16:23 Albuterol Sulfate (*Sp) Aerosol 1 Puff INHALATION Q4H PRN Shortness Of Breath Or Wheezing Apixaban 5 mg 06/11/25 21:00 06/12/25 08:30 Apixaban 5 Mg Tablet PO 5 mg Q12HR JOSE C Administration Ascorbic Acid 500 mg 06/09/25 09:00 06/12/25 08:31 Ascorbic Acid 500 Mg Tablet PO 500 mg DAILY JOSE C Administration Aspirin 81 mg 06/09/25 09:00 06/12/25 08:30 Aspirin 81 Mg Chewable Tablet PO 81 mg DAILY JOSE C Administration Calcium Carbonate 600 mg 06/09/25 09:00 06/12/25 08:29 Calcium Carbonate (Tums) 500 Mg (200 Mg Elemental) BY MOUTH 600 mg DAILY JOSE C Administration Cilostazol 100 mg 06/08/25 17:00 06/12/25 08:27 Cilostazol 100 Mg Tablet BY MOUTH 100 mg BIDWM JOSE C Administration Dextrose 12.5 gm 06/09/25 10:16 Dextrose 50% 25 Gm/50 Ml Syringe IV PUSH PRN PRN Hypoglycemia Protocol Fish Oil 2 gm 06/09/25 09:00 06/12/25 08:28 [place] 3 Polyunsat Fatty Acids 1 Gm Cap PO 2 gm DAILY JOSE C Administration Fluticasone/Umeclidinium/Vilanterol 1 puff 06/09/25 09:00 06/12/25 08:59 Fluticasone/Umeclidin/Vilanter 100-62.5-25 Mcg Ellipta INHALATION 1 puff DAILY JOSE C Administration Glucagon 1 mg 06/09/25 10:16 Glucagon For Inj 1 Mg Vial IM PRN PRN Hypoglycemia Protocol Glucose 15 gm 06/09/25 10:16 Glucose Oral Gel 15 Gm Of Glucse In 37.5 Gm Tube PO PRN PRN Hypoglycemia Protocol Cefepime HCl 2 gm/ Sodium 50 mls @ 100 mls/hr 06/08/25 09:00 06/12/25 08:31 Chloride IVPB 100 mls/hr Q12H JOSE C Administration Metronidazole 500 mg in 100 mls @ 100 mls/hr 06/08/25 09:45 06/12/25 05:52 Flagyl 500 Mg/Iso Soln 100 Ml IVPB 100 mls/hr Q8HR JOSE C Administration Dextrose 1,000 mls @ 100 mls/hr 06/09/25 10:16 Dextrose 5% 1,000 Ml IVPB PRN PRN Hypoglycemia Protocol Insulin Aspart 2 - 5 units 06/09/25 12:00 06/12/25 08:28 Insulin Aspart (*Bkc) 100 Units/Ml SUB-Q Not Given TIDWM JOSE C Protocol Insulin Aspart 1 - 2 units 06/09/25 21:00 06/11/25 20:48 Insulin Aspart (*Bkc) 100 Units/Ml SUB-Q Not Given HS JOSE C Protocol Multivitamins/Calcium 1 tablet 06/09/25 09:00 06/12/25 08:30 Therapeutic Multivitamins/Minerals Tab (*Bkc) PO 1 tablet DAILY JOSE C Administration Simvastatin 20 mg 06/08/25 16:25 06/12/25 08:30 Simvastatin 20 Mg Tablet BY MOUTH 20 mg DAILY JOSE C Administration Verapamil HCl 240 mg 06/09/25 09:00 06/12/25 08:30 Verapamil Hcl 240 Mg Er Tablet BY MOUTH 240 mg DAILY JOSE C Administration Vitamin B Complex 1 cap 06/09/25 09:00 06/12/25 08:30 Vitamin B Complex Capsule PO 1 cap DAILY JOSE C Administration Vitamin D 125 mcg 06/09/25 09:00 06/12/25 08:28 Cholecalciferol (Vitamin D3) 125 Mcg (5,000 Units) Tablet PO 125 mcg DAILY JOSE C Administration Radiology Results: ITS Impressions Chest CTA 06/08/25 06:10 IMPRESSION: 1. Aspiration pneumonia, right lung much worse. 2. Focal airspace disease right upper lobe, along area of prior small pleural-based nodular focus. Malignancy not excluded. Recommend short interval follow-up CT chest. 3. Right upper lobe pleural effusion. 4. No PE. Chest X-Ray 06/09/25 07:52 IMPRESSION: 1. Aspiration pneumonia persists, right lung worse. Labs Labs: Laboratory Results - last 24 hr 06/11/25 06/11/25 06/12/25 15:17 20:23 04:15 WBC 12.2 H RBC 3.88 L Hgb 11.6 L Hct 34.8 L MCV 89.7 MCH 29.9 MCHC 33.3 RDW 13.4 Plt Count 301 MPV 9.3 Sodium 136 L Potassium 3.9 Chloride 106 Carbon Dioxide 24 Anion Gap 6 BUN 35 H D Creatinine 0.93 Estim Creat Clear Calc 74 Estimated GFR > 60 Glucose 97 POC Capillary Glucose 127 H 120 H Calcium 9.4 Magnesium 2.0 06/12/25 06/12/25 07:14 11:21 WBC RBC Hgb Hct MCV MCH MCHC RDW Plt Count MPV Sodium Potassium Chloride Carbon Dioxide Anion Gap BUN Creatinine Estim Creat Clear Calc Estimated GFR Glucose POC Capillary Glucose 96 123 H Calcium Magnesium
[2025-06-12] MEDS: ALBUTEROL SULFATE (*SP) AEROSOL 1 PUFF INHALATION (21:42)
[2025-06-13] VITALS (14 sets, daily range): BP systolic 142–151; BP diastolic 58–77; PULSE 80–101; RESP 20–24; TEMP 36.5–37.6; O2SAT 85–95
[2025-06-13 03:54] LABS: Hematocrit 37.3 % (42.0-52.0); Hemoglobin 11.9 g/dL (14.0-18.0); Mean Corpuscular HGB Conc 31.9 g/dl (32-36); Mean Corpuscular Hemoglobin 29.9 pg (26-34); Mean Corpuscular Volume 93.7 fl (80-100); Platelet Count Result 325 k/mm3 (150-375); Red Blood Count 3.98 M/mm3 (4.6-6.20); White Blood Count 13.5 K/mm3 (4.5-10.0)
[2025-06-13 04:04] LABS: Anion Gap 7 mmol/L (4-12); Blood Urea Nitrogen 27 mg/dL (9-20); Calcium 9.2 mg/dL (8.4-10.2); Carbon Dioxide 20 mmol/L (22-30); Chloride 109 mmol/L (98-107); Estimated CRCL calculation 86 ml/min; Estimated Glomerular Filt Rate > 60; Glucose 109 mg/dL (65-110); Magnesium 1.9 mg/dL (1.6-2.3); Potassium 4.0 mmol/L (3.4-5.0); Sodium 136 mmol/L (137-145)
[2025-06-13] MEDS: metroNIDAZOLE 500 MG/ISO 100ML 500 MG/100 ML BAG 100 MG IVPB ×3 (05:22→20:36)
[2025-06-13] MEDS: CALCIUM CARBONATE (TUMS) 500 MG (200 MG ELEMENTAL) 600 MG BY MOUTH (08:18)
[2025-06-13] MEDS: THERAPEUTIC MULTIVITAMINS/MINERALS TAB (*BKC) 1 TABLET PO (08:21)
[2025-06-13] MEDS: SIMVASTATIN 20 MG TABLET BY MOUTH (08:22)
[2025-06-13] MEDS: ASPIRIN 81 MG CHEWABLE TABLET PO (08:22)
[2025-06-13] MEDS: VERAPAMIL HCL 240 MG ER TABLET BY MOUTH (08:22)
[2025-06-13] MEDS: VITAMIN B COMPLEX CAPSULE 1 CAP PO (08:23)
[2025-06-13] MEDS: OMEGA 3 POLYUNSAT FATTY ACIDS 1 GM CAP 2 GM PO (08:23)
[2025-06-13] MEDS: ASCORBIC ACID 500 MG TABLET PO (08:23)
[2025-06-13] MEDS: APIXABAN 5 MG TABLET PO ×2 (08:23→20:41)
[2025-06-13] MEDS: CHOLECALCIFEROL (VITAMIN D3) 125 MCG (5,000 UNITS) TABLET PO (08:23)
[2025-06-13] MEDS: CEFEPIME 2 GM in SODIUM CHLORIDE 0.9% IV 50 ML 100 ML IVPB ×2 (08:24→20:36)
[2025-06-13] MEDS: FLUTICASONE/UMECLIDIN/VILANTER 100-62.5-25 MCG ELLIPTA 1 PUFF INHALATION (09:19)
--- NOTE | 2025-06-13 10:56 | PCNFU ---
Nutrition Follow-Up Complete: Unintentional weight loss related to chronic increased energy needs from COPD, loss of appetite as evidenced by weight loss 9%/4 months Goal:Intakes >75% Pt progressing towards goal, continue with same goal. Pt current nutrition is Heart healthy, Ensure BID. Nutrition recommendation: continue with current plan of care. Last recorded weight is 120.6 kg. Bowel Motility: +BM 06/11 Labs Reviewed: Hgb:11.9, HCT:37.3, NA:136, BUN:27 Meds Noted: MVI, Vit C, Eliquis, novolog Skin: WNL Additional Notes: Pt continues on a heart healthy diet, intake varied at 25-75%, Ensure shakes BID in place. Encourage po intake. Agree with orders Monitoring intakes, weights, labs, supplement tolerance, output, meds, plan of care FOllow up in 5 days
[2025-06-13] MEDS: IPRATROPIUM 0.5 MG/ALBUTEROL SULFATE 2.5 MG (BASE) AMPUL.NEB 3 ML INHALATION ×2 (13:49→20:10)
--- NOTE | 2025-06-13 16:42 | P.PNIM_ITS ---
Progress Note: A&P Assessment and Plan (1) COPD (chronic obstructive pulmonary disease): Qualifiers: COPD type: unspecified COPD Qualified Code(s): J44.9 - Chronic obstructive pulmonary disease, unspecified Code(s): J44.9 - Chronic obstructive pulmonary disease, unspecified Status: Acute (2) Shortness of breath: Code(s): R06.02 - Shortness of breath Status: Acute (3) Pulmonary nodules: Code(s): R91.8 - Other nonspecific abnormal finding of lung field Status: Acute (4) Pneumonia: Qualifiers: Pneumonia type: due to unspecified organism Laterality: left Lung location: lower lobe of lung Qualified Code(s): J18.9 - Pneumonia, unspecified organism Code(s): J18.9 - Pneumonia, unspecified organism Status: Acute (5) Pleural effusion: Code(s): J90 - Pleural effusion, not elsewhere classified Status: Acute Plan The patient is a 84-year-old male who presented with shortness of breath no chest pain. History of emphysema. EMS noted his SpO2 in high 80s improved to 91% with application of CPAP. Noted to have crackles on examination. In the ED patient with borderline febrile mild hypertension and tachypnea. Patient received IV fluid resuscitation broad-spectrum antibiotics with vancomycin cefepime azithromycin. He also received DuoNeb. Laboratory studies showed mild leukocytosis no anemia thrombocytopenia. Urinalysis positive for UTI. Drug screen was positive for opiates on chronic narcotic therapy at home. Mildly elevated [place] [address]. Influenza COVID RSV swab was negative. Lactate was elevated on admission at 3.3 ABG 7.46/27/100/19. Chest x-ray with multifocal bilateral airspace disease. Chest CTA with aspiration pneumonia right lung much worse. Focal airspace disease right upper lobe along area of prior small pleural based nodular focus. Malignancy not excluded. Recommend short-term follow-up CT chest. Right upper lobe pleural effusion with no PE. Patient was also added on Flagyl to cover anaerobes. Will stop BiPAP wean oxygen as tolerated off BiPAP now will recheck ABG in a.m. Elevated BNP with possible acute on chronic diastolic dysfunction. Received some IV diuresis on admission now off. Possible aspiration pneumonia seen by speech therapist and does not suspect aspiration. Add DuoNeb Leukocytosis at worsened however stable now. And improving but is still persist. Will recheck UA. Recheck chest x-ray today. Add DuoNeb Elevated D-dimer PE study was negative CKD stage 3 slight bump in creatinine which is stable now. will continue to monitor Elevated troponin with flat trend paroxysmal atrial fibrillation new onset cardiology consulted. Anticoagulation suggested by Cardiology started on Eliquis Grade 1 diastolic dysfunction Moderate aortic valve stenosis. UTI urine cultures no growth DVT prophylaxis enoxaparin switched to Eliquis due to atrial fibrillation Code status full code Time Spent With Patient Time: Discussed with Jeanette over the phone Subjective Date/time seen: 06/13/25 16:42 Interval history: no overnight events. Still has some cough. Off oxygen this a.m.. Still feels weak Review of Systems Review of Systems: All systems reviewed & are unremarkable except as noted in HPI and below Exam Narrative: Patient is comfortable, NAD HEENT: eyes are clear and none icteric LUNGS: Diminished breath sounds bilaterally coarse rhonchi HEART: RR S1S2 ABD: BS+, Soft and nontender Lower extremities: no edema SKIN: nonjaundiced Neuro: grossly intact. Objective Data Vital Signs Vital Signs: Vital Signs - 24 hr 06/12/25 18:30 06/12/25 20:00 06/12/25 20:00 Temperature Pulse Rate 81 92 Respiratory Rate Blood Pressure Pulse Oximetry 93 Oxygen Delivery Nasal Cannula Oxygen Flow Rate 1 06/13/25 00:00 06/13/25 00:00 06/13/25 04:00 Temperature 97.7 F Pulse Rate 101 H 100 94 Respiratory Rate 24 H Blood Pressure 149/58 H Pulse Oximetry 92 Oxygen Delivery Oxygen Flow Rate 06/13/25 07:58 06/13/25 08:00 06/13/25 08:00 Temperature 99.6 F Pulse Rate 95 95 95 Respiratory Rate 20 Blood Pressure 151/77 H Pulse Oximetry 95 95 Oxygen Delivery Nasal Cannula Oxygen Flow Rate 2 06/13/25 09:20 06/13/25 10:05 06/13/25 10:11 Temperature Pulse Rate Respiratory Rate Blood Pressure Pulse Oximetry 93 85 L 92 Oxygen Delivery Room Air Room Air Nasal Cannula Oxygen Flow Rate 2 06/13/25 12:00 06/13/25 13:49 06/13/25 13:57 Temperature Pulse Rate 89 80 80 Respiratory Rate 20 20 Blood Pressure Pulse Oximetry Oxygen Delivery Oxygen Flow Rate 06/13/25 16:00 Temperature 97.9 F Pulse Rate 94 Respiratory Rate 20 Blood Pressure 142/60 H Pulse Oximetry 91 Oxygen Delivery Oxygen Flow Rate Intake/Output Intake/Output: Intake & Output 06/10/25 06/11/25 06/12/25 06/13/25 23:59 23:59 23:59 23:59 Intake Total 1650 1950 1370 810 Output Total 1250 1150 600 Balance 400 800 770 810 Meds/Results Medications: Active Medications Generic Name Dose Route Start Last Admin Trade Name Freq PRN Reason Stop Dose Admin Acetaminophen 650 mg 06/08/25 02:34 Acetaminophen 325 Mg Tablet PO Q4H PRN Mild Pain (1-3) or Fever Hydrocodone Bitart/Acetaminophen 1 tab 06/08/25 16:23 06/12/25 12:15 Hydrocodone/Acetaminophen (*Crx) 10-325 Mg Tablet PO 1 tab Q8H PRN Administration Pain Albuterol 1 puff 06/08/25 16:23 06/12/25 21:42 Albuterol Sulfate (*Sp) Aerosol 1 Puff INHALATION 1 puff Q4H PRN Administration Shortness Of Breath Or Wheezing Albuterol/Ipratropium 3 ml 06/13/25 14:00 06/13/25 13:49 Ipratropium 0.5 Mg/Albuterol Sulfate 2.5 Mg (Base) Ampul.Neb 3 Ml INHALATION 3 ml Q6HRT JOSE C Administration Apixaban 5 mg 06/11/25 21:00 06/13/25 08:23 Apixaban 5 Mg Tablet PO 5 mg Q12HR JOSE C Administration Ascorbic Acid 500 mg 06/09/25 09:00 06/13/25 08:23 Ascorbic Acid 500 Mg Tablet PO 500 mg DAILY JOSE C Administration Aspirin 81 mg 06/09/25 09:00 06/13/25 08:22 Aspirin 81 Mg Chewable Tablet PO 81 mg DAILY JOSE C Administration Calcium Carbonate 600 mg 06/09/25 09:00 06/13/25 08:18 Calcium Carbonate (Tums) 500 Mg (200 Mg Elemental) BY MOUTH 600 mg DAILY JOSE C Administration Cilostazol 100 mg 06/08/25 17:00 06/13/25 16:28 Cilostazol 100 Mg Tablet BY MOUTH 100 mg BIDWM JOSE C Administration Dextrose 12.5 gm 06/09/25 10:16 Dextrose 50% 25 Gm/50 Ml Syringe IV PUSH PRN PRN Hypoglycemia Protocol Fish Oil 2 gm 06/09/25 09:00 06/13/25 08:23 [place] 3 Polyunsat Fatty Acids 1 Gm Cap PO 2 gm DAILY JOSE C Administration Fluticasone/Umeclidinium/Vilanterol 1 puff 06/09/25 09:00 06/13/25 09:19 Fluticasone/Umeclidin/Vilanter 100-62.5-25 Mcg Ellipta INHALATION 1 puff DAILY JOSE C Administration Glucagon 1 mg 06/09/25 10:16 Glucagon For Inj 1 Mg Vial IM PRN PRN Hypoglycemia Protocol Glucose 15 gm 06/09/25 10:16 Glucose Oral Gel 15 Gm Of Glucse In 37.5 Gm Tube PO PRN PRN Hypoglycemia Protocol Cefepime HCl 2 gm/ Sodium 50 mls @ 100 mls/hr 06/08/25 09:00 06/13/25 08:24 Chloride IVPB 100 mls/hr Q12H JOSE C Administration Metronidazole 500 mg in 100 mls @ 100 mls/hr 06/08/25 09:45 06/13/25 15:40 Flagyl 500 Mg/Iso Soln 100 Ml IVPB 100 mls/hr Q8HR JOSE C Administration Dextrose 1,000 mls @ 100 mls/hr 06/09/25 10:16 Dextrose 5% 1,000 Ml IVPB PRN PRN Hypoglycemia Protocol Insulin Aspart 2 - 5 units 06/09/25 12:00 06/13/25 16:27 Insulin Aspart (*Bkc) 100 Units/Ml SUB-Q Not Given TIDWM JOSE C Protocol Insulin Aspart 1 - 2 units 06/09/25 21:00 06/12/25 21:26 Insulin Aspart (*Bkc) 100 Units/Ml SUB-Q Not Given HS JOSE C Protocol Multivitamins/Calcium 1 tablet 06/09/25 09:00 06/13/25 08:21 Therapeutic Multivitamins/Minerals Tab (*Bkc) PO 1 tablet DAILY JOSE C Administration Simvastatin 20 mg 06/08/25 16:25 06/13/25 08:22 Simvastatin 20 Mg Tablet BY MOUTH 20 mg DAILY JOSE C Administration Verapamil HCl 240 mg 06/09/25 09:00 06/13/25 08:22 Verapamil Hcl 240 Mg Er Tablet BY MOUTH 240 mg DAILY JOSE C Administration Vitamin B Complex 1 cap 06/09/25 09:00 06/13/25 08:23 Vitamin B Complex Capsule PO 1 cap DAILY JOSE C Administration Vitamin D 125 mcg 06/09/25 09:00 06/13/25 08:23 Cholecalciferol (Vitamin D3) 125 Mcg (5,000 Units) Tablet PO 125 mcg DAILY JOSE C Administration Radiology Results: ITS Impressions Chest CTA 06/08/25 06:10 IMPRESSION: 1. Aspiration pneumonia, right lung much worse. 2. Focal airspace disease right upper lobe, along area of prior small pleural- based nodular focus. Malignancy not excluded. Recommend short interval follow-up CT chest. 3. Right upper lobe pleural effusion. 4. No PE. Chest X-Ray 06/13/25 13:18 IMPRESSION: 1. No significant change with persistent aspiration pneumonia, right lung worse. Labs Labs: Laboratory Results - last 24 hr 06/10/25 06/12/25 06/13/25 03:41 19:45 03:42 WBC 13.5 H RBC 3.98 L Hgb 11.9 L Hct 37.3 L MCV 93.7 MCH 29.9 MCHC 31.9 L RDW 13.5 Plt Count 325 MPV 9.1 Sodium 136 L Potassium 4.0 Chloride 109 H Carbon Dioxide 20 L Anion Gap 7 BUN 27 H Creatinine 0.79 Estim Creat Clear Calc 86 Estimated GFR > 60 Glucose 109 POC Capillary Glucose 141 H Calcium 9.2 Magnesium 1.9 M.pneumoniae IgM Titer <770 06/13/25 06/13/25 06/13/25 07:23 11:16 15:48 WBC RBC Hgb Hct MCV MCH MCHC RDW Plt Count MPV Sodium Potassium Chloride Carbon Dioxide Anion Gap BUN Creatinine Estim Creat Clear Calc Estimated GFR Glucose POC Capillary Glucose 105 136 H 140 H Calcium Magnesium M.pneumoniae IgM Titer
[2025-06-13 19:17] LABS: Add Urine Microscopic? YES; Appearance Urine Clear (Clear); Glucose Urine UA Negative (Negative); Leukocyte Esterase Ur 1+ LEU/UL (Negative); Need Manual Microscopic Reviewed; Nitrate Urine Negative (Negative); Specific Grav Ur 1.023 (1.001-1.035)
[2025-06-13] MEDS: HYDROcodone/acetaminophen (*CRX) 10-325 MG TABLET 1 TAB PO (20:49)
[2025-06-14] VITALS (15 sets, daily range): BP systolic 126–166; BP diastolic 77–86; PULSE 87–104; RESP 20–24; TEMP 36.5–37; O2SAT 93–98
[2025-06-14] MEDS: IPRATROPIUM 0.5 MG/ALBUTEROL SULFATE 2.5 MG (BASE) AMPUL.NEB 3 ML INHALATION ×4 (01:50→19:41)
[2025-06-14 04:23] LABS: Hematocrit 33.6 % (42.0-52.0); Hemoglobin 11.1 g/dL (14.0-18.0); Immature Granulocyte Percent A 4.7 % (0-0.5); Lymphocytes Absolute Auto 1.79 K/mm3 (0.9-3.2); Mean Corpuscular HGB Conc 33.0 g/dl (32-36); Mean Corpuscular Hemoglobin 29.8 pg (26-34); Mean Corpuscular Volume 90.3 fl (80-100); Nucleated Red Blood Cells Absolute Auto 0.000 K/mm3 (0.0-0.012); Nucleated Red Blood Cells Perc 0.0 % (0.0-0.2); Platelet Count Result 342 k/mm3 (150-375); Red Blood Count 3.72 M/mm3 (4.6-6.20); White Blood Count 12.4 K/mm3 (4.5-10.0)
[2025-06-14 04:34] LABS: Alveolar/Arterial O2 Gradient 97.9 mmHg; Fractional Inspired Oxygen 30 %; HCO3 ABG 24.9 mEq/l (22.0-26.0); Oxygen Content ABG 15.4 %vol (16.0-22.0); Oxygen Saturation ABG 95.1 % (95.0-100.0); PCO2 ABG 37.3 mmHg (35.0-45.0); PO2 ABG 72.2 mmHg (80.0-100.0); PO2 FiO2 Ratio Arterial Blood 2.41 %
[2025-06-14 04:48] LABS: Alanine Aminotransferase 41 U/L (6-50); Albumin Level 3.0 g/dL (3.5-5.1); Alkaline Phosphatase 71 U/L (38-126); Anion Gap 8 mmol/L (4-12); Aspartate Amino Transferase 43 U/L (17-59); Bilirubin,Total 0.4 mg/dL (0.2-1.3); Blood Urea Nitrogen 24 mg/dL (9-20); Calcium 9.1 mg/dL (8.4-10.2); Carbon Dioxide 23 mmol/L (22-30); Chloride 107 mmol/L (98-107); Estimated CRCL calculation 82 ml/min; Estimated Glomerular Filt Rate > 60; Glucose 123 mg/dL (65-110); Magnesium 2.0 mg/dL (1.6-2.3); Potassium 3.7 mmol/L (3.4-5.0); Sodium 138 mmol/L (137-145); Total Protein 6.2 g/dL (6.3-8.2)
[2025-06-14 04:54] LABS: Site Drawn RIGHT RADIAL
[2025-06-14 04:55] LABS: Liters per Minute 2.0 LPM; Modified Allen's Test Pass
[2025-06-14] MEDS: metroNIDAZOLE 500 MG/ISO 100ML 500 MG/100 ML BAG 100 MG IVPB ×3 (05:40→21:15)
[2025-06-14] MEDS: CEFEPIME 2 GM in SODIUM CHLORIDE 0.9% IV 50 ML 100 ML IVPB ×3 (05:40→21:15)
[2025-06-14] MEDS: FLUTICASONE/UMECLIDIN/VILANTER 100-62.5-25 MCG ELLIPTA 1 PUFF INHALATION (07:45)
[2025-06-14] MEDS: ASCORBIC ACID 500 MG TABLET PO (09:09)
[2025-06-14] MEDS: APIXABAN 5 MG TABLET PO ×2 (09:09→21:15)
[2025-06-14] MEDS: VITAMIN B COMPLEX CAPSULE 1 CAP PO (09:09)
[2025-06-14] MEDS: CALCIUM CARBONATE (TUMS) 500 MG (200 MG ELEMENTAL) 600 MG BY MOUTH (09:09)
[2025-06-14] MEDS: VERAPAMIL HCL 240 MG ER TABLET BY MOUTH (09:09)
[2025-06-14] MEDS: THERAPEUTIC MULTIVITAMINS/MINERALS TAB (*BKC) 1 TABLET PO (09:09)
[2025-06-14] MEDS: SIMVASTATIN 20 MG TABLET BY MOUTH (09:09)
[2025-06-14] MEDS: CHOLECALCIFEROL (VITAMIN D3) 125 MCG (5,000 UNITS) TABLET PO (09:09)
[2025-06-14] MEDS: OMEGA 3 POLYUNSAT FATTY ACIDS 1 GM CAP 2 GM PO (09:09)
[2025-06-14] MEDS: ASPIRIN 81 MG CHEWABLE TABLET PO (09:09)
[2025-06-14] MEDS: HYDROcodone/acetaminophen (*CRX) 10-325 MG TABLET 1 TAB PO (09:14)
--- NOTE | 2025-06-14 12:18 | P.CDI_ITS ---
CDI Query Clarification Request 1) Please specify status of COPD, if known. * Exacerbation of COPD * No exacerbation/stable COPD * Other * Unable to determine Sepsis has been mentioned by ER and Search Marketing Specialist. 2) Please clarify if sepsis has been ruled in or ruled out. ER: Clinical Impression: Acidosis, lactic, Leukocytosis, UTI (urinary tract infection), Shortness of breath, CRP elevated, Non-ST elevation IA (NSTEMI), Bilateral pneumonia, Left thyroid nodule, Cyst of left kidney, Acute heart failure, Acute hypoxic respiratory failure, Sepsis Hospitalist: Plan The patient is a 84-year-old male who presented with shortness of breath no chest pain. History of emphysema. EMS noted his SpO2 in high 80s improved to 91% with application of CPAP. Noted to have crackles on examination. In the ED patient with borderline febrile mild hypertension and tachypnea. Patient received IV fluid resuscitation broad-spectrum antibiotics with vancomycin cefepime azithromycin. He also received DuoNeb. Laboratory studies showed mild leukocytosis no anemia thrombocytopenia. Urinalysis positive for UTI. Drug screen was positive for opiates on chronic narcotic therapy at home. Mildly elevated [place] [address]. Influenza COVID RSV swab was negative. Lactate was elevated on admission at 3.3 ABG 7.46/27/100/19. Chest x-ray with multifocal bilateral airspace disease. Chest CTA with aspiration pneumonia right lung much worse. Focal airspace disease right upper lobe along area of prior small pleural based nodular focus. Malignancy not excluded. Recommend short-term follow-up CT chest. Right upper lobe pleural effusion with no PE. Patient was also added on Flagyl to cover anaerobes. Will stop BiPAP wean oxygen as tolerated off BiPAP now will recheck ABG in a.m. Elevated BNP with possible acute on chronic diastolic dysfunction. Received some IV diuresis on admission now off. Possible aspiration pneumonia seen by speech therapist and does not suspect aspiration. Add DuoNeb Leukocytosis at worsened however stable now. And improving but is still persist. Will recheck UA. Recheck chest x-ray today. Add DuoNeb Elevated D-dimer PE study was negative CKD stage 3 slight bump in creatinine which is stable now. will continue to monitor Elevated troponin with flat trend paroxysmal atrial fibrillation new onset cardiology consulted. Anticoagulation suggested by Cardiology started on Eliquis Grade 1 diastolic dysfunction Moderate aortic valve stenosis. UTI urine cultures no growth DVT prophylaxis enoxaparin switched to Eliquis due to atrial fibrillation Code status full code Cardiology: Plan 84-year-old man with moderate aortic stenosis, diabetes, hypertension, hyp erlipidemia, and emphysema was brought in for shortness of breath Shortness of breath -secondary to sepsis from pneumonia -likely has chronic diastolic dysfunction -overall appears euvolemic at this time and would avoid hypovolemia given his ongoing infection Paroxysmal atrial fibrillation -this is new onset and we have discussed the pathophysiology as well as the management in great detail with the patient who agreed to proceed forward with anticoagulation -will anticoagulate with Eliquis 5 mg p.o. b.i.d. after evaluated by primary team for anisocoria that is presumably new -will avoid aggressive rate control at this time Moderate aortic stenosis -will follow-up on the transthoracic echocardiogram -we discussed in great detail his condition and the eventual need for aortic valve replacement -he has not made a definitive decision on whether not he would like this to be treated moving forward <Milagros Finley RN - Last Filed: 06/14/25 12:24> Provider Comments 1 no exacerbation/stable COPD 2. Sepsis ruled in <Venancio Lindsey MD - Last Filed: 06/14/25 18:07>
--- NOTE | 2025-06-14 15:14 | PM.IMPN ---
Progress Note: A&P Assessment and Plan (1) COPD (chronic obstructive pulmonary disease): Qualifiers: COPD type: unspecified COPD Qualified Code(s): J44.9 - Chronic obstructive pulmonary disease, unspecified Code(s): J44.9 - Chronic obstructive pulmonary disease, unspecified Status: Acute (2) Shortness of breath: Code(s): R06.02 - Shortness of breath Status: Acute (3) Pulmonary nodules: Code(s): R91.8 - Other nonspecific abnormal finding of lung field Status: Acute (4) Pneumonia: Qualifiers: Pneumonia type: due to unspecified organism Laterality: left Lung location: lower lobe of lung Qualified Code(s): J18.9 - Pneumonia, unspecified organism Code(s): J18.9 - Pneumonia, unspecified organism Status: Acute (5) Pleural effusion: Code(s): J90 - Pleural effusion, not elsewhere classified Status: Acute Plan The patient is a 84-year-old male who presented with shortness of breath no chest pain. History of emphysema. EMS noted his SpO2 in high 80s improved to 91% with application of CPAP. Noted to have crackles on examination. In the ED patient with borderline febrile mild hypertension and tachypnea. Patient received IV fluid resuscitation broad-spectrum antibiotics with vancomycin cefepime azithromycin. He also received DuoNeb. Laboratory studies showed mild leukocytosis no anemia thrombocytopenia. Urinalysis positive for UTI. Drug screen was positive for opiates on chronic narcotic therapy at home. Mildly elevated [place] [id number]. Influenza COVID RSV swab was negative. Lactate was elevated on admission at 3.3 ABG 7.46/27/100/19. Chest x-ray with multifocal bilateral airspace disease. Chest CTA with aspiration pneumonia right lung much worse. Focal airspace disease right upper lobe along area of prior small pleural based nodular focus. Malignancy not excluded. Recommend short-term follow-up CT chest. Right upper lobe pleural effusion with no PE. Patient was also added on Flagyl to cover anaerobes. Will stop BiPAP wean oxygen as tolerated off BiPAP now. Recheck ABG 06/14 reviewed Elevated BNP with possible acute on chronic diastolic dysfunction. Received some IV diuresis on admission now off. Possible aspiration pneumonia seen by speech therapist and does not suspect aspiration. Add DuoNeb Leukocytosis at worsened however stable now. And improving but is still persist. Recheck UA with improved urine WBC. Recheck chest x-ray with persistent right lower lobe pneumonia. Add DuoNeb Elevated D-dimer PE study was negative CKD stage 3 slight bump in creatinine which is stable now. will continue to monitor Elevated troponin with flat trend paroxysmal atrial fibrillation new onset cardiology consulted. Anticoagulation suggested by Cardiology started on Eliquis Grade 1 diastolic dysfunction Moderate aortic valve stenosis. UTI urine cultures no growth DVT prophylaxis enoxaparin switched to Eliquis due to atrial fibrillation Code status full code Disposition: Discussed with family 06/13/2025. Plan for SNF placement Time Spent With Patient Time: Discussed with Jeanette over the phone Subjective Date/time seen: 06/14/25 15:14 Interval history: no overnight events. Tired and feels weak. Still has some cough. Remains on IV antibiotics. White cell count trending down Review of Systems Review of Systems: All systems reviewed & are unremarkable except as noted in HPI and below Exam Narrative: Patient is comfortable, NAD HEENT: eyes are clear and none icteric LUNGS: Diminished breath sounds bilaterally coarse rhonchi HEART: RR S1S2 ABD: BS+, Soft and nontender Lower extremities: no edema SKIN: nonjaundiced Neuro: grossly intact. Objective Data Vital Signs Vital Signs: Vital Signs - 24 hr 06/13/25 16:00 06/13/25 16:00 06/13/25 20:00 Temperature 97.9 F Pulse Rate 94 92 89 Respiratory Rate 20 20 Blood Pressure 142/60 H Pulse Oximetry 91 91 Oxygen Delivery Nasal Cannula Oxygen Flow Rate 2 06/13/25 20:00 06/13/25 20:10 06/13/25 20:15 Temperature Pulse Rate 89 90 89 Respiratory Rate 20 20 Blood Pressure Pulse Oximetry Oxygen Delivery Oxygen Flow Rate 06/14/25 00:00 06/14/25 00:00 06/14/25 01:50 Temperature 97.8 F Pulse Rate 88 92 88 Respiratory Rate 20 20 Blood Pressure 166/86 H Pulse Oximetry 96 Oxygen Delivery Oxygen Flow Rate 06/14/25 01:58 06/14/25 01:59 06/14/25 04:00 Temperature Pulse Rate 87 92 Respiratory Rate 20 Blood Pressure Pulse Oximetry 96 Oxygen Delivery Nasal Cannula Oxygen Flow Rate 2 06/14/25 07:15 06/14/25 07:45 06/14/25 07:45 Temperature Pulse Rate 97 104 H Respiratory Rate 20 20 Blood Pressure Pulse Oximetry 95 96 Oxygen Delivery Nasal Cannula Nasal Cannula Oxygen Flow Rate 1 2 06/14/25 07:46 06/14/25 08:00 06/14/25 08:00 Temperature 98.6 F Pulse Rate 93 100 Respiratory Rate 22 H Blood Pressure 139/77 Pulse Oximetry 94 93 Oxygen Delivery Room Air Oxygen Flow Rate 06/14/25 08:15 Temperature Pulse Rate 97 Respiratory Rate Blood Pressure Pulse Oximetry 96 Oxygen Delivery Nasal Cannula Oxygen Flow Rate 1 Intake/Output Intake/Output: Intake & Output 06/11/25 06/12/25 06/13/25 06/14/25 23:59 23:59 23:59 23:59 Intake Total 1950 1370 1350 1000 Output Total 1150 600 Balance 513 366 3690 1000 Meds/Results Medications: Active Medications Generic Name Dose Route Start Last Admin Trade Name Freq PRN Reason Stop Dose Admin Acetaminophen 650 mg 06/08/25 02:34 Acetaminophen 325 Mg Tablet PO Q4H PRN Mild Pain (1-3) or Fever Hydrocodone Bitart/Acetaminophen 1 tab 06/08/25 16:23 06/14/25 09:14 Hydrocodone/Acetaminophen (*Crx) 10-325 Mg Tablet PO 1 tab Q8H PRN Administration Pain Albuterol 1 puff 06/08/25 16:23 06/12/25 21:42 Albuterol Sulfate (*Sp) Aerosol 1 Puff INHALATION 1 puff Q4H PRN Administration Shortness Of Breath Or Wheezing Albuterol/Ipratropium 3 ml 06/13/25 14:00 06/14/25 14:47 Ipratropium 0.5 Mg/Albuterol Sulfate 2.5 Mg (Base) Ampul.Neb 3 Ml INHALATION 3 ml Q6HRT JOSE C Administration Apixaban 5 mg 06/11/25 21:00 06/14/25 09:09 Apixaban 5 Mg Tablet PO 5 mg Q12HR JOSE C Administration Ascorbic Acid 500 mg 06/09/25 09:00 06/14/25 09:09 Ascorbic Acid 500 Mg Tablet PO 500 mg DAILY JOSE C Administration Aspirin 81 mg 06/09/25 09:00 06/14/25 09:09 Aspirin 81 Mg Chewable Tablet PO 81 mg DAILY JOSE C Administration Calcium Carbonate 600 mg 06/09/25 09:00 06/14/25 09:09 Calcium Carbonate (Tums) 500 Mg (200 Mg Elemental) BY MOUTH 600 mg DAILY JOSE C Administration Cilostazol 100 mg 06/08/25 17:00 06/14/25 09:09 Cilostazol 100 Mg Tablet BY MOUTH 100 mg BIDWM JOSE C Administration Dextrose 12.5 gm 06/09/25 10:16 Dextrose 50% 25 Gm/50 Ml Syringe IV PUSH PRN PRN Hypoglycemia Protocol Fish Oil 2 gm 06/09/25 09:00 06/14/25 09:09 [place] 3 Polyunsat Fatty Acids 1 Gm Cap PO 2 gm DAILY JOSE C Administration Fluticasone/Umeclidinium/Vilanterol 1 puff 06/09/25 09:00 06/14/25 07:45 Fluticasone/Umeclidin/Vilanter 100-62.5-25 Mcg Ellipta INHALATION 1 puff DAILY JOSE C Administration Glucagon 1 mg 06/09/25 10:16 Glucagon For Inj 1 Mg Vial IM PRN PRN Hypoglycemia Protocol Glucose 15 gm 06/09/25 10:16 Glucose Oral Gel 15 Gm Of Glucse In 37.5 Gm Tube PO PRN PRN Hypoglycemia Protocol Metronidazole 500 mg in 100 mls @ 100 mls/hr 06/08/25 09:45 06/14/25 14:32 Flagyl 500 Mg/Iso Soln 100 Ml IVPB 100 mls/hr Q8HR JOSE C Administration Dextrose 1,000 mls @ 100 mls/hr 06/09/25 10:16 Dextrose 5% 1,000 Ml IVPB PRN PRN Hypoglycemia Protocol Cefepime HCl 2 gm/ Sodium 50 mls @ 100 mls/hr 06/14/25 06:00 06/14/25 14:31 Chloride IVPB 100 mls/hr Q8HR JOSE C Administration Insulin Aspart 2 - 5 units 06/09/25 12:00 06/14/25 12:02 Insulin Aspart (*Bkc) 100 Units/Ml SUB-Q Not Given TIDWM JOSE C Protocol Insulin Aspart 1 - 2 units 06/09/25 21:00 06/13/25 20:53 Insulin Aspart (*Bkc) 100 Units/Ml SUB-Q Not Given HS JOSE C Protocol Multivitamins/Calcium 1 tablet 06/09/25 09:00 06/14/25 09:09 Therapeutic Multivitamins/Minerals Tab (*Bkc) PO 1 tablet DAILY JOSE C Administration Simvastatin 20 mg 06/08/25 16:25 06/14/25 09:09 Simvastatin 20 Mg Tablet BY MOUTH 20 mg DAILY JOSE C Administration Verapamil HCl 240 mg 06/09/25 09:00 06/14/25 09:09 Verapamil Hcl 240 Mg Er Tablet BY MOUTH 240 mg DAILY JOSE C Administration Vitamin B Complex 1 cap 06/09/25 09:00 06/14/25 09:09 Vitamin B Complex Capsule PO 1 cap DAILY JOSE C Administration Vitamin D 125 mcg 06/09/25 09:00 06/14/25 09:09 Cholecalciferol (Vitamin D3) 125 Mcg (5,000 Units) Tablet PO 125 mcg DAILY JOSE C Administration Radiology Results: ITS Impressions Chest CTA 06/08/25 06:10 IMPRESSION: 1. Aspiration pneumonia, right lung much worse. 2. Focal airspace disease right upper lobe, along area of prior small pleural-based nodular focus. Malignancy not excluded. Recommend short interval follow-up CT chest. 3. Right upper lobe pleural effusion. 4. No PE. Chest X-Ray 06/13/25 13:18 IMPRESSION: 1. No significant change with persistent aspiration pneumonia, right lung worse. Labs Labs: Laboratory Results - last 24 hr 06/13/25 06/13/25 06/13/25 15:48 18:14 20:43 WBC RBC Hgb Hct MCV MCH MCHC RDW Plt Count MPV Immature Gran % (Auto) Neut % (Auto) Lymph % (Auto) [place] % (Auto) Eos % (Auto) Baso % (Auto) Lymph # (Auto) [place] # (Auto) Eos # (Auto) Baso # (Auto) Abs Immat Gran (auto) Absolute Neuts (auto) Absolute Nucleated RBC Nucleated RBC % Puncture Site ABG pH ABG pCO2 ABG pO2 ABG PO2/FiO2 Ratio ABG HCO3 ABG O2 Saturation ABG O2 Content ABG Base Excess A-a Gradient Oxyhemoglobin Total Hemoglobin O2 Delivery Device O2 Liters/Min FiO2 Sodium Potassium Chloride Carbon Dioxide Anion Gap BUN Creatinine Estim Creat Clear Calc Estimated GFR Glucose POC Capillary Glucose 140 H 134 H Calcium Magnesium Total Bilirubin AST ALT Alkaline Phosphatase Total Protein Albumin Urine Color Dark yellow Urine Appearance Clear Urine pH 5.0 Ur Specific [place] 1.023 Urine Protein 1+ H Urine Glucose (UA) Negative Urine Ketones Trace H Ur Blood (Man) Negative Urine Nitrate Negative Urine Bilirubin Negative Urine Urobilinogen 0.2 Add Ur Microanalysis Reviewed Leukocyte Esterase Rfl 1+ H Urine RBC 0-2 Urine WBC 21-50 H Ur Squamous Epith Cells Occasional Urine Bacteria None seen Urine Casts 3-5 06/14/25 06/14/25 06/14/25 03:49 04:22 07:14 WBC 12.4 H RBC 3.72 L Hgb 11.1 L Hct 33.6 L MCV 90.3 MCH 29.8 MCHC 33.0 RDW 13.7 Plt Count 342 MPV 9.2 Immature Gran % (Auto) 4.7 H Neut % (Auto) 68.9 Lymph % (Auto) 14.4 L [place] % (Auto) 9.4 H Eos % (Auto) 2.1 Baso % (Auto) 0.5 Lymph # (Auto) 1.79 [place] # (Auto) 1.2 H Eos # (Auto) 0.3 Baso # (Auto) 0.1 Abs Immat Gran (auto) 0.58 H Absolute Neuts (auto) 8.5 H Absolute Nucleated RBC 0.000 Nucleated RBC % 0.0 Puncture Site Right radial ABG pH 7.442 ABG pCO2 37.3 ABG pO2 72.2 L ABG PO2/FiO2 Ratio 2.41 ABG HCO3 24.9 ABG O2 Saturation 95.1 ABG O2 Content 15.4 L ABG Base Excess 0.9 A-a Gradient 97.9 Oxyhemoglobin 93.2 Total Hemoglobin 11.7 L O2 Delivery Device Nasal cannula O2 Liters/Min 2.0 FiO2 30 Sodium 138 Potassium 3.7 Chloride 107 Carbon Dioxide 23 Anion Gap 8 BUN 24 H Creatinine 0.82 Estim Creat Clear Calc 82 Estimated GFR > 60 Glucose 123 H POC Capillary Glucose 115 H Calcium 9.1 Magnesium 2.0 Total Bilirubin 0.4 AST 43 ALT 41 Alkaline Phosphatase 71 Total Protein 6.2 L Albumin 3.0 L Urine Color Urine Appearance Urine pH Ur Specific [place] Urine Protein Urine Glucose (UA) Urine Ketones Ur Blood (Man) Urine Nitrate Urine Bilirubin Urine Urobilinogen Add Ur Microanalysis Leukocyte Esterase Rfl Urine RBC Urine WBC Ur Squamous Epith Cells Urine Bacteria Urine Casts 06/14/25 11:31 WBC RBC Hgb Hct MCV MCH MCHC RDW Plt Count MPV Immature Gran % (Auto) Neut % (Auto) Lymph % (Auto) [place] % (Auto) Eos % (Auto) Baso % (Auto) Lymph # (Auto) [place] # (Auto) Eos # (Auto) Baso # (Auto) Abs Immat Gran (auto) Absolute Neuts (auto) Absolute Nucleated RBC Nucleated RBC % Puncture Site ABG pH ABG pCO2 ABG pO2 ABG PO2/FiO2 Ratio ABG HCO3 ABG O2 Saturation ABG O2 Content ABG Base Excess A-a Gradient Oxyhemoglobin Total Hemoglobin O2 Delivery Device O2 Liters/Min FiO2 Sodium Potassium Chloride Carbon Dioxide Anion Gap BUN Creatinine Estim Creat Clear Calc Estimated GFR Glucose POC Capillary Glucose 135 H Calcium Magnesium Total Bilirubin AST ALT Alkaline Phosphatase Total Protein Albumin Urine Color Urine Appearance Urine pH Ur Specific [place] Urine Protein Urine Glucose (UA) Urine Ketones Ur Blood (Man) Urine Nitrate Urine Bilirubin Urine Urobilinogen Add Ur Microanalysis Leukocyte Esterase Rfl Urine RBC Urine WBC Ur Squamous Epith Cells Urine Bacteria Urine Casts
[2025-06-15] VITALS (11 sets, daily range): BP systolic 141–163; BP diastolic 58–78; PULSE 80–103; RESP 16–22; TEMP 36.1–37.1; O2SAT 90–93
[2025-06-15] MEDS: HYDROcodone/acetaminophen (*CRX) 10-325 MG TABLET 1 TAB PO (00:10)
[2025-06-15] MEDS: IPRATROPIUM 0.5 MG/ALBUTEROL SULFATE 2.5 MG (BASE) AMPUL.NEB 3 ML INHALATION ×4 (01:50→21:20)
[2025-06-15] MEDS: CEFEPIME 2 GM in SODIUM CHLORIDE 0.9% IV 50 ML 100 ML IVPB (06:13)
[2025-06-15 06:43] LABS: Hematocrit 33.0 % (42.0-52.0); Hemoglobin 10.8 g/dL (14.0-18.0); Immature Granulocyte Percent A 2.4 % (0-0.5); Lymphocytes Absolute Auto 1.33 K/mm3 (0.9-3.2); Mean Corpuscular HGB Conc 32.7 g/dl (32-36); Mean Corpuscular Hemoglobin 29.8 pg (26-34); Mean Corpuscular Volume 90.9 fl (80-100); Nucleated Red Blood Cells Absolute Auto 0.000 K/mm3 (0.0-0.012); Nucleated Red Blood Cells Perc 0.0 % (0.0-0.2); Platelet Count Result 343 k/mm3 (150-375); Red Blood Count 3.63 M/mm3 (4.6-6.20); White Blood Count 12.4 K/mm3 (4.5-10.0)
[2025-06-15] MEDS: metroNIDAZOLE 500 MG/ISO 100ML 500 MG/100 ML BAG 100 MG IVPB (06:44)
[2025-06-15 07:05] LABS: Alanine Aminotransferase 38 U/L (6-50); Albumin Level 2.9 g/dL (3.5-5.1); Alkaline Phosphatase 68 U/L (38-126); Anion Gap 6 mmol/L (4-12); Aspartate Amino Transferase 41 U/L (17-59); Bilirubin,Total 0.5 mg/dL (0.2-1.3); Blood Urea Nitrogen 22 mg/dL (9-20); Calcium 9.1 mg/dL (8.4-10.2); Carbon Dioxide 24 mmol/L (22-30); Chloride 107 mmol/L (98-107); Estimated CRCL calculation 89 ml/min; Estimated Glomerular Filt Rate > 60; Glucose 117 mg/dL (65-110); Magnesium 1.9 mg/dL (1.6-2.3); Potassium 3.8 mmol/L (3.4-5.0); Sodium 137 mmol/L (137-145); Total Protein 6.1 g/dL (6.3-8.2)
[2025-06-15] MEDS: FLUTICASONE/UMECLIDIN/VILANTER 100-62.5-25 MCG ELLIPTA 1 PUFF INHALATION (07:32)
[2025-06-15] MEDS: SIMVASTATIN 20 MG TABLET BY MOUTH (08:53)
[2025-06-15] MEDS: ASCORBIC ACID 500 MG TABLET PO (08:53)
[2025-06-15] MEDS: CHOLECALCIFEROL (VITAMIN D3) 125 MCG (5,000 UNITS) TABLET PO (08:53)
[2025-06-15] MEDS: VITAMIN B COMPLEX CAPSULE 1 CAP PO (08:53)
[2025-06-15] MEDS: ASPIRIN 81 MG CHEWABLE TABLET PO (08:53)
[2025-06-15] MEDS: THERAPEUTIC MULTIVITAMINS/MINERALS TAB (*BKC) 1 TABLET PO (08:53)
[2025-06-15] MEDS: APIXABAN 5 MG TABLET PO ×2 (08:54→21:18)
[2025-06-15] MEDS: CALCIUM CARBONATE (TUMS) 500 MG (200 MG ELEMENTAL) 600 MG BY MOUTH (08:54)
[2025-06-15] MEDS: OMEGA 3 POLYUNSAT FATTY ACIDS 1 GM CAP 2 GM PO (08:55)
[2025-06-15] MEDS: VERAPAMIL HCL 240 MG ER TABLET BY MOUTH (10:28)
--- NOTE | 2025-06-15 12:30 | P.PNIM_ITS ---
Progress Note: A&P Assessment and Plan (1) COPD (chronic obstructive pulmonary disease): Qualifiers: COPD type: unspecified COPD Qualified Code(s): J44.9 - Chronic obstructive pulmonary disease, unspecified Code(s): J44.9 - Chronic obstructive pulmonary disease, unspecified Status: Acute (2) Shortness of breath: Code(s): R06.02 - Shortness of breath Status: Acute (3) Pulmonary nodules: Code(s): R91.8 - Other nonspecific abnormal finding of lung field Status: Acute (4) Pneumonia: Qualifiers: Laterality: left Lung location: lower lobe of lung Pneumonia type: due to unspecified organism Qualified Code(s): J18.9 - Pneumonia, unspecified organism Code(s): J18.9 - Pneumonia, unspecified organism Status: Acute (5) Pleural effusion: Code(s): J90 - Pleural effusion, not elsewhere classified Status: Acute Plan The patient is a 84-year-old male who presented with shortness of breath no chest pain. History of emphysema. EMS noted his SpO2 in high 80s improved to 91% with application of CPAP. Noted to have crackles on examination. In the ED patient with borderline febrile mild hypertension and tachypnea. Patient received IV fluid resuscitation broad-spectrum antibiotics with vancomycin cefepime azithromycin. He also received DuoNeb. Laboratory studies showed mild leukocytosis no anemia thrombocytopenia. Urinalysis positive for UTI. Drug screen was positive for opiates on chronic narcotic therapy at home. Mildly elevated [place] [address]. Influenza COVID RSV swab was negative. Lactate was elevated on admission at 3.3 ABG 7.46/27/100/19. Chest x-ray with multifocal bilateral airspace disease. Chest CTA with aspiration pneumonia right lung much worse. Focal airspace disease right upper lobe along area of prior small pleural based nodular focus. Malignancy not excluded. Recommend short-term follow-up CT chest. Right upper lobe pleural effusion with no PE. Patient was also added on Flagyl to cover anaerobes. Will stop BiPAP wean oxygen as tolerated off BiPAP now. Recheck ABG 06/14 reviewed Elevated BNP with possible acute on chronic diastolic dysfunction. Received some IV diuresis on admission now off. Possible aspiration pneumonia seen by speech therapist and does not suspect aspiration. Add DuoNeb Leukocytosis at worsened however stable now. And improving but is still persist. Recheck UA with improved urine WBC. Recheck chest x-ray with persistent right lower lobe pneumonia. Add DuoNeb Elevated D-dimer PE study was negative CKD stage 3 slight bump in creatinine which is stable now. will continue to monitor Elevated troponin with flat trend paroxysmal atrial fibrillation new onset cardiology consulted. Anticoagulation suggested by Cardiology started on Eliquis Grade 1 diastolic dysfunction Moderate aortic valve stenosis. UTI urine cultures no growth 06/15: Sputum Cx with light growth of vianca but not felt to be clinically significant. UCx (06/13) negative. He completed 7 days of IV abx so will stop. He is more confused but may have mild underlying confusion per . Echo showing moderate-severe but unchnged from earlier this year. This will need to ne followed as outpatient. TSH okay in February. B12/folate normal. here. No focal weakness to suggest CVA. He is on hydrocodone but takes this at home. Will cut dose back. DVT prophylaxis Eliquis Code status full code Disposition: Discussed with family 06/13/2025. Plan for [facility] or SNF placement Subjective Date/time seen: 06/15/25 12:30 Interval history: 84yo male PVD, COPD, DM and HTN here for SOB. Assuming care. Chart reviewed. Patinet is alert but mildly confused. in the room feels this is much worse from baseline. He has had mild confusion from time to time at home but this seems worse. He feels 'great'. N problems overnight. Feels his SOB is better. Possible CP but he is vague with any details and can not answer further, more pointed questions. He feels hot so refuses to wear a gown. Exam Narrative: AF 97.0 152/76 87 22 93% ra Gen - NARD sitting up in bed without clothes Chest - scattered expiratory rhonchi CV - RRR S1/S2 with 2/6 systolic murmur t/o the precordium loudest in RUSB Abd - Soft, obese, NT Ext - No pedal edema Neuro - Alert and oriented to location (hospital but not name of facility), year and Ramon name but not month. No focal weakness. Follows commands speech clear. Psych - Nml mood and affect Skin - Warm and dry Objective Data Vital Signs Vital Signs: Vital Signs - 24 hr 06/14/25 14:47 06/14/25 14:47 06/14/25 15:00 Temperature Pulse Rate 92 92 94 Respiratory Rate 24 H 24 H 24 H Blood Pressure Pulse Oximetry 94 Oxygen Delivery Room Air Fraction of Inspired Oxygen 21 06/14/25 15:46 06/14/25 19:41 06/14/25 19:52 Temperature 97.7 F Pulse Rate 94 104 H 100 Respiratory Rate 22 H 20 20 Blood Pressure 126/77 Pulse Oximetry 98 Oxygen Delivery Fraction of Inspired Oxygen 06/14/25 20:00 06/15/25 00:00 06/15/25 01:50 Temperature 97.2 F L Pulse Rate 103 H 101 H Respiratory Rate 22 H 20 Blood Pressure 163/58 H Pulse Oximetry 91 Oxygen Delivery Room Air Fraction of Inspired Oxygen 06/15/25 02:00 06/15/25 07:34 06/15/25 07:39 Temperature Pulse Rate 100 90 92 Respiratory Rate 20 20 20 Blood Pressure Pulse Oximetry Oxygen Delivery Fraction of Inspired Oxygen 06/15/25 08:00 06/15/25 08:50 Temperature 97.0 F L Pulse Rate 87 Respiratory Rate 22 H Blood Pressure 152/76 H Pulse Oximetry 93 Oxygen Delivery Room Air Fraction of Inspired Oxygen Intake/Output Intake/Output: Intake & Output 06/12/25 06/13/25 06/14/25 06/15/25 23:59 23:59 23:59 23:59 Intake Total 1370 1350 1790 640 Output Total 600 750 Balance 770 1350 1790 -110 Meds/Results Medications: Active Medications Generic Name Dose Route Start Last Admin Trade Name Freq PRN Reason Stop Dose Admin Acetaminophen 650 mg 06/08/25 02:34 Acetaminophen 325 Mg Tablet PO Q4H PRN Mild Pain (1-3) or Fever Hydrocodone Bitart/Acetaminophen 1 tab 06/08/25 16:23 06/15/25 00:10 Hydrocodone/Acetaminophen (*Crx) 10-325 Mg Tablet PO 1 tab Q8H PRN Administration Pain Albuterol 1 puff 06/08/25 16:23 06/12/25 21:42 Albuterol Sulfate (*Sp) Aerosol 1 Puff INHALATION 1 puff Q4H PRN Administration Shortness Of Breath Or Wheezing Albuterol/Ipratropium 3 ml 06/13/25 14:00 06/15/25 07:32 Ipratropium 0.5 Mg/Albuterol Sulfate 2.5 Mg (Base) Ampul.Neb 3 Ml INHALATION 3 ml Q6HRT JOSE C Administration Apixaban 5 mg 06/11/25 21:00 06/15/25 08:54 Apixaban 5 Mg Tablet PO 5 mg Q12HR JOSE C Administration Ascorbic Acid 500 mg 06/09/25 09:00 06/15/25 08:53 Ascorbic Acid 500 Mg Tablet PO 500 mg DAILY JOSE C Administration Aspirin 81 mg 06/09/25 09:00 06/15/25 08:53 Aspirin 81 Mg Chewable Tablet PO 81 mg DAILY JOSE C Administration Calcium Carbonate 600 mg 06/09/25 09:00 06/15/25 08:54 Calcium Carbonate (Tums) 500 Mg (200 Mg Elemental) BY MOUTH 600 mg DAILY JOSE C Administration Cilostazol 100 mg 06/08/25 17:00 06/15/25 08:58 Cilostazol 100 Mg Tablet BY MOUTH 100 mg BIDWM JOSE C Administration Dextrose 12.5 gm 06/09/25 10:16 Dextrose 50% 25 Gm/50 Ml Syringe IV PUSH PRN PRN Hypoglycemia Protocol Fish Oil 2 gm 06/09/25 09:00 06/15/25 08:55 [place] 3 Polyunsat Fatty Acids 1 Gm Cap PO 2 gm DAILY JOSE C Administration Fluticasone/Umeclidinium/Vilanterol 1 puff 06/09/25 09:00 06/15/25 07:32 Fluticasone/Umeclidin/Vilanter 100-62.5-25 Mcg Ellipta INHALATION 1 puff DAILY JOSE C Administration Glucagon 1 mg 06/09/25 10:16 Glucagon For Inj 1 Mg Vial IM PRN PRN Hypoglycemia Protocol Glucose 15 gm 06/09/25 10:16 Glucose Oral Gel 15 Gm Of Glucse In 37.5 Gm Tube PO PRN PRN Hypoglycemia Protocol Metronidazole 500 mg in 100 mls @ 100 mls/hr 06/08/25 09:45 06/15/25 06:44 Flagyl 500 Mg/Iso Soln 100 Ml IVPB 100 mls/hr Q8HR JOSE C Administration Dextrose 1,000 mls @ 100 mls/hr 06/09/25 10:16 Dextrose 5% 1,000 Ml IVPB PRN PRN Hypoglycemia Protocol Cefepime HCl 2 gm/ Sodium 50 mls @ 100 mls/hr 06/14/25 06:00 06/15/25 06:13 Chloride IVPB 100 mls/hr Q8HR JOSE C Administration Insulin Aspart 2 - 5 units 06/09/25 12:00 06/15/25 08:56 Insulin Aspart (*Bkc) 100 Units/Ml SUB-Q Not Given TIDWM [facility] Protocol Insulin Aspart 1 - 2 units 06/09/25 21:00 06/14/25 21:15 Insulin Aspart (*Bkc) 100 Units/Ml SUB-Q Not Given HS [facility] Protocol Multivitamins/Calcium 1 tablet 06/09/25 09:00 06/15/25 08:53 Therapeutic Multivitamins/Minerals Tab (*Bkc) PO 1 tablet DAILY JOSE C Administration Simvastatin 20 mg 06/08/25 16:25 06/15/25 08:53 Simvastatin 20 Mg Tablet BY MOUTH 20 mg DAILY JOSE C Administration Verapamil HCl 240 mg 06/09/25 09:00 06/15/25 10:28 Verapamil Hcl 240 Mg Er Tablet BY MOUTH 240 mg DAILY JOSE C Administration Vitamin B Complex 1 cap 06/09/25 09:00 06/15/25 08:53 Vitamin B Complex Capsule PO 1 cap DAILY JOSE C Administration Vitamin D 125 mcg 06/09/25 09:00 06/15/25 08:53 Cholecalciferol (Vitamin D3) 125 Mcg (5,000 Units) Tablet PO 125 mcg DAILY JOSE C Administration Radiology Results: ITS Impressions Chest CTA 06/08/25 06:10 IMPRESSION: 1. Aspiration pneumonia, right lung much worse. 2. Focal airspace disease right upper lobe, along area of prior small pleural- based nodular focus. Malignancy not excluded. Recommend short interval follow-up CT chest. 3. Right upper lobe pleural effusion. 4. No PE. Chest X-Ray 06/13/25 13:18 IMPRESSION: 1. No significant change with persistent aspiration pneumonia, right lung worse. Labs Labs: Laboratory Results - last 24 hr 06/14/25 06/14/25 06/15/25 15:05 20:12 06:31 WBC 12.4 H RBC 3.63 L Hgb 10.8 L Hct 33.0 L MCV 90.9 MCH 29.8 MCHC 32.7 RDW 13.7 Plt Count 343 MPV 8.8 Immature Gran % (Auto) 2.4 H Neut % (Auto) 77.2 H Lymph % (Auto) 10.8 L [place] % (Auto) 7.0 Eos % (Auto) 2.1 Baso % (Auto) 0.5 Lymph # (Auto) 1.33 [place] # (Auto) 0.9 H Eos # (Auto) 0.3 Baso # (Auto) 0.1 Abs Immat Gran (auto) 0.30 H Absolute Neuts (auto) 9.6 H Absolute Nucleated RBC 0.000 Nucleated RBC % 0.0 Sodium 137 Potassium 3.8 Chloride 107 Carbon Dioxide 24 Anion Gap 6 BUN 22 H Creatinine 0.77 Estim Creat Clear Calc 89 Estimated GFR > 60 Glucose 117 H POC Capillary Glucose 146 H 137 H Calcium 9.1 Magnesium 1.9 Total Bilirubin 0.5 AST 41 ALT 38 Alkaline Phosphatase 68 Total Protein 6.1 L Albumin 2.9 L 06/15/25 06/15/25 07:12 11:21 WBC RBC Hgb Hct MCV MCH MCHC RDW Plt Count MPV Immature Gran % (Auto) Neut % (Auto) Lymph % (Auto) [place] % (Auto) Eos % (Auto) Baso % (Auto) Lymph # (Auto) [place] # (Auto) Eos # (Auto) Baso # (Auto) Abs Immat Gran (auto) Absolute Neuts (auto) Absolute Nucleated RBC Nucleated RBC % Sodium Potassium Chloride Carbon Dioxide Anion Gap BUN Creatinine Estim Creat Clear Calc Estimated GFR Glucose POC Capillary Glucose 116 H 133 H Calcium Magnesium Total Bilirubin AST ALT Alkaline Phosphatase Total Protein Albumin
[2025-06-15 21:00] LABS: Vitamin B12 583.0 pg/mL (239-931)
[2025-06-15] MEDS: HYDROcodone/acetaminophen (*CRX) 5-325 MG TABLET 1 TAB PO (23:34)
[2025-06-16] VITALS (12 sets, daily range): BP systolic 132–143; BP diastolic 71–91; PULSE 85–103; RESP 18–20; TEMP 36.4–36.7; O2SAT 93–94
[2025-06-16] MEDS: IPRATROPIUM 0.5 MG/ALBUTEROL SULFATE 2.5 MG (BASE) AMPUL.NEB 3 ML INHALATION ×4 (02:24→20:40)
[2025-06-16 06:22] LABS: Hematocrit 34.3 % (42.0-52.0); Hemoglobin 11.1 g/dL (14.0-18.0); Mean Corpuscular HGB Conc 32.4 g/dl (32-36); Mean Corpuscular Hemoglobin 29.6 pg (26-34); Mean Corpuscular Volume 91.5 fl (80-100); Platelet Count Result 379 k/mm3 (150-375); Red Blood Count 3.75 M/mm3 (4.6-6.20); White Blood Count 12.9 K/mm3 (4.5-10.0)
[2025-06-16 06:37] LABS: Anion Gap 7 mmol/L (4-12); Blood Urea Nitrogen 21 mg/dL (9-20); Calcium 8.9 mg/dL (8.4-10.2); Carbon Dioxide 22 mmol/L (22-30); Chloride 108 mmol/L (98-107); Estimated CRCL calculation 96 ml/min; Estimated Glomerular Filt Rate > 60; Glucose 109 mg/dL (65-110); Magnesium 1.9 mg/dL (1.6-2.3); Potassium 3.9 mmol/L (3.4-5.0); Sodium 137 mmol/L (137-145)
[2025-06-16] MEDS: FLUTICASONE/UMECLIDIN/VILANTER 100-62.5-25 MCG ELLIPTA 1 PUFF INHALATION (08:29)
--- NOTE | 2025-06-16 09:28 | P.CDI_ITS ---
CDI Query Clarification Request Documented possible acute on chronic 1)Please specify acuity of heart failure if known. * Acute * Chronic * Acute on Chronic * Unknown Assessment and Plan (1) COPD (chronic obstructive pulmonary disease): Qualifiers: COPD type: unspecified COPD Qualified Code(s): J44.9 - Chronic obstructive pulmonary disease, unspecified Code(s): J44.9 - Chronic obstructive pulmonary disease, unspecified Status: Acute (2) Shortness of breath: Code(s): R06.02 - Shortness of breath Status: Acute (3) Pulmonary nodules: Code(s): R91.8 - Other nonspecific abnormal finding of lung field Status: Acute (4) Pneumonia: Qualifiers: Laterality: left Lung location: lower lobe of lung Pneumonia type: due to unspecified organism Qualified Code(s): J18.9 - Pneumonia, unspecified organism Code(s): J18.9 - Pneumonia, unspecified organism Status: Acute (5) Pleural effusion: Code(s): J90 - Pleural effusion, not elsewhere classified Status: Acute Plan The patient is a 84-year-old male who presented with shortness of breath no chest pain. History of emphysema. EMS noted his SpO2 in high 80s improved to 91% with application of CPAP. Noted to have crackles on examination. In the ED patient with borderline febrile mild hypertension and tachypnea. Patient received IV fluid resuscitation broad-spectrum antibiotics with vancomycin cefepime azithromycin. He also received DuoNeb. Laboratory studies showed mild leukocytosis no anemia thrombocytopenia. Urinalysis positive for UTI. Drug screen was positive for opiates on chronic narcotic therapy at home. Mildly elevated [place] [address]. Influenza COVID RSV swab was negative. Lactate was elevated on admission at 3.3 ABG 7 .46/27/100/19. Chest x-ray with multifocal bilateral airspace disease. Chest CTA with aspiration pneumonia right lung much worse. Focal airspace disease right upper lobe along area of prior small pleural based nodular focus. Malignancy not excluded. Recommend short-term follow-up CT chest. Right upper lobe pleural effusion with no PE. Patient was also added on Flagyl to cover anaerobes. Will stop BiPAP wean oxygen as tolerated off BiPAP now. Recheck ABG 06/14 reviewed Elevated BNP with possible acute on chronic diastolic dysfunction. Received some IV diuresis on admission now off. Possible aspiration pneumonia seen by speech therapist and does not suspect aspiration. Add DuoNeb Leukocytosis at worsened however stable now. And improving but is still persist. Recheck UA with improved urine WBC. Recheck chest x-ray with persistent right lower lobe pneumonia. Add DuoNeb Elevated D-dimer PE study was negative CKD stage 3 slight bump in creatinine which is stable now. will continue to monitor Elevated troponin with flat trend paroxysmal atrial fibrillation new onset cardiology consulted. Anticoagulation suggested by Cardiology started on Eliquis Grade 1 diastolic dysfunction Moderate aortic valve stenosis. UTI urine cultures no growth 06/07 BNP 15,400 06/09 BNP 6260 IV Lasix received
[2025-06-16] MEDS: CALCIUM CARBONATE (TUMS) 500 MG (200 MG ELEMENTAL) 600 MG BY MOUTH (09:34)
[2025-06-16] MEDS: ASCORBIC ACID 500 MG TABLET PO (09:34)
[2025-06-16] MEDS: OMEGA 3 POLYUNSAT FATTY ACIDS 1 GM CAP 2 GM PO (09:35)
[2025-06-16] MEDS: THERAPEUTIC MULTIVITAMINS/MINERALS TAB (*BKC) 1 TABLET PO (09:35)
[2025-06-16] MEDS: ASPIRIN 81 MG CHEWABLE TABLET PO (09:35)
[2025-06-16] MEDS: VITAMIN B COMPLEX CAPSULE 1 CAP PO (09:35)
[2025-06-16] MEDS: HYDROcodone/acetaminophen (*CRX) 5-325 MG TABLET 1 TAB PO (09:35)
[2025-06-16] MEDS: VERAPAMIL HCL 240 MG ER TABLET BY MOUTH (09:35)
[2025-06-16] MEDS: CHOLECALCIFEROL (VITAMIN D3) 125 MCG (5,000 UNITS) TABLET PO (09:36)
[2025-06-16] MEDS: SIMVASTATIN 20 MG TABLET BY MOUTH (09:36)
[2025-06-16] MEDS: APIXABAN 5 MG TABLET PO ×2 (09:36→22:22)
--- NOTE | 2025-06-16 14:57 | P.PNIM_ITS ---
Progress Note: A&P Assessment and Plan (1) Pneumonia: Qualifiers: Laterality: left Lung location: lower lobe of lung Pneumonia type: due to unspecified organism Qualified Code(s): J18.9 - Pneumonia, unspecified organism Code(s): J18.9 - Pneumonia, unspecified organism Status: Acute (2) COPD (chronic obstructive pulmonary disease): Qualifiers: COPD type: unspecified COPD Qualified Code(s): J44.9 - Chronic obstructive pulmonary disease, unspecified Code(s): J44.9 - Chronic obstructive pulmonary disease, unspecified Status: Acute (3) Shortness of breath: Code(s): R06.02 - Shortness of breath Status: Acute (4) Pulmonary nodules: Code(s): R91.8 - Other nonspecific abnormal finding of lung field Status: Acute (5) Pleural effusion: Code(s): J90 - Pleural effusion, not elsewhere classified Status: Acute Plan The patient is a 84-year-old male who presented with shortness of breath no chest pain. History of emphysema. EMS noted his SpO2 in high 80s improved to 91% with application of CPAP. Noted to have crackles on examination. In the ED patient with borderline febrile mild hypertension and tachypnea. Patient received IV fluid resuscitation broad-spectrum antibiotics with vancomycin cefepime azithromycin. He also received DuoNeb. Laboratory studies showed mild leukocytosis no anemia thrombocytopenia. Urinalysis positive for UTI. Drug screen was positive for opiates on chronic narcotic therapy at home. Mildly elevated [place] [address]. Influenza COVID RSV swab was negative. Lactate was elevated on admission at 3.3 ABG 7.46/27/100/19. Chest x-ray with multifocal bilateral airspace disease. Chest CTA with aspiration pneumonia right lung much worse. Focal airspace disease right upper lobe along area of prior small pleural based nodular focus. Malignancy not excluded. Recommend short-term follow-up CT chest. Right upper lobe pleural effusion with no PE. Patient was also added on Flagyl to cover anaerobes. Will stop BiPAP wean oxygen as tolerated off BiPAP now. Recheck ABG 06/14 reviewed Elevated BNP with possible acute on chronic diastolic dysfunction. Received some IV diuresis on admission now off. Possible aspiration pneumonia seen by speech therapist and does not suspect aspiration. Add DuoNeb Leukocytosis at worsened however stable now. And improving but is still persist. Recheck UA with improved urine WBC. Recheck chest x-ray with persistent right lower lobe pneumonia. Add DuoNeb Elevated D-dimer PE study was negative CKD stage 3 slight bump in creatinine which is stable now. will continue to monitor Elevated troponin with flat trend paroxysmal atrial fibrillation new onset cardiology consulted. Anticoagulation suggested by Cardiology started on Eliquis Grade 1 diastolic dysfunction Moderate aortic valve stenosis. UTI urine cultures no growth 06/15: Sputum Cx with light growth of vianca but not felt to be clinically significant. UCx (06/13) negative. He completed 7 days of IV abx so will stop. He is more confused but may have mild underlying confusion per . Echo showing moderate-severe but unchnged from earlier this year. This will need to ne followed as outpatient. TSH okay in February. B12/folate normal. here. No focal weakness to suggest CVA. He is on hydrocodone but takes this at home. Will cut dose back. 06/16: He remains on room air. No evidence of CO2 retention. CXR showing p ersistent bilateral airspace opacities with consolidation but no change form 06/13 CXR. He has completed 7 days of abx. WBC still elevated but unchanged. Recent UCx (06/13) negative. CT Head showing no acute findings. He is on chronic narcotics at home but dose decreased here. Miralax added for constipation. No other medications felt to cause mental status changes. Consider related to prolonged hospital stay. Continue PT/OT. DVT prophylaxis Eliquis Code status full code Disposition: Plan for [facility] or SNF placement Subjective Date/time seen: 06/16/25 14:57 Interval history: 84yo male PVD, COPD, DM and HTN here for SOB. Patient is more confused today. Hx unreliable. No family in the room. Exam Narrative: AF 96.9 130/76 92 18 93% ra Gen - NARD HEENT - no thrush Chest - lungs clear anteriorly CV - RRR S1/S2 with 2/6 systolic murmur Abd - Soft, obese, NT Ext - trace pedal edema Neuro - Alert and oriented to month only. No focal weakness. Follows commands. Speech clear. Psych - Nml mood and affect Skin - Warm and dry Objective Data Vital Signs Vital Signs: Vital Signs - 24 hr 06/15/25 16:08 06/15/25 20:20 06/15/25 21:18 Temperature 98.8 F 98.2 F Pulse Rate 92 89 Respiratory Rate 22 H 22 H Blood Pressure 141/71 H 159/78 H Pulse Oximetry 90 92 Oxygen Delivery Room Air 06/15/25 21:21 06/16/25 02:24 06/16/25 04:30 Temperature 98.1 F Pulse Rate 80 94 91 Respiratory Rate 16 18 20 Blood Pressure 143/80 H Pulse Oximetry 93 Oxygen Delivery 06/16/25 08:31 06/16/25 08:32 06/16/25 08:41 Temperature Pulse Rate 91 103 H Respiratory Rate 18 18 Blood Pressure Pulse Oximetry 93 Oxygen Delivery Room Air Intake/Output Intake/Output: Intake & Output 06/13/25 06/14/25 06/15/25 06/16/25 23:59 23:59 23:59 23:59 Intake Total 1350 1790 1308 1134 Output Total 1150 900 Balance 1350 1790 158 234 Meds/Results Medications: Active Medications Generic Name Dose Route Start Last Admin Trade Name Freq PRN Reason Stop Dose Admin Acetaminophen 650 mg 06/08/25 02:34 Acetaminophen 325 Mg Tablet PO Q4H PRN Mild Pain (1-3) or Fever Hydrocodone Bitart/Acetaminophen 1 tab 06/08/25 16:23 06/15/25 00:10 Hydrocodone/Acetaminophen (*Crx) 10-325 Mg Tablet PO 1 tab On Hold: 06/15/25 21:43 Q8H PRN Administration Pain Hydrocodone Bitart/Acetaminophen 1 tab 06/15/25 21:42 06/16/25 09:35 Hydrocodone/Acetaminophen (*Crx) 5-325 Mg Tablet PO 1 tab Q6H PRN Administration Pain Rated 6 or Greater Albuterol 1 puff 06/08/25 16:23 06/12/25 21:42 Albuterol Sulfate (*Sp) Aerosol 1 Puff INHALATION 1 puff Q4H PRN Administration Shortness Of Breath Or Wheezing Albuterol/Ipratropium 3 ml 06/13/25 14:00 06/16/25 14:55 Ipratropium 0.5 Mg/Albuterol Sulfate 2.5 Mg (Base) Ampul.Neb 3 Ml INHALATION 3 ml Q6HRT JOSE C Administration Apixaban 5 mg 06/11/25 21:00 06/16/25 09:36 Apixaban 5 Mg Tablet PO 5 mg Q12HR JOSE C Administration Ascorbic Acid 500 mg 06/09/25 09:00 06/16/25 09:34 Ascorbic Acid 500 Mg Tablet PO 500 mg DAILY JOSE C Administration Aspirin 81 mg 06/09/25 09:00 06/16/25 09:35 Aspirin 81 Mg Chewable Tablet PO 81 mg DAILY JOSE C Administration Calcium Carbonate 600 mg 06/09/25 09:00 06/16/25 09:34 Calcium Carbonate (Tums) 500 Mg (200 Mg Elemental) BY MOUTH 600 mg DAILY JOSE C Administration Cilostazol 100 mg 06/08/25 17:00 06/16/25 09:36 Cilostazol 100 Mg Tablet BY MOUTH 100 mg BIDWM JOSE C Administration Dextrose 12.5 gm 06/09/25 10:16 Dextrose 50% 25 Gm/50 Ml Syringe IV PUSH PRN PRN Hypoglycemia Protocol Fish Oil 2 gm 06/09/25 09:00 06/16/25 09:35 [place] 3 Polyunsat Fatty Acids 1 Gm Cap PO 2 gm DAILY JOSE C Administration Fluticasone/Umeclidinium/Vilanterol 1 puff 06/09/25 09:00 06/16/25 08:29 Fluticasone/Umeclidin/Vilanter 100-62.5-25 Mcg Ellipta INHALATION 1 puff DAILY JOSE C Administration Glucagon 1 mg 06/09/25 10:16 Glucagon For Inj 1 Mg Vial IM PRN PRN Hypoglycemia Protocol Glucose 15 gm 06/09/25 10:16 Glucose Oral Gel 15 Gm Of Glucse In 37.5 Gm Tube PO PRN PRN Hypoglycemia Protocol Dextrose 1,000 mls @ 100 mls/hr 06/09/25 10:16 Dextrose 5% 1,000 Ml IVPB PRN PRN Hypoglycemia Protocol Insulin Aspart 2 - 5 units 06/09/25 12:00 06/15/25 16:55 Insulin Aspart (*Bkc) 100 Units/Ml SUB-Q Not Given TIDWM [facility] Protocol Insulin Aspart 1 - 2 units 06/09/25 21:00 06/15/25 21:16 Insulin Aspart (*Bkc) 100 Units/Ml SUB-Q Not Given HS JOSE C Protocol Multivitamins/Calcium 1 tablet 06/09/25 09:00 06/16/25 09:35 Therapeutic Multivitamins/Minerals Tab (*Bkc) PO 1 tablet DAILY JOSE C Administration Simvastatin 20 mg 06/08/25 16:25 06/16/25 09:36 Simvastatin 20 Mg Tablet BY MOUTH 20 mg DAILY OJSE C Administration Verapamil HCl 240 mg 06/09/25 09:00 06/16/25 09:35 Verapamil Hcl 240 Mg Er Tablet BY MOUTH 240 mg DAILY JOSE C Administration Vitamin B Complex 1 cap 06/09/25 09:00 06/16/25 09:35 Vitamin B Complex Capsule PO 1 cap DAILY JOSE C Administration Vitamin D 125 mcg 06/09/25 09:00 06/16/25 09:36 Cholecalciferol (Vitamin D3) 125 Mcg (5,000 Units) Tablet PO 125 mcg DAILY JOSE C Administration Radiology Results: ITS Impressions Chest CTA 06/08/25 06:10 IMPRESSION: 1. Aspiration pneumonia, right lung much worse. 2. Focal airspace disease right upper lobe, along area of prior small pleural- based nodular focus. Malignancy not excluded. Recommend short interval follow-up CT chest. 3. Right upper lobe pleural effusion. 4. No PE. Chest X-Ray 06/13/25 13:18 IMPRESSION: 1. No significant change with persistent aspiration pneumonia, right lung worse. Labs Labs: Laboratory Results - last 24 hr 06/15/25 06/15/25 06/15/25 06:31 16:21 20:22 WBC RBC Hgb Hct MCV MCH MCHC RDW Plt Count MPV Sodium Potassium Chloride Carbon Dioxide Anion Gap BUN Creatinine Estim Creat Clear Calc Estimated GFR Glucose POC Capillary Glucose 148 H 145 H Calcium Magnesium Vitamin B12 583.0 Folate > 20.0 H 06/16/25 06/16/25 06/16/25 06:12 07:41 11:26 WBC 12.9 H RBC 3.75 L Hgb 11.1 L Hct 34.3 L MCV 91.5 MCH 29.6 MCHC 32.4 RDW 13.7 Plt Count 379 H MPV 8.8 Sodium 137 Potassium 3.9 Chloride 108 H Carbon Dioxide 22 Anion Gap 7 BUN 21 H Creatinine 0.71 Estim Creat Clear Calc 96 Estimated GFR > 60 Glucose 109 POC Capillary Glucose 108 H 150 H Calcium 8.9 Magnesium 1.9 Vitamin B12 Folate
[2025-06-16] MEDS: BISACODYL 10 MG SUPPOSITORY RECTAL (23:24)
[2025-06-17] VITALS (12 sets, daily range): BP systolic 137–151; BP diastolic 67–83; PULSE 76–95; RESP 17–22; TEMP 36.5–36.7; O2SAT 92–94
[2025-06-17] MEDS: IPRATROPIUM 0.5 MG/ALBUTEROL SULFATE 2.5 MG (BASE) AMPUL.NEB 3 ML INHALATION ×4 (01:42→20:57)
[2025-06-17 06:45] LABS: Hematocrit 32.8 % (42.0-52.0); Hemoglobin 10.5 g/dL (14.0-18.0); Immature Granulocyte Percent A 0.8 % (0-0.5); Lymphocytes Absolute Auto 1.38 K/mm3 (0.9-3.2); Mean Corpuscular HGB Conc 32.0 g/dl (32-36); Mean Corpuscular Hemoglobin 29.2 pg (26-34); Mean Corpuscular Volume 91.1 fl (80-100); Nucleated Red Blood Cells Absolute Auto 0.000 K/mm3 (0.0-0.012); Nucleated Red Blood Cells Perc 0.0 % (0.0-0.2); Platelet Count Result 399 k/mm3 (150-375); Red Blood Count 3.60 M/mm3 (4.6-6.20); White Blood Count 11.5 K/mm3 (4.5-10.0)
[2025-06-17 07:12] LABS: Alanine Aminotransferase 34 U/L (6-50); Albumin Level 3.0 g/dL (3.5-5.1); Alkaline Phosphatase 66 U/L (38-126); Anion Gap 6 mmol/L (4-12); Aspartate Amino Transferase 42 U/L (17-59); Bilirubin,Total 0.5 mg/dL (0.2-1.3); Blood Urea Nitrogen 22 mg/dL (9-20); Calcium 9.0 mg/dL (8.4-10.2); Carbon Dioxide 22 mmol/L (22-30); Chloride 109 mmol/L (98-107); Estimated CRCL calculation 92 ml/min; Estimated Glomerular Filt Rate > 60; Glucose 106 mg/dL (65-110); Magnesium 2.0 mg/dL (1.6-2.3); Potassium 3.9 mmol/L (3.4-5.0); Sodium 137 mmol/L (137-145); Total Protein 6.3 g/dL (6.3-8.2)
[2025-06-17] MEDS: FLUTICASONE/UMECLIDIN/VILANTER 100-62.5-25 MCG ELLIPTA 1 PUFF INHALATION (08:46)
--- NOTE | 2025-06-17 10:09 | ECG_ITS ---
Test Date: 2025-06-17 10:27:25 Measurements Intervals [place] Rate: 101 P: 0 TN: 0 QRS: -7 QRSD: 170 T: 8 QT: 427 QTc: 555 Interpretive Statements ATRIAL FIBRILLATION INDETERMINATE AXIS RIGHT BUNDLE BRANCH BLOCK [120+ ms QRS DURATION, UPRIGHT V1, 40+ ms S IN I/aVL/V4/V5/V6] NONSPECIFIC T-WAVE ABNORMALITY ABNORMAL E ELECTROCARDIOGRAM Compared to ECG 06/08/2025 18:32:26 NO SIGNIFICANT CHANGE Electronically Signed On 06-17-2025 11:28:54 [employer]ITHOSTRIPPER by Don Estrada M.D.
--- NOTE | 2025-06-17 10:39 | PM.PNCARD ---
Progress Note: A&P Assessment and Plan (1) Moderate aortic stenosis: Code(s): I35.0 - Nonrheumatic aortic (valve) stenosis Status: Acute (2) Atrial fibrillation: Code(s): I48.91 - Unspecified atrial fibrillation Status: Acute Plan 84-year-old man with pneumonia also with atrial fibrillation and at least moderate to severe aortic valve stenosis. He is anticoagulated with apixaban and is hemodynamically stable. Following discharge from this his girlfriend states they would like to follow-up with us, Dr. EDWARDS to consider aortic valve replacement. I will ensure that the office is reaching out to them for follow-up after discharge. Assured the girlfriend that aortic valve replacement is not an emergency Don Estrada MD [facility] Subjective Date/time seen: Date of service: 06/17/25 10:39 Interval history: Follow-up visit in this 84-year-old man with: Atrial fibrillation of uncertain onset as well as aortic valve stenosis. He is currently hospitalized with pneumonia receiving antibiotic treatment. Patient is semi responsive his female slagger/girlfriend is in the room spoke with her at some length. Exam Const: Other: Obese elderly man in no distress moans in response to stimulation but incoherent HENMT: Mouth: Yes moist mucous membranes Eyes: Sclera: sclerae normal Neck: Neck: supple Resp: Other: Breath sounds have some central rhonchi anteriorly could not sit the patient up for posterior auscultation Cardio: Rhythm: abnormal rhythm irregularly irregular Heart sounds: Murmur heart sound present Other: Grade 2/6 systolic crescendo decrescendo murmur at the base difficult to auscultate because of rhonchorous breath sounds GI: GI Palp: Yes Soft to palpation Auscultation: normal bowel sounds Skin: General skin exam: normal color Neuro: Other: Responsive to stimulation Objective Data Vital Signs Vital Signs: Vital Signs - 24 hr 06/16/25 14:00 06/16/25 14:58 06/16/25 15:04 Temperature 36.5 C Pulse Rate 91 92 94 Respiratory Rate 20 18 18 Blood Pressure 134/71 Pulse Oximetry 93 Oxygen Delivery 06/16/25 19:55 06/16/25 20:00 06/16/25 20:43 Temperature 36.4 C Pulse Rate 93 Respiratory Rate 18 Blood Pressure 132/91 H Pulse Oximetry 93 Oxygen Delivery Room Air Room Air 06/16/25 20:43 06/16/25 20:49 06/16/25 20:50 Temperature Pulse Rate 91 93 85 Respiratory Rate 18 18 Blood Pressure Pulse Oximetry 94 Oxygen Delivery 06/17/25 01:45 06/17/25 01:50 06/17/25 04:27 Temperature 36.7 C Pulse Rate 90 91 95 Respiratory Rate 18 18 22 H Blood Pressure 150/67 H Pulse Oximetry 92 Oxygen Delivery 06/17/25 08:46 06/17/25 08:46 06/17/25 08:54 Temperature Pulse Rate 92 91 Respiratory Rate 18 Blood Pressure Pulse Oximetry 93 Oxygen Delivery Room Air Intake/Output Intake/Output: Intake & Output 06/14/25 06/15/25 06/16/25 06/17/25 23:59 23:59 23:59 23:59 Intake Total 1790 1308 1478 480 Output Total 1150 900 400 Balance 1790 158 578 80 Meds/Results Medications: Active Medications Generic Name Dose Route Start Last Admin Trade Name Freq PRN Reason Stop Dose Admin Acetaminophen 650 mg 06/08/25 02:34 Acetaminophen 325 Mg Tablet PO Q4H PRN Mild Pain (1-3) or Fever Hydrocodone Bitart/Acetaminophen 1 tab 06/08/25 16:23 06/15/25 00:10 Hydrocodone/Acetaminophen (*Crx) 10-325 Mg Tablet PO 1 tab On Hold: 06/15/25 21:43 Q8H PRN Administration Pain Hydrocodone Bitart/Acetaminophen 1 tab 06/15/25 21:42 06/16/25 09:35 Hydrocodone/Acetaminophen (*Crx) 5-325 Mg Tablet PO 1 tab Q6H PRN Administration Pain Rated 6 or Greater Albuterol 1 puff 06/08/25 16:23 06/12/25 21:42 Albuterol Sulfate (*Sp) Aerosol 1 Puff INHALATION 1 puff Q4H PRN Administration Shortness Of Breath Or Wheezing Albuterol/Ipratropium 3 ml 06/13/25 14:00 06/17/25 08:46 Ipratropium 0.5 Mg/Albuterol Sulfate 2.5 Mg (Base) Ampul.Neb 3 Ml INHALATION 3 ml Q6HRT JOSE C Administration Apixaban 5 mg 06/11/25 21:00 06/16/25 22:22 Apixaban 5 Mg Tablet PO 5 mg Q12HR JOSE C Administration Ascorbic Acid 500 mg 06/09/25 09:00 06/16/25 09:34 Ascorbic Acid 500 Mg Tablet PO 500 mg DAILY JOSE C Administration Aspirin 81 mg 06/09/25 09:00 06/16/25 09:35 Aspirin 81 Mg Chewable Tablet PO 81 mg DAILY JOSE C Administration Bisacodyl 10 mg 06/16/25 15:00 06/16/25 23:24 Bisacodyl 10 Mg Suppository RECTAL 06/18/25 09:01 10 mg QAM JOSE C Administration Calcium Carbonate 600 mg 06/09/25 09:00 06/16/25 09:34 Calcium Carbonate (Tums) 500 Mg (200 Mg Elemental) BY MOUTH 600 mg DAILY JOSE C Administration Cilostazol 100 mg 06/08/25 17:00 06/16/25 17:49 Cilostazol 100 Mg Tablet BY MOUTH 100 mg BIDWM JOSE C Administration Dextrose 12.5 gm 06/09/25 10:16 Dextrose 50% 25 Gm/50 Ml Syringe IV PUSH PRN PRN Hypoglycemia Protocol Fish Oil 2 gm 06/09/25 09:00 06/16/25 09:35 [place] 3 Polyunsat Fatty Acids 1 Gm Cap PO 2 gm DAILY JOSE C Administration Fluticasone/Umeclidinium/Vilanterol 1 puff 06/09/25 09:00 06/17/25 08:46 Fluticasone/Umeclidin/Vilanter 100-62.5-25 Mcg Ellipta INHALATION 1 puff DAILY JOSE C Administration Glucagon 1 mg 06/09/25 10:16 Glucagon For Inj 1 Mg Vial IM PRN PRN Hypoglycemia Protocol Glucose 15 gm 06/09/25 10:16 Glucose Oral Gel 15 Gm Of Glucse In 37.5 Gm Tube PO PRN PRN Hypoglycemia Protocol Dextrose 1,000 mls @ 100 mls/hr 06/09/25 10:16 Dextrose 5% 1,000 Ml IVPB PRN PRN Hypoglycemia Protocol Insulin Aspart 2 - 5 units 06/09/25 12:00 06/16/25 18:50 Insulin Aspart (*Bkc) 100 Units/Ml SUB-Q Not Given TIDWM JOSE C Protocol Insulin Aspart 1 - 2 units 06/09/25 21:00 06/16/25 21:57 Insulin Aspart (*Bkc) 100 Units/Ml SUB-Q Not Given HS [facility] Protocol Multivitamins/Calcium 1 tablet 06/09/25 09:00 06/16/25 09:35 Therapeutic Multivitamins/Minerals Tab (*Bkc) PO 1 tablet DAILY JOSE C Administration Polyethylene Glycol 17 gm 06/16/25 15:00 06/16/25 17:49 Polyethylene Glycol 3350 17 Gm Powd.Pack PO 17 gm QAM JOSE C Administration Simvastatin 20 mg 06/08/25 16:25 06/16/25 09:36 Simvastatin 20 Mg Tablet BY MOUTH 20 mg DAILY JOSE C Administration Verapamil HCl 240 mg 06/09/25 09:00 06/16/25 09:35 Verapamil Hcl 240 Mg Er Tablet BY MOUTH 240 mg DAILY JOSE C Administration Vitamin B Complex 1 cap 06/09/25 09:00 06/16/25 09:35 Vitamin B Complex Capsule PO 1 cap DAILY JOSE C Administration Vitamin D 125 mcg 06/09/25 09:00 06/16/25 09:36 Cholecalciferol (Vitamin D3) 125 Mcg (5,000 Units) Tablet PO 125 mcg DAILY JOSE C Administration Radiology Results: ITS Impressions Chest CTA 06/08/25 06:10 IMPRESSION: 1. Aspiration pneumonia, right lung much worse. 2. Focal airspace disease right upper lobe, along area of prior small pleural-based nodular focus. Malignancy not excluded. Recommend short interval follow-up CT chest. 3. Right upper lobe pleural effusion. 4. No PE. Chest X-Ray 06/16/25 16:48 IMPRESSION: 1. Persistent bilateral airspace opacities of lungs with consolidation, right more than the left. No significant change from 06/13/2025. Head CT 06/16/25 18:32 IMPRESSION: 1. No acute findings in the limited noncontrast CT head. Labs Labs: Laboratory Results - last 24 hr 06/16/25 06/16/25 06/16/25 11:26 16:27 20:36 WBC RBC Hgb Hct MCV MCH MCHC RDW Plt Count MPV Immature Gran % (Auto) Neut % (Auto) Lymph % (Auto) [place] % (Auto) Eos % (Auto) Baso % (Auto) Lymph # (Auto) [place] # (Auto) Eos # (Auto) Baso # (Auto) Abs Immat Gran (auto) Absolute Neuts (auto) Absolute Nucleated RBC Nucleated RBC % Sodium Potassium Chloride Carbon Dioxide Anion Gap BUN Creatinine Estim Creat Clear Calc Estimated GFR Glucose POC Capillary Glucose 150 H 135 H 124 H Calcium Phosphorus Magnesium Total Bilirubin AST ALT Alkaline Phosphatase Total Protein Albumin 06/17/25 06/17/25 06:14 07:30 WBC 11.5 H RBC 3.60 L Hgb 10.5 L Hct 32.8 L MCV 91.1 MCH 29.2 MCHC 32.0 RDW 13.8 Plt Count 399 H MPV 8.9 Immature Gran % (Auto) 0.8 H Neut % (Auto) 77.2 H Lymph % (Auto) 12.0 L [place] % (Auto) 7.4 Eos % (Auto) 2.0 Baso % (Auto) 0.6 Lymph # (Auto) 1.38 [place] # (Auto) 0.9 H Eos # (Auto) 0.2 Baso # (Auto) 0.1 Abs Immat Gran (auto) 0.09 H Absolute Neuts (auto) 8.9 H Absolute Nucleated RBC 0.000 Nucleated RBC % 0.0 Sodium 137 Potassium 3.9 Chloride 109 H Carbon Dioxide 22 Anion Gap 6 BUN 22 H Creatinine 0.74 Estim Creat Clear Calc 92 Estimated GFR > 60 Glucose 106 POC Capillary Glucose 113 H Calcium 9.0 Phosphorus 3.9 Magnesium 2.0 Total Bilirubin 0.5 AST 42 ALT 34 Alkaline Phosphatase 66 Total Protein 6.3 Albumin 3.0 L
[2025-06-17 10:42] LABS: Alveolar/Arterial O2 Gradient 54.7 mmHg; Fractional Inspired Oxygen 21 %; HCO3 ABG 19.8 mEq/l (22.0-26.0); Modified Allen's Test Pass; Oxygen Content ABG 15.0 %vol (16.0-22.0); Oxygen Saturation ABG 93.4 % (95.0-100.0); PCO2 ABG 27.8 mmHg (35.0-45.0); PO2 ABG 61.7 mmHg (80.0-100.0); PO2 FiO2 Ratio Arterial Blood 2.94 %; Site Drawn LEFT RADIAL
[2025-06-17] MEDS: ASPIRIN 81 MG CHEWABLE TABLET PO (10:53)
[2025-06-17] MEDS: BISACODYL 10 MG SUPPOSITORY RECTAL (10:54)
[2025-06-17] MEDS: CALCIUM CARBONATE (TUMS) 500 MG (200 MG ELEMENTAL) 600 MG BY MOUTH (10:54)
[2025-06-17] MEDS: ASCORBIC ACID 500 MG TABLET PO (10:55)
[2025-06-17] MEDS: SIMVASTATIN 20 MG TABLET BY MOUTH (10:55)
[2025-06-17] MEDS: OMEGA 3 POLYUNSAT FATTY ACIDS 1 GM CAP 2 GM PO (10:55)
[2025-06-17] MEDS: VERAPAMIL HCL 240 MG ER TABLET BY MOUTH (10:55)
[2025-06-17] MEDS: APIXABAN 5 MG TABLET PO ×2 (10:55→22:29)
[2025-06-17] MEDS: CHOLECALCIFEROL (VITAMIN D3) 125 MCG (5,000 UNITS) TABLET PO (10:55)
[2025-06-17] MEDS: THERAPEUTIC MULTIVITAMINS/MINERALS TAB (*BKC) 1 TABLET PO (10:55)
[2025-06-17] MEDS: VITAMIN B COMPLEX CAPSULE 1 CAP PO (10:55)
--- NOTE | 2025-06-17 11:43 | PCNFU ---
Nutrition Follow-Up Complete: Unintentional weight loss related to chronic increased energy needs from COPD, loss of appetite as evidenced by weight loss 9%/4 months Goal:Intakes >75% Pt slowly progressing to goal, continue with same goal Pt current nutrition is Heart healthy, Diabetic, Glucerna shakes BID. Nutrition recommendation: encourage po intake Last recorded weight is 124.5 kg. Bowel Motility: +BM 06/17 Labs Reviewed: Hgb:10.5, HCT:32.8, BUN:22, Glu:113 Meds Noted: MVI, vit C, eliquis, novolog Skin: WNL Additional Notes: Pt continues on a heart healthy diabetic diet, intake varied from 10-75%. Pt also on glucerna shakes BID. Encourage intake, agree with orders. Monitoring intakes, weights, labs, supplement tolerance, output, meds, plan of care FOllow up in 5 days
--- NOTE | 2025-06-17 13:26 | PM.IMPN ---
Progress Note: A&P Assessment and Plan (1) Pneumonia: Qualifiers: Laterality: left Lung location: lower lobe of lung Pneumonia type: due to unspecified organism Qualified Code(s): J18.9 - Pneumonia, unspecified organism Code(s): J18.9 - Pneumonia, unspecified organism Status: Acute Assessment and Plan: Patient presented with shortness of breath but no chest pain. EMS noted hypoxia that improved with CPAP. Influenza, RSA and COVID negative. Mycoplasma IgM negative. Lactic 3.9. WBC 11.2K. Temp initially was 96.3 but climbed to 100.7 CXR showing multifocal bilateral airspace disease. Patient received fluid resuscitation and vancomycin, cefepime, azithromycin. DDimer positive -> CTA chest showing aspiration PNA R>L with Near-complete consolidation RLL; Right upper lobe effusion; Focal airspace disease anterior right upper lobe along area of prior small pleural-based nodular focus (consider malignancy). Small airspace disease left lower lobe. BCx negative. UCx negative. Urine Step and Legionella negative. Sputum grew light growth of Jazmin dubliniensis. Vanco once on 06/08; MRSA nasal swab negative Cefepime 06/07 - 06/15. Azithro 06/07-06/11 Bedside swallow evaluation 06/09 was normal. He completed 7 days of IV abx. Still concern for persistent pneumonia. Chest x-ray today shows persistent bibasilar airspace disease and small right apical component. White count still elevated. Patient with altered mental status. Speech therapy re-evaluated. Modified barium swallow shows patient requires minced and moist with level to thickened liquids. Will restart antibiotics in the form of Unasyn. Adjust diet. Continue CPT. Continue bronchodilators. Consider repeating CT (2) Sepsis: Code(s): A41.9 - Sepsis, unspecified organism Status: Acute Assessment and Plan: Present admission with lactic acidosis, leukocytosis fever. Related to pneumonia As above (3) AMS (altered mental status): Code(s): R41.82 - Altered mental status, unspecified Status: Acute Assessment and Plan: Patient has developed confusion, Drug screen was positive for opiates on chronic narcotic therapy at home. CT the brain showing no acute findings. TSH okay in February. B12/folate normal here. Urine culture repeated and remained negative. Consider related to either underlying dementia and/or recurrent pneumonia. As above (4) Elevated troponin: Code(s): R79.89 - Other specified abnormal findings of blood chemistry Status: Acute Assessment and Plan: Mildly elevated troponin remained flat at 0.048 [place] [id number] but not felt related to CHF Echo showing moderate concentric LVH with EF of 65-70%, biatrial enlargement, moderate-severe and atrial fibrillation. Diastolic dysfunction is indeterminate. Cardiology following. [place] elevated troponins related to type 2 ID from sepsis. (5) Atrial fibrillation: Code(s): I48.91 - Unspecified atrial fibrillation Status: Acute Assessment and Plan: EKG on admission shows sinus rhythm with PACs and right bundle branch block. EKG on 06/08/2025 showing AFib with RVR rate of 104, indeterminate axis and right bundle branch block. Cardiology consulted. Eliquis started. (6) COPD (chronic obstructive pulmonary disease): Qualifiers: COPD type: unspecified COPD Qualified Code(s): J44.9 - Chronic obstructive pulmonary disease, unspecified Code(s): J44.9 - Chronic obstructive pulmonary disease, unspecified Status: Acute Assessment and Plan: ABG on admission showing 7.46/28/100 on 100% FiO2 Continue bronchodilators. Continue Trelegy. He remains on room air. (7) Pulmonary nodules: Code(s): R91.8 - Other nonspecific abnormal finding of lung field Status: Acute Assessment and Plan: CTA chest showing a Right upper lobe effusion and focal airspace disease anterior right upper lobe along area of prior small pleural-based nodular focus. Consider malignancy. Plan to repeat imaging short interval after hospitalization (8) Moderate aortic stenosis: Code(s): I35.0 - Nonrheumatic aortic (valve) stenosis Status: Acute Assessment and Plan: Echo with moderate-severe aortic stenosis. This is a known finding without significant change. Cardiology follow-up patient outpatient. Plan CKD stage 3 slight bump in creatinine which is stable now. will continue to monitor DVT prophylaxis Eliquis Code status full code Disposition: Plan for [facility] or SNF placement Subjective Date/time seen: 06/17/25 13:26 Interval history: 84yo male PVD, COPD, DM and HTN here for SOB. Patient more oriented today but stil confused. Complains of feeling SOB and right sided pleuritic chest pain. He has a nonproductive cough. Exam Narrative: AF 98.1 150/67 76 18 93% ra Gen - NARD Chest - decreased BS in the right base with crackles. nml RR CV - irregularly irregular with 2/6 systolic murmur Abd - Soft, obese, NT Ext - trace pedal edema Neuro - Alert and oriented x3 but slow thought process. No focal weakness. Follows commands. Speech clear. Psych - Nml mood and affect Skin - Warm and dry Objective Data Vital Signs Vital Signs: Vital Signs - 24 hr 06/16/25 14:00 06/16/25 14:58 06/16/25 15:04 Temperature 97.7 F Pulse Rate 91 92 94 Respiratory Rate 20 18 18 Blood Pressure 134/71 Pulse Oximetry 93 Oxygen Delivery 06/16/25 19:55 06/16/25 20:00 06/16/25 20:43 Temperature 97.6 F Pulse Rate 93 Respiratory Rate 18 Blood Pressure 132/91 H Pulse Oximetry 93 Oxygen Delivery Room Air Room Air 06/16/25 20:43 06/16/25 20:49 06/16/25 20:50 Temperature Pulse Rate 91 93 85 Respiratory Rate 18 18 Blood Pressure Pulse Oximetry 94 Oxygen Delivery 06/17/25 01:45 06/17/25 01:50 06/17/25 04:27 Temperature 98.1 F Pulse Rate 90 91 95 Respiratory Rate 18 18 22 H Blood Pressure 150/67 H Pulse Oximetry 92 Oxygen Delivery 06/17/25 08:46 06/17/25 08:46 06/17/25 08:54 Temperature Pulse Rate 92 91 Respiratory Rate 18 18 Blood Pressure Pulse Oximetry 93 Oxygen Delivery Room Air 06/17/25 13:12 06/17/25 13:21 Temperature Pulse Rate 83 76 Respiratory Rate 18 18 Blood Pressure Pulse Oximetry Oxygen Delivery Intake/Output Intake/Output: Intake & Output 06/14/25 06/15/25 06/16/25 06/17/25 23:59 23:59 23:59 23:59 Intake Total 1790 1308 1478 824 Output Total 1150 900 400 Balance 1790 158 578 424 Meds/Results Medications: Active Medications Generic Name Dose Route Start Last Admin Trade Name Freq PRN Reason Stop Dose Admin Acetaminophen 650 mg 06/08/25 02:34 Acetaminophen 325 Mg Tablet PO Q4H PRN Mild Pain (1-3) or Fever Hydrocodone Bitart/Acetaminophen 1 tab 06/08/25 16:23 06/15/25 00:10 Hydrocodone/Acetaminophen (*Crx) 10-325 Mg Tablet PO 1 tab On Hold: 06/15/25 21:43 Q8H PRN Administration Pain Hydrocodone Bitart/Acetaminophen 1 tab 06/15/25 21:42 06/16/25 09:35 Hydrocodone/Acetaminophen (*Crx) 5-325 Mg Tablet PO 1 tab Q6H PRN Administration Pain Rated 6 or Greater Albuterol 1 puff 06/08/25 16:23 06/12/25 21:42 Albuterol Sulfate (*Sp) Aerosol 1 Puff INHALATION 1 puff Q4H PRN Administration Shortness Of Breath Or Wheezing Albuterol/Ipratropium 3 ml 06/13/25 14:00 06/17/25 13:11 Ipratropium 0.5 Mg/Albuterol Sulfate 2.5 Mg (Base) Ampul.Neb 3 Ml INHALATION 3 ml Q6HRT JOSE C Administration Apixaban 5 mg 06/11/25 21:00 06/17/25 10:55 Apixaban 5 Mg Tablet PO 5 mg Q12HR JOSE C Administration Ascorbic Acid 500 mg 06/09/25 09:00 06/17/25 10:55 Ascorbic Acid 500 Mg Tablet PO 500 mg DAILY JOSE C Administration Aspirin 81 mg 06/09/25 09:00 06/17/25 10:53 Aspirin 81 Mg Chewable Tablet PO 81 mg DAILY JOSE C Administration Bisacodyl 10 mg 06/16/25 15:00 06/17/25 10:54 Bisacodyl 10 Mg Suppository RECTAL 06/18/25 09:01 10 mg QAM JOSE C Administration Calcium Carbonate 600 mg 06/09/25 09:00 06/17/25 10:54 Calcium Carbonate (Tums) 500 Mg (200 Mg Elemental) BY MOUTH 600 mg DAILY JOSE C Administration Cilostazol 100 mg 06/08/25 17:00 06/17/25 10:56 Cilostazol 100 Mg Tablet BY MOUTH 100 mg BIDWM JOSE C Administration Dextrose 12.5 gm 06/09/25 10:16 Dextrose 50% 25 Gm/50 Ml Syringe IV PUSH PRN PRN Hypoglycemia Protocol Fish Oil 2 gm 06/09/25 09:00 06/16/25 09:35 Outlook 3 Polyunsat Fatty Acids 1 Gm Cap PO 2 gm DAILY JOSE C Administration Fluticasone/Umeclidinium/Vilanterol 1 puff 06/09/25 09:00 06/17/25 08:46 Fluticasone/Umeclidin/Vilanter 100-62.5-25 Mcg Ellipta INHALATION 1 puff DAILY JOSE C Administration Glucagon 1 mg 06/09/25 10:16 Glucagon For Inj 1 Mg Vial IM PRN PRN Hypoglycemia Protocol Glucose 15 gm 06/09/25 10:16 Glucose Oral Gel 15 Gm Of Glucse In 37.5 Gm Tube PO PRN PRN Hypoglycemia Protocol Dextrose 1,000 mls @ 100 mls/hr 06/09/25 10:16 Dextrose 5% 1,000 Ml IVPB PRN PRN Hypoglycemia Protocol Insulin Aspart 2 - 5 units 06/09/25 12:00 06/16/25 18:50 Insulin Aspart (*Bkc) 100 Units/Ml SUB-Q Not Given TIDWM JOSE C Protocol Insulin Aspart 1 - 2 units 06/09/25 21:00 06/16/25 21:57 Insulin Aspart (*Bkc) 100 Units/Ml SUB-Q Not Given HS JOSE C Protocol Multivitamins/Calcium 1 tablet 06/09/25 09:00 06/17/25 10:55 Therapeutic Multivitamins/Minerals Tab (*Bkc) PO 1 tablet DAILY JOSE C Administration Polyethylene Glycol 17 gm 06/16/25 15:00 06/17/25 10:53 Polyethylene Glycol 3350 17 Gm Powd.Pack PO 17 gm QAM JOSE C Administration Simvastatin 20 mg 06/08/25 16:25 06/17/25 10:55 Simvastatin 20 Mg Tablet BY MOUTH 20 mg DAILY JOSE C Administration Verapamil HCl 240 mg 06/09/25 09:00 06/17/25 10:55 Verapamil Hcl 240 Mg Er Tablet BY MOUTH 240 mg DAILY JOSE C Administration Vitamin B Complex 1 cap 06/09/25 09:00 06/17/25 10:55 Vitamin B Complex Capsule PO 1 cap DAILY JOSE C Administration Vitamin D 125 mcg 06/09/25 09:00 06/17/25 10:55 Cholecalciferol (Vitamin D3) 125 Mcg (5,000 Units) Tablet PO 125 mcg DAILY JOSE C Administration Radiology Results: ITS Impressions Chest CTA 06/08/25 06:10 IMPRESSION: 1. Aspiration pneumonia, right lung much worse. 2. Focal airspace disease right upper lobe, along area of prior small pleural-based nodular focus. Malignancy not excluded. Recommend short interval follow-up CT chest. 3. Right upper lobe pleural effusion. 4. No PE. Head CT 06/16/25 18:32 IMPRESSION: 1. No acute findings in the limited noncontrast CT head. Chest X-Ray 06/17/25 11:00 IMPRESSION: 1. No significant change for over one week now. 2. Bilateral aspiration pneumonia, right lung worse. Labs Labs: Laboratory Results - last 24 hr 06/16/25 06/16/25 06/17/25 16:27 20:36 06:14 WBC 11.5 H RBC 3.60 L Hgb 10.5 L Hct 32.8 L MCV 91.1 MCH 29.2 MCHC 32.0 RDW 13.8 Plt Count 399 H MPV 8.9 Immature Gran % (Auto) 0.8 H Neut % (Auto) 77.2 H Lymph % (Auto) 12.0 L [place] % (Auto) 7.4 Eos % (Auto) 2.0 Baso % (Auto) 0.6 Lymph # (Auto) 1.38 [place] # (Auto) 0.9 H Eos # (Auto) 0.2 Baso # (Auto) 0.1 Abs Immat Gran (auto) 0.09 H Absolute Neuts (auto) 8.9 H Absolute Nucleated RBC 0.000 Nucleated RBC % 0.0 Puncture Site ABG pH ABG pCO2 ABG pO2 ABG PO2/FiO2 Ratio ABG HCO3 ABG O2 Saturation ABG O2 Content ABG Base Excess A-a Gradient Oxyhemoglobin Total Hemoglobin O2 Delivery Device O2 Liters/Min FiO2 Sodium 137 Potassium 3.9 Chloride 109 H Carbon Dioxide 22 Anion Gap 6 BUN 22 H Creatinine 0.74 Estim Creat Clear Calc 92 Estimated GFR > 60 Glucose 106 POC Capillary Glucose 135 H 124 H Calcium 9.0 Phosphorus 3.9 Magnesium 2.0 Total Bilirubin 0.5 AST 42 ALT 34 Alkaline Phosphatase 66 Total Protein 6.3 Albumin 3.0 L 06/17/25 06/17/25 06/17/25 07:30 10:31 11:23 WBC RBC Hgb Hct MCV MCH MCHC RDW Plt Count MPV Immature Gran % (Auto) Neut % (Auto) Lymph % (Auto) [place] % (Auto) Eos % (Auto) Baso % (Auto) Lymph # (Auto) [place] # (Auto) Eos # (Auto) Baso # (Auto) Abs Immat Gran (auto) Absolute Neuts (auto) Absolute Nucleated RBC Nucleated RBC % Puncture Site Left radial ABG pH 7.470 H ABG pCO2 27.8 L ABG pO2 61.7 L ABG PO2/FiO2 Ratio 2.94 ABG HCO3 19.8 L ABG O2 Saturation 93.4 L ABG O2 Content 15.0 L ABG Base Excess -2.8 A-a Gradient 54.7 Oxyhemoglobin 90.9 Total Hemoglobin 11.7 L O2 Delivery Device Room air O2 Liters/Min Not Reportable FiO2 21 Sodium Potassium Chloride Carbon Dioxide Anion Gap BUN Creatinine Estim Creat Clear Calc Estimated GFR Glucose POC Capillary Glucose 113 H 134 H Calcium Phosphorus Magnesium Total Bilirubin AST ALT Alkaline Phosphatase Total Protein Albumin
--- NOTE | 2025-06-17 14:52 | PCSTNOTE ---
Please refer to the Modified Barium Swallow Evaluation in the EMR. The patient is a 84 year old male with history of pneumonia and acute heart failure. Orders received to complete a MBS. The patient was previously seen for a BSE on 06/09/25 without noted clinical signs of aspiration. The patient was positioned in a lateral view and presented the following consistencies: 5cc/tsp thin liquid barium, cup trials thin liquid barium, mildly thick liquid barium via cup, pudding mixed with barium paste, and cracker coated with barium paste. Oral Stage: Oral preparation and transit was viewed to be timely for all consistencies except solids. The patient was unable to effectively masticate small pieces of solid cracker coated with barium paste due to limited dentition. Pharyngeal Stage: When presented thin liquid barium via a cup laryngeal penetration was noted during the swallow secondary due to reduced laryngeal elevation. Use of a chin-tuck posture was attempted however, penetration was still noted and the patient was unable to consistently following utilizing the chin tuck posture. When presented pudding mixed with barium paste and mildly thick liquid barium via cup no aspiration or penetration was viewed. Finally, when presented cracker coated with barium paste the patient was viewed to swallow the cracker piece in whole form due to inability to fully masticate. Although no aspiration or penetration was noted with cracker pieces the bolus was at risk of becoming lodged during the swallow. No residual was viewed to remain in the valleculae or pyriform sinus across consistencies. Recommend: 1. Minced Moist Diet / Level 5 (Unless dentures are available for mastication) 2. Mildly thick liquid / Level 2 3. Upright with meals 4. Frequent Observation 5. Speech services to address laryngeal elevation and airway protection. Thank you for the consult.
--- NOTE | 2025-06-17 15:02 | PCRCNOTE ---
ABG draw time was long on stat ABG due to many things being ordered at once and had to wait in line.
--- NOTE | 2025-06-17 18:17 | PC.NURSE ---
This patient's med pass was delayed at 0900 due to pt condition. Pt working with therapy and became SOB, more confused, agitated, and respiratory rate of 30. Provider made aware; EKG, ABG and CXR ordered. Pt pulled out his IV. Aspiration pna persists despite completed course abx. ordered a second MBS; results of which caused ST to recommend minced and moist diet with mildly thick liquids. IV abx ordered to treat pna. Pt agitated, at small amount of dinner. Peering around curtain, taking pictures with cell phone, demanding to know who his neighbor ([phone]) is. Attempted pt IV unsuccessfully as pt resisting. Pt cursing and stating he refuses to be restuck at this time. Called /girlfriend to try to reassure/calm pt. Provider made aware. Will see if pt will allow IV stick before shift changes.
[2025-06-17] MEDS: AMPICILLIN SODIUM/SULBACTAM 3 GM in SODIUM CHLORIDE 0.9% IV 100 ML 200 ML IVPB (22:33)
[2025-06-18] VITALS (10 sets, daily range): BP systolic 116–133; BP diastolic 67–91; PULSE 73–87; RESP 18–20; TEMP 36.2–36.6; O2SAT 92–96
[2025-06-18] MEDS: IPRATROPIUM 0.5 MG/ALBUTEROL SULFATE 2.5 MG (BASE) AMPUL.NEB 3 ML INHALATION ×4 (02:50→21:43)
[2025-06-18] MEDS: AMPICILLIN SODIUM/SULBACTAM 3 GM in SODIUM CHLORIDE 0.9% IV 100 ML 200 ML IVPB ×4 (05:04→21:21)
[2025-06-18 05:43] LABS: Albumin Level 3.3 g/dL (3.5-5.1); Anion Gap 6 mmol/L (4-12); Blood Urea Nitrogen 22 mg/dL (9-20); Calcium 9.6 mg/dL (8.4-10.2); Carbon Dioxide 22 mmol/L (22-30); Chloride 108 mmol/L (98-107); Estimated CRCL calculation 91 ml/min; Estimated Glomerular Filt Rate > 60; Glucose 119 mg/dL (65-110); Hematocrit 33.7 % (42.0-52.0); Hemoglobin 10.6 g/dL (14.0-18.0); Immature Granulocyte Percent A 0.9 % (0-0.5); Lymphocytes Absolute Auto 1.25 K/mm3 (0.9-3.2); Magnesium 1.9 mg/dL (1.6-2.3); Mean Corpuscular HGB Conc 31.5 g/dl (32-36); Mean Corpuscular Hemoglobin 29.2 pg (26-34); Mean Corpuscular Volume 92.8 fl (80-100); Nucleated Red Blood Cells Absolute Auto 0.000 K/mm3 (0.0-0.012); Nucleated Red Blood Cells Perc 0.0 % (0.0-0.2); Platelet Count Result 435 k/mm3 (150-375); Potassium 4.0 mmol/L (3.4-5.0); Red Blood Count 3.63 M/mm3 (4.6-6.20); Sodium 136 mmol/L (137-145); White Blood Count 11.5 K/mm3 (4.5-10.0)
[2025-06-18 06:13] LABS: Procalcitonin 0.2 ng/mL
[2025-06-18] MEDS: FLUTICASONE/UMECLIDIN/VILANTER 100-62.5-25 MCG ELLIPTA 1 PUFF INHALATION (07:22)
[2025-06-18] MEDS: THERAPEUTIC MULTIVITAMINS/MINERALS TAB (*BKC) 1 TABLET PO (10:14)
[2025-06-18] MEDS: OMEGA 3 POLYUNSAT FATTY ACIDS 1 GM CAP 2 GM PO (10:14)
[2025-06-18] MEDS: CHOLECALCIFEROL (VITAMIN D3) 125 MCG (5,000 UNITS) TABLET PO (10:14)
[2025-06-18] MEDS: ASCORBIC ACID 500 MG TABLET PO (10:14)
[2025-06-18] MEDS: ASPIRIN 81 MG CHEWABLE TABLET PO (10:15)
[2025-06-18] MEDS: CALCIUM CARBONATE (TUMS) 500 MG (200 MG ELEMENTAL) 600 MG BY MOUTH (10:15)
[2025-06-18] MEDS: VITAMIN B COMPLEX CAPSULE 1 CAP PO (10:16)
[2025-06-18] MEDS: SIMVASTATIN 20 MG TABLET BY MOUTH (10:16)
[2025-06-18] MEDS: VERAPAMIL HCL 240 MG ER TABLET BY MOUTH (10:16)
[2025-06-18] MEDS: APIXABAN 5 MG TABLET PO ×2 (10:16→21:21)
[2025-06-18 12:07] LABS: MRSA (PCR) NOT DETECTED (NOT DETECTE)
--- NOTE | 2025-06-18 12:37 | P.PNIM_ITS ---
Progress Note: A&P Assessment and Plan (1) Pneumonia: Qualifiers: Laterality: left Lung location: lower lobe of lung Pneumonia type: due to unspecified organism Qualified Code(s): J18.9 - Pneumonia, unspecified organism Code(s): J18.9 - Pneumonia, unspecified organism Status: Acute Assessment and Plan: Patient presented with shortness of breath but no chest pain. EMS noted hypoxia that improved with CPAP. Influenza, RSA and COVID negative. Mycoplasma IgM negative. Lactic 3.9. WBC 11.2K. Temp initially was 96.3 but climbed to 100.7 CXR showing multifocal bilateral airspace disease. Patient received fluid resuscitation and vancomycin, cefepime, azithromycin. DDimer positive -> CTA chest showing aspiration PNA R>L with Near-complete consolidation RLL; Right upper lobe effusion; Focal airspace disease anterior right upper lobe along area of prior small pleural-based nodular focus (consider malignancy). Small airspace disease left lower lobe. BCx negative. UCx negative. Urine Step and Legionella negative. Sputum grew light growth of Jazmin dubliniensis. Vanco once on 06/08; MRSA nasal swab negative Cefepime 06/07 - 06/15. Azithro 06/07-06/11 Bedside swallow evaluation 06/09 was normal. He completed 7 days of IV abx. Still concern for persistent pneumonia. Repeat CXR 06/17 shows persistent bibasilar airspace disease and small right apical component. White count still elevated. Patient with altered mental status. Speech therapy with MBS shows patient requires minced and moist with level 2 thickened liquids. PCT 0.2. Lactic normal. WBC 11.8K. Diet adjusted. Unasyn started 06/17. Continue CPT. Continue bronchodilators. Lasix IV once for edema. Consider repeating CT chest. (2) Sepsis: Code(s): A41.9 - Sepsis, unspecified organism Status: Acute Assessment and Plan: Present admission with lactic acidosis, leukocytosis fever. Related to pneumonia As above (3) AMS (altered mental status): Code(s): R41.82 - Altered mental status, unspecified Status: Acute Assessment and Plan: Patient has developed confusion, Drug screen was positive for opiates on chronic narcotic therapy at home. CT the brain showing no acute findings. TSH okay in February. B12/folate normal here. Urine culture repeated and remained negative. Consider related to either underlying dementia and/or recurrent pneumonia. As above. Continue to follow (4) Elevated troponin: Code(s): R79.89 - Other specified abnormal findings of blood chemistry Status: Acute Assessment and Plan: Mildly elevated troponin remained flat [place] 0.048 [place] [address] but not felt related to CHF Echo showing moderate concentric LVH with EF of 65-70%, biatrial enlargement, moderate-severe and atrial fibrillation. Diastolic dysfunction is indeterminate. Cardiology following. [place] elevated troponins related to type 2 [place] from sepsis. (5) Atrial fibrillation: Code(s): I48.91 - Unspecified atrial fibrillation Status: Acute Assessment and Plan: EKG on admission shows sinus rhythm with PACs and right bundle branch block. EKG on 06/08/2025 showing AFib with RVR rate of 104, indeterminate axis and right bundle branch block. Cardiology consulted. Eliquis started. (6) COPD (chronic obstructive pulmonary disease): Qualifiers: COPD type: unspecified COPD Qualified Code(s): J44.9 - Chronic obstructive pulmonary disease, unspecified Code(s): J44.9 - Chronic obstructive pulmonary disease, unspecified Status: Acute Assessment and Plan: ABG on admission showing 7.46/28/100 on 100% FiO2. Weaned to room air. He remains on room air. Continue bronchodilators. Continue Trelegy. (7) Pulmonary nodules: Code(s): R91.8 - Other nonspecific abnormal finding of lung field Status: Acute Assessment and Plan: CTA chest showing a Right upper lobe effusion and focal airspace disease anterior right upper lobe along area of prior small pleural-based nodular focus. Consider malignancy. Plan to repeat imaging short interval after hospitalization (8) Moderate aortic stenosis: Code(s): I35.0 - Nonrheumatic aortic (valve) stenosis Status: Acute Assessment and Plan: Echo with moderate-severe aortic stenosis. This is a known finding without significant change. Cardiology follow-up patient outpatient. Plan CKD stage 3 slight bump in creatinine which is stable now. will continue to monitor DVT prophylaxis Eliquis Code status full code Disposition: Plan for [facility] or SNF placement Subjective Date/time seen: 06/18/25 12:37 Interval history: 84yo male PVD, COPD, DM and HTN here for SOB. Patient somewhat oriented. He slept off and on. No chest pain. Feels short of breath. No nausea or vomiting. No pleuritic chest pain. Exam 2 Narrative: AF 97.8 131/67 83 20 95% ra Gen - NARD Chest - decreased BS in the right base. nml RR. No egophony CV - IRR with 2/6 systolic murmur Abd - Soft, obese, NT Ext - 1+ pedal edema Neuro - Alert and oriented x3 (not year) but talks about things being stolen. Speech clear. Psych - Nml mood and affect. remains calm Skin - Warm and dry Objective Data Vital Signs Vital Signs: Vital Signs - 24 hr 06/17/25 13:12 06/17/25 13:21 06/17/25 14:00 Temperature 97.9 F Pulse Rate 83 76 83 Respiratory Rate 18 18 18 Blood Pressure 137/83 Pulse Oximetry 94 Oxygen Delivery Fraction of Inspired Oxygen 06/17/25 20:00 06/17/25 20:58 06/17/25 21:06 Temperature Pulse Rate 79 80 Respiratory Rate 18 18 Blood Pressure Pulse Oximetry Oxygen Delivery Room Air Fraction of Inspired Oxygen 06/17/25 21:07 06/17/25 22:00 06/18/25 02:51 Temperature 97.7 F Pulse Rate 78 77 Respiratory Rate 17 18 Blood Pressure 151/70 H Pulse Oximetry 94 92 Oxygen Delivery Room Air Fraction of Inspired Oxygen 06/18/25 05:49 06/18/25 07:23 06/18/25 07:23 Temperature 97.8 F Pulse Rate 87 70 Respiratory Rate 18 20 Blood Pressure 131/67 Pulse Oximetry 96 95 Oxygen Delivery Room Air Fraction of Inspired Oxygen 06/18/25 07:30 Temperature Pulse Rate 83 Respiratory Rate 20 Blood Pressure Pulse Oximetry Oxygen Delivery Fraction of Inspired Oxygen Intake/Output Intake/Output: Intake & Output 06/15/25 06/16/25 06/17/25 06/18/25 23:59 23:59 23:59 23:59 Intake Total 1308 1478 1164 340 Output Total 1150 900 650 Balance 158 578 514 340 Meds/Results Medications: Active Medications Generic Name Dose Route Start Last Admin Trade Name Freq PRN Reason Stop Dose Admin Acetaminophen 650 mg 06/08/25 02:34 Acetaminophen 325 Mg Tablet PO Q4H PRN Mild Pain (1-3) or Fever Hydrocodone Bitart/Acetaminophen 1 tab 06/08/25 16:23 06/15/25 00:10 Hydrocodone/Acetaminophen (*Crx) 10-325 Mg Tablet PO 1 tab On Hold: 06/15/25 21:43 Q8H PRN Administration Pain Hydrocodone Bitart/Acetaminophen 1 tab 06/15/25 21:42 06/16/25 09:35 Hydrocodone/Acetaminophen (*Crx) 5-325 Mg Tablet PO 1 tab Q6H PRN Administration Pain Rated 6 or Greater Albuterol 1 puff 06/08/25 16:23 06/12/25 21:42 Albuterol Sulfate (*Sp) Aerosol 1 Puff INHALATION 1 puff Q4H PRN Administration Shortness Of Breath Or Wheezing Albuterol/Ipratropium 3 ml 06/13/25 14:00 06/18/25 07:22 Ipratropium 0.5 Mg/Albuterol Sulfate 2.5 Mg (Base) Ampul.Neb 3 Ml INHALATION 3 ml Q6HRT JOSE C Administration Apixaban 5 mg 06/11/25 21:00 06/18/25 10:16 Apixaban 5 Mg Tablet PO 5 mg Q12HR JOSE C Administration Ascorbic Acid 500 mg 06/09/25 09:00 06/18/25 10:14 Ascorbic Acid 500 Mg Tablet PO 500 mg DAILY JOSE C Administration Aspirin 81 mg 06/09/25 09:00 06/18/25 10:15 Aspirin 81 Mg Chewable Tablet PO 81 mg DAILY JOSE C Administration Calcium Carbonate 600 mg 06/09/25 09:00 06/18/25 10:15 Calcium Carbonate (Tums) 500 Mg (200 Mg Elemental) BY MOUTH 600 mg DAILY JOSE C Administration Cilostazol 100 mg 06/08/25 17:00 06/18/25 10:16 Cilostazol 100 Mg Tablet BY MOUTH 100 mg BIDWM JOSE C Administration Dextrose 12.5 gm 06/09/25 10:16 Dextrose 50% 25 Gm/50 Ml Syringe IV PUSH PRN PRN Hypoglycemia Protocol Fish Oil 2 gm 06/09/25 09:00 06/18/25 10:14 [place] 3 Polyunsat Fatty Acids 1 Gm Cap PO 2 gm DAILY JOSE C Administration Fluticasone/Umeclidinium/Vilanterol 1 puff 06/09/25 09:00 06/18/25 07:22 Fluticasone/Umeclidin/Vilanter 100-62.5-25 Mcg Ellipta INHALATION 1 puff DAILY JOSE C Administration Glucagon 1 mg 06/09/25 10:16 Glucagon For Inj 1 Mg Vial IM PRN PRN Hypoglycemia Protocol Glucose 15 gm 06/09/25 10:16 Glucose Oral Gel 15 Gm Of Glucse In 37.5 Gm Tube PO PRN PRN Hypoglycemia Protocol Dextrose 1,000 mls @ 100 mls/hr 06/09/25 10:16 Dextrose 5% 1,000 Ml IVPB PRN PRN Hypoglycemia Protocol Ampicillin Sodium/Sulbactam 100 mls @ 200 mls/hr 06/17/25 16:00 06/18/25 10:23 Sodium 3 gm/ Sodium Chloride IVPB 200 mls/hr Q6H JOSE C Administration Insulin Aspart 2 - 5 units 06/09/25 12:00 06/18/25 10:17 Insulin Aspart (*Bkc) 100 Units/Ml SUB-Q Not Given TIDWM JOSE C Protocol Insulin Aspart 1 - 2 units 06/09/25 21:00 06/17/25 22:41 Insulin Aspart (*Bkc) 100 Units/Ml SUB-Q Not Given HS JOSE C Protocol Multivitamins/Calcium 1 tablet 06/09/25 09:00 06/18/25 10:14 Therapeutic Multivitamins/Minerals Tab (*Bkc) PO 1 tablet DAILY JOSE C Administration Polyethylene Glycol 17 gm 06/16/25 15:00 06/18/25 10:14 Polyethylene Glycol 3350 17 Gm Powd.Pack PO 17 gm QAM JOSE C Administration Simvastatin 20 mg 06/08/25 16:25 06/18/25 10:16 Simvastatin 20 Mg Tablet BY MOUTH 20 mg DAILY JOSE C Administration Verapamil HCl 240 mg 06/09/25 09:00 06/18/25 10:16 Verapamil Hcl 240 Mg Er Tablet BY MOUTH 240 mg DAILY JOSE C Administration Vitamin B Complex 1 cap 06/09/25 09:00 06/18/25 10:16 Vitamin B Complex Capsule PO 1 cap DAILY JOSE C Administration Vitamin D 125 mcg 06/09/25 09:00 06/18/25 10:14 Cholecalciferol (Vitamin D3) 125 Mcg (5,000 Units) Tablet PO 125 mcg DAILY JOSE C Administration Radiology Results: ITS Impressions Chest CTA 06/08/25 06:10 IMPRESSION: 1. Aspiration pneumonia, right lung much worse. 2. Focal airspace disease right upper lobe, along area of prior small pleural- based nodular focus. Malignancy not excluded. Recommend short interval follow-up CT chest. 3. Right upper lobe pleural effusion. 4. No PE. Head CT 06/16/25 18:32 IMPRESSION: 1. No acute findings in the limited noncontrast CT head. Chest X-Ray 06/17/25 11:00 IMPRESSION: 1. No significant change for over one week now. 2. Bilateral aspiration pneumonia, right lung worse. Modified Barium Swallow 06/17/25 14:11 IMPRESSION: No aspiration observed. See also speech therapist's report for complete evaluation. Labs Labs: Laboratory Results - last 24 hr 06/17/25 06/18/25 06/18/25 16:33 05:16 07:50 WBC 11.5 H RBC 3.63 L Hgb 10.6 L Hct 33.7 L MCV 92.8 MCH 29.2 MCHC 31.5 L RDW 13.8 Plt Count 435 H MPV 8.9 Immature Gran % (Auto) 0.9 H Neut % (Auto) 78.3 H Lymph % (Auto) 10.8 L [place] % (Auto) 7.4 Eos % (Auto) 1.9 Baso % (Auto) 0.7 Lymph # (Auto) 1.25 [place] # (Auto) 0.9 H Eos # (Auto) 0.2 Baso # (Auto) 0.1 Abs Immat Gran (auto) 0.10 H Absolute Neuts (auto) 9.0 H Absolute Nucleated RBC 0.000 Nucleated RBC % 0.0 Sodium 136 L Potassium 4.0 Chloride 108 H Carbon Dioxide 22 Anion Gap 6 BUN 22 H Creatinine 0.75 Estim Creat Clear Calc 91 Estimated GFR > 60 Glucose 119 H POC Capillary Glucose 118 H 120 H Lactic Acid 0.9 Calcium 9.6 Phosphorus 3.7 Magnesium 1.9 Albumin 3.3 L Procalcitonin 0.2 Nasal MRSA (PCR) 06/18/25 06/18/25 10:52 11:55 WBC RBC Hgb Hct MCV MCH MCHC RDW Plt Count MPV Immature Gran % (Auto) Neut % (Auto) Lymph % (Auto) [place] % (Auto) Eos % (Auto) Baso % (Auto) Lymph # (Auto) [place] # (Auto) Eos # (Auto) Baso # (Auto) Abs Immat Gran (auto) Absolute Neuts (auto) Absolute Nucleated RBC Nucleated RBC % Sodium Potassium Chloride Carbon Dioxide Anion Gap BUN Creatinine Estim Creat Clear Calc Estimated GFR Glucose POC Capillary Glucose 137 H Lactic Acid Calcium Phosphorus Magnesium Albumin Procalcitonin Nasal MRSA (PCR) Not detected
[2025-06-18] MEDS: FUROSEMIDE INJ 40 MG/4 ML VIAL IV PUSH (13:17)
--- NOTE | 2025-06-18 14:45 | WPDNEURCNPN ---
Assessment and Plan Assessment and plan (1) AMS (altered mental status): Code(s): R41.82 - Altered mental status, unspecified Status: Acute Assessment and Plan: It appears that he has had some degree of metabolic encephalopathy probably associated with a pneumonia and sepsis and is improving for the same. According his his baseline mental status at home is about the same her own and she thinks that he is appropriate for the age. I would suggest that today we should continue with the medical therapy for his various problems and have a evaluation in my office in 2 months time and be can go on from there regard to any issues the mental status. To some extent this will also depend upon his . Prior to admission he was appropriate at home. 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 insulin use status Diabetes mellitus complication status: without complication Qualified Code(s): E11.9 - Type 2 diabetes mellitus without complications Code(s): E11.9 - Type 2 diabetes mellitus without complications Status: Acute (4) Hearing loss: Qualifiers: Hearing loss type: unspecified Laterality: unspecified laterality Qualified Code(s): H91.90 - Unspecified hearing loss, unspecified ear Code(s): H91.90 - Unspecified hearing loss, unspecified ear Status: Acute Plan As discussed above necessary I shall be glad to se Hemoglobin A1c was 5.0 on 03/11/2025.e him for follow-up in 6-8 weeks time in my office. His white cell count still slightly high at 11.5 and hemoglobin low at 8 and 10.6. LDL done as an outpatient on 03/15/2025 was 28. I would check his B12 folic acid level and methylmalonic acid level and homocystine level Vitamin-D level. I would suggest continue with the current medical treatment. I reviewed the current list of medications and I do not see any particular medications that could cause confusional state. He is on anticoagulation for atrial fibrillation. CT scan of brain was performed which shows some generalized atrophy but no acute or new findings were noted. Consult date: 06/18/25 HPI: Santos Mcgill is a 84 year old male Who I have been asked to evaluate for altered mental status. The patient admitted to the hospital with the and pneumonia and septicemia. He has atrial fibrillation and chronic obstructive pulmonary disease. He has been on hydrocodone for chronic pain issues. There is also some issue with the acute renal failure which has now improved. His think that he is getting close to his normal self but at home he does not have any problem with the memory or overall functioning. She thinks that is the memory at home is about the same as her own and is appropriate for the age. The patient has been here since 06/07/2025. At present he denies any symptoms in both has been do not know why I am I was seeing him. According to the nursing staff he was confused in the past but he is getting better. It appears there is a concern regarding if he has any underlying dementia. Review of Systems Review of Systems: All systems reviewed & are unremarkable except as noted in HPI and below PMFSH Past Medical History Medical History Unintentional weight loss Thyroid nodule BMI 35.0-35.9,adult URI (upper respiratory infection) Right knee pain UTI (urinary tract infection) Nocturia Chronic low back pain Chest discomfort Colon cancer screening Hx of colonic polyps BMI 38.0-38.9,adult Chronic leg pain RBBB (right bundle branch block) Vitamin D deficiency Personal history of COVID-19 Hearing loss Left ankle sprain Hyperlipidemia Pneumonia BMI 37.0-37.9, adult Elevated homocysteine BMI 36.0-36.9,adult Ankle pain RLS (restless legs syndrome) On prison drug therapy Polyarticular arthritis Microscopic hematuria PVD (peripheral vascular disease) Hypersomnolence BPH (benign prostatic hyperplasia) COPD (chronic obstructive pulmonary disease) Benign essential hypertension DM type 2 (diabetes mellitus, type 2) Family History Family History Father Emphysema lung Father Family history of liver disease Family history of chronic obstructive pulmonary disease Social History Social History Smoking packs per day: 2 Smoking cigarettes per day: 40.0 Years smoked: 59 Smoking pack-years: 118.00 Smoking status: Former smoker Tobacco type: cigarettes Second hand tobacco smoke exposure: No Alcohol intake: current Drinks per week: 20 Substance use: current Substance use type: marijuana Last use: 06/06/25 Do You Feel Safe in your Home?: Yes Lack of Transportation: No Lack of Food: Never True Current Housing: I Have Housing Concerned About Future Housing: No Difficulty Paying Gas/Electric Bills: No Difficulty Paying for Meds: No Currently Unemployed: No Education: High School Diploma/GED Difficulty w/ Childcare or Family Care: No Living arrangements: with family Occupation/Education: occupation Gender identity (if verbalized by the patient): Male Spiritual care concerns: No Meds Home Medications and Allergies Home Medications ?Medication ?Instructions ?Recorded ?Confirmed ?Type omega-3 fatty acids 1,000 mg 2,000 mg PO DAILY 06/15/19 06/08/25 History capsule (Fish Oil Concentrate) ascorbate calcium (vitamin C) 500 500 mg PO DAILY 07/15/19 06/08/25 History mg tablet aspirin 81 mg chewable tablet 81 mg PO DAILY 07/15/19 06/08/25 History calcium carbonate (Calcium 600) 600 mg PO DAILY 07/15/19 06/08/25 History cholecalciferol (vitamin D3) 125 125 mcg PO DAILY 07/15/19 06/08/25 History mcg (5,000 unit) capsule egdzcwksjxyl-eyw-vzlky acid-vit 1 tablet PO DAILY 01/25/21 06/08/25 History K-lycop 400 mcg-20 mcg-370 mcg tablet (One-A-Day Men's 50 Plus (with vitamin K)) Trelegy Ellipta 100 mcg-62.5 1 inh inhalation DAILY 30 days #60 05/24/21 06/08/25 Rx mcg-25 mcg powder for inhalation ea (kltoehczfgk-otdkvlnnu-fppchphg) liisabell yennifer 1 mg BYMOUTH 1XD #90 tabs 04/04/22 06/08/25 Rx vitamin B complex 1 tablet PO DAILY 04/04/22 06/08/25 History prevagen 10 mg BYMOUTH DAILY 10/26/24 06/08/25 History hydrochlorothiazide 12.5 mg tablet See Rx Instructions .Route 02/21/25 06/08/25 Rx .COMPLEX #30 tabs simvastatin 20 mg tablet See Rx Instructions .Route 04/08/25 06/08/25 Rx .COMPLEX #90 tabs enalapril maleate 20 mg tablet See Rx Instructions .Route 04/13/25 06/08/25 Rx .COMPLEX #180 tabs metformin 500 mg tablet See Rx Instructions .Route 04/27/25 06/08/25 Rx .COMPLEX #270 tabs cilostazol 100 mg tablet See Rx Instructions .Route 05/05/25 06/08/25 Rx .COMPLEX #90 tabs albuterol sulfate 90 mcg/actuation 1 puff inhalation Q4H PRN 05/24/25 06/08/25 Rx aerosol inhaler shortness of breath or wheezing #8.5 grams tamsulosin 0.4 mg capsule See Rx Instructions .Route 05/26/25 06/08/25 Rx .COMPLEX #180 caps verapamil 240 mg tablet,extended See Rx Instructions .Route 05/26/25 06/08/25 Rx release .COMPLEX #90 tabs hydrocodone 10 mg-acetaminophen 1 tablet PO Q8H PRN pain #90 tabs 06/03/25 06/08/25 Rx 325 mg tablet Allergies Allergy/AdvReac Type Severity Reaction Status Date / Time No Known Allergies Allergy Verified 06/08/25 04:29 Vital Signs Vital Signs - 24 hr 06/17/25 20:00 06/17/25 20:58 06/17/25 21:06 Temperature Pulse Rate 79 80 Respiratory Rate 18 18 Blood Pressure Pulse Oximetry Oxygen Delivery Room Air Fraction of Inspired Oxygen 06/17/25 21:07 06/17/25 22:00 06/18/25 02:51 Temperature 97.7 F Pulse Rate 78 77 Respiratory Rate 17 18 Blood Pressure 151/70 H Pulse Oximetry 94 92 Oxygen Delivery Room Air Fraction of Inspired Oxygen 06/18/25 05:49 06/18/25 07:23 06/18/25 07:23 Temperature 97.8 F Pulse Rate 87 75 Respiratory Rate 18 20 Blood Pressure 131/67 Pulse Oximetry 96 95 Oxygen Delivery Room Air Fraction of Inspired Oxygen 21 06/18/25 07:30 06/18/25 08:00 06/18/25 13:50 Temperature Pulse Rate 83 73 Respiratory Rate 20 20 Blood Pressure Pulse Oximetry Oxygen Delivery Room Air Fraction of Inspired Oxygen 06/18/25 14:00 Temperature Pulse Rate 76 Respiratory Rate 20 Blood Pressure Pulse Oximetry Oxygen Delivery Fraction of Inspired Oxygen Exam Narrative: Fully conscious alert oriented to self time place and person. He knows the month and the year. Patient is somewhat hard of hearing. He knew the name of the hospital but only with some help and states that starts with an AE. He is able to name 5 colors. No aphasia or dysarthria. Examination head and neck was unremarkable. Cranial nerves in your testing are intact. No facial asymmetry. Tongue was midline. Other cranial normal limits. Motor system shows normal power and tone in both upper lower limbs. No involuntary movements are seen. Gait was not tested at this time. Remainder of the is unremarkable. Results Labs 06/18/25 05:16 06/18/25 05:16 Labs: Short CBC 06/18/25 Range/Units 05:16 WBC 11.5 H (4.5-10.0) K/mm3 Hgb 10.6 L (14.0-18.0) g/dL Hct 33.7 L (42.0-52.0) % Plt Count 435 H (150-375) k/mm3 BMP 06/18/25 05:16 Sodium 136 L Potassium 4.0 Chloride 108 H Carbon Dioxide 22 BUN 22 H Creatinine 0.75 Glucose 119 H Calcium 9.6 Liver Function 06/18/25 Range/Units 05:16 Albumin 3.3 L (3.5-5.1) g/dL
[2025-06-18 19:10] LABS: Vitamin B12 646.0 pg/mL (239-931)
[2025-06-18] MEDS: HYDROcodone/acetaminophen (*CRX) 5-325 MG TABLET 1 TAB PO (21:29)
[2025-06-19] VITALS (10 sets, daily range): BP systolic 123–150; BP diastolic 58–62; PULSE 77–90; RESP 16–20; TEMP 36.1–36.6; O2SAT 94–98
[2025-06-19] MEDS: IPRATROPIUM 0.5 MG/ALBUTEROL SULFATE 2.5 MG (BASE) AMPUL.NEB 3 ML INHALATION ×4 (02:32→20:28)
[2025-06-19] MEDS: AMPICILLIN SODIUM/SULBACTAM 3 GM in SODIUM CHLORIDE 0.9% IV 100 ML 200 ML IVPB ×3 (03:09→16:04)
[2025-06-19 05:42] LABS: Hematocrit 31.3 % (42.0-52.0); Hemoglobin 10.1 g/dL (14.0-18.0); Immature Granulocyte Percent A 0.7 % (0-0.5); Lymphocytes Absolute Auto 1.54 K/mm3 (0.9-3.2); Mean Corpuscular HGB Conc 32.3 g/dl (32-36); Mean Corpuscular Hemoglobin 29.7 pg (26-34); Mean Corpuscular Volume 92.1 fl (80-100); Nucleated Red Blood Cells Absolute Auto 0.000 K/mm3 (0.0-0.012); Nucleated Red Blood Cells Perc 0.0 % (0.0-0.2); Platelet Count Result 412 k/mm3 (150-375); Red Blood Count 3.40 M/mm3 (4.6-6.20); White Blood Count 7.5 K/mm3 (4.5-10.0)
[2025-06-19 05:57] LABS: Alanine Aminotransferase 45 U/L (6-50); Albumin Level 3.1 g/dL (3.5-5.1); Alkaline Phosphatase 65 U/L (38-126); Anion Gap 6 mmol/L (4-12); Aspartate Amino Transferase 47 U/L (17-59); Bilirubin,Total 0.4 mg/dL (0.2-1.3); Blood Urea Nitrogen 21 mg/dL (9-20); Calcium 9.6 mg/dL (8.4-10.2); Carbon Dioxide 25 mmol/L (22-30); Chloride 107 mmol/L (98-107); Estimated CRCL calculation 86 ml/min; Estimated Glomerular Filt Rate > 60; Glucose 113 mg/dL (65-110); Potassium 3.8 mmol/L (3.4-5.0); Sodium 138 mmol/L (137-145); Total Protein 6.6 g/dL (6.3-8.2)
[2025-06-19] MEDS: FLUTICASONE/UMECLIDIN/VILANTER 100-62.5-25 MCG ELLIPTA 1 PUFF INHALATION (08:02)
[2025-06-19] MEDS: CALCIUM CARBONATE (TUMS) 500 MG (200 MG ELEMENTAL) 600 MG BY MOUTH (09:23)
[2025-06-19] MEDS: ASPIRIN 81 MG CHEWABLE TABLET PO (09:23)
[2025-06-19] MEDS: OMEGA 3 POLYUNSAT FATTY ACIDS 1 GM CAP 2 GM PO (09:23)
[2025-06-19] MEDS: SIMVASTATIN 20 MG TABLET BY MOUTH (09:23)
[2025-06-19] MEDS: VITAMIN B COMPLEX CAPSULE 1 CAP PO (09:23)
[2025-06-19] MEDS: HYDROcodone/acetaminophen (*CRX) 5-325 MG TABLET 1 TAB PO (09:24)
[2025-06-19] MEDS: ASCORBIC ACID 500 MG TABLET PO (09:24)
[2025-06-19] MEDS: VERAPAMIL HCL 240 MG ER TABLET BY MOUTH (09:24)
[2025-06-19] MEDS: APIXABAN 5 MG TABLET PO ×2 (09:24→21:24)
[2025-06-19] MEDS: THERAPEUTIC MULTIVITAMINS/MINERALS TAB (*BKC) 1 TABLET PO (09:24)
[2025-06-19] MEDS: CHOLECALCIFEROL (VITAMIN D3) 125 MCG (5,000 UNITS) TABLET PO (09:24)
--- NOTE | 2025-06-19 14:11 | P.PNIM_ITS ---
Progress Note: A&P Assessment and Plan (1) Pneumonia: Qualifiers: Pneumonia type: due to unspecified organism Laterality: left Lung location: lower lobe of lung Qualified Code(s): J18.9 - Pneumonia, unspecified organism Code(s): J18.9 - Pneumonia, unspecified organism Status: Acute Assessment and Plan: Patient presented with shortness of breath but no chest pain. EMS noted hypoxia that improved with CPAP. Influenza, RSA and COVID negative. Mycoplasma IgM negative. Lactic 3.9. WBC 11.2K. Temp initially was 96.3 but climbed to 100.7 CXR showing multifocal bilateral airspace disease. Patient received fluid resuscitation and vancomycin, cefepime, azithromycin. DDimer positive -> CTA chest showing aspiration PNA R>L with Near-complete consolidation RLL; Right upper lobe effusion; Focal airspace disease anterior right upper lobe along area of prior small pleural-based nodular focus (consider malignancy). Small airspace disease left lower lobe. BCx negative. UCx negative. Urine Step and Legionella negative. Sputum grew light growth of Jazmin dubliniensis. Vanco once on 06/08; MRSA nasal swab negative Cefepime 06/07 - 06/15. Azithro 06/07-06/11 Bedside swallow evaluation 06/09 was normal. He completed 7 days of IV abx. Still concern for persistent pneumonia. Repeat CXR 06/17 shows persistent bibasilar airspace disease and small right apical component. White count still elevated. Patient with altered mental status. Speech therapy with MBS shows patient requires minced and moist with level 2 thickened liquids. PCT 0.2. Lactic normal. WBC 11.8K. Diet adjusted. Unasyn started 06/17. Continue CPT. Continue bronchodilators. (2) Sepsis: Code(s): A41.9 - Sepsis, unspecified organism Status: Acute Assessment and Plan: Present admission with lactic acidosis, leukocytosis fever. Related to pneumonia As above (3) AMS (altered mental status): Code(s): R41.82 - Altered mental status, unspecified Status: Acute Assessment and Plan: Patient has developed confusion, Drug screen was positive for opiates on chronic narcotic therapy at home. CT the brain showing no acute findings. TSH okay in February. B12/folate normal here. Urine culture repeated and remained negative. Consider related to either underlying dementia and/or recurrent pneumonia. Some improvement. As above. Continue to follow (4) Elevated troponin: Code(s): R79.89 - Other specified abnormal findings of blood chemistry Status: Acute Assessment and Plan: Mildly elevated troponin remained flat at 0.048 [place] [address] but not felt related to CHF Echo showing moderate concentric LVH with EF of 65-70%, biatrial enlargement, moderate-severe and atrial fibrillation. Diastolic dysfunction is indeterminate. Cardiology following. [place] elevated troponins related to type 2 [place] from sepsis. Continue ASA, Zocor. (5) Atrial fibrillation: Code(s): I48.91 - Unspecified atrial fibrillation Status: Acute Assessment and Plan: EKG on admission shows sinus rhythm with PACs and right bundle branch block. EKG on 06/08/2025 showing AFib with RVR rate of 104, indeterminate axis and right bundle branch block. Cardiology consulted. Eliquis started. (6) COPD (chronic obstructive pulmonary disease): Qualifiers: COPD type: unspecified COPD Qualified Code(s): J44.9 - Chronic obstructive pulmonary disease, unspecified Code(s): J44.9 - Chronic obstructive pulmonary disease, unspecified Status: Acute Assessment and Plan: ABG on admission showing 7.46/28/100 on 100% FiO2. Weaned to room air. He remains on room air. Continue bronchodilators. Continue Trelegy. (7) Pulmonary nodules: Code(s): R91.8 - Other nonspecific abnormal finding of lung field Status: Acute Assessment and Plan: CTA chest showing a Right upper lobe effusion and focal airspace disease anterior right upper lobe along area of prior small pleural-based nodular focus. Consider malignancy. Plan to repeat imaging short interval after hospitalization (8) Moderate aortic stenosis: Code(s): I35.0 - Nonrheumatic aortic (valve) stenosis Status: Acute Assessment and Plan: Echo with moderate-severe aortic stenosis. This is a known finding without significant change. Cardiology follow-up patient outpatient. Plan CKD stage 3 slight bump in creatinine which is stable now. will continue to monitor DVT prophylaxis Eliquis Code status full code Disposition: Plan for [facility] or SNF placement Subjective Date/time seen: 06/19/25 14:11 Interval history: 84yo male PVD, COPD, DM and HTN here for SOB. Slept okay. No CP. More oriented today. Exam Narrative: AF 96.9 127/60 90 16 98% ra Gen - NARD Chest - few basilar L>R crackles. CV - IRR with 2/6 systolic murmur Abd - Soft, obese, NT Ext - trace pedal edema Neuro - Alert and oriented x3 (not [place]). Speech clear. Psych - Nml mood and affect. remains calm Skin - Warm and dry Objective Data Vital Signs Vital Signs: Vital Signs - 24 hr 06/18/25 20:38 06/18/25 21:43 06/18/25 21:46 Temperature 97.2 F L Pulse Rate 78 84 Respiratory Rate 18 20 Blood Pressure 116/91 H Pulse Oximetry 95 92 Oxygen Delivery Room Air Fraction of Inspired Oxygen 06/18/25 21:51 06/19/25 02:32 06/19/25 05:45 Temperature 97.2 F L Pulse Rate 81 77 82 Respiratory Rate 20 20 16 Blood Pressure 150/62 H Pulse Oximetry 94 Oxygen Delivery Fraction of Inspired Oxygen 06/19/25 08:00 06/19/25 08:04 06/19/25 08:04 Temperature Pulse Rate 90 Respiratory Rate 16 Blood Pressure Pulse Oximetry 94 Oxygen Delivery Room Air Room Air Fraction of Inspired Oxygen 06/19/25 08:11 06/19/25 13:17 06/19/25 13:26 Temperature Pulse Rate 88 84 84 Respiratory Rate 16 16 16 Blood Pressure Pulse Oximetry Oxygen Delivery Fraction of Inspired Oxygen 06/19/25 13:56 Temperature 96.9 F L Pulse Rate 90 Respiratory Rate 16 Blood Pressure 127/60 Pulse Oximetry 98 Oxygen Delivery Fraction of Inspired Oxygen Intake/Output Intake/Output: Intake & Output 06/16/25 06/17/25 06/18/25 06/19/25 23:59 23:59 23:59 23:59 Intake Total 1478 1164 1356 1030 Output Total 900 650 375 Balance 578 353 325 2621 Meds/Results Medications: Active Medications Generic Name Dose Route Start Last Admin Trade Name Freq PRN Reason Stop Dose Admin Acetaminophen 650 mg 06/08/25 02:34 Acetaminophen 325 Mg Tablet PO Q4H PRN Mild Pain (1-3) or Fever Hydrocodone Bitart/Acetaminophen 1 tab 06/08/25 16:23 06/15/25 00:10 Hydrocodone/Acetaminophen (*Crx) 10-325 Mg Tablet PO 1 tab On Hold: 06/15/25 21:43 Q8H PRN Administration Pain Hydrocodone Bitart/Acetaminophen 1 tab 06/15/25 21:42 06/19/25 09:24 Hydrocodone/Acetaminophen (*Crx) 5-325 Mg Tablet PO 1 tab Q6H PRN Administration Pain Rated 6 or Greater Albuterol 1 puff 06/08/25 16:23 06/12/25 21:42 Albuterol Sulfate (*Sp) Aerosol 1 Puff INHALATION 1 puff Q4H PRN Administration Shortness Of Breath Or Wheezing Albuterol/Ipratropium 3 ml 06/13/25 14:00 06/19/25 13:17 Ipratropium 0.5 Mg/Albuterol Sulfate 2.5 Mg (Base) Ampul.Neb 3 Ml INHALATION 3 ml Q6HRT JOSE C Administration Apixaban 5 mg 06/11/25 21:00 06/19/25 09:24 Apixaban 5 Mg Tablet PO 5 mg Q12HR JOSE C Administration Ascorbic Acid 500 mg 06/09/25 09:00 06/19/25 09:24 Ascorbic Acid 500 Mg Tablet PO 500 mg DAILY JOSE C Administration Aspirin 81 mg 06/09/25 09:00 06/19/25 09:23 Aspirin 81 Mg Chewable Tablet PO 81 mg DAILY JOSE C Administration Calcium Carbonate 600 mg 06/09/25 09:00 06/19/25 09:23 Calcium Carbonate (Tums) 500 Mg (200 Mg Elemental) BY MOUTH 600 mg DAILY JOSE C Administration Cilostazol 100 mg 06/08/25 17:00 06/19/25 09:23 Cilostazol 100 Mg Tablet BY MOUTH 100 mg BIDWM JOSE C Administration Dextrose 12.5 gm 06/09/25 10:16 Dextrose 50% 25 Gm/50 Ml Syringe IV PUSH PRN PRN Hypoglycemia Protocol Fish Oil 2 gm 06/09/25 09:00 06/19/25 09:23 [place] 3 Polyunsat Fatty Acids 1 Gm Cap PO 2 gm DAILY JOSE C Administration Fluticasone/Umeclidinium/Vilanterol 1 puff 06/09/25 09:00 06/19/25 08:02 Fluticasone/Umeclidin/Vilanter 100-62.5-25 Mcg Ellipta INHALATION 1 puff DAILY JOSE C Administration Glucagon 1 mg 06/09/25 10:16 Glucagon For Inj 1 Mg Vial IM PRN PRN Hypoglycemia Protocol Glucose 15 gm 06/09/25 10:16 Glucose Oral Gel 15 Gm Of Glucse In 37.5 Gm Tube PO PRN PRN Hypoglycemia Protocol Dextrose 1,000 mls @ 100 mls/hr 06/09/25 10:16 Dextrose 5% 1,000 Ml IVPB PRN PRN Hypoglycemia Protocol Ampicillin Sodium/Sulbactam 100 mls @ 200 mls/hr 06/17/25 16:00 06/19/25 09:55 Sodium 3 gm/ Sodium Chloride IVPB Infused Q6H JOSE C Infusion Insulin Aspart 2 - 5 units 06/09/25 12:00 06/19/25 12:46 Insulin Aspart (*Bkc) 100 Units/Ml SUB-Q Not Given TIDWM JOSE C Protocol Multivitamins/Calcium 1 tablet 06/09/25 09:00 06/19/25 09:24 Therapeutic Multivitamins/Minerals Tab (*Bkc) PO 1 tablet DAILY JOSE C Administration Polyethylene Glycol 17 gm 06/16/25 15:00 06/19/25 09:25 Polyethylene Glycol 3350 17 Gm Powd.Pack PO 17 gm QAM JOSE C Administration Simvastatin 20 mg 06/08/25 16:25 06/19/25 09:23 Simvastatin 20 Mg Tablet BY MOUTH 20 mg DAILY JOSE C Administration Verapamil HCl 240 mg 06/09/25 09:00 06/19/25 09:24 Verapamil Hcl 240 Mg Er Tablet BY MOUTH 240 mg DAILY JOSE C Administration Vitamin B Complex 1 cap 06/09/25 09:00 06/19/25 09:23 Vitamin B Complex Capsule PO 1 cap DAILY JOSE C Administration Vitamin D 125 mcg 06/09/25 09:00 06/19/25 09:24 Cholecalciferol (Vitamin D3) 125 Mcg (5,000 Units) Tablet PO 125 mcg DAILY JOSE C Administration Radiology Results: ITS Impressions Chest CTA 06/08/25 06:10 IMPRESSION: 1. Aspiration pneumonia, right lung much worse. 2. Focal airspace disease right upper lobe, along area of prior small pleural- based nodular focus. Malignancy not excluded. Recommend short interval follow-up CT chest. 3. Right upper lobe pleural effusion. 4. No PE. Head CT 06/16/25 18:32 IMPRESSION: 1. No acute findings in the limited noncontrast CT head. Chest X-Ray 06/17/25 11:00 IMPRESSION: 1. No significant change for over one week now. 2. Bilateral aspiration pneumonia, right lung worse. Modified Barium Swallow 06/17/25 14:11 IMPRESSION: No aspiration observed. See also speech therapist's report for complete evaluation. Labs Labs: Laboratory Results - last 24 hr 06/18/25 06/18/25 06/18/25 05:12 16:40 20:05 WBC RBC Hgb Hct MCV MCH MCHC RDW Plt Count MPV Immature Gran % (Auto) Neut % (Auto) Lymph % (Auto) [place] % (Auto) Eos % (Auto) Baso % (Auto) Lymph # (Auto) [place] # (Auto) Eos # (Auto) Baso # (Auto) Abs Immat Gran (auto) Absolute Neuts (auto) Absolute Nucleated RBC Nucleated RBC % Sodium Potassium Chloride Carbon Dioxide Anion Gap BUN Creatinine Estim Creat Clear Calc Estimated GFR Glucose POC Capillary Glucose 155 H 127 H Calcium Total Bilirubin AST ALT Alkaline Phosphatase Total Protein Albumin Vitamin B12 646.0 Vitamin D 25-Hydroxy 55.2 Folate > 20.0 H 06/19/25 06/19/25 06/19/25 05:14 07:59 11:14 WBC 7.5 RBC 3.40 L Hgb 10.1 L Hct 31.3 L MCV 92.1 MCH 29.7 MCHC 32.3 RDW 13.9 Plt Count 412 H MPV 8.7 Immature Gran % (Auto) 0.7 H Neut % (Auto) 64.8 Lymph % (Auto) 20.4 [place] % (Auto) 9.9 H Eos % (Auto) 3.3 Baso % (Auto) 0.9 Lymph # (Auto) 1.54 [place] # (Auto) 0.8 H Eos # (Auto) 0.3 Baso # (Auto) 0.1 Abs Immat Gran (auto) 0.05 H Absolute Neuts (auto) 4.9 Absolute Nucleated RBC 0.000 Nucleated RBC % 0.0 Sodium 138 Potassium 3.8 Chloride 107 Carbon Dioxide 25 Anion Gap 6 BUN 21 H Creatinine 0.79 Estim Creat Clear Calc 86 Estimated GFR > 60 Glucose 113 H POC Capillary Glucose 129 H 150 H Calcium 9.6 Total Bilirubin 0.4 AST 47 ALT 45 Alkaline Phosphatase 65 Total Protein 6.6 Albumin 3.1 L Vitamin B12 Vitamin D 25-Hydroxy Folate
[2025-06-19] MEDS: AMPICILLIN SODIUM/SULBACTAM 3 GM in SODIUM CHLORIDE 0.9% IV 100 ML IVPB (21:24)
[2025-06-20] VITALS (8 sets, daily range): BP systolic 124–164; BP diastolic 74–87; PULSE 83–89; RESP 16–20; TEMP 36.6–36.7; O2SAT 94–95
[2025-06-20] MEDS: IPRATROPIUM 0.5 MG/ALBUTEROL SULFATE 2.5 MG (BASE) AMPUL.NEB 3 ML INHALATION ×3 (01:58→13:10)
[2025-06-20] MEDS: AMPICILLIN SODIUM/SULBACTAM 3 GM in SODIUM CHLORIDE 0.9% IV 100 ML 200 ML IVPB ×2 (05:03→10:02)
[2025-06-20] MEDS: FLUTICASONE/UMECLIDIN/VILANTER 100-62.5-25 MCG ELLIPTA 1 PUFF INHALATION (07:23)
[2025-06-20] MEDS: APIXABAN 5 MG TABLET PO (09:56)
[2025-06-20] MEDS: OMEGA 3 POLYUNSAT FATTY ACIDS 1 GM CAP 2 GM PO (09:56)
[2025-06-20] MEDS: THERAPEUTIC MULTIVITAMINS/MINERALS TAB (*BKC) 1 TABLET PO (09:56)
[2025-06-20] MEDS: ASCORBIC ACID 500 MG TABLET PO (09:56)
[2025-06-20] MEDS: VITAMIN B COMPLEX CAPSULE 1 CAP PO (09:56)
[2025-06-20] MEDS: ASPIRIN 81 MG CHEWABLE TABLET PO (09:57)
[2025-06-20] MEDS: CHOLECALCIFEROL (VITAMIN D3) 125 MCG (5,000 UNITS) TABLET PO (09:57)
[2025-06-20] MEDS: VERAPAMIL HCL 240 MG ER TABLET BY MOUTH (09:57)
[2025-06-20] MEDS: CALCIUM CARBONATE (TUMS) 500 MG (200 MG ELEMENTAL) 600 MG BY MOUTH (09:57)
[2025-06-20] MEDS: SIMVASTATIN 20 MG TABLET BY MOUTH (09:57)
--- NOTE | 2025-06-20 14:18 | PM.DS ---
DS: Admitting Diagnosis Discharge Date 06/20/25 Admitting Diagnosis Shortness of breath DS: Discharge Diagnosis Discharge Diagnosis (1) Pneumonia: Qualifiers: Pneumonia type: due to unspecified organism Laterality: left Lung location: lower lobe of lung Qualified Code(s): J18.9 - Pneumonia, unspecified organism Code(s): J18.9 - Pneumonia, unspecified organism Status: Acute (2) Sepsis: Code(s): A41.9 - Sepsis, unspecified organism Status: Acute (3) AMS (altered mental status): Code(s): R41.82 - Altered mental status, unspecified Status: Acute (4) Elevated troponin: Code(s): R79.89 - Other specified abnormal findings of blood chemistry Status: Acute (5) Atrial fibrillation: Code(s): I48.91 - Unspecified atrial fibrillation Status: Acute (6) COPD (chronic obstructive pulmonary disease): Qualifiers: COPD type: unspecified COPD Qualified Code(s): J44.9 - Chronic obstructive pulmonary disease, unspecified Code(s): J44.9 - Chronic obstructive pulmonary disease, unspecified Status: Acute (7) Pulmonary nodules: Code(s): R91.8 - Other nonspecific abnormal finding of lung field Status: Acute (8) Moderate aortic stenosis: Code(s): I35.0 - Nonrheumatic aortic (valve) stenosis Status: Acute DS: Summary Hospital Course Reason for hospitalization: 84yo male PVD, COPD, DM and HTN here for SOB. Please see H&P for details. Hospital Course: Following medical problems were addressed during his hospital course: (1) Pneumonia: Patient presented with shortness of breath but no chest pain. EMS noted hypoxia that improved with CPAP. Influenza, RSA and COVID negative. Mycoplasma IgM negative. Lactic 3.9. WBC 11.2K. Temp initially was 96.3 but climbed to 100.7. CXR showing multifocal bilateral airspace disease. Patient received fluid resuscitation and vancomycin, cefepime, azithromycin. DDimer positive -> CTA chest showing aspiration PNA R>L with Near-complete consolidation RLL; Right upper lobe effusion; Focal airspace disease anterior right upper lobe along area of prior small pleural-based nodular focus (consider malignancy). Small airspace disease left lower lobe. BCx negative. UCx negative. Urine Step and Legionella negative. Sputum grew light growth of Jazmin dubliniensis. Vanco once on 06/08; MRSA nasal swab negative. Cefepime 06/07 - 06/15. Azithro 06/07-06/11. Bedside swallow evaluation 06/09 was normal. He completed 7 days of IV abx. Still concern for persistent pneumonia. Repeat CXR 06/17 shows persistent bibasilar airspace disease and small right apical component. White count still elevated. Patient with altered mental status. Speech therapy with MBS shows patient requires minced and moist with level 2 thickened liquids. PCT 0.2. Lactic normal. WBC 11.8K. Diet adjusted. Unasyn started 06/17. Mental status improved. (2) Sepsis: Present admission with lactic acidosis, leukocytosis fever. Related to pneumonia (3) AMS (altered mental status): Patient developed confusion. Drug screen was positive on admission for opiates but he is on chronic narcotic therapy at home. CT the brain showing no acute findings. TSH okay in February. B12/folate normal here. Urine culture repeated and remained negative. Consider related to either underlying dementia and/or recurrent pneumonia. He has clinical improvement with treatment on PNA. feels patient is close to baseline. (4) Elevated troponin: Mildly elevated troponin remained flat at 0.048[place] [address] but not felt related to CHF. Echo showing moderate concentric LVH with EF of 65-70%, biatrial enlargement, moderate-severe and atrial fibrillation. Diastolic dysfunction is indeterminate. Cardiology following. [place] elevated troponins related to type 2 [place] from sepsis. We continued ASA, Zocor. (5) Atrial fibrillation: EKG on admission shows sinus rhythm with PACs and right bundle branch block. EKG on 06/08/2025 showing AFib with RVR rate of 104, indeterminate axis and right bundle branch block. Echo as above. Cardiology consulted. Eliquis started. (6) COPD (chronic obstructive pulmonary disease): ABG on admission showing 7.46/28/100 on 100% FiO2. Weaned to room air. He has remained on room air. We continued his Trelegy. (7) Pulmonary nodules: CTA chest showing a right upper lobe effusion and focal airspace disease anterior right upper lobe along area of prior small pleural-based nodular focus. Consider malignancy. Plan to repeat imaging short interval after hospitalization (8) Moderate aortic stenosis: Echo with moderate-severe aortic stenosis. This is a known finding without significant change. Cardiology will follow-up patient as outpatient. The patient overall did well and was able to be discharged 06/20/25. Discharge instructions discussed including medication side effects and all questions answered. Status at Discharge Cognitive/behavioral status at discharge: stable Time Spent with Patient Time attestation: Total time spent providing and/or coordinating discharge services: 38 minutes Time spent: Greater than 30 minutes Exam Narrative: AF 97.9 124/74 84 17 94% ra Gen - NARD Chest -scattered inspiratory rhonchi otherwise clear. CV - IRR with 2/6 systolic murmur Abd - Soft, obese, NT Ext - trace pedal edema Neuro - Alert and appropriate. Speech clear. Psych - Nml mood and affect. Skin - Warm and dry DS: Data Data Completed and Pending Labs on day of discharge: Labs from last 24 hours 06/20/25 06/20/25 06/19/25 11:19 07:27 19:41 POC Capillary Glucose 112 H 115 H 134 H 06/19/25 16:12 POC Capillary Glucose 141 H Preliminary micro results at discharge 06/18/25 12:31 Sputum Culture - Preliminary Sputum Discharge Plan Discharge Attending physician on discharge: Severo Herrera Consulting providers: Mario Neumann; Miguel Mitchell Discharging Clinician: Severo Herrera Anticipated Discharge Date/Time: 06/20/25 14:30 Patient Disposition: [facility] Activity: as tolerated Diet: heart healthy, diabetic and other - see discharge instructions Discharge Instructions: Minced and moist, Level 5 diabetic and heart healthy diet. Level 2 thickened liquids Upright to eat with meals, frequent observation Speech, PT and OT to evaluate and treat Please check glucose before meals and before bed. Record for the doctor's review. Check blood pressure 1 to 2 times a day. Record for the doctor's review. Take precautions to avoid falls. Rise slowly from a lying or sitting position. Pause before standing or walking. Contact the doctor if the patient has lightheadedness with standing or other worrisome symptoms. Avoid NSAIDs (ibuprofen, naproxen, Aleve). Tylenol is safe to take. Follow-up with the provider at the facility. Follow-up with Cardiology in 3-4 weeks. Please call for an appointment Thank you for using [facility] for your health care needs. Patient Instructions: Antibiotic Form, Heart Failure (GEN) Patient Language: Uzbek Follow-up/Referrals: Mario Neumann MD [Physician, Cardiology] - Call for Appointment Nelson Tapia MD [Primary Care Provider, Internal Medicine] - Call for Appointment Discharge Medications: New polyethylene glycol 3350 [Miralax] 17 gram Powder In Packet 17 g PO QAM Qty: 30 0RF Eliquis 5 mg Tablet 5 mg PO Q12HR Qty: 60 0RF amoxicillin-pot clavulanate 875-125 mg tablet 1 tablet PO Q12H 4 Days Qty: 8 0RF tamsulosin [Flomax] 0.4 mg capsule 0.4 mg PO HS Qty: 30 0RF Continued omega-3 fatty acids [Fish Oil Concentrate] 1,000 mg capsule 2,000 mg PO DAILY aspirin 81 mg tablet,chewable 81 mg PO DAILY ascorbate calcium (vitamin C) 500 mg tablet 500 mg PO DAILY calcium carbonate [Calcium 600] 600 mg calcium (1,500 mg) tablet 600 mg PO DAILY cholecalciferol (vitamin D3) 125 mcg (5,000 unit) capsule 125 mcg PO DAILY One-A-Day Men's 50 Plus(vit K) 400-20-370 mcg tablet 1 tablet PO DAILY vitamin B complex Tablet 1 tablet PO DAILY Trelegy Ellipta 100-62.5-25 mcg blister with device 1 inh INHALATION DAILY 30 Days Qty: 60 6RF simvastatin 20 mg tablet See Rx Instructions .ROUTE .COMPLEX Qty: 90 1RF Dose Instruction: TAKE 1 TABLET BY MOUTH DAILY Rx Instructions: TAKE 1 TABLET BY MOUTH DAILY cilostazol 100 mg tablet See Rx Instructions .ROUTE .COMPLEX Qty: 90 1RF Dose Instruction: TAKE 1 TABLET BY MOUTH TWICE DAILY Rx Instructions: TAKE 1 TABLET BY MOUTH TWICE DAILY albuterol sulfate 90 mcg/actuation HFA aerosol inhaler 1 puff inhalation Q4H PRN (Reason: shortness of breath or wheezing) Qty: 8.5 3RF verapamil 240 mg tablet extended release See Rx Instructions .ROUTE .COMPLEX Qty: 90 0RF Dose Instruction: TAKE 1 TABLET BY MOUTH DAILY Rx Instructions: TAKE 1 TABLET BY MOUTH DAILY Held hydrochlorothiazide 12.5 mg tablet See Rx Instructions .ROUTE .COMPLEX Qty: 30 4RF Hold Instructions: HOLD - Resume when okay with your doctor Dose Instruction: TAKE 1 TABLET BY MOUTH DAILY Rx Instructions: TAKE 1 TABLET BY MOUTH DAILY enalapril maleate 20 mg tablet See Rx Instructions .ROUTE .COMPLEX Qty: 180 0RF Hold Instructions: HOLD - resume when okay with your doctor Dose Instruction: TAKE 1 TABLET BY MOUTH TWICE DAILY Rx Instructions: TAKE 1 TABLET BY MOUTH TWICE DAILY metformin 500 mg tablet See Rx Instructions .ROUTE .COMPLEX Qty: 270 0RF Hold Instructions: HOLD - Resume when okay with your doctor Dose Instruction: TAKE 1 TABLET BY MOUTH EVERY MORNING AND 2 TABLETS EVERY EVENING Rx Instructions: TAKE 1 TABLET BY MOUTH EVERY MORNING AND 2 TABLETS EVERY EVENING Discontinued prevagen 10 mg BYMOUTH DAILY lions yennifer 1 mg BYMOUTH 1XD Qty: 90 0RF Rx Instructions: Supplement. tamsulosin 0.4 mg capsule See Rx Instructions .ROUTE .COMPLEX Qty: 180 0RF Dose Instruction: TAKE 2 CAPSULES BY MOUTH DAILY Rx Instructions: TAKE 2 CAPSULES BY MOUTH DAILY hydrocodone-acetaminophen 10-325 mg tablet 1 tablet PO Q8H PRN (Reason: pain) Qty: 90 0RF Other Ambulatory Orders: CT diagnostic chest w con (Routine) Timeframe: 2 Months Location: Determined by Patient Ordered By: Severo Herrera Date of admission: 06/08/25 16:37 Primary Care Provider: Nelson Tapia Admitting Provider: Polina Connelly Attending physician on admission: Polina Connelly Condition: Stable Hospitalist MIPS Heart Failure (Exclusion) Patient has history of Heart Transplant or Left Ventricular Assistive Device?: No IF YES, STOP HERE Heart Failure (Qualifier) Patient has current or prior documentation of LVEF less than or equal to 40%, or mod/servere depressed LVSF?: No IF NO, STOP HERE
== END 2025-06-20 17:20 | DRG 871 ==
LOC: ANHED 06-08 01:28 → ANHIMU 06-08 03:01 → ANH3MEDSUR 06-14 22:23
PROVIDERS: Family Medicine; General Practice; Internal Medicine; Psychiatry & Neurology Neurology; Admitting Provider Internal Medicine; Emergency Provider Student in an Organized Health Care Education/Training Program; PCP Internal Medicine; Visit Provider Internal Medicine
DX: A41.9 Sepsis, unspecified organism (principal); I21.A1 Myocardial infarction type 2; I50.33 Acute on chronic diastolic (congestive) heart failure; J18.9 Pneumonia, unspecified organism; J69.0 Pneumonitis due to inhalation of food and vomit; J44.0 Chronic obstructive pulmonary disease with (acute) lower respiratory infection; I13.0 Hypertensive heart and chronic kidney disease with heart failure and stage 1 through stage 4 chronic kidney disease, or unspecified chronic kidney disease; N18.30 Chronic kidney disease, stage 3 unspecified; I48.0 Paroxysmal atrial fibrillation; I35.0 Nonrheumatic aortic (valve) stenosis; I95.9 Hypotension, unspecified; E11.22 Type 2 diabetes mellitus with diabetic chronic kidney disease; E11.51 Type 2 diabetes mellitus with diabetic peripheral angiopathy without gangrene; E55.9 Vitamin D deficiency, unspecified; E78.5 Hyperlipidemia, unspecified; E04.1 Nontoxic single thyroid nodule; N40.0 Benign prostatic hyperplasia without lower urinary tract symptoms; M15.9 Polyosteoarthritis, unspecified; M79.606 Pain in leg, unspecified; M54.50 Low back pain, unspecified; G89.29 Other chronic pain; G25.81 Restless legs syndrome; Z20.822 Contact with and (suspected) exposure to COVID-19; Z87.891 Personal history of nicotine dependence; Z79.82 Long term (current) use of aspirin; Z79.891 Long term (current) use of opiate analgesic
CPT/HCPCS: 36415; 36600; 70450; 71045; 71275; 74230; 80048; 80053; 80069; 80307; 81001; 82306; 82565; 82607; 82746; 82805; 82948; 83605; 83690; 83735; 83880; 83921; 84100; 84145; 84484; 85018; 85025; 85027; 85380; 85610; 85730; 86140; 86738; 87040; 87070; 87086; 87205; 87449; 87637; 87641; 87899; 92526; 92610; 92611; 93005; 94002; 94003; 94640; 94668; 96365; 96366; 96367; 96368; 96375; 97110; 97116; 97162; 97166; 97530; 97535; 99291; A9270; C8929; G0378; J0295; J0456; J0616; J0692; J1650; J1836; J1938; J3373; J7030; J7040; J7050; Q9957; Q9967